=== PATIENT | female | born 1930 | race Caucasian/White ===

== ENCOUNTER 2016-04-29 13:35 | Emergency (ER) | payer OTHER ==
[~2016-04-29] VITALS: Ht 152.4 cm; Wt 76.0 kg
[~2016-04-29 13:35] MED LIST: ASPI81TA82 PO; CHOL100010 PO; CLOP1TAB15 PO; DICY1TAB25 PO; GLUC10007 PO; MAGN400T6 PO; MISCCAP80 PO; NITR0.4S UT; NRV5 PO; OMEG10007 PO; PANT40TA PO; PRED-301 PO; TNR25 PO; TRAV0.00 OPB
[2016-04-29 13:47] VITALS: TEMP 36.8; Ht 152.4 cm; Wt 76.0 kg
[2016-04-29] MEDS ORDERED: LOVA10TA3 PO (14:15)
[2016-04-29 14:23] LABS: BASO % 0.3 %; BASO ABS # 0.03 K/uL (0-0.2); COMPLETE YES; EOS % 1.3 %; HEMATOCRIT 43.6 % (37-47); IG% 0.2 %; LYMPH % 8.7 %; LYMPH ABS # 0.82 K/uL (1.2-3.4); MEAN CELL VOLUME 91.8 fL (80-100); MEAN CORPUSCULAR HEMOGLOBIN 30.3 pg (25-34); MEAN PLATELET VOLUME 10.5 fL (7.4-10.4); NEUT % 84.5 %; PLATELET COUNT 189 K/uL (130-400); RED BLOOD COUNT 4.75 M/uL (4.2-5.4); WHITE BLOOD COUNT 9.39 K/uL (4.8-10.8)
[2016-04-29 14:28] LABS: ALT/SGPT 15 U/L (12-78); BLOOD UREA NITROGEN 21 mg/dl (7-18); BUN/CREATININE RATIO 16.2 (10-20); CALCIUM 9.4 mg/dl (8.5-10.1); CARBON DIOXIDE 29 mmol/L (21-32); CHLORIDE 100 mmol/L (98-107); GLUCOSE 139 mg/dl (70-99); POTASSIUM 4.3 mmol/L (3.5-5.1); SODIUM 140 mmol/L (136-145)
[2016-04-29 14:31] LABS: ALB/GLOB RATIO 1.1 (0.9-2); ALKALINE PHOSPHATASE 64 U/L (45-117); AST/SGOT 16 U/L (15-37)
[2016-04-29] MEDS ORDERED: OPTIRAY 320 IV PRN (15:45)
[2016-04-29 15:50] VITALS: O2SAT 99
--- NOTE | 2016-04-29 16:07 | EMERGENCY ROOM VISIT NOTE ---
History Report prepared by Chasity: Dorota Sood Under the Supervision of: Dr. Maurilio Duenas M.D. First contact with patient: 15:30 Chief Complaint: ABDOMINAL PAIN Stated Complaint: ABDOMINAL PAIN Nursing Triage Summary: pt. arrived als, sent by doctors office, right upper abdominal pain, hx of PE, her pcp concerned she may have another, pt. states it feels just like before I got my gal bladder out, sharp pinching pain History of Present Illness The patient is a 85 year old female who presents to the Emergency Room with complaints of constant right upper quadrant abdominal pain that started earlier today. She came to the ED via ambulance from her PCP. She describes the pain as soreness and she states that the pain becomes sharp with movement. She is also experiencing sinus congestion and abdominal distention, but denies fevers, chills, shortness of breath, back pain, and any pain in her lower extremities. She has oxygen at home, but she states that she does not use it. The patient denies doing anything strenuous recently, but she states that she has to climb to get into her car because it is pretty high. She has a history of a cholecystectomy and an appendectomy. The patient was at her PCP earlier today when they sent her to the ED to rule out a pulmonary embolism. The patient has a history of blood clots. She is on Plavix and aspirin. She adds that she was constipated a couple days ago, but she was able to relieve it with a laxative. She has experienced multiple bowel movements since then. Source of History: patient Onset: earlier today Position: abdomen (RUQ) Quality: sharp (with movement), other (soreness) Timing: constant Modifying Factors (Worsening): movement Associated Symptoms: No SOB, No back pain, No chills, No fevers Note: no pain in her lower extremities Review of Systems All systems have been listed, reviewed, and are negative other than those previously mentioned. Please see Additional Medical History Sheet. Past Medical & Surgical Medical Problems: (1) Carotid arterial disease (2) Cerebrovascular disease (3) Chest pain (4) Chronic steroid use (5) CKD (chronic kidney disease), stage III (6) Coronary artery disease (7) Dyslipidemia (8) Glaucoma (9) Hiatal hernia (10) History of DVT (deep vein thrombosis) (11) History of pulmonary embolism (12) Hypertension (13) Osteoporosis (14) Polymyalgia rheumatica (15) Pre-diabetes (16) TIA (transient ischemic attack) Surgical Problems: (1) H/O dilation and curettage (2) S/P appendectomy (3) S/P laparoscopic cholecystectomy (4) S/P tubal ligation Family History Diabetes mellitus FHx: heart disease Social History Smoking Status: Former Smoker Alcohol Use: none Marital Status: Housing Status: lives alone Occupation Status: unemployed Current/Historical Medications Scheduled Amlodipine Besylate (Amlodipine Besylate), 5 MG PO DAILY Aspirin (Aspirin), 81 MG PO HS Atenolol (Atenolol), 0.5 TAB PO DAILY Cholecalciferol (Vitamin D), 1,000 INTER.UNIT PO DAILY Clopidogrel (Plavix), 75 MG PO DAILY Dicyclomine HCl (Dicyclomine HCl), 20 MG PO BID Fish Oil ([place]-3), 1 CAP PO DAILY Glucosamine Sulfate (Glucosamine), 1,000 MG PO QPM Lovastatin (Mevacor), Unknown Dose PO DAILY Magnesium Oxide (Mag-Ox), 400 MG PO BID Nitroglycerin (Nitrostat), 0.4 MG UT PRN Pantoprazole (Protonix), 40 MG PO BID Prednisone (Prednisone), 5 MG PO QAM Probiotic Product (Probiotic), 1 CAP PO DAILY Travoprost (Travatan Z), 1 FERNANDO OPB HS Allergies Coded Allergies: Atorvastatin (Verified Allergy, Severe, AFFECTS LIVER, 04/29/16) Lisinopril (Verified Allergy, Severe, AFFECTS LIVER ENZYMES, 04/29/16) Amoxicillin (Verified Allergy, Unknown, RASH,HIVES, 04/29/16) Cefaclor (Verified Allergy, Unknown, RASH, HIVES, 04/29/16) Levofloxacin (Verified Allergy, Unknown, hives, 04/29/16) Omeprazole (Verified Allergy, Unknown, blurred vision, headache, flashing lights, 04/29/16) Citalopram (Verified Adverse Reaction, Intermediate, "WILD DREAMS", ) Physical Exam Vital Signs Date Time Temp Pulse Resp B/P Pulse Ox O2 Delivery O2 Flow Rate FiO2 04/29/16 18:28 71 17 178/73 99 04/29/16 17:46 75 20 178/73 Room Air 04/29/16 17:43 58 04/29/16 15:51 65 18 187/87 99 Room Air 2.0 04/29/16 15:50 99 Room Air 04/29/16 15:50 65 18 187/87 99 Room Air 04/29/16 15:50 99 Room Air 04/29/16 14:32 53 16 88/68 98 Nasal Cannula 2.0 04/29/16 13:47 36.8 53 20 159/85 90 Room Air Physical Exam GENERAL: Patient awake, alert, oriented x 3. Patient follows commands. Patient does not appear toxic. Patient is adequately hydrated and well- nourished. SKIN: No erythema, pallor, cyanosis or rash HEENT: Normal head, pupils equal, reactive to light and accommodation. Oral cavity and posterior pharynx appear normal. Neck: Without adenopathy, no neck vein distention. LUNGS: Clear to auscultation. No wheezes, no rales, no rhonchi. Pain in right anterior chest with inspiration. HEART: No murmurs. No gallops. No rubs ABDOMEN: Tenderness in right upper quadrant, pain is also reproduced with any movement. Remainder of abdomen is benign. No masses, no rebound, no hepatomegaly or splenomegaly. EXTREMITIES: Ankle brace on left ankle. No pedal or pretibial edema. No calf or thigh tenderness. NEUROLOGIC: Cranial nerves II-XII within normal limits. No gross motor sensory function deficits. Medical Decision & Procedures ER Provider Diagnostic Interpretation: CT results are interpretations by the radiologist and per my review. CHEST CTA for PULMONARY ARTERIES IMPRESSION: 1. No evidence for pulmonary embolus. 2. Stable dilatation the main pulmonary artery consistent with arterial hypertension. 3. Cardiomegaly, unchanged. Electronically signed by: Dk Mary M.D. 04/29/2016 4:25 PM Dictated Date/Time: 04/29/2016 4:09 PM Laboratory Results 04/29/16 13:30 Red Blood Count 4.75, Mean Corpuscular Volume 91.8, Mean Corpuscular Hemoglobin 30.3, Mean Corpuscular Hemoglobin Concent 33.0, Mean Platelet Volume 10.5, Neutrophils (%) (Auto) 84.5, Lymphocytes (%) (Auto) 8.7, Monocytes (%) (Auto) 5.0, Eosinophils (%) (Auto) 1.3, Basophils (%) (Auto) 0.3, Neutrophils # (Auto) 7.93, Lymphocytes # (Auto) 0.82, Monocytes # (Auto) 0.47, Eosinophils # (Auto) 0.12, Basophils # (Auto) 0.03 04/29/16 13:30 Test 04/29/16 13:30 04/29/16 16:45 White Blood Count 9.39 K/uL (4.8-10.8) Red Blood Count 4.75 M/uL (4.2-5.4) Hemoglobin 14.4 g/dL (12.0-16.0) Hematocrit 43.6 % (37-47) Mean Corpuscular Volume 91.8 fL (80-100) Mean Corpuscular Hemoglobin 30.3 pg (25-34) Mean Corpuscular Hemoglobin Concent 33.0 g/dl (32-36) Platelet Count 189 K/uL (130-400) Mean Platelet Volume 10.5 fL (7.4-10.4) Neutrophils (%) (Auto) 84.5 % Lymphocytes (%) (Auto) 8.7 % Monocytes (%) (Auto) 5.0 % Eosinophils (%) (Auto) 1.3 % Basophils (%) (Auto) 0.3 % Neutrophils # (Auto) 7.93 K/uL (1.4-6.5) Lymphocytes # (Auto) 0.82 K/uL (1.2-3.4) Monocytes # (Auto) 0.47 K/uL (0.11-0.59) Eosinophils # (Auto) 0.12 K/uL (0-0.5) Basophils # (Auto) 0.03 K/uL (0-0.2) RDW Standard Deviation 44.9 fL (36.4-46.3) RDW Coefficient of Variation 13.5 % (11.5-14.5) Immature Granulocyte % (Auto) 0.2 % Immature Granulocyte # (Auto) 0.02 K/uL (0.00-0.02) Prothrombin Time 10.2 SECONDS (9.0-12.0) Prothromb Time International Ratio 1.0 (0.9-1.1) Activated Partial Thromboplast Time 24.1 SECONDS (21.0-31.0) Partial Thromboplastin Ratio 0.9 Anion Gap 11.0 mmol/L (3-11) Est Creatinine Clear Calc Drug Dose 29.9 ml/min Estimated GFR () 43.9 Estimated GFR (Non- 37.9 BUN/Creatinine Ratio 16.2 (10-20) Calcium Level 9.4 mg/dl (8.5-10.1) Total Bilirubin 1.0 mg/dl (0.2-1) Aspartate Amino Transf (AST/SGOT) 16 U/L (15-37) Alanine Aminotransferase (ALT/SGPT) 15 U/L (12-78) Alkaline Phosphatase 64 U/L (45-117) Troponin I < 0.015 ng/ml (0-0.045) Total Protein 7.3 gm/dl (6.4-8.2) Albumin 3.8 gm/dl (3.4-5.0) Globulin 3.5 gm/dl (2.5-4.0) Albumin/Globulin Ratio 1.1 (0.9-2) Lipase 282 U/L (73-393) Urine Color YELLOW Urine Appearance CLEAR (CLEAR) Urine pH 7.5 (4.5-7.5) Urine Specific [place] 1.015 (1.000-1.030) Urine Protein NEG (NEG) Urine Glucose (UA) NEG (NEG) Urine Ketones NEG (NEG) Urine Occult Blood NEG (NEG) Urine Nitrite NEG (NEG) Urine Bilirubin NEG (NEG) Urine Urobilinogen NEG (NEG) Urine Leukocyte Esterase NEG (NEG) Laboratory results as stated above per my review. ECG Indication: abdominal pain Rate (beats per minute): 54 Rhythm: sinus bradycardia Findings: RBBB, T-wave inversion (V1-V5) ED Course 1532: Past medical records reviewed. The patient was evaluated in room A4. A complete history and physical examination was performed. 1750: Upon reevaluation, the patient appeared to have improvement of her symptoms. I discussed today's findings with her. She verbalized agreement of the treatment plan. She was discharged home. Medical Decision Nurses notes reviewed. Medical history sheet reviewed. Differential diagnosis includes but is not limited to: pulmonary embolism, pulmonary infarction, pneumonia,musculoskeletal pain. The patient is here with right-sided lower chest/abdominal pain. Pain is increased with certain movements. The patient's prior history of compression fractures in her back. She is here now concerned about a possible PE. She does have a prior history of the same. Multiple labs, EKG and imaging were performed. Please see above. The patient has no evidence of a PE or other significant cardiopulmonary events. I believe her pain is musculoskeletal in nature most likely related to her prior compression fractures. The patient will be treated symptomatically. She was offered pain medication here but declined. She does state that she has Percocet at home. She is to follow-up with family physician. Impression Primary Impression: Musculoskeletal chest pain Scribe Attestation The scribe's documentation has been prepared under my direction and personally reviewed by me in its entirety. I confirm that the note above accurately reflects all work, treatment, procedures, and medical decision making performed by me. Departure Information Dispostion Home / Self-Care Referrals Camden Lazar D.O. (PCP) Forms HOME CARE DOCUMENTATION FORM, IMPORTANT VISIT INFORMATION Patient Instructions My [facility] Additional Instructions Apply heat intermittently to your chest over the next 5 days. You may take Percocet if necessary to control the pain. Do not drive or operate any kind of machinery while taking Percocet. Follow-up with your family physician within the next 10 days. Return here sooner if the pain is getting worse.
--- NOTE | 2016-04-29 16:27 | DIAGNOSTIC IMAGING REPORT ---
CHEST CTA for PULMONARY ARTERIES CT DOSE: 391.88 mGy.cm HISTORY: Atypical chest pain. TECHNIQUE: Multiaxial CT images of the chest were performed following the intravenous administration of contrast to evaluate the pulmonary arteries. Maximal intensity projection images were also obtained. COMPARISON STUDY: Chest CTA 10/01/2015. FINDINGS: Normal caliber thoracic aorta with no evidence for an aortic dissection. No filling defects within the arteries to suggest pulmonary embolus. The main pulmonary artery remains dilated up to 3.5 cm. This is consistent with pulmonary arterial hypertension. The heart remains enlarged. No pleural or pericardial effusions. A few subcentimeter hypodense lesions within the liver remain stable. These are too small to characterize but favor cysts. Cholecystectomy. The adrenal glands and spleen are unremarkable. Probable tiny hiatus hernia. An 11 mm left thyroid nodule. No mediastinal or hilar lymphadenopathy. No suspicious lytic or blastic osseous lesions. The central airways are patent. No pneumothorax. Bibasilar densities favor subsegmental atelectasis. IMPRESSION: 1. No evidence for pulmonary embolus. 2. Stable dilatation the main pulmonary artery consistent with arterial hypertension. 3. Cardiomegaly, unchanged. Electronically signed by: Dk Mary M.D. 04/29/2016 4:25 PM Dictated Date/Time: 04/29/2016 4:09 PM
[2016-04-29 16:28] LABS: PARTIAL THROMBOPLASTIN RATIO 0.9; PROTHROMBIN TIME (PATIENT) 10.2 SECONDS (9.0-12.0)
[2016-04-29 17:12] LABS: URINE APPEARANCE CLEAR (CLEAR); URINE BILIRUBIN NEG (NEG); URINE COLOR YELLOW; URINE NITRITE NEG (NEG); URINE PH 7.5 (4.5-7.5); URINE SPECIFIC GRAVITY 1.015 (1.000-1.030); UROBILINOGEN NEG (NEG); ZZURINE CULT IF INDIC CATH NO
[2016-04-29 17:15] LABS: MANUAL MICROSCOPIC REQUIRED? NO; REVIEW REQ? NO
[2016-04-29 18:28] VITALS: BP 178/73; PULSE 71; O2SAT 99
[2016-10-04] MEDS ORDERED: LCTX PO (10:19)
[2016-10-04] MEDS ORDERED: CRG3125 PO (10:19)
== END 2016-04-29 18:30 | disposition home or self-care (01) ==
LOC: EDBD 13:35 → C.EDA 13:36
DX: R07.89 Other chest pain (principal); I45.10 Unspecified right bundle-branch block; I12.9 Hypertensive chronic kidney disease with stage 1 through stage 4 chronic kidney disease, or unspecified chronic kidney disease; N18.3 Chronic kidney disease, stage 3 (moderate); I25.10 Atherosclerotic heart disease of native coronary artery without angina pectoris; E78.5 Hyperlipidemia, unspecified; M81.0 Age-related osteoporosis without current pathological fracture; H40.9 Unspecified glaucoma; R73.9 Hyperglycemia, unspecified; Z86.73 Personal history of transient ischemic attack (TIA), and cerebral infarction without residual deficits; Z86.711 Personal history of pulmonary embolism; Z86.718 Personal history of other venous thrombosis and embolism; Z98.51 Tubal ligation status; Z90.49 Acquired absence of other specified parts of digestive tract; Z98.890 Other specified postprocedural states; Z79.82 Long term (current) use of aspirin; Z79.899 Other long term (current) drug therapy; Z87.891 Personal history of nicotine dependence; Z88.1 Allergy status to other antibiotic agents; Z88.8 Allergy status to other drugs, medicaments and biological substances; Z83.3 Family history of diabetes mellitus; Z82.49 Family history of ischemic heart disease and other diseases of the circulatory system

== ENCOUNTER 2016-09-24 20:02 | Emergency (ER) | payer OTHER ==
[~2016-09-24] VITALS: Ht 152.4 cm; Wt 77.5 kg
[~2016-09-24 20:02] MED LIST changes: +LOVA10TA3 PO
[2016-09-24 20:07] VITALS: Ht 152.4 cm; Wt 77.5 kg
[2016-09-24] MEDS ORDERED: SODIUM CHLORIDE 0.9% 1000ML 1,000 ML IV STA (20:34)
[2016-09-24 20:50] LABS: URINE APPEARANCE CLEAR (CLEAR); URINE BILIRUBIN NEG (NEG); URINE COLOR YELLOW; URINE EPITHELIAL CELL AUTO 0-5 /lpf (0-5); URINE NITRITE NEG (NEG); URINE SPECIFIC GRAVITY 1.012 (1.000-1.030); UROBILINOGEN NEG (NEG); ZZUR CULT IF INDIC CLEAN CATCH YES
[2016-09-24] MEDS ORDERED: CHOL100027 PO (20:53)
[2016-09-24] MEDS ORDERED: ASPI1TAB83 PO (20:53)
[2016-09-24] MEDS ORDERED: LPT/20 PO (20:53)
[2016-09-24 20:54] LABS: MANUAL MICROSCOPIC REQUIRED? NO; REVIEW REQ? NO
[2016-09-24 21:03] LABS: BASO % 0.3 %; BASO ABS # 0.03 K/uL (0-0.2); COMPLETE YES; EOS % 2.1 %; HEMATOCRIT 42.7 % (37-47); IG% 0.3 %; LYMPH % 15.2 %; LYMPH ABS # 1.49 K/uL (1.2-3.4); MEAN CORPUSCULAR HEMOGLOBIN 31.1 pg (25-34); MEAN CORPUSCULAR HGB CONC 34.2 g/dl (32-36); MONO % 6.6 %; NEUT % 75.5 %; PLATELET COUNT 194 K/uL (130-400); RED BLOOD COUNT 4.69 M/uL (4.2-5.4); WHITE BLOOD COUNT 9.81 K/uL (4.8-10.8)
[2016-09-24 21:26] LABS: BLOOD UREA NITROGEN 17 mg/dl (7-18); BUN/CREATININE RATIO 13.3 (10-20); CALCIUM 9.1 mg/dl (8.5-10.1); CARBON DIOXIDE 29 mmol/L (21-32); CHLORIDE 98 mmol/L (98-107); GLUCOSE 170 mg/dl (70-99); POTASSIUM 4.2 mmol/L (3.5-5.1); SODIUM 134 mmol/L (136-145)
--- NOTE | 2016-09-24 21:28 | DIAGNOSTIC IMAGING REPORT ---
CT SCAN OF THE ABDOMEN AND PELVIS WITHOUT IV CONTRAST CLINICAL HISTORY: Urinary tract infection. Left flank pain. COMPARISON STUDY: Abdominal CT dated 07/16/2013. TECHNIQUE: CT scan of the abdomen and pelvis is performed from the lung bases to the proximal femora. Images are reviewed in the axial, sagittal, and coronal planes. IV contrast was not administered for this examination. Note that the examination is suboptimal without oral and IV contrast. Automated dose control exposure was utilized. CT DOSE: 1390.45 mGy.cm FINDINGS: Lung bases: The heart is enlarged and without pericardial effusion. The coronary arteries are densely calcified, as is the mitral annulus. A tiny hiatal hernia is noted. No airspace consolidation or pleural effusion is identified at the lung bases. Liver: The unenhanced liver is normal in size, contour, and attenuation. There is no intrahepatic biliary ductal dilatation. Small hepatic cysts measure up to 1.4 cm. Gallbladder: Surgically absent noting clips in the gallbladder fossa. Spleen: Normal in size and attenuation. Pancreas: The unenhanced pancreas is mildly atrophic and grossly unremarkable. Adrenal glands: Unremarkable. Kidneys: The unenhanced kidneys are atrophic and without hydronephrosis. Cortical scarring is seen in the left lower pole. There are no renal calculi identified. There is no evidence of contour deforming renal mass lesion. Nonspecific perinephric stranding is noted bilaterally. This is similar to prior studies. Abdominal vasculature: There is advanced atherosclerotic calcification and ectasia of the abdominal aorta. Bowel: The small bowel and colon are normal in course and caliber. There are scattered colonic diverticula without CT evidence of acute diverticulitis. The appendix is not identified. Peritoneum: There is no intraperitoneal free air or abdominal ascites. Lymphadenopathy: None. Pelvic viscera: Mild bladder wall thickening suggested. The uterus and adnexa are normal as visualized. Skeletal structures: The skeletal structures are osteopenic. There is moderate to advanced lumbosacral spondylosis and scoliosis. There is a mild chronic superior endplate compression deformity of L3. No lytic or blastic lesions are seen. IMPRESSION: 1. Mild circumferential bladder wall thickening is suggested. Correlate clinically and with urinalysis for evidence of cystitis. 2. No additional infectious or inflammatory findings are suggested in the abdomen or pelvis. 3. Cardiomegaly and small hiatal hernia. 4. Additional findings as above. Electronically signed by: Corey Roman M.D. 09/24/2016 9:26 PM Dictated Date/Time: 09/24/2016 9:20 PM
[2016-09-24 21:35] LABS: ALB/GLOB RATIO 0.9 (0.9-2); ALKALINE PHOSPHATASE 72 U/L (45-117); ALT/SGPT 21 U/L (12-78); AST/SGOT 15 U/L (15-37)
[2016-09-24] MEDS ORDERED: CEFTRIAXONE SOD INJ 1 GM ADDVIAL IV STA (21:40)
[2016-09-24] MEDS ORDERED: ACETAMINOPHEN 500 MG TAB PO STA (22:29)
[2016-09-24] MEDS ORDERED: AMLODIPINE BESYLATE 5 MG TAB PO ONE (22:30)
[2016-09-24 22:35] VITALS: TEMP 36.7
--- NOTE | 2016-09-25 00:17 | EMERGENCY ROOM VISIT NOTE ---
History Report prepared by Chasity: Juliette Rosen Under the Supervision of: Dr. Celia Snow D.O. First contact with patient: 20:15 Chief Complaint: URINARY SYMPTOMS Stated Complaint: URINARY SYMPTOMS,L SIDE PAIN AND BACK PAIN History of Present Illness The patient is an 86 year old female who presents to the Emergency Room with complaints of intermittent left flank pain starting 1 week ago. She also reports frequent urination and dysuria. Last night, she was up every 2 hours to urinate. She has not checked her urine for changes in color or odor. She reports nausea and diaphoresis. She denies any fever, cough, cold symptoms, SOB , chest pain, or changes in bowel movement. She denies any new medications. She has been drinking a lot of water and ice tea. She often feels dehydrated. She has a history of UTI, but she has not experienced the flank pain before. She denies any history of kidney stones. She has kidney disease. Source of History: patient Onset: 1 week ago Position: other (left flank) Quality: other (pain) Timing: intermittent Associated Symptoms: + diaphoresis, + nausea, + urinary symptoms, No fevers , No cough, No chest pain, No SOB Note: Pt denies changes in bowel movement. Review of Systems See HPI for pertinent positives & negatives. A total of 10 systems reviewed and were otherwise negative. Past Medical & Surgical Medical Problems: (1) Carotid arterial disease (2) Cerebrovascular disease (3) Chest pain (4) Chronic steroid use (5) CKD (chronic kidney disease), stage III (6) Coronary artery disease (7) Dyslipidemia (8) Glaucoma (9) Hiatal hernia (10) History of DVT (deep vein thrombosis) (11) History of pulmonary embolism (12) Hypertension (13) Osteoporosis (14) Polymyalgia rheumatica (15) Pre-diabetes (16) TIA (transient ischemic attack) Surgical Problems: (1) H/O dilation and curettage (2) S/P appendectomy (3) S/P laparoscopic cholecystectomy (4) S/P tubal ligation Family History Diabetes mellitus FHx: heart disease Social History Smoking Status: Former Smoker Alcohol Use: none Marital Status: Housing Status: lives alone Occupation Status: unemployed Current/Historical Medications Scheduled Amlodipine Besylate (Amlodipine Besylate), 5 MG PO DAILY Aspirin (Aspirin), 1 TAB PO HS Atenolol (Atenolol), 0.5 TAB PO DAILY Atorvastatin (Atorvastatin Calcium), 20 MG PO HS Cephalexin (Keflex), 1 CAP PO BID Cholecalciferol (Vitamin D 1000 Unit), 1,000 INTER.UNIT PO DAILY Clopidogrel (Plavix), 75 MG PO DAILY Dicyclomine HCl (Dicyclomine HCl), 20 MG PO BID Fish Oil ([place]-3), 1 CAP PO DAILY Glucosamine Sulfate (Glucosamine), 1,000 MG PO QPM Magnesium Oxide (Mag-Ox), 400 MG PO BID Nitroglycerin (Nitrostat), 0.4 MG UT PRN Pantoprazole (Protonix), 40 MG PO BID Prednisone (Prednisone), 5 MG PO QAM Probiotic Product (Probiotic), 1 CAP PO DAILY Travoprost (Travatan Z), 1 FERNANDO OPB HS Allergies Coded Allergies: Atorvastatin (Verified Allergy, Severe, AFFECTS LIVER, 04/29/16) Lisinopril (Verified Allergy, Severe, AFFECTS LIVER ENZYMES, 04/29/16) Amoxicillin (Verified Allergy, Unknown, RASH,HIVES, 04/29/16) Cefaclor (Verified Allergy, Unknown, RASH, HIVES, 04/29/16) Levofloxacin (Verified Allergy, Unknown, hives, 04/29/16) Omeprazole (Verified Allergy, Unknown, blurred vision, headache, flashing lights, 04/29/16) Citalopram (Verified Adverse Reaction, Intermediate, "WILD DREAMS", ) Physical Exam Vital Signs Date Time Temp Pulse Resp B/P (MAP) Pulse Ox O2 Delivery O2 Flow Rate FiO2 09/25/16 00:21 68 14 156/87 93 Room Air 09/25/16 00:14 184/103 09/25/16 00:05 224/90 09/24/16 23:51 229/88 09/24/16 23:15 241/95 09/24/16 22:50 254/76 09/24/16 22:35 36.7 09/24/16 22:24 68 235/105 09/24/16 22:14 68 16 233/96 90 Room Air 09/24/16 21:19 58 16 175/110 92 Room Air 09/24/16 20:07 36.8 82 20 227/112 94 Room Air Physical Exam GENERAL: alert, well appearing, well nourished, no distress, non-toxic EYE EXAM: normal conjunctiva, PERRL and EOM's grossly intact OROPHARYNX: no exudate, no erythema, lips, buccal mucosa, and tongue normal and mucous membranes are moist NECK: supple, no nuchal rigidity, no adenopathy, non-tender LUNGS: Clear to auscultation. Normal chest wall mechanics HEART: no murmurs, S1 normal and S2 normal ABDOMEN: abdomen soft, non-tender, normo-active bowel sounds, no masses, no rebound or guarding. BACK: Back is symmetrical on inspection and there is no deformity, no midline tenderness, no CVA tenderness, mild left flank pain. SKIN: no rashes and no bruising UPPER EXTREMITIES: upper extremities are grossly normal. LOWER EXTREMITIES: No pitting edema. Left foot is in a chronic boot. NEURO EXAM: Normal sensorium, cranial nerves II-XII grossly intact, normal speech, no gross weakness of arms, no gross weakness of legs. Medical Decision & Procedures ER Provider Diagnostic Interpretation: Radiology results have been interpreted by the radiologist and reviewed by me. CT SCAN OF THE ABDOMEN AND PELVIS WITHOUT IV CONTRAST CLINICAL HISTORY: Urinary tract infection. Left flank pain. COMPARISON STUDY: Abdominal CT dated 07/16/2013. TECHNIQUE: CT scan of the abdomen and pelvis is performed from the lung bases to the proximal femora. Images are reviewed in the axial, sagittal, and coronal planes. IV contrast was not administered for this examination. Note that the examination is suboptimal without oral and IV contrast. Automated dose control exposure was utilized. CT DOSE: 1390.45 mGy.cm FINDINGS: Lung bases: The heart is enlarged and without pericardial effusion. The coronary arteries are densely calcified, as is the mitral annulus. A tiny hiatal hernia is noted. No airspace consolidation or pleural effusion is identified at the lung bases. Liver: The unenhanced liver is normal in size, contour, and attenuation. There is no intrahepatic biliary ductal dilatation. Small hepatic cysts measure up to 1.4 cm. Gallbladder: Surgically absent noting clips in the gallbladder fossa. Spleen: Normal in size and attenuation. Pancreas: The unenhanced pancreas is mildly atrophic and grossly unremarkable. Adrenal glands: Unremarkable. Kidneys: The unenhanced kidneys are atrophic and without hydronephrosis. Cortical scarring is seen in the left lower pole. There are no renal calculi identified. There is no evidence of contour deforming renal mass lesion. Nonspecific perinephric stranding is noted bilaterally. This is similar to prior studies. Abdominal vasculature: There is advanced atherosclerotic calcification and ectasia of the abdominal aorta. Bowel: The small bowel and colon are normal in course and caliber. There are scattered colonic diverticula without CT evidence of acute diverticulitis. The appendix is not identified. Peritoneum: There is no intraperitoneal free air or abdominal ascites. Lymphadenopathy: None. Pelvic viscera: Mild bladder wall thickening suggested. The uterus and adnexa are normal as visualized. Skeletal structures: The skeletal structures are osteopenic. There is moderate to advanced lumbosacral spondylosis and scoliosis. There is a mild chronic superior endplate compression deformity of L3. No lytic or blastic lesions are seen. IMPRESSION: 1. Mild circumferential bladder wall thickening is suggested. Correlate clinically and with urinalysis for evidence of cystitis. 2. No additional infectious or inflammatory findings are suggested in the abdomen or pelvis. 3. Cardiomegaly and small hiatal hernia. 4. Additional findings as above. Electronically signed by: Corey Roman M.D. 09/24/2016 9:26 PM Dictated Date/Time: 09/24/2016 9:20 PM Laboratory Results 09/24/16 20:55 Red Blood Count 4.69, Mean Corpuscular Volume 91.0, Mean Corpuscular Hemoglobin 31.1, Mean Corpuscular Hemoglobin Concent 34.2, Mean Platelet Volume 10.0, Neutrophils (%) (Auto) 75.5, Lymphocytes (%) (Auto) 15.2, Monocytes (%) (Auto) 6.6, Eosinophils (%) (Auto) 2.1, Basophils (%) (Auto) 0.3, Neutrophils # (Auto) 7.40, Lymphocytes # (Auto) 1.49, Monocytes # (Auto) 0.65, Eosinophils # (Auto) 0.21, Basophils # (Auto) 0.03 09/24/16 20:55 Test 09/24/16 20:14 09/24/16 20:55 Urine Color YELLOW Urine Appearance CLEAR (CLEAR) Urine pH 7.0 (4.5-7.5) Urine Specific [place] 1.012 (1.000-1.030) Urine Protein TRACE (NEG) Urine Glucose (UA) NEG (NEG) Urine Ketones NEG (NEG) Urine Occult Blood 1+ (NEG) Urine Nitrite NEG (NEG) Urine Bilirubin NEG (NEG) Urine Urobilinogen NEG (NEG) Urine Leukocyte Esterase LARGE (NEG) Urine WBC (Auto) >30 /hpf (0-5) Urine RBC (Auto) 5-10 /hpf (0-4) Urine Hyaline Casts (Auto) 1-5 /lpf (0-5) Urine Epithelial Cells (Auto) 0-5 /lpf (0-5) Urine Bacteria (Auto) 4+ (NEG) White Blood Count 9.81 K/uL (4.8-10.8) Red Blood Count 4.69 M/uL (4.2-5.4) Hemoglobin 14.6 g/dL (12.0-16.0) Hematocrit 42.7 % (37-47) Mean Corpuscular Volume 91.0 fL (80-100) Mean Corpuscular Hemoglobin 31.1 pg (25-34) Mean Corpuscular Hemoglobin Concent 34.2 g/dl (32-36) Platelet Count 194 K/uL (130-400) Mean Platelet Volume 10.0 fL (7.4-10.4) Neutrophils (%) (Auto) 75.5 % Lymphocytes (%) (Auto) 15.2 % Monocytes (%) (Auto) 6.6 % Eosinophils (%) (Auto) 2.1 % Basophils (%) (Auto) 0.3 % Neutrophils # (Auto) 7.40 K/uL (1.4-6.5) Lymphocytes # (Auto) 1.49 K/uL (1.2-3.4) Monocytes # (Auto) 0.65 K/uL (0.11-0.59) Eosinophils # (Auto) 0.21 K/uL (0-0.5) Basophils # (Auto) 0.03 K/uL (0-0.2) RDW Standard Deviation 43.9 fL (36.4-46.3) RDW Coefficient of Variation 13.2 % (11.5-14.5) Immature Granulocyte % (Auto) 0.3 % Immature Granulocyte # (Auto) 0.03 K/uL (0.00-0.02) Anion Gap 7.0 mmol/L (3-11) Est Creatinine Clear Calc Drug Dose 29.6 ml/min Estimated GFR () 43.6 Estimated GFR (Non- 37.6 BUN/Creatinine Ratio 13.3 (10-20) Lactic Acid Level 2.0 mmol/L (0.4-2.0) Calcium Level 9.1 mg/dl (8.5-10.1) Total Bilirubin 0.8 mg/dl (0.2-1) Aspartate Amino Transf (AST/SGOT) 15 U/L (15-37) Alanine Aminotransferase (ALT/SGPT) 21 U/L (12-78) Alkaline Phosphatase 72 U/L (45-117) Troponin I < 0.015 ng/ml (0-0.045) Total Protein 6.9 gm/dl (6.4-8.2) Albumin 3.3 gm/dl (3.4-5.0) Globulin 3.6 gm/dl (2.5-4.0) Albumin/Globulin Ratio 0.9 (0.9-2) Laboratory results per my review. Medications Administered Medications (Trade) Dose Ordered Sig/[place] Route Start Time Stop Time Status Last Admin Dose Admin Sodium Chloride 1,000 ml @ 999 mls/hr Q1H1M STAT IV 09/24/16 20:34 09/24/16 21:34 DC 09/24/16 20:34 999 MLS/HR Ceftriaxone Sodium (Rocephin Inj) 1 gm NOW STAT IV 09/24/16 21:40 09/24/16 21:41 DC 09/24/16 22:17 1 GM Amlodipine Besylate (Norvasc Tab) 5 mg NOW ONCE PO 09/24/16 22:30 09/24/16 22:31 DC 09/24/16 22:35 5 MG Acetaminophen (Tylenol Tab) 1,000 mg NOW STAT PO 09/24/16 22:29 09/24/16 22:31 DC 09/24/16 22:34 1,000 MG Atenolol (Tenormin Tab) 12.5 mg NOW STAT PO 09/24/16 23:23 09/24/16 23:25 DC 09/24/16 23:50 12.5 MG ECG Indication: diaphoresis, nausea Rate (beats per minute): 64 Rhythm: sinus rhythm Findings: RBBB, T-wave inversion (lead 1, aVL, V1-V5), other (normal axis) Comparison ECG Date: 29-Apr-2016 Change: no significant change ED Course 2027: The patient was evaluated in room B3B. A complete history and physical exam was performed. 2033: NSS 1000 ml @ 999 mls/hr IV. 0: Rocephin Inj 1 gm IV. 2228: Acetaminophen 1000 mg PO. 2230: Norvasc Tab 5 mg PO. 2323: Atenolol 12.5 mg PO. 0014: Patient reevaluated bedside, no current pain, no nausea or vomiting, no fevers chills, no complaints. Patient so with elevated blood pressure but denies any symptoms. Patient admitted nursing staff earlier that she did not take her regular medications today. Patient was given her routine antihypertensive medications. Patient instructed she needs to take these daily as they were prescribed and follow closely with her family doctor. I discussed the findings and the treatment plan with the patient. She verbalizes agreement and understanding. She was discharged home. Medical Decision Differential diagnosis: Etiologies such as renal colic, appendicitis, colitis, perf, sbo, diverticulitis , mesenteric ischemia, aortic pathology, infections, inflammatory bowel disease , PUD, biliary pathology, UTI, ARF, stone, bacteremia/sepsis, as well as others were entertained. Medication Reconciliation: I attest that I have personally reviewed the patient' s current medication list. Blood pressure screening: Patient was found to have an elevated blood pressure and was referred to their primary doctor for recheck and further treatment. Patient well-appearing here despite complaints. Pain controlled. Clinically patient's presentation consistent with a sending UTI, no evidence of loin pyelonephritis on CT. Patient with history of mild renal renal insufficiency, this appears consistent with baseline. Patient nontoxic in appearance, doubt bacteremia/sepsis. Patient with markedly elevated blood pressures initially, and found to be related to errant cuff. Still elevated with properly sized cuff , however patient admitted to not taking usual medications today which include to antihypertensive medications. These were given to the patient and her blood pressure began to improve. Patient with no symptoms of hypertensive urgency/ emergency. Patient started on antibiotics here, culture sent as a precaution. Patient discharged with antibiotics, encouraged to follow closely with family doctor for recheck of her symptoms as well as her blood pressure. Discussed symptoms to watch and return for, she verbalized understanding was agreeable with plan. Impression Primary Impression: Urinary tract infection Additional Impressions: Hypertension Flank pain Scribe Attestation The scribe's documentation has been prepared under my direction and personally reviewed by me in its entirety. I confirm that the note above accurately reflects all work, treatment, procedures, and medical decision making performed by me. Departure Information Dispostion Home / Self-Care Prescriptions Cephalexin (KEFLEX) 500 Mg Cap 1 CAP PO BID for 7 Days, #14 CAP Prov: Celia Snow, DO 09/25/16 Referrals Camden Lazar D.O. (PCP) Patient Instructions [facility] Additional Instructions Please call and follow-up with her family doctor. These take the antibiotics as prescribed and make sure you're drinking plenty of water. These take your medications daily as prescribed including her blood pressure medications. If you develop any worsening pain, noticed blood in her urine, develop fevers or chills, nausea or vomiting, chest pain or trouble breathing, or you have any other new concerns, please return to the emergency room. Problem Qualifiers Primary Impression: Urinary tract infection Urinary tract infection type: acute cystitis Hematuria presence: with hematuria Qualified Codes: N30.01 - Acute cystitis with hematuria Additional Impressions: Hypertension Hypertension type: essential hypertension Qualified Codes: I10 - Essential ( primary) hypertension
[2016-09-25] MEDS ORDERED: CEPH-571 PO (00:18)
[2016-09-25 00:21] VITALS: BP 156/87; PULSE 68; O2SAT 93
[2016-10-04] MEDS ORDERED: LCTX PO (10:19)
[2016-10-04] MEDS ORDERED: CRG3125 PO (10:19)
== END 2016-09-25 00:28 | disposition home or self-care (01) ==
LOC: C.EDB 20:04
DX: N39.0 Urinary tract infection, site not specified (principal); R10.30 Lower abdominal pain, unspecified; I12.9 Hypertensive chronic kidney disease with stage 1 through stage 4 chronic kidney disease, or unspecified chronic kidney disease; N18.3 Chronic kidney disease, stage 3 (moderate); E78.5 Hyperlipidemia, unspecified; I25.10 Atherosclerotic heart disease of native coronary artery without angina pectoris; M81.0 Age-related osteoporosis without current pathological fracture; Z86.73 Personal history of transient ischemic attack (TIA), and cerebral infarction without residual deficits; Z86.711 Personal history of pulmonary embolism; Z86.718 Personal history of other venous thrombosis and embolism; Z90.49 Acquired absence of other specified parts of digestive tract; Z98.51 Tubal ligation status; Z98.890 Other specified postprocedural states; Z87.891 Personal history of nicotine dependence; Z79.82 Long term (current) use of aspirin; Z79.899 Other long term (current) drug therapy; Z88.1 Allergy status to other antibiotic agents; Z88.8 Allergy status to other drugs, medicaments and biological substances; Z83.3 Family history of diabetes mellitus; Z82.49 Family history of ischemic heart disease and other diseases of the circulatory system

== ENCOUNTER 2016-10-01 08:57 | Observation (INO) | payer OTHER ==
[~2016-10-01] VITALS: Ht 152.4 cm; Wt 75.3 kg
[~2016-10-01 08:57] MED LIST changes: +ASPI1TAB83 PO; -ASPI81TA82 PO; +CEPH-571 PO; -CHOL100010 PO; +CHOL100027 PO; -LOVA10TA3 PO; +LPT/20 PO
[2016-10-01] MEDS ORDERED: SODIUM CHLORIDE 0.9% 1000ML 1,000 ML IV STA (09:12)
[2016-10-01 09:22] LABS: BASO % 0.3 %; BASO ABS # 0.03 K/uL (0-0.2); COMPLETE YES; EOS % 1.9 %; HEMATOCRIT 39.4 % (37-47); IG% 0.3 %; LYMPH % 10.4 %; LYMPH ABS # 0.97 K/uL (1.2-3.4); MEAN CELL VOLUME 90.8 fL (80-100); MEAN CORPUSCULAR HEMOGLOBIN 30.6 pg (25-34); MEAN CORPUSCULAR HGB CONC 33.8 g/dl (32-36); MEAN PLATELET VOLUME 9.6 fL (7.4-10.4); MONO % 7.1 %; PLATELET COUNT 180 K/uL (130-400); RED BLOOD COUNT 4.34 M/uL (4.2-5.4); WHITE BLOOD COUNT 9.29 K/uL (4.8-10.8)
[2016-10-01 09:41] LABS: ALT/SGPT 26 U/L (12-78); BLOOD UREA NITROGEN 21 mg/dl (7-18); BUN/CREATININE RATIO 12.5 (10-20); CALCIUM 9.3 mg/dl (8.5-10.1); CARBON DIOXIDE 27 mmol/L (21-32); CHLORIDE 102 mmol/L (98-107); GLUCOSE 103 mg/dl (70-99); MAGNESIUM 1.9 mg/dl (1.8-2.4); POTASSIUM 4.5 mmol/L (3.5-5.1); SODIUM 136 mmol/L (136-145)
[2016-10-01] MEDS ORDERED: DICY1TAB25 PO (09:42)
[2016-10-01] MEDS ORDERED: ATOR-22 PO (09:44)
[2016-10-01 09:46] LABS: ALB/GLOB RATIO 0.9 (0.9-2); ALKALINE PHOSPHATASE 66 U/L (45-117); AST/SGOT 18 U/L (15-37)
--- NOTE | 2016-10-01 11:12 | DIAGNOSTIC IMAGING REPORT ---
PA CHEST RADIOGRAPH AND UPRIGHT AND SUPINE AP RADIOGRAPHS OF THE ABDOMEN CLINICAL HISTORY: Abdominal pain and diarrhea. COMPARISON STUDY: Chest CT April 29, [address] of the abdomen and pelvis September 24, 2016. FINDINGS: Lung volumes are diminished. Moderate cardiomegaly is noted. There is no evidence of pulmonary edema. There is no lobar consolidation. There is no free air. Levoscoliosis of lumbar spine is noted. There are cholecystectomy clips. There is no evidence of a bowel obstruction. IMPRESSION: 1. No free air or evidence of bowel obstruction. 2. Diminished lung volumes. 3. Cardiomegaly without overt pulmonary edema. Electronically signed by: William Holt M.D. 10/01/2016 11:11 AM Dictated Date/Time: 10/01/2016 11:04 AM
[2016-10-01 11:19] LABS: URINE APPEARANCE CLEAR (CLEAR); URINE BILIRUBIN NEG (NEG); URINE COLOR YELLOW; URINE NITRITE NEG (NEG); URINE PH 6.5 (4.5-7.5); URINE SPECIFIC GRAVITY 1.013 (1.000-1.030); UROBILINOGEN NEG (NEG)
[2016-10-01 11:20] LABS: MANUAL MICROSCOPIC REQUIRED? NO; REVIEW REQ? NO
[2016-10-01] MEDS ORDERED: ONDANSETRON INJ 2 MG/ML 2 ML VIAL IV PRN (15:15)
[2016-10-01] MEDS ORDERED: NITROGLYCERIN 0.4 MG SL PER TAB CHARGE UT PRN (15:15)
[2016-10-01] MEDS ORDERED: ACETAMINOPHEN 325 MG TAB PO PRN (15:15)
--- NOTE | 2016-10-01 15:36 | History and Physical ---
History & Physical Date & Time of Service: Oct 01, 2016 at 15:18 Chief Complaint: Leg Weakness Primary Care Physician: Camden Lazar D.O. History of Present Illness Source: patient Complains to have diarrhea on and off since Monday last and today became very weak and lethargic.Difficult to ambulate and about to fall due to weak legs.She cane to ER on 09/24/16 with UTI symptoms and was given Bactrim for possible UTI.CT of the Abdomen and Pelvis during that visit was fairly unremarkable.Noted to be dehydrated in ER with Increase in Creatinine though the stool tests were negative Past Medical/Surgical History Medical Problems: (1) Carotid arterial disease Permanent Comment: s/p left CEA, september 2014 Status: Chronic (2) Cerebrovascular disease Status: Chronic (3) Chronic steroid use Permanent Comment: PMR Status: Chronic (4) CKD (chronic kidney disease), stage III Status: Chronic (5) Coronary artery disease Status: Chronic (6) Dyslipidemia Status: Chronic (7) Glaucoma Status: Chronic (8) Hiatal hernia Status: Chronic (9) History of DVT (deep vein thrombosis) Permanent Comment: 2013 Status: Chronic (10) History of pulmonary embolism Permanent Comment: 2013 Status: Chronic (11) Hypertension Status: Chronic (12) Osteoporosis Status: Chronic (13) Polymyalgia rheumatica Status: Chronic (14) Pre-diabetes Status: Chronic (15) TIA (transient ischemic attack) Status: Chronic Surgical Problems: (1) H/O dilation and curettage Status: Chronic (2) S/P appendectomy Status: Chronic (3) S/P laparoscopic cholecystectomy Status: Chronic (4) S/P tubal ligation Status: Chronic Family History Diabetes mellitus FHx: heart disease Social History Smoking Status: Former Smoker Marital Status: Housing status: lives alone Occupational Status: unemployed Immunizations History of Influenza Vaccine: Yes Influenza Vaccine Date: Jan 03, 2015 History of Tetanus Vaccine?: Yes Tetanus Immunization Date: Apr 03, 2008 History of Pneumococcal: Yes Pneumococcal Date: Sep 09, 2014 History of Hepatitis B Vaccine: Unknown Multi-Drug Resistant Organisms History of MDRO: No Allergies Coded Allergies: Atorvastatin (Verified Allergy, Severe, AFFECTS LIVER, 04/29/16) Lisinopril (Verified Allergy, Severe, AFFECTS LIVER ENZYMES, 04/29/16) Amoxicillin (Verified Allergy, Unknown, RASH,HIVES, 04/29/16) Cefaclor (Verified Allergy, Unknown, RASH, HIVES, 04/29/16) Levofloxacin (Verified Allergy, Unknown, hives, 04/29/16) Omeprazole (Verified Allergy, Unknown, blurred vision, headache, flashing lights, 04/29/16) Citalopram (Verified Adverse Reaction, Intermediate, "WILD DREAMS", ) Home Medications Scheduled Amlodipine Besylate (Amlodipine Besylate), 5 MG PO DAILY Aspirin (Aspirin), 1 TAB PO HS Atenolol (Atenolol), 0.5 TAB PO DAILY Atorvastatin (Lipitor), 20 MG PO DAILY Cholecalciferol (Vitamin D 1000 Unit), 1,000 INTER.UNIT PO DAILY Clopidogrel (Plavix), 75 MG PO DAILY Dicyclomine HCl (Dicyclomine HCl), 10 MG PO BID Fish Oil ([place]-3), 1 CAP PO DAILY Glucosamine Sulfate (Glucosamine), 1,000 MG PO QPM Magnesium Oxide (Mag-Ox), 400 MG PO BID Nitroglycerin (Nitrostat), 0.4 MG UT PRN Pantoprazole (Protonix), 40 MG PO BID Prednisone (Prednisone), 5 MG PO QAM Probiotic Product (Probiotic), 1 CAP PO DAILY Review of Systems Constitutional: + weakness, + fatigue Abdomen: + nausea, + diarrhea Neurologic: + weakness, + balance problems Endocrine: + fatigue Physical Exam Vital Signs Date Time Temp Pulse Resp B/P (MAP) Pulse Ox O2 Delivery O2 Flow Rate FiO2 10/01/16 14:29 65 10/01/16 14:28 209/69 10/01/16 14:26 72 10/01/16 12:46 68 15 91 10/01/16 12:41 67 16 91 10/01/16 12:36 65 16 93 10/01/16 12:31 190/82 10/01/16 12:06 59 17 92 10/01/16 12:01 182/74 10/01/16 11:36 61 19 90 10/01/16 11:31 186/68 10/01/16 11:06 83 19 10/01/16 11:02 124/91 10/01/16 10:31 146/74 10/01/16 10:06 55 16 90 10/01/16 10:01 158/60 10/01/16 09:57 55 18 92 10/01/16 09:31 167/100 10/01/16 09:27 63 19 91 10/01/16 09:19 62 10/01/16 09:13 203/107 10/01/16 09:07 36.9 65 18 203/107 93 Room Air General Appearance: no apparent distress Head: normocephalic Eyes: normal inspection ENT: normal ENT inspection Neck: supple Respiratory/Chest: chest non-tender, lungs clear, normal breath sounds Cardiovascular: regular rate, rhythm Abdomen/GI: normal bowel sounds, non tender, soft Back: normal inspection Extremities/Musculoskelatal: no calf tenderness Neurologic/Psych: no motor/sensory deficits, alert, oriented x 3 Skin: normal color Diagnostics Laboratory Results Results Past 24 Hours Test 10/01/16 09:10 10/01/16 09:16 10/01/16 11:05 Range/Units White Blood Count 9.29 4.8-10.8 K/uL Red Blood Count 4.34 4.2-5.4 M/uL Hemoglobin 13.3 12.0-16.0 g/dL Hematocrit 39.4 37-47 % Mean Corpuscular Volume 90.8 80-100 fL Mean Corpuscular Hemoglobin 30.6 25-34 pg Mean Corpuscular Hemoglobin Concent 33.8 32-36 g/dl Platelet Count 180 130-400 K/uL Mean Platelet Volume 9.6 7.4-10.4 fL Neutrophils (%) (Auto) 80.0 % Lymphocytes (%) (Auto) 10.4 % Monocytes (%) (Auto) 7.1 % Eosinophils (%) (Auto) 1.9 % Basophils (%) (Auto) 0.3 % Neutrophils # (Auto) 7.42 1.4-6.5 K/uL Lymphocytes # (Auto) 0.97 1.2-3.4 K/uL Monocytes # (Auto) 0.66 0.11-0.59 K/uL Eosinophils # (Auto) 0.18 0-0.5 K/uL Basophils # (Auto) 0.03 0-0.2 K/uL RDW Standard Deviation 45.3 36.4-46.3 fL RDW Coefficient of Variation 13.5 11.5-14.5 % Immature Granulocyte % (Auto) 0.3 % Immature Granulocyte # (Auto) 0.03 0.00-0.02 K/uL Sodium Level 136 136-145 mmol/L Potassium Level 4.5 3.5-5.1 mmol/L Chloride Level 102 98-107 mmol/L Carbon Dioxide Level 27 21-32 mmol/L Anion Gap 7.0 3-11 mmol/L Blood Urea Nitrogen 21 7-18 mg/dl Creatinine 1.70 0.60-1.20 mg/dl Est Creatinine Clear Calc Drug Dose 22.8 ml/min Estimated GFR () 31.5 Estimated GFR (Non- 27.2 BUN/Creatinine Ratio 12.5 10-20 Random Glucose 103 70-99 mg/dl Calcium Level 9.3 8.5-10.1 mg/dl Magnesium Level 1.9 1.8-2.4 mg/dl Total Bilirubin 0.7 0.2-1 mg/dl Aspartate Amino Transf (AST/SGOT) 18 15-37 U/L Alanine Aminotransferase (ALT/SGPT) 26 12-78 U/L Alkaline Phosphatase 66 45-117 U/L Troponin I < 0.015 0-0.045 ng/ml Total Protein 7.0 6.4-8.2 gm/dl Albumin 3.4 3.4-5.0 gm/dl Globulin 3.6 2.5-4.0 gm/dl Albumin/Globulin Ratio 0.9 0.9-2 Lipase 280 73-393 U/L Bedside Lactic Acid Venous 1.86 0.90-1.70 mmol/L Urine Color YELLOW Urine Appearance CLEAR CLEAR Urine pH 6.5 4.5-7.5 Urine Specific [place] 1.013 1.000-1.030 Urine Protein NEG NEG Urine Glucose (UA) NEG NEG Urine Ketones NEG NEG Urine Occult Blood NEG NEG Urine Nitrite NEG NEG Urine Bilirubin NEG NEG Urine Urobilinogen NEG NEG Urine Leukocyte Esterase NEG NEG Microbiology Results 10/01/16 C.difficile Toxin B Gene (PCR) - Final, Complete No C. difficile toxin B gene detected 10/01/16 [place] Toxin Test - Final, Complete 10/01/16 Stool Culture - Final, Complete 10/01/16 Urine Culture, Received Pending Diagnostic Radiology AXR/CXR-unremarkable CXR normal EKG EKG-RBBB with associated ST-T changes ,no change compared with prior Impression Assessment and Plan MANAV on CKD Admit to Medical floor Discontinue Bactrim IVF and increase oral intake Monitor PRP Weak Legs with ambulatory dysfunction Likely secondary to Dehydration PT/OT Evaluation Social service Recent UTI Treated with Bactrim though Culture came back negative UA-negative in ER Await Culture HTN,Hyperlipidemia Continue current medication DVT prophylaxis Heparin SQ Code status-Full Code Meets criteria as peer CMS for 2 midnights stay in hospital Dr Lynne Ray Level of Care Med/Surg Advanced Directives Existing Advance Directive: No Existing Living Will: No Existing Power of Document Coordinator: No Existing Health Care Proxy: No Resuscitation Status FULL RESUSCITATION VTE Prophylaxis VTE Risk Assessment Done? Y/N: Yes Risk Level: Moderate Given or contraindicated: Unfractionated heparin SQ
[2016-10-01 16:10] LABS: PROTHROMBIN TIME (PATIENT) 10.3 SECONDS (9.0-12.0)
[2016-10-01] MEDS ORDERED: IV FLUIDS COMPLETED PRN (16:15)
[2016-10-01 16:54] VITALS: BP 160/50; PULSE 68; TEMP 36.4; O2SAT 93; Ht 152.4 cm; Wt 75.3 kg
[2016-10-01] MEDS: LACTATED RINGER'S 1000ML 1,000 ML IV SCH (17:34)
[2016-10-01] MEDS: GLUCOSAMINE SULFATE 500 MG CAP PO SCH (21:18)
[2016-10-01] MEDS: DICYCLOMINE HCL 20 MG TAB PO SCH (21:20)
[2016-10-01] MEDS: PANTOprazole SOD 40 MG TAB PO SCH (21:20)
[2016-10-01] MEDS: ASPIRIN 81 MG ECTAB PO SCH (21:20)
[2016-10-01] MEDS: MAGNESIUM OXIDE 400 MG TAB PO SCH (21:20)
[2016-10-01] MEDS: HEPARIN SOD 5000 UNIT/0.5 ML CARP SQ SCH ×2 (21:22→21:27)
[2016-10-02 00:08] VITALS: BP 178/76; PULSE 71; TEMP 36.8; O2SAT 91
[2016-10-02] MEDS ORDERED: AMLODIPINE BESYLATE 5 MG TAB PO ONE (01:13)
[2016-10-02] MEDS: LACTATED RINGER'S 1000ML 1,000 ML IV SCH ×3 (01:27→20:35)
[2016-10-02 04:31] VITALS: BP 177/67; PULSE 77; TEMP 36.7; O2SAT 94
[2016-10-02] MEDS: HEPARIN SOD 5000 UNIT/0.5 ML CARP SQ SCH ×3 (05:43→20:31)
[2016-10-02 05:54] LABS: HEMATOCRIT 37.6 % (37-47); MEAN CELL VOLUME 92.4 fL (80-100); MEAN CORPUSCULAR HGB CONC 32.4 g/dl (32-36); MEAN PLATELET VOLUME 9.8 fL (7.4-10.4); PLATELET COUNT 173 K/uL (130-400); RED BLOOD COUNT 4.07 M/uL (4.2-5.4); WHITE BLOOD COUNT 5.55 K/uL (4.8-10.8)
[2016-10-02 06:27] LABS: BUN/CREATININE RATIO 12.9 (10-20); CALCIUM 9.1 mg/dl (8.5-10.1); CREATININE 1.5 mg/dl (0.60-1.20); MAGNESIUM 1.8 mg/dl (1.8-2.4); PHOSPHORUS 3.1 mg/dl (2.5-4.9); POTASSIUM 4.7 mmol/L (3.5-5.1)
[2016-10-02 07:15] VITALS: BP 176/76; PULSE 61; TEMP 36.7; O2SAT 92
[2016-10-02] MEDS: MAGNESIUM OXIDE 400 MG TAB PO SCH ×2 (08:19→20:30)
[2016-10-02] MEDS: ATORVASTATIN 20 MG TAB PO SCH (08:19)
[2016-10-02] MEDS: CLOPIDOGREL BISULFATE 75 MG TAB PO SCH (08:19)
[2016-10-02] MEDS: PANTOprazole SOD 40 MG TAB PO SCH ×2 (08:19→20:31)
[2016-10-02] MEDS: DICYCLOMINE HCL 20 MG TAB PO SCH ×2 (08:19→20:34)
[2016-10-02] MEDS: LACTOBACILLUS ACIDOPHILUS (FLORANEX) TAB PO SCH (08:19)
[2016-10-02] MEDS: CHOLECALCIFEROL 1000 INTER.UNIT TAB PO SCH (08:20)
[2016-10-02] MEDS ORDERED: AMLODIPINE BESYLATE 5 MG TAB PO SCH (09:00)
[2016-10-02] MEDS ORDERED: LOPERAMIDE HCL 2 MG CAP PO PRN (13:15)
--- NOTE | 2016-10-02 13:22 | Progress Note ---
Internal Med Progress Note Date of Service: Oct 02, 2016. Provider Documentation: SUBJECTIVE: The patient was seen and examined Remains generally weak and lethargic Still has diarrhea OBJECTIVE: Vital Signs-as noted below Exam: General-no distress at rest Eyes-normal ENT-normal Neck-supple Lungs-clear to auscultate bilaterally Heart-Regular,no murmur Abdomen-Benign,no masses,bowel sound present Extremities-No edema Neuro-AAOx3 Lab data as noted below. ASSESSMENT & PLAN: MANAV on CKD Admit to Medical floor Discontinue Bactrim IVF and increase oral intake Monitor PRP-Creatinine is a little better Continue IVF and increase oral intake Diarrhea Likely secondary to Recent use of Antibiotic/gastroenteritis Stool for C Diff-negative Stool culture-negative Will try Imodium Weak Legs with ambulatory dysfunction Likely secondary to Dehydration PT/OT Evaluation Social service for discharge planning Recent UTI Treated with Bactrim though Culture came back negative UA-negative in ER Await Culture -negative HTN,Hyperlipidemia Continue current medication DVT prophylaxis Heparin SQ Code status-Full Code Meets criteria as peer CMS for 2 midnights stay in hospital Vital Signs: Date Time Temp Pulse Resp B/P (MAP) Pulse Ox O2 Delivery O2 Flow Rate FiO2 10/02/16 08:00 Room Air 10/02/16 07:15 36.7 61 16 176/76 (109) 92 Room Air 10/02/16 04:31 36.7 77 18 177/67 (103) 94 Room Air 10/02/16 00:08 36.8 71 20 178/76 (110) 91 Room Air 10/02/16 00:05 Room Air 10/01/16 20:05 Room Air 10/01/16 16:54 36.4 68 18 160/50 93 Room Air 10/01/16 15:46 56 18 182/85 98 Nasal Cannula 2.0 10/01/16 14:29 65 10/01/16 14:28 209/69 10/01/16 14:26 72 Lab Results: Results Past 24 Hours Test 10/02/16 05:18 Range/Units White Blood Count 5.55 4.8-10.8 K/uL Red Blood Count 4.07 4.2-5.4 M/uL Hemoglobin 12.2 12.0-16.0 g/dL Hematocrit 37.6 37-47 % Mean Corpuscular Volume 92.4 80-100 fL Mean Corpuscular Hemoglobin 30.0 25-34 pg Mean Corpuscular Hemoglobin Concent 32.4 32-36 g/dl RDW Standard Deviation 46.7 36.4-46.3 fL RDW Coefficient of Variation 13.7 11.5-14.5 % Platelet Count 173 130-400 K/uL Mean Platelet Volume 9.8 7.4-10.4 fL Sodium Level 137 136-145 mmol/L Potassium Level 4.7 3.5-5.1 mmol/L Chloride Level 104 98-107 mmol/L Carbon Dioxide Level 30 21-32 mmol/L Anion Gap 3.0 3-11 mmol/L Blood Urea Nitrogen 19 7-18 mg/dl Creatinine 1.50 0.60-1.20 mg/dl Est Creatinine Clear Calc Drug Dose 25.3 ml/min Estimated GFR () 36.7 Estimated GFR (Non- 31.7 BUN/Creatinine Ratio 12.9 10-20 Random Glucose 71 70-99 mg/dl Calcium Level 9.1 8.5-10.1 mg/dl Phosphorus Level 3.1 2.5-4.9 mg/dl Magnesium Level 1.8 1.8-2.4 mg/dl
[2016-10-02 14:59] VITALS: BP 164/66; PULSE 55; TEMP 36.5; O2SAT 93
[2016-10-02 16:00] VITALS: O2SAT 93
[2016-10-02] MEDS ORDERED: CALCIUM CARBONATE 500 MG CHEWABLE PO PRN (18:30)
[2016-10-02] MEDS: GLUCOSAMINE SULFATE 500 MG CAP PO SCH (20:32)
[2016-10-02] MEDS: ASPIRIN 81 MG ECTAB PO SCH (20:33)
--- NOTE | 2016-10-02 22:56 | Progress Note ---
Internal Med Progress Note Date of Service: Oct 02, 2016. Provider Documentation: Made aware by RN of SBP 190s. Patient asymptomatic. SBP 170 to 190s the last 24 hours. AP Hypertensive urgency Substitute Coreg for Atenolol. Start with the lowest dose given episodic bradycardia. Will relay to a.m. provider. Vital Signs: Date Time Temp Pulse Resp B/P (MAP) Pulse Ox O2 Delivery O2 Flow Rate FiO2 10/03/16 06:52 36.7 58 18 166/75 (105) 92 Room Air 10/03/16 00:05 Room Air 10/02/16 23:12 36.6 76 20 191/68 (109) 92 Room Air 10/02/16 20:05 Room Air 10/02/16 16:00 93 Room Air 10/02/16 14:59 36.5 55 18 164/66 (98) 93 Room Air Lab Results: Results Past 24 Hours Test 10/03/16 05:30 Range/Units White Blood Count 5.24 4.8-10.8 K/uL Red Blood Count 4.20 4.2-5.4 M/uL Hemoglobin 13.1 12.0-16.0 g/dL Hematocrit 38.5 37-47 % Mean Corpuscular Volume 91.7 80-100 fL Mean Corpuscular Hemoglobin 31.2 25-34 pg Mean Corpuscular Hemoglobin Concent 34.0 32-36 g/dl RDW Standard Deviation 44.7 36.4-46.3 fL RDW Coefficient of Variation 13.4 11.5-14.5 % Platelet Count 170 130-400 K/uL Mean Platelet Volume 10.1 7.4-10.4 fL Sodium Level 138 136-145 mmol/L Potassium Level 4.6 3.5-5.1 mmol/L Chloride Level 102 98-107 mmol/L Carbon Dioxide Level 32 21-32 mmol/L Anion Gap 4.0 3-11 mmol/L Blood Urea Nitrogen 18 7-18 mg/dl Creatinine 1.40 0.60-1.20 mg/dl Est Creatinine Clear Calc Drug Dose 27.1 ml/min Estimated GFR () 39.9 Estimated GFR (Non- 34.4 BUN/Creatinine Ratio 12.7 10-20 Random Glucose 81 70-99 mg/dl Calcium Level 9.1 8.5-10.1 mg/dl Magnesium Level 1.8 1.8-2.4 mg/dl
[2016-10-02] MEDS ORDERED: CARVEDILOL 3.125 MG TAB PO ONE (23:00)
[2016-10-02 23:12] VITALS: BP 191/68; PULSE 76; TEMP 36.6; O2SAT 92
[2016-10-03] MEDS: HEPARIN SOD 5000 UNIT/0.5 ML CARP SQ SCH ×3 (05:27→20:44)
[2016-10-03 06:16] LABS: HEMATOCRIT 38.5 % (37-47); MEAN CELL VOLUME 91.7 fL (80-100); MEAN CORPUSCULAR HEMOGLOBIN 31.2 pg (25-34); MEAN PLATELET VOLUME 10.1 fL (7.4-10.4); PLATELET COUNT 170 K/uL (130-400); WHITE BLOOD COUNT 5.24 K/uL (4.8-10.8)
[2016-10-03 06:47] LABS: BUN/CREATININE RATIO 12.7 (10-20); CALCIUM 9.1 mg/dl (8.5-10.1); CREATININE 1.4 mg/dl (0.60-1.20); MAGNESIUM 1.8 mg/dl (1.8-2.4); POTASSIUM 4.6 mmol/L (3.5-5.1)
[2016-10-03 06:52] VITALS: BP 166/75; PULSE 58; TEMP 36.7; O2SAT 92
[2016-10-03] MEDS: DICYCLOMINE HCL 20 MG TAB PO SCH ×2 (09:19→20:42)
[2016-10-03] MEDS: CARVEDILOL 3.125 MG TAB PO SCH ×2 (09:19→20:42)
[2016-10-03] MEDS: LACTOBACILLUS ACIDOPHILUS (FLORANEX) TAB PO SCH (09:20)
[2016-10-03] MEDS: ATORVASTATIN 20 MG TAB PO SCH (09:20)
[2016-10-03] MEDS: CLOPIDOGREL BISULFATE 75 MG TAB PO SCH (09:21)
[2016-10-03] MEDS: MAGNESIUM OXIDE 400 MG TAB PO SCH ×2 (09:21→20:43)
[2016-10-03] MEDS: AMLODIPINE BESYLATE 5 MG TAB PO SCH (09:21)
[2016-10-03] MEDS: CHOLECALCIFEROL 1000 INTER.UNIT TAB PO SCH (09:22)
[2016-10-03] MEDS: PANTOprazole SOD 40 MG TAB PO SCH ×2 (09:22→20:43)
--- NOTE | 2016-10-03 14:26 | Progress Note ---
Internal Med Progress Note Date of Service: Oct 03, 2016. Provider Documentation: SUBJECTIVE: The patient was seen and examined Remains generally weak and lethargic Still has diarrhea and feels generally unwell Not yet ready to be diacherged OBJECTIVE: Vital Signs-as noted below Exam: General-no distress at rest Eyes-normal ENT-normal Neck-supple Lungs-clear to auscultate bilaterally Heart-Regular,no murmur Abdomen-Benign,no masses,bowel sound present ,mild tender all over the abdomen Extremities-No edema Neuro-AAOx3 Lab data as noted below. ASSESSMENT & PLAN: MANAV on CKD Admit to Medical floor Discontinue Bactrim IVF and increase oral intake Monitor PRP-Creatinine is a little better Continue IVF and increase oral intake Creatinine is improving Advised to drink more fluid ID fluid discontinued Diarrhea Likely secondary to Recent use of Antibiotic/gastroenteritis Stool for C Diff-negative Stool culture-negative Will try Imodium Will send Stool and Urine tests again Weak Legs with ambulatory dysfunction Likely secondary to Dehydration PT/OT Evaluation Social service for discharge planning PT cleared her to be diacherged Recent UTI Treated with Bactrim though Culture came back negative UA-negative in ER Await Culture -negative HTN,Hyperlipidemia Continue current medication DVT prophylaxis Heparin SQ Code status-Full Code Meets criteria as peer CMS for 2 midnights stay in hospital Likely discharged tomorrow Vital Signs: Date Time Temp Pulse Resp B/P (MAP) Pulse Ox O2 Delivery O2 Flow Rate FiO2 10/03/16 08:00 Room Air 10/03/16 06:52 36.7 58 18 166/75 (105) 92 Room Air 10/03/16 00:05 Room Air 10/02/16 23:12 36.6 76 20 191/68 (109) 92 Room Air 10/02/16 20:05 Room Air 10/02/16 16:00 93 Room Air 10/02/16 14:59 36.5 55 18 164/66 (98) 93 Room Air Lab Results: Results Past 24 Hours Test 10/03/16 05:30 Range/Units White Blood Count 5.24 4.8-10.8 K/uL Red Blood Count 4.20 4.2-5.4 M/uL Hemoglobin 13.1 12.0-16.0 g/dL Hematocrit 38.5 37-47 % Mean Corpuscular Volume 91.7 80-100 fL Mean Corpuscular Hemoglobin 31.2 25-34 pg Mean Corpuscular Hemoglobin Concent 34.0 32-36 g/dl RDW Standard Deviation 44.7 36.4-46.3 fL RDW Coefficient of Variation 13.4 11.5-14.5 % Platelet Count 170 130-400 K/uL Mean Platelet Volume 10.1 7.4-10.4 fL Sodium Level 138 136-145 mmol/L Potassium Level 4.6 3.5-5.1 mmol/L Chloride Level 102 98-107 mmol/L Carbon Dioxide Level 32 21-32 mmol/L Anion Gap 4.0 3-11 mmol/L Blood Urea Nitrogen 18 7-18 mg/dl Creatinine 1.40 0.60-1.20 mg/dl Est Creatinine Clear Calc Drug Dose 27.1 ml/min Estimated GFR () 39.9 Estimated GFR (Non- 34.4 BUN/Creatinine Ratio 12.7 10-20 Random Glucose 81 70-99 mg/dl Calcium Level 9.1 8.5-10.1 mg/dl Magnesium Level 1.8 1.8-2.4 mg/dl
[2016-10-03 15:52] VITALS: BP 164/83; PULSE 66; TEMP 36.7; O2SAT 91
[2016-10-03] MEDS ORDERED: NURSING VERBAL MED ORDER ONE (16:45)
[2016-10-03 20:38] VITALS: BP 176/71; PULSE 62
[2016-10-03] MEDS: GLUCOSAMINE SULFATE 500 MG CAP PO SCH (20:43)
[2016-10-03] MEDS: ASPIRIN 81 MG ECTAB PO SCH (20:43)
[2016-10-03 23:36] VITALS: BP 156/75; PULSE 57; TEMP 36.5; O2SAT 93
[2016-10-04] MEDS: HEPARIN SOD 5000 UNIT/0.5 ML CARP SQ SCH (05:06)
[2016-10-04 06:31] LABS: HEMATOCRIT 38.6 % (37-47); MEAN CELL VOLUME 90.6 fL (80-100); MEAN CORPUSCULAR HEMOGLOBIN 31.2 pg (25-34); MEAN CORPUSCULAR HGB CONC 34.5 g/dl (32-36); MEAN PLATELET VOLUME 9.7 fL (7.4-10.4); PLATELET COUNT 190 K/uL (130-400); RED BLOOD COUNT 4.26 M/uL (4.2-5.4); WHITE BLOOD COUNT 6.12 K/uL (4.8-10.8)
[2016-10-04 07:49] VITALS: BP 148/75; PULSE 58; TEMP 36.5; O2SAT 92
[2016-10-04 08:29] VITALS: BP 107/66; PULSE 56
[2016-10-04] MEDS: CARVEDILOL 3.125 MG TAB PO SCH (08:30)
[2016-10-04] MEDS: ATORVASTATIN 20 MG TAB PO SCH (08:33)
[2016-10-04] MEDS: PANTOprazole SOD 40 MG TAB PO SCH (08:33)
[2016-10-04] MEDS: AMLODIPINE BESYLATE 5 MG TAB PO SCH (08:34)
[2016-10-04] MEDS: CHOLECALCIFEROL 1000 INTER.UNIT TAB PO SCH (08:34)
[2016-10-04] MEDS: CLOPIDOGREL BISULFATE 75 MG TAB PO SCH (08:35)
[2016-10-04] MEDS: DICYCLOMINE HCL 20 MG TAB PO SCH (08:35)
[2016-10-04] MEDS: LACTOBACILLUS ACIDOPHILUS (FLORANEX) TAB PO SCH (08:35)
[2016-10-04] MEDS: MAGNESIUM OXIDE 400 MG TAB PO SCH (08:35)
[2016-10-04] MEDS ORDERED: LCTX PO (10:19)
[2016-10-04] MEDS ORDERED: CRG3125 PO (10:19)
--- NOTE | 2016-10-04 10:24 | Discharge Instructions ---
Discharge Instructions Date of Service Oct 04, 2016. Admission Reason for Admission: Gio, Dehydration, Diarrhea Discharge Discharge Diagnosis / Problem: GIO, Diarrhea Discharge Goals Goal(s): Therapeutic intervention Activity Recommendations Activity Limitations: resume your previous activity Exercise/Sports Limitations: gradually increase as tolerated . Instructions / Follow-Up Instructions / Follow-Up Please follow up with Dr. Lazar on October 06 as previously scheduled. If diarrhea persists, you may require repeat stool studies/cultures and possible GI evaluation You may continue to use over the counter Imodium/loperimide as needed for diarrhea per instructions on the box Current Hospital Diet Patient's current hospital diet: AHA Diet (Heart Healthy) Discharge Diet Recommended Diet: AHA Diet (Heart Healthy) Pending Studies Studies pending at discharge: no Medical Emergencies . Who to Call and When: Medical Emergencies: If at any time you feel your situation is an emergency, please call 911 immediately. . Non-Emergent Contact Non-Emergency issues call your: Primary Care Provider . . "Provider Documentation" section prepared by Lisseth Shaffer. . VTE Core Measure Inpt VTE Proph given/why not?: Unfractionated heparin SQ
--- NOTE | 2016-10-04 10:27 | Discharge Summary ---
Discharge Summary Date of Service Oct 04, 2016. Discharge Summary Admission Date: Oct 01, 2016 at 16:31 Discharge Date: Oct 04, 2016 Discharge Disposition: Home Principal Diagnosis: MANAV, Diarrhea, Weakness Pending Studies/Follow-Up: If diarrhea persists, may need repeat stool cultures/studies, or GI evaluation; repeat BMP in 1 week Medication Reconciliation New Medications: Carvedilol (Carvedilol) 3.125 Mg Tab 3.125 MG PO BID, #60 TAB Lactobacillus Acidophilus (Floranex) 1 Tab Tab 1 TAB PO TID, #90 TAB Continued Medications: Amlodipine Besylate (Amlodipine Besylate) 5 Mg Tab 5 MG PO DAILY for 30 Days, #30 TAB Aspirin (Aspirin) 81 Mg Tab 1 TAB PO HS for 90 Days, TAB 3 Refills Atorvastatin (Lipitor) 20 Mg Tab 20 MG PO DAILY Cholecalciferol (Vitamin D 1000 Unit) 1,000 Unit Cap 1000 INTER.UNIT PO DAILY, CAP Clopidogrel (Plavix) 75 Mg Tab 75 MG PO DAILY, TAB Dicyclomine HCl (Dicyclomine HCl) 20 Mg Tab 10 MG PO BID 1/2 OF A 20MG TABLET TWICE DAILY Fish Oil (Otis-3) 1 Ea Cap 1 CAP PO DAILY, CAP Glucosamine Sulfate (Glucosamine) 1,000 Mg Tab 1000 MG PO QPM, TAB Magnesium Oxide (Mag-Ox) 400 Mg Tab 400 MG PO BID Nitroglycerin (Nitrostat) 0.4 Mg Sub 0.4 MG UT PRN, BTL Pantoprazole (Protonix) 40 Mg Tab 40 MG PO BID, #30 TAB Prednisone (Prednisone) 5 Mg Tab 5 MG PO QAM, TAB Discontinued Medications: Atenolol (Atenolol) 25 Mg Tab 0.5 TAB PO DAILY for 30 Days, #15 TAB Probiotic Product (Probiotic) 1 Cap Cap 1 CAP PO DAILY Admission Information HPI (per Admitting provider): Complains to have diarrhea on and off since Monday last and today became very weak and lethargic.Difficult to ambulate and about to fall due to weak legs.She cane to ER on 09/24/16 with UTI symptoms and was given Bactrim for possible UTI.CT of the Abdomen and Pelvis during that visit was fairly unremarkable.Noted to be dehydrated in ER with Increase in Creatinine though the stool tests were negative Physical Exam (per Admitting): General Appearance: no apparent distress Head: normocephalic Eyes: normal inspection ENT: normal ENT inspection Neck: supple Respiratory/Chest: chest non-tender, lungs clear, normal breath sounds Cardiovascular: regular rate, rhythm Abdomen/GI: normal bowel sounds, non tender, soft Back: normal inspection Extremities/Musculoskelatal: no calf tenderness Neurologic/Psych: no motor/sensory deficits, alert, oriented x 3 Skin: normal color Hospital Course MANAV on CKD Stage III: -Bactrim was discontinued per admitting -treated with IVF and encouraged increased oral intake of fluids -Creatinine improving -recheck BMP in 1 week Diarrhea: -possibly secondary to recent use of antibiotic or possible gastroenteritis -stool for C Diff negative -stool culture negative -PRN Imodium -diarrhea less frequent/watery but still present -offered patient repeat cultures but she states she wants to go home; would recommend c diff and stool culture as outpatient if diarrhea is ongoing Weak Legs with ambulatory dysfunction: -most likely secondary to hypovolemia -PT/OT evaluated, patient determined to be at baseline -Social service for discharge planning, no services needed Recent UTI: -was treated with Bactrim though culture came back negative -UA-negative in ER -repeat culture negative HTN: -since admission amlodipine increased -atenolol Hyperlipidemia: -Continue statin DVT prophylaxis: -Heparin SQ Code status-Full Code PHYSICAL EXAM ON DAY OF DISCHARGE: GENERAL: Patient is in no acute distress. HEENT: No acute trauma, normocephalic, mucous membranes moist, no nasal congestion, no scleral icterus. NECK: No stridor, trachea is midline. LUNGS: Clear to auscultation bilaterally, no wheeze, no rhonchi, breath sounds equal. HEART: Without murmurs gallops or rubs, regular rate and rhythm. ABDOMEN: Soft, nontender, bowel sounds positive EXTREMITIES: No cyanosis or edema NEUROLOGIC: Oriented x 3, no acute motor or sensory deficits, no focal weakness. SKIN: No rash, no jaundice, no diaphoresis. Total time spent on discharge = 37 This includes examination of the patient, discharge planning, medication reconciliation, and communication with other providers. Discharge Instructions As per patient instructions Additional Copies To Camden Lazar D.O.
[2016-10-04 10:42] VITALS: BP 107/66; PULSE 56; TEMP 36.5; O2SAT 92
--- NOTE | 2016-10-10 07:53 | EMERGENCY ROOM VISIT NOTE ---
History Report prepared by Chasity: Phillip Vidales Under the Supervision of: Rebel ArellanoO. First contact with patient: 09:01 Stated Complaint: LEG WEAKNESS History of Present Illness The patient is a 86 year old female who presents to the Emergency Room with complaints of sudden leg weakness starting this morning. The patient states that she reported to the ED last week due to left CVA pain. She reports that she was diagnosed with a UTI and was given Bactrim. She states that she has been experiencing diarrhea since and has been experiencing intermittent diaphoresis. She also reports that she has been experiencing dehydration even though she has been drinking plenty of fluids and eating normal. The patient admits that she has been constantly nauseous and has been experiencing intermittent right CVA pain. The patient states that this morning she started to feel leg weakness and generalized weakness. She reports that she has a history of knee and leg problems. The patient denies any hematochezia, hematuria , SOB, chest pain, dizziness, lightheadedness, and fever. Source of History: patient Onset: this morning Position: leg (bilateral) Quality: other (weakness) Timing: other (sudden) Associated Symptoms: + diarrhea, + weakness, No fevers, No chest pain, No SOB, No hematochezia, No urinary symptoms Review of Systems See HPI for pertinent positives & negatives. A total of 10 systems reviewed and were otherwise negative. Past Medical & Surgical Medical Problems: (1) MANAV (acute kidney injury) (2) Carotid arterial disease (3) Cerebrovascular disease (4) Chest pain (5) Chronic steroid use (6) CKD (chronic kidney disease), stage III (7) Coronary artery disease (8) Dehydration (9) Diarrhea (10) Dyslipidemia (11) Glaucoma (12) Hiatal hernia (13) History of DVT (deep vein thrombosis) (14) History of pulmonary embolism (15) Hypertension (16) Osteoporosis (17) Polymyalgia rheumatica (18) Pre-diabetes (19) TIA (transient ischemic attack) Surgical Problems: (1) H/O dilation and curettage (2) S/P appendectomy (3) S/P laparoscopic cholecystectomy (4) S/P tubal ligation Family History Diabetes mellitus FHx: heart disease Social History Smoking Status: Former Smoker Alcohol Use: none Marital Status: Housing Status: lives alone Occupation Status: unemployed Current/Historical Medications Scheduled Amlodipine Besylate (Amlodipine Besylate), 5 MG PO DAILY Aspirin (Aspirin), 1 TAB PO HS Atorvastatin (Lipitor), 20 MG PO DAILY Carvedilol (Carvedilol), 3.125 MG PO BID Cholecalciferol (Vitamin D 1000 Unit), 1,000 INTER.UNIT PO DAILY Clopidogrel (Plavix), 75 MG PO DAILY Dicyclomine HCl (Dicyclomine HCl), 10 MG PO BID Fish Oil ([place]-3), 1 CAP PO DAILY Glucosamine Sulfate (Glucosamine), 1,000 MG PO QPM Lactobacillus Acidophilus (Floranex), 1 TAB PO TID Magnesium Oxide (Mag-Ox), 400 MG PO BID Nitroglycerin (Nitrostat), 0.4 MG UT PRN Pantoprazole (Protonix), 40 MG PO BID Prednisone (Prednisone), 5 MG PO QAM Allergies Coded Allergies: Atorvastatin (Verified Allergy, Severe, AFFECTS LIVER, 04/29/16) Lisinopril (Verified Allergy, Severe, AFFECTS LIVER ENZYMES, 04/29/16) Amoxicillin (Verified Allergy, Unknown, RASH,HIVES, 04/29/16) Cefaclor (Verified Allergy, Unknown, RASH, HIVES, 04/29/16) Levofloxacin (Verified Allergy, Unknown, hives, 04/29/16) Omeprazole (Verified Allergy, Unknown, blurred vision, headache, flashing lights, 04/29/16) Citalopram (Verified Adverse Reaction, Intermediate, "WILD DREAMS", ) Physical Exam Vital Signs Date Time Temp Pulse Resp B/P (MAP) Pulse Ox O2 Delivery O2 Flow Rate FiO2 10/01/16 15:46 56 18 182/85 98 Nasal Cannula 2.0 10/01/16 14:29 65 10/01/16 14:28 209/69 10/01/16 14:26 72 10/01/16 12:46 68 15 91 10/01/16 12:41 67 16 91 10/01/16 12:36 65 16 93 10/01/16 12:31 190/82 10/01/16 12:06 59 17 92 10/01/16 12:01 182/74 10/01/16 11:36 61 19 90 10/01/16 11:31 186/68 10/01/16 11:06 83 19 10/01/16 11:02 124/91 10/01/16 10:31 146/74 10/01/16 10:06 55 16 90 10/01/16 10:01 158/60 10/01/16 09:57 55 18 92 10/01/16 09:31 167/100 10/01/16 09:27 63 19 91 10/01/16 09:19 62 10/01/16 09:13 203/107 10/01/16 09:07 36.9 65 18 203/107 93 Room Air Physical Exam GENERAL: alert, well appearing, well nourished, no distress, non-toxic EYE EXAM: normal conjunctiva, PERRL and EOM's grossly intact OROPHARYNX: no exudate, no erythema, lips, buccal mucosa, and tongue normal and mucous membranes are moist NECK: supple, no nuchal rigidity, no adenopathy, non-tender LUNGS: Clear to auscultation. Normal chest wall mechanics HEART: no murmurs, S1 normal and S2 normal ABDOMEN: abdomen soft, non-tender, normo-active bowel sounds, no masses, no rebound or guarding. BACK: Back is symmetrical on inspection and there is no deformity, no midline tenderness, no CVA tenderness. SKIN: no rashes and no bruising UPPER EXTREMITIES: upper extremities are grossly normal. LOWER EXTREMITIES: No pitting edema. Left foot and ankle in chronic support device. NEURO EXAM: Normal sensorium, cranial nerves II-XII grossly intact, normal speech, no gross weakness of arms, no gross weakness of legs. No drift. Finger to nose intact. Gross sensation intact. Medical Decision & Procedures ER Provider Diagnostic Interpretation: Radiology results have been interpreted by the radiologist and reviewed by me. PA CHEST RADIOGRAPH AND UPRIGHT AND SUPINE AP RADIOGRAPHS OF THE ABDOMEN CLINICAL HISTORY: Abdominal pain and diarrhea. COMPARISON STUDY: Chest CT April 29, [address] of the abdomen and pelvis September 24, 2016. FINDINGS: Lung volumes are diminished. Moderate cardiomegaly is noted. There is no evidence of pulmonary edema. There is no lobar consolidation. There is no free air. Levoscoliosis of lumbar spine is noted. There are cholecystectomy clips. There is no evidence of a bowel obstruction. IMPRESSION: 1. No free air or evidence of bowel obstruction. 2. Diminished lung volumes. 3. Cardiomegaly without overt pulmonary edema. Electronically signed by: William Holt M.D. 10/01/2016 11:11 AM Dictated Date/Time: 10/01/2016 11:04 AM Laboratory Results Test 10/01/16 09:10 10/01/16 09:16 10/01/16 11:05 Immature Granulocyte % (Auto) 0.3 % White Blood Count 9.29 K/uL (4.8-10.8) Red Blood Count 4.34 M/uL (4.2-5.4) Hemoglobin 13.3 g/dL (12.0-16.0) Hematocrit 39.4 % (37-47) Mean Corpuscular Volume 90.8 fL (80-100) Mean Corpuscular Hemoglobin 30.6 pg (25-34) Mean Corpuscular Hemoglobin Concent 33.8 g/dl (32-36) Platelet Count 180 K/uL (130-400) Mean Platelet Volume 9.6 fL (7.4-10.4) Neutrophils (%) (Auto) 80.0 % Lymphocytes (%) (Auto) 10.4 % Monocytes (%) (Auto) 7.1 % Eosinophils (%) (Auto) 1.9 % Basophils (%) (Auto) 0.3 % Neutrophils # (Auto) 7.42 K/uL (1.4-6.5) Lymphocytes # (Auto) 0.97 K/uL (1.2-3.4) Monocytes # (Auto) 0.66 K/uL (0.11-0.59) Eosinophils # (Auto) 0.18 K/uL (0-0.5) Basophils # (Auto) 0.03 K/uL (0-0.2) Immature Granulocyte # (Auto) 0.03 K/uL (0.00-0.02) Prothrombin Time 10.3 SECONDS (9.0-12.0) Prothromb Time International Ratio 1.0 (0.9-1.1) Activated Partial Thromboplast Time 24.8 SECONDS (21.0-31.0) Partial Thromboplastin Ratio 1.0 Total Bilirubin 0.7 mg/dl (0.2-1) Aspartate Amino Transf (AST/SGOT) 18 U/L (15-37) Alanine Aminotransferase (ALT/SGPT) 26 U/L (12-78) Alkaline Phosphatase 66 U/L (45-117) Troponin I < 0.015 ng/ml (0-0.045) Total Protein 7.0 gm/dl (6.4-8.2) Albumin 3.4 gm/dl (3.4-5.0) Globulin 3.6 gm/dl (2.5-4.0) Albumin/Globulin Ratio 0.9 (0.9-2) Lipase 280 U/L (73-393) Bedside Lactic Acid Venous 1.86 mmol/L (0.90-1.70) Urine Color YELLOW Urine Appearance CLEAR (CLEAR) Urine pH 6.5 (4.5-7.5) Urine Specific [place] 1.013 (1.000-1.030) Urine Protein NEG (NEG) Urine Glucose (UA) NEG (NEG) Urine Ketones NEG (NEG) Urine Occult Blood NEG (NEG) Urine Nitrite NEG (NEG) Urine Bilirubin NEG (NEG) Urine Urobilinogen NEG (NEG) Urine Leukocyte Esterase NEG (NEG) Date/Time Source Procedure Growth Status 10/01/16 13:05 Stool C.difficile Toxin B Gene (PCR) - Final No C. difficile toxin B gene detected Complete 10/01/16 11:05 Urine,Catheterized Urine Culture - Final NO GROWTH - LESS THAN 1,000 COLONIES/ML Complete Laboratory results per my review. Medications Administered Medications (Trade) Dose Ordered Sig/[place] Route Start Time Stop Time Status Last Admin Dose Admin Sodium Chloride 1,000 ml @ 250 mls/hr Q4H STAT IV 10/01/16 09:12 10/01/16 13:11 DC 10/01/16 09:59 250 MLS/HR Lactated Ringer's 1,000 ml @ 100 mls/hr Q10H IV 10/01/16 15:30 10/03/16 17:05 DC 10/02/16 20:35 100 MLS/HR ECG Indication: weakness Rate (beats per minute): 58 Rhythm: sinus bradycardia Findings: RBBB, no acute ischemic change, other (Normal [place]) Comparison ECG Date: 09/24/16 Change: no significant change ED Course 0901: The patient was evaluated in room B09. A complete history and physical exam was performed. 0912: Sodium Chloride 1000 ml @ 250 mls/hr IV. 0005: I reevaluated the patient and she is resting comfortably. I updated the patient on the results. 1409: Upon reevaluation, the patient is feeling about the same. I advised that the patient should be admitted and she agreed. The patient will be further evaluated. 1438: I discussed the patient's case with Dr. Ray [facility] Hospitalist. He understands and agrees to accept the patient. The patient will be further evaluated. Medical Decision The differential diagnosis includes but is not limited to: etiologies such as metabolic, infection, hypo/hyperglycemia, electrolyte abnormalities, cardiac sources, intracerebral event, toxicologic, neurologic, as well as others were entertained. Medication Reconciliation: I attest that I have personally reviewed the patient' s current medication list. Blood pressure screening: Patient was found to have an elevated blood pressure and was referred to their primary doctor for recheck and further treatment. Doubt bacteremia/sepsis. Concern given patient's age, difficulty ambulating concern for safety, urinary tract infection and worsening renal function. Worsening renal function likely secondary to dehydration as well as use of Bactrim for recent treatment of the UTI. Patient admitted for continued monitoring, IV fluids, reassessment of renal function, treatment of UTI, and evaluation of ambulation/gait. Doubt concurrent GI or vascular pathology. No obstructing stone noted. Patient's pain control here, no vomiting while in the emergency room. Vital signs otherwise stable. Pt with elevated BP, but hx of similar, likely somewhat related to circumstances today, however needs monitoring. Consults Time Called: 1438 Consulting Physician: Dr. Ray [facility] Hospitalist Returned Call: [phone] I discussed the patient's case with Dr. Ray [facility] Hospitalist. He understands and agrees to accept the patient. The patient will be further evaluated. Impression Primary Impression: Generalized weakness Additional Impressions: Ambulatory dysfunction Diarrhea Acute renal insufficiency Scribe Attestation The scribe's documentation has been prepared under my direction and personally reviewed by me in its entirety. I confirm that the note above accurately reflects all work, treatment, procedures, and medical decision making performed by me. Departure Information Dispostion Being Evaluated By Hospitalist (Dr. Ray, [facility] Hospitalist) Prescriptions Carvedilol (Carvedilol) 3.125 Mg Tab 3.125 MG PO BID, #60 TAB Prov: Cosme Shafferal ., D.O. 10/04/16 Lactobacillus Acidophilus (Floranex) 1 Tab Tab 1 TAB PO TID, #90 TAB Prov: Shaffer, Lisseth ., D.O. 10/04/16 Referrals Camden Lazar D.O. (PCP) Problem Qualifiers Additional Impressions: Diarrhea Diarrhea type: unspecified type Qualified Codes: R19.7 - Diarrhea, unspecified
== END 2016-10-04 11:31 | disposition home or self-care (01) ==
LOC: EDBD 08:57 → C.EDB 08:59 → ENRESERV 15:41 → C.MED 16:31
PROVIDERS: ADMIT Internal Medicine; ATTEND Internal Medicine
DX: N17.9 Acute kidney failure, unspecified (principal); I12.9 Hypertensive chronic kidney disease with stage 1 through stage 4 chronic kidney disease, or unspecified chronic kidney disease; N18.3 Chronic kidney disease, stage 3 (moderate); R19.7 Diarrhea, unspecified; R53.1 Weakness; E78.5 Hyperlipidemia, unspecified; Z87.440 Personal history of urinary (tract) infections; I65.22 Occlusion and stenosis of left carotid artery; I25.10 Atherosclerotic heart disease of native coronary artery without angina pectoris; K44.9 Diaphragmatic hernia without obstruction or gangrene; H40.9 Unspecified glaucoma; M81.0 Age-related osteoporosis without current pathological fracture; M35.3 Polymyalgia rheumatica; R73.09 Other abnormal glucose; Z86.711 Personal history of pulmonary embolism; Z86.718 Personal history of other venous thrombosis and embolism; Z79.82 Long term (current) use of aspirin; Z79.899 Other long term (current) drug therapy

== ENCOUNTER 2018-08-06 17:54 | Inpatient (IN) ==
--- OUTSIDE RECORDS SUMMARY | 2018-08-06 17:58 | External Medical Summary | Continuity of Care Document ---
:1930 Author Name Srinivas Freeman Address Unavailable Unavailable , Care Team Providers Name Role Phone Unavailable Unavailable Unavailable ARSALAN, L Unavailable Unavailable Unavailable Unavailable Unavailable Problems Carotid artery stenosis (433.10) (I65.29) Tonsil symptom (784.99) (R19.8) Gallbladder disease (575.9) (K82.9) Allergies and Adverse Reactions Amoxicillin CAPS (Allergy) Ceclor CAPS (Allergy) Medications Questran 4 GM Oral Packet; Ordered by Austin Molina Start: 28-Jan-2015 Refills: 0 Magnesium Oxide 400 MG Oral Tablet; TAKE 1 TABLET DAILY. Lynne Start: 11-Jul-2013 Refills: 0 Tenormin 50 MG Oral Tablet; TAKE 1 TABLET DAILY. Pete Start: 11-Jul-2013 Refills: 0 Vytorin 10-80 MG Oral Tablet; TAKE 1 TABLET DAILY. , Pete Start: 11-Jul-2013 Refills: 0 Plavix 75 MG Oral Tablet; TAKE 1 TABLET DAILY. Pete Start: 11-Jul-2013 Refills: 0 Aspirin 81 MG TABS; TAKE 1 TABLET DAILY. Pete Start: 11-Jul-2013 Refills: 0 Glucosamine Chondr 1500 Complx Oral Capsule; TAKE 1 CAPSULE DAILY. Pete Start: 11-Jul-2013 Refills: 0 Vitamin D3 1000 UNIT Oral Capsule; TAKE DIRECTED. Pete Start: 11-Jul-2013 Refills: 0 predniSONE 5 MG Oral Tablet; TAKE 1 TABLET DIRECTED. Lynne. Rebel Start: 11-Jul-2013 Refills: 0 Pantoprazole Sodium 40 MG Oral Tablet Delayed Release; TAKE 1 TABLET DAILY. Pete Start: 11-Jul-2013 Refills: 0 Travatan Z 0.004 % Ophthalmic Solution , M.D. S tart: 11-Jul-2013 Refills: 0 Procedures History of Dilation And Curettage Status : Completed History of Tubal Ligation Status: Comple farzaneh History of Hemorrhoidectomy Status: Comp leted History of Cataract Surgery Status: Comp leted History of Rectal Surgery Status: Comple farzaneh History of Carotid Thromboendarterectomy Status: Completed Immunizations Immunizations not documented Family History Unknown Family Member Family history of Diabetes Mellitus (V18.0) Status: Active Comments: Family History Family history of Hypertension (V17.49) Status: Active Comments: Family History Family history of Heart Disease (V17.49) Status: Active Comments: Family History Family history of Breast Cancer (V16.3) Status: Active Comments: Family History Mother Family history unknown (V49.89) (Z78.9) Status: Active Father Family history unknown (V49.89) (Z78.9) Status: Active Social History - Smoking Status Former smoker Plan of Treatment Planned Observations Planned Goals not documented Results No Known Results Results not documented
[2018-08-06] MEDS ORDERED: SODIUM CHLORIDE 0.9% 500 ML IV SCH (18:15)
[2018-08-06] MEDS ORDERED: ASPIRIN CHEW 324 MG PO STA (18:28)
[2018-08-06] MEDS ORDERED: METOPROLOL TARTRATE 1 MG/ML VIAL IV STA ×2 (18:28→19:19)
[2018-08-06 18:32] LABS: Basophils # (auto) 0.02 K/uL (0-0.2); Basophils % (auto) 0.2 %; Eosinophils # (auto) 0.18 K/uL (0-0.5); Eosinophils % (auto) 2.2 %; Hematocrit (blood only) 45.6 % (37-47); Hemoglobin 15.9 g/dL (12.0-16.0); Immature Granulocytes # (auto) 0.04 K/uL (0.00-0.02); Immature Granulocytes % (auto) 0.5 %; Lymphocytes # (auto) 1.78 K/uL (1.2-3.4); Lymphocytes % (auto) 21.7 %; Mean Corpuscular Hgb Conc 34.9 g/dL (32-36); Mean Corpuscular Volume 91.9 fL (80-100); Mean Platelet Volume 10.4 fL (7.4-10.4); Monocytes # (auto) 0.49 K/uL (0.11-0.59); Neutrophils % (auto) 69.4 %; Platelet Count 202 K/uL (130-400); RDW Coefficient of Variation 13.7 % (11.5-14.5); RDW Standard Deviation 46.1 fL (36.4-46.3); Red Blood Count 4.96 M/uL (4.2-5.4); White Blood Count 8.21 K/uL (4.8-10.8)
[2018-08-06 18:41] LABS: Partial Thromboplastin Ratio 0.9; Partial Thromboplastin Time 24.1 Seconds (21.0-31.0)
--- NOTE | 2018-08-06 18:41 | XRay Report ---
XR chest 1V portable HISTORY: 88 years-old Female weakness acute weakness COMPARISON: Acute abdominal series radiographs 10/01/2016 TECHNIQUE: Portable AP view of the chest FINDINGS: Cardiac silhouette is enlarged, unchanged. Calcification of the thoracic aortic arch. There is no pne umothorax, large pleural effusion or overt pulmonary edema. Mild subsegmental bibasilar opacities are noted. Degenerative changes of the shoulders and spine. The patient is rotated to the left which parks its the study. IMPRESSION: 1. Cardiomegaly without overt pulmonary edema. 2. Mild subsegmental bibasilar opacities suggest atelectasis. The above report was generated using voice recognition software. It may contain grammatical, syntax o r spelling errors. Electronically signed by: Paul Duke M.D. 08/06/2018 6:40 PM
[2018-08-06 19:14] LABS: Albumin Level 3.3 gm/dl (3.4-5.0); BUN Creatinine Ratio 25.3 (10-20); Calcium 9.3 mg/dl (8.5-10.1); Creatinine Clr Calc Pharmacy 31.1 ml/min; Est GFR (African American) 48.9; Est GFR (Non-African American) 42.2; Magnesium 1.8 mg/dl (1.8-2.4); Potassium 4.3 mmol/L (3.5-5.1)
[2018-08-06] MEDS ORDERED: Heparin IV Standard *NO* Bolus IV ONE (19:20)
[2018-08-06 19:21] LABS: Appearance Urine Clear (Clear); Bilirubin Urine Negative (Negative); Blood Urine Negative (Negative); Color Urine Yellow; Glucose Urine UA Negative (Negative); Ketones Urine Negative (Negative); Leukocyte Esterase Urine Negative (Negative); Nitrite Urine Negative (Negative); Protein Urine Negative (Negative); Specific Gravity Urine 1.009 (1.000-1.030); Urobilinogen Urine Negative (Negative); pH Urine 7.5 (4.5-7.5)
[2018-08-06 19:28] LABS: Albumin Globulin Ratio 0.8 (0.9-2); Bilirubin,Total 0.8 mg/dl (0.2-1); Globulin 4.1 gm/dl (2.5-4.0); Total Protein 7.4 gm/dl (6.4-8.2); Troponin I 0.146 ng/ml (0-0.045)
[2018-08-06] MEDS ORDERED: HEPARIN 25000 UNIT/500 ML D5W IV ONE (20:18)
--- NOTE | 2018-08-06 20:25 | Emergency Department Note ---
Entered by Nayely Esteban acting as a scribe for Arsen Chowdhury DO History of Present Illness General Chief complaint: Cardiac Assessment Time Seen by Provider: 08/06/18 18:04 Source: patient History of Present Illness Onset (ago): hour(s) (last night) Location: chest Pain Consistency: + intermittent Associated symptoms: + other (positive racing heartbeat); no shortness of breath (with laying flat) Treatments prior to arrival: none The patient is a 88 year old female who presents to the Emergency Room with complaints of intermittent chest pain that began last night. The patient states that her heart was racing last night during one of her episodes of pain. The patient denies shortness of breath with laying flat. The patient states that she takes aspirin daily. The patient states that she has a history of an [place]. Home Medications Home Medications Medication Instructions Recorded Confirmed Type Prednisone 5 mg PO QAM #0 tab 06/06/13 History Glucosamine Sulfate (Glucosamine) 1,000 mg PO QPM #0 tab 11/28/13 History Clopidogrel (Plavix) 75 mg PO DAILY #0 tab 10/09/14 History Pantoprazole (Protonix) 40 mg PO DAILY #30 tab 01/10/15 History Magnesium Oxide (Mag-Ox) 400 mg PO DAILY #0 07/30/15 History NITROGLYCERIN (NITROSTAT) 0.4 mg UT PRN #0 btl 07/30/15 History Fish Oil (T[place]-3) 1 cap PO DAILY #0 cap 08/18/15 History Amlodipine Besylate 5 mg PO DAILY 30 Days #30 tab 10/03/15 Rx ASPIRIN 1 tab PO HS 90 Days #0 tab 09/24/16 History CHOLECALCIFEROL (VITAMIN D 1000 1,000 inter.unit PO DAILY #0 cap 09/24/16 History UNIT) ATORVASTATIN (LIPITOR) 20 mg PO DAILY #0 10/01/16 History Carvedilol 3.125 mg PO BID #60 tab 10/04/16 Rx Lactobacillus Acidophilus 1 tab PO DAILY 08/06/18 History (Floranex) loratadine 10 mg PO DAILY 08/06/18 08/06/18 History Allergies Allergy/AdvReac Type Severity Reaction Status Date / Time amoxicillin Allergy Unknown RASH,HIVES Verified 04/29/16 14:21 cefaclor Allergy Unknown RASH, HIVES Verified 04/29/16 14:21 levofloxacin Allergy Unknown hives Verified 04/29/16 14:21 atorvastatin AdvReac Severe AFFECTS Verified 08/06/18 23:09 LIVER lisinopril AdvReac Severe AFFECTS Verified 08/06/18 23:09 LIVER ENZYMES citalopram AdvReac Intermediate "WILD Verified 04/29/16 14:21 DREAMS" omeprazole AdvReac Unknown blurred Verified 08/06/18 23:09 vision, headache, flashing lights Past Med/Surg History Medical History Pre-diabetes (Chronic) Hypertension (Chronic) Polymyalgia rheumatica (Chronic) History of DVT (deep vein thrombosis) (Chronic) "2013" History of pulmonary embolism (Chronic) "2013" TIA (transient ischemic attack) (Chronic) Cerebrovascular disease (Chronic) Coronary artery disease (Chronic) CKD (chronic kidney disease), stage III (Chronic) Dyslipidemia (Chronic) Carotid arterial disease (Chronic) "s/p left CEA, september 2014" MANAV (acute kidney injury) Surgical History S/P appendectomy (Chronic) S/P tubal ligation (Chronic) H/O dilation and curettage (Chronic) S/P laparoscopic cholecystectomy (Chronic 12/03/13) Social History Preferred Language: Romanian Communication Ability: Effective Beliefs That Will Affect Care: None Current Living Situation: Alone Other Information That Helps Us Care for You: No Feels Safe at Home: Yes Safety Concerns: Feels Safe At This Time Smoking Status: Former smoker Hx Alcohol Use: No Hx Substance Use: No Review of Systems See HPI for pertinent positives & negatives. and A total of 10 systems reviewed and were otherwise negative Physical Exam Vital Signs Vital Signs - 24 hr 08/06/18 18:05 08/06/18 18:29 08/06/18 18:52 Temperature 36.7 C Temperature Source Oral Sepsis Recent Fever Within 48 Hours No Sepsis Action Taken by Nursing No Action Required Pulse Rate 160 H Pulse Rate [Apical] Pulse Rate [Finger] Respiratory Rate 20 Blood Pressure 157/102 H Blood Pressure [Left Arm] Blood Pressure [Right Arm] Blood Pressure Mean 120 Blood Pressure Mean [Left Arm] Blood Pressure Mean [Right Arm] Blood Pressure Position [Left Arm] Blood Pressure Position [Right Arm] Pulse Oximetry 92 88 L Oxygen Delivery Method Room Air Room Air Room Air Oxygen Flow Rate 0 08/06/18 19:28 08/06/18 21:00 08/06/18 21:30 Temperature 36.6 C Temperature Source Oral Sepsis Recent Fever Within 48 Hours Sepsis Action Taken by Nursing Pulse Rate Pulse Rate [Apical] 110 H 108 H 121 H Pulse Rate [Finger] Respiratory Rate 22 18 Blood Pressure Blood Pressure [Left Arm] 123/101 H 146/101 H 177/84 H Blood Pressure [Right Arm] Blood Pressure Mean Blood Pressure Mean [Left Arm] 108 116 115 Blood Pressure Mean [Right Arm] Blood Pressure Position [Left Arm] Blood Pressure Position [Right Arm] Pulse Oximetry 96 96 99 Oxygen Delivery Method Nasal Cannula Nasal Cannula Nasal Cannula Oxygen Flow Rate 2 2 2 08/07/18 00:00 08/07/18 00:17 08/07/18 00:45 Temperature 36.6 C Temperature Source Oral Sepsis Recent Fever Within 48 Hours Sepsis Action Taken by Nursing Pulse Rate 119 H 132 H Pulse Rate [Apical] Pulse Rate [Finger] 119 H Respiratory Rate 17 Blood Pressure 147/92 H Blood Pressure [Left Arm] 103/75 Blood Pressure [Right Arm] Blood Pressure Mean Blood Pressure Mean [Left Arm] 84 Blood Pressure Mean [Right Arm] Blood Pressure Position [Left Arm] Lying Blood Pressure Position [Right Arm] Pulse Oximetry 93 Oxygen Delivery Method Room Air Oxygen Flow Rate 08/07/18 01:45 08/07/18 02:58 08/07/18 03:57 Temperature 36.5 C Temperature Source Oral Sepsis Recent Fever Within 48 Hours Sepsis Action Taken by Nursing Pulse Rate Pulse Rate [Apical] Pulse Rate [Finger] 126 H 96 H 101 H Respiratory Rate 16 Blood Pressure Blood Pressure [Left Arm] 153/92 H 126/80 Blood Pressure [Right Arm] 131/79 Blood Pressure Mean Blood Pressure Mean [Left Arm] 112 95 Blood Pressure Mean [Right Arm] 96 Blood Pressure Position [Left Arm] Blood Pressure Position [Right Arm] Pulse Oximetry 92 Oxygen Delivery Method Oxygen Flow Rate 08/07/18 05:44 08/07/18 06:03 08/07/18 07:16 Temperature 36.8 C Temperature Source Oral Sepsis Recent Fever Within 48 Hours Sepsis Action Taken by Nursing Pulse Rate Pulse Rate [Apical] 35 L 49 L Pulse Rate [Finger] 57 L Respiratory Rate 18 Blood Pressure Blood Pressure [Left Arm] Blood Pressure [Right Arm] 126/79 Blood Pressure Mean Blood Pressure Mean [Left Arm] Blood Pressure Mean [Right Arm] 94 Blood Pressure Position [Left Arm] Blood Pressure Position [Right Arm] Lying Pulse Oximetry 93 Oxygen Delivery Method Room Air Oxygen Flow Rate 08/07/18 08:00 08/07/18 11:09 Temperature 36.9 C Temperature Source Oral Sepsis Recent Fever Within 48 Hours Sepsis Action Taken by Nursing Pulse Rate 66 Pulse Rate [Apical] Pulse Rate [Finger] 64 Respiratory Rate 18 Blood Pressure Blood Pressure [Left Arm] Blood Pressure [Right Arm] 121/83 Blood Pressure Mean Blood Pressure Mean [Left Arm] Blood Pressure Mean [Right Arm] 95 Blood Pressure Position [Left Arm] Blood Pressure Position [Right Arm] Sitting Pulse Oximetry 92 Oxygen Delivery Method Room Air Oxygen Flow Rate GENERAL: Patient is awake, alert, and in no acute distress.Patient is resting comfortably and showing no signs of anxiety EYES: The conjunctivae are clear. The pupils are round and reactive. EARS, NOSE, MOUTH AND THROAT: The nose is without any evidence of any deformity. Mucous membranes are moist.Tongue is midline NECK: The neck is nontender and supple. RESPIRATORY: Normal respiratory effort is noted. There is no evidence of wheezing rhonchi or rales to auscultation. Lung sounds diminished at both bases. CARDIOVASCULAR: Tachycardic rate and irregular rhythm were noted. There no rubs or gallops normal S1 normal S2. There are no definite murmurs noted. GASTROINTESTINAL: The abdomen is soft. Bowel sounds are present in all quadrants. Abdomen is nontender. MUSCULOSKELETAL/EXTREMITIES: There is no evidence of gross deformity. Full range of motion is noted in the hips and shoulders. SKIN: There is no obvious evidence of any rash. There are no petechiae, pallor or cyanosis noted. Trace pedal edema bilaterally. NEUROLOGIC: Patient is awake alert and oriented x3. Course 1806: The patient was evaluated in room B12A, and a complete history and physical examination were performed. 3: I discussed the case with Dr. Matt Macdonald who accepted the patient for further evaluation. Consultations Consultation #1: I discussed the case with Dr. Matt Macdonald who accepted the patient for further evaluation. Time: 19:43 Administered Medications Amlodipine Besylate (Norvasc) 5 mg PO DAILY [facility] Stop: 09/06/18 08:59 Last Admin: 08/07/18 08:21 Dose: 5 mg Documented by: [id number] Aspirin (Ecotrin Ectab) 81 mg PO HS [facility] Stop: 09/05/18 22:29 Last Admin: 08/06/18 22:56 Dose: 81 mg Documented by: [id number] Atorvastatin Calcium (Lipitor) 20 mg PO DAILY [facility] Stop: 09/06/18 08:59 Last Admin: 08/07/18 08:22 Dose: 20 mg Documented by: [id number] Carvedilol (Coreg) 3.125 mg PO BID [facility] Stop: 09/05/18 22:29 Last Admin: 08/07/18 08:20 Dose: 3.125 mg Documented by: [id number] Admin: 08/06/18 22:56 Dose: 3.125 mg Documented by: [id number] Clopidogrel Bisulfate (Plavix) 75 mg PO DAILY [facility] Stop: 09/06/18 08:59 Last Admin: 08/07/18 08:21 Dose: 75 mg Documented by: [id number] Fluticasone Propionate (Flonase) 2 sprays NA DAILY [facility] Stop: 09/06/18 08:59 Last Admin: 08/07/18 08:21 Dose: 2 sprays Documented by: [id number] Heparin Sodium/Dextrose (Heparin Sodium/Dextrose) 25,000 units in 500 mls @ 20 mls/hr IV .Q24H [facility]; Protocol Stop: 09/05/18 21:59 Last Admin: 08/06/18 21:30 Dose: 1,000 units/hr, 20 mls/hr Documented by: [id number] Cosigned by: [id number] Ioversol (Optiray 320 125ml) 125 ml IV ONCE PRN PRN Reason: Interaction Checking Stop: 08/11/18 03:40 Last Admin: 08/07/18 03:41 Dose: 110 ml Documented by: [id number] Metoprolol Tartrate (Lopressor) 2.5 mg IV Q4 PRN PRN Reason: Tachycardia Stop: 09/05/18 21:46 Last Admin: 08/07/18 00:45 Dose: 2.5 mg Documented by: [id number] Pantoprazole Sodium (Protonix) 40 mg PO QAM [facility] Stop: 09/06/18 08:59 Last Admin: 08/07/18 08:21 Dose: 40 mg Documented by: [id number] Prednisone (Prednisone) 5 mg PO QAM [facility] Stop: 09/06/18 08:59 Last Admin: 08/07/18 08:21 Dose: 5 mg Documented by: [id number] Vitamin D (Vitamin D3) 1,000 units PO DAILY [facility] Stop: 09/06/18 08:59 Last Admin: 08/07/18 08:21 Dose: 1,000 units Documented by: [id number] Discontinued Medications Amiodarone HCl (Cordarone) 200 mg PO NOW ONE Stop: 08/07/18 13:14 Last Admin: 08/07/18 13:52 Dose: 200 mg Documented by: [id number] Aspirin (Aspirin) 324 mg PO NOW STA Stop: 08/06/18 18:29 Last Admin: 08/06/18 18:54 Dose: 324 mg Documented by: [id number] Diltiazem HCl (Cardizem) 10 mg IV NOW STA Stop: 08/07/18 01:28 Last Admin: 08/07/18 01:52 Dose: 10 mg Documented by: [id number] Cosigned by: [id number] Heparin Sodium/Dextrose () 1 ea IV ONE ONE; Protocol Stop: 08/06/18 19:21 Last Admin: 08/06/18 20:41 Dose: Not Given Documented by: [id number] Heparin Sodium/Dextrose (Heparin Sodium/Dextrose) Confirm Administered Dose 25,000 units IV .STK-MED ONE Stop: 08/06/18 20:19 Last Admin: 08/06/18 20:36 Dose: 1,000 units Documented by: [id number] Cosigned by: [id number] Sodium Chloride (Nss) 500 mls @ 999 mls/hr IV .Q31M [facility] Stop: 08/06/18 18:45 Last Infusion: 08/06/18 19:17 Dose: 0 mls/hr Documented by: [id number] Admin: 08/06/18 18:47 Dose: 999 mls/hr Documented by: [id number] Diltiazem HCl 125 mg/ Dextrose 125 mls @ 0 mls/hr IV .Q0M [facility]; Protocol Stop: 09/06/18 01:44 Last Titration: 08/07/18 05:48 Dose: 0 mg/hr, 0 mls/hr Documented by: [id number] Admin: 08/07/18 01:46 Dose: 5 mg/hr, 5 mls/hr Documented by: [id number] Cosigned by: [id number] Magnesium Sulfate/Dextrose (Magnesium Sulfate / D5w) 1 gm in 100 mls @ 100 mls/hr IV Q1H [facility] Stop: 08/07/18 09:14 Last Infusion: 08/07/18 09:52 Dose: 0 mls/hr Documented by: [id number] Admin: 08/07/18 08:52 Dose: 100 mls/hr Documented by: [id number] Infusion: 08/07/18 08:43 Dose: 100 mls/hr Documented by: [id number] Admin: 08/07/18 07:43 Dose: 100 mls/hr Documented by: [id number] Metoprolol Tartrate (Lopressor) 5 mg IV NOW STA Stop: 08/06/18 18:29 Last Admin: 08/06/18 18:54 Dose: 5 mg Documented by: [id number] Metoprolol Tartrate (Lopressor) 5 mg IV NOW STA Stop: 08/06/18 19:20 Last Admin: 08/06/18 19:29 Dose: 5 mg Documented by: [id number] Medical Decision Making Differential Diagnosis Differential diagnosis: Etiologies such as premature contractions, electrolyte abnormality, cardiac dysrhythmia, thyroid dysfunction, pulmonary embolism, infection, gastrointestinal, as well as others were entertained. Medical Records Attestation: I reviewed the patient's medical records. Home Medications Current Medication List: was personally reviewed by me Laboratory Data Attestation: I reviewed the patient's lab results. Result diagrams: 08/07/18 04:03 08/07/18 04:03 Lab Results 08/06/18 08/06/18 08/06/18 Range/Units 18:20 18:20 18:20 WBC 8.21 (4.8-10.8) K/uL RBC 4.96 (4.2-5.4) M/uL Hgb 15.9 (12.0-16.0) g/dL Hct 45.6 (37-47) % MCV 91.9 (80-100) fL MCH 32.1 (25-34) pg MCHC 34.9 (32-36) g/dL RDW Std Deviation 46.1 (36.4-46.3) fL RDW Coeff of Jackeline 13.7 (11.5-14.5) % Plt Count 202 (130-400) K/uL MPV 10.4 (7.4-10.4) fL Immature Gran % (Auto) 0.5 % Neut % (Auto) 69.4 % Lymph % (Auto) 21.7 % Bledsoe % (Auto) 6.0 % Eos % (Auto) 2.2 % Baso % (Auto) 0.2 % Immature Gran # (Auto) 0.04 H (0.00-0.02) K/uL Neut # (Auto) 5.70 (1.4-6.5) K/uL Lymph # (Auto) 1.78 (1.2-3.4) K/uL Bledsoe # (Auto) 0.49 (0.11-0.59) K/uL Eos # (Auto) 0.18 (0-0.5) K/uL Baso # (Auto) 0.02 (0-0.2) K/uL PT 10.0 (9.0-12.0) Seconds INR 1.0 (0.9-1.1) APTT 24.1 (21.0-31.0) Seconds PTT Ratio 0.9 D-Dimer (0-500) ug/L FEU Sodium 140 (136-145) mmol/L Potassium 4.3 (3.5-5.1) mmol/L Chloride 105 (98-107) mmol/L Carbon Dioxide 27 (21-32) mmol/L Anion Gap 8.0 (3-11) BUN 30 H (7-18) mg/dl Creatinine 1.17 (0.6-1.2) mg/dl Est Cr Clr Drug Dosing 31.1 ml/min Est GFR ( Amer) 48.9 Est GFR (Non-Af Amer) 42.2 BUN/Creatinine Ratio 25.3 H (10-20) Glucose 154 H (70-99) mg/dl Calcium 9.3 (8.5-10.1) mg/dl Magnesium 1.8 (1.8-2.4) mg/dl Total Bilirubin 0.8 (0.2-1) mg/dl AST 15 (15-37) U/L ALT 21 (12-78) U/L Alkaline Phosphatase 70 (45-117) U/L Troponin I 0.146 H* (0-0.045) ng/ml Total Protein 7.4 (6.4-8.2) gm/dl Albumin 3.3 L (3.4-5.0) gm/dl Globulin 4.1 H (2.5-4.0) gm/dl Albumin/Globulin Ratio 0.8 L (0.9-2) TSH 1.240 (0.300-4.500) uIu/ml Urine Color Urine Appearance (Clear) Urine pH (4.5-7.5) Ur Specific [place] (1.000-1.030) Urine Protein (Negative) Urine Glucose (UA) (Negative) Urine Ketones (Negative) Urine Blood (Negative) Urine Nitrite (Negative) Urine Bilirubin (Negative) Urine Urobilinogen (Negative) Ur Leukocyte Esterase (Negative) 08/06/18 08/06/18 08/06/18 Range/Units 18:20 19:00 22:37 WBC (4.8-10.8) K/uL RBC (4.2-5.4) M/uL Hgb (12.0-16.0) g/dL Hct (37-47) % MCV (80-100) fL MCH (25-34) pg MCHC (32-36) g/dL RDW Std Deviation (36.4-46.3) fL RDW Coeff of Jackeline (11.5-14.5) % Plt Count (130-400) K/uL MPV (7.4-10.4) fL Immature Gran % (Auto) % Neut % (Auto) % Lymph % (Auto) % Bledsoe % (Auto) % Eos % (Auto) % Baso % (Auto) % Immature Gran # (Auto) (0.00-0.02) K/uL Neut # (Auto) (1.4-6.5) K/uL Lymph # (Auto) (1.2-3.4) K/uL Bledsoe # (Auto) (0.11-0.59) K/uL Eos # (Auto) (0-0.5) K/uL Baso # (Auto) (0-0.2) K/uL PT (9.0-12.0) Seconds INR (0.9-1.1) APTT (21.0-31.0) Seconds PTT Ratio D-Dimer 860 H* (0-500) ug/L FEU Sodium (136-145) mmol/L Potassium (3.5-5.1) mmol/L Chloride (98-107) mmol/L Carbon Dioxide (21-32) mmol/L Anion Gap (3-11) BUN (7-18) mg/dl Creatinine (0.6-1.2) mg/dl Est Cr Clr Drug Dosing ml/min Est GFR ( Amer) Est GFR (Non-Af Amer) BUN/Creatinine Ratio (10-20) Glucose (70-99) mg/dl Calcium (8.5-10.1) mg/dl Magnesium (1.8-2.4) mg/dl Total Bilirubin (0.2-1) mg/dl AST (15-37) U/L ALT (12-78) U/L Alkaline Phosphatase (45-117) U/L Troponin I 0.175 H* (0-0.045) ng/ml Total Protein (6.4-8.2) gm/dl Albumin (3.4-5.0) gm/dl Globulin (2.5-4.0) gm/dl Albumin/Globulin Ratio (0.9-2) TSH (0.300-4.500) uIu/ml Urine Color Yellow Urine Appearance Clear (Clear) Urine pH 7.5 (4.5-7.5) Ur Specific [place] 1.009 (1.000-1.030) Urine Protein Negative (Negative) Urine Glucose (UA) Negative (Negative) Urine Ketones Negative (Negative) Urine Blood Negative (Negative) Urine Nitrite Negative (Negative) Urine Bilirubin Negative (Negative) Urine Urobilinogen Negative (Negative) Ur Leukocyte Esterase Negative (Negative) 08/07/18 08/07/18 08/07/18 Range/Units 02:37 04:03 04:03 WBC 8.02 (4.8-10.8) K/uL RBC 4.90 (4.2-5.4) M/uL Hgb 15.5 (12.0-16.0) g/dL Hct 45.6 (37-47) % MCV 93.1 (80-100) fL MCH 31.6 (25-34) pg MCHC 34.0 (32-36) g/dL RDW Std Deviation 46.7 H (36.4-46.3) fL RDW Coeff of Jackeline 13.6 (11.5-14.5) % Plt Count 178 (130-400) K/uL MPV 10.2 (7.4-10.4) fL Immature Gran % (Auto) 0.2 % Neut % (Auto) 55.7 % Lymph % (Auto) 34.3 % Bledsoe % (Auto) 5.0 % Eos % (Auto) 4.6 % Baso % (Auto) 0.2 % Immature Gran # (Auto) 0.02 (0.00-0.02) K/uL Neut # (Auto) 4.46 (1.4-6.5) K/uL Lymph # (Auto) 2.75 (1.2-3.4) K/uL Bledsoe # (Auto) 0.40 (0.11-0.59) K/uL Eos # (Auto) 0.37 (0-0.5) K/uL Baso # (Auto) 0.02 (0-0.2) K/uL PT (9.0-12.0) Seconds INR (0.9-1.1) APTT 47.3 H* (21.0-31.0) Seconds PTT Ratio 1.7 D-Dimer (0-500) ug/L FEU Sodium (136-145) mmol/L Potassium (3.5-5.1) mmol/L Chloride (98-107) mmol/L Carbon Dioxide (21-32) mmol/L Anion Gap (3-11) BUN (7-18) mg/dl Creatinine (0.6-1.2) mg/dl Est Cr Clr Drug Dosing ml/min Est GFR ( Amer) Est GFR (Non-Af Amer) BUN/Creatinine Ratio (10-20) Glucose (70-99) mg/dl Calcium (8.5-10.1) mg/dl Magnesium (1.8-2.4) mg/dl Total Bilirubin (0.2-1) mg/dl AST (15-37) U/L ALT (12-78) U/L Alkaline Phosphatase (45-117) U/L Troponin I 0.190 H* (0-0.045) ng/ml Total Protein (6.4-8.2) gm/dl Albumin (3.4-5.0) gm/dl Globulin (2.5-4.0) gm/dl Albumin/Globulin Ratio (0.9-2) TSH (0.300-4.500) uIu/ml Urine Color Urine Appearance (Clear) Urine pH (4.5-7.5) Ur Specific [place] (1.000-1.030) Urine Protein (Negative) Urine Glucose (UA) (Negative) Urine Ketones (Negative) Urine Blood (Negative) Urine Nitrite (Negative) Urine Bilirubin (Negative) Urine Urobilinogen (Negative) Ur Leukocyte Esterase (Negative) 08/07/18 08/07/18 Range/Units 04:03 10:09 WBC (4.8-10.8) K/uL RBC (4.2-5.4) M/uL Hgb (12.0-16.0) g/dL Hct (37-47) % MCV (80-100) fL MCH (25-34) pg MCHC (32-36) g/dL RDW Std Deviation (36.4-46.3) fL RDW Coeff of Jackeline (11.5-14.5) % Plt Count (130-400) K/uL MPV (7.4-10.4) fL Immature Gran % (Auto) % Neut % (Auto) % Lymph % (Auto) % Bledsoe % (Auto) % Eos % (Auto) % Baso % (Auto) % Immature Gran # (Auto) (0.00-0.02) K/uL Neut # (Auto) (1.4-6.5) K/uL Lymph # (Auto) (1.2-3.4) K/uL B[place]soe # (Auto) (0.11-0.59) K/uL Eos # (Auto) (0-0.5) K/uL Baso # (Auto) (0-0.2) K/uL PT (9.0-12.0) Seconds INR (0.9-1.1) APTT (21.0-31.0) Seconds PTT Ratio D-Dimer (0-500) ug/L FEU Sodium 140 (136-145) mmol/L Potassium 3.7 (3.5-5.1) mmol/L Chloride 104 (98-107) mmol/L Carbon Dioxide 32 (21-32) mmol/L Anion Gap 4.0 (3-11) BUN 23 H (7-18) mg/dl Creatinine 0.99 (0.6-1.2) mg/dl Est Cr Clr Drug Dosing 36.9 ml/min Est GFR ( Amer) 59.8 Est GFR (Non-Af Amer) 51.6 BUN/Creatinine Ratio 23.3 H (10-20) Glucose 111 H (70-99) mg/dl Calcium 9.0 (8.5-10.1) mg/dl Magnesium 1.6 L 2.6 H (1.8-2.4) mg/dl Total Bilirubin (0.2-1) mg/dl AST (15-37) U/L ALT (12-78) U/L Alkaline Phosphatase (45-117) U/L Troponin I 0.200 H* (0-0.045) ng/ml Total Protein (6.4-8.2) gm/dl Albumin (3.4-5.0) gm/dl Globulin (2.5-4.0) gm/dl Albumin/Globulin Ratio (0.9-2) TSH (0.300-4.500) uIu/ml Urine Color Urine Appearance (Clear) Urine pH (4.5-7.5) Ur Specific [place] (1.000-1.030) Urine Protein (Negative) Urine Glucose (UA) (Negative) Urine Ketones (Negative) Urine Blood (Negative) Urine Nitrite (Negative) Urine Bilirubin (Negative) Urine Urobilinogen (Negative) Ur Leukocyte Esterase (Negative) Imaging Data Radiologist's Impression: Radiology results as stated below per my review and the radiologist's interpretation: XR chest 1V portable HISTORY: 88 years-old Female weakness acute weakness COMPARISON: Acute abdominal series radiographs 10/01/2016 TECHNIQUE: Portable AP view of the chest FINDINGS: Cardiac silhouette is enlarged, unchanged. Calcification of the thoracic aortic arch. There is no pneumothorax, large pleural effusion or overt pulmonary edema. Mild subsegmental bibasilar opacities are noted. Degenerative changes of the shoulders and spine. The patient is rotated to the left which limits the study. IMPRESSION: 1. Cardiomegaly without overt pulmonary edema. 2. Mild subsegmental bibasilar opacities suggest atelectasis. The above report was generated using voice recognition software. It may contain grammatical, syntax or spelling errors. Electronically signed by: Paul Duke M.D. 08/06/2018 6:40 PM ECG Data Attestation: I personally reviewed and interpreted this ECG as follows: Indication: chest pain Rate (beats per minute): 138 Rhythm: atrial fibrillation (with RVR) Findings: + Q waves (inferior) and + RBBB; no PVC Comparison ECG Date: from (10/19/2016) Change: the following changes noted Blood Pressure Blood Pressure Findings: Normal blood pressure MDM Narrative The patient is an 88-year-old female who presented to the emergency department by ambulance for an evaluation of palpitations and chest pain. The patient was found to have an irregular wide-complex tachycardia which appears to be consistent with atrial fibrillation and underlying aberrantly. The patient was treated with IV heparin as well as aspirin in the emergency department. She was also treated with IV fluids as well as as a beta-garrick. Patient was reevaluated multiple times. Her pulse rate did improve and her symptoms improved as well. I discussed the patient's laboratory and radiographic studies with her. I also discussed her case with the on-call [facility] hospitalist. They have agreed to evaluate the patient in the emergency department for further management and disposition. Impression & Plan Atrial fibrillation with RVR, Chest pain, Abnormal ECG, Elevated troponin Critical Care Time I have personally spent 60 minutes of critical care time in the direct management of this patient. This includes bedside care, interpretation of diagno stic studies, and testing, discussion with consultants, patient, and family members, and other required patient management activities. This 60 minutes is in excess of all separately billable procedures. Critical Care Time: Yes Total Critical Care Time: 60 Discharge Plan Visit Data *Final* Discharge Date/Time: 08/06/18 21:34 Chief Complaint: Cardiac Assessment ED Provider: Arsen Chowdhury Discharge Problem: Atrial fibrillation with RVR, Chest pain, Abnormal ECG, Elevated troponin Patient Disposition: Admitted As Inpatient Discharge Problem: Chest pain Qualifiers: Chest pain type: unspecified Qualified Code(s): R07.9 - Chest pain, unspecified The scribe's documentation has been prepared under my direction and personally reviewed by me in its entirety. I confirm that the note above accurately reflects all work, treatment, procedures, and medical decision making performed by me.
[2018-08-06 21:09] LABS: D Dimer 860 ug/L FEU (0-500)
[2018-08-06] MEDS: Heparin Adult STANDARD Wt-Based Dextrose 5% 25,000 units/500 mL IV SCH (21:30)
--- NOTE | 2018-08-06 21:35 | History and Physical Report ---
DATE OF ADMISSION: 08/06/2018 CHIEF COMPLAINT: Chest pain and rapid AFib. HISTORY OF PRESENT ILLNESS: This 88-year-old female with past medical history significant for type 2 diabetes, hyperlipidemia, carotid stenosis, CAD, hypertension, chronic kidney disease stage III, polymyalgia rheumatica, generalized osteoarthritis, degenerative disk disease, history of glaucoma, history of PE, ambulatory dysfunction, history of smoking, history of frequent UTIs, presents with chest pain. Clemencia enrolled in [employer] . Walks with help of cane and walker but ambulatory function is poor. Last night she noticed chest pain, radiating to her right arm and right neck. It was moderate to severe in nature. When she woke up in the morning, she was feeling cold and sweaty. Her friend told her go to the ER and in the afternoon again the chest pain started to come back and she came to the hospital. Last night she felt like her whole body was shaking but her pulse was okay, but in the ER, she was found to be in rapid AFib. A dose of IV Lopressor was given, the heart rate is improved but currently denies any chest pain or shortness of breath. No cough, no fever, no chills, no headaches. The patient felt dizzy 15 days ago for some time but that has improved.. No sore throat, no headaches, no cough. Appetite is good. No nausea, no abdominal pain. Normal bowel and bladder movements. Her legs swell sometimes.Currently resting comfortably. ALLERGIES: AMOXICILLIN, CEPHALOSPORINS, CITALOPRAM, LOVENOX, LEVAQUIN, LISINOPRIL. PAST MEDICAL HISTORY: As mentioned above. PAST SURGICAL HISTORY: Cardiac catheterization, colonoscopy, EGD with endoscopic ultrasound, laparoscopic cholecystectomy, ligation of the oviduct, appendectomy, cataract surgery, rectocele repair, left carotid endarterectomy. MEDICATIONS: The patient is on fosfomycin 3 grams once when having urinary symptoms, magnesium 400 mg p.o. daily, loratadine 10 mg p.o. daily, cranberry 400 mg p.o. daily, amlodipine 5 mg p.o. daily, aspirin 81 mg p.o. daily, Lipitor 20 mg p.o. daily, Coreg 3.125 mg p.o. b.i.d., vitamin D 1000 units p.o. daily, Plavix 75 mg p.o. daily, Flonase 2 sprays in each nostril daily, glucosamine 1000 mg daily, omega 3 fatty acid 1 capsule daily, Protonix 40 mg p.o. daily, prednisone 5 mg p.o. daily with food, lactobacillus 1 tablet daily, Travatan 0.004% ophthalmic solution 1 drop in each eye at bedtime. FAMILY HISTORY: Significant for mother had diabetes, heart disorder, hypertension. Sister has diabetes, thyroid disorder, breast cancer. SOCIAL HISTORY: . Former smoker, smoked 2 packs a day for 10 years. No alcohol use, no drug use. REVIEW OF SYMPTOMS: As per HPI. Rest of review of systems negative. PHYSICAL EXAMINATION: GENERAL: The patient is old and frail, not in acute distress. VITAL SIGNS: Temperature 36.7, pulse when she came in was 160, blood pressure 126/101, oxygen 96% on 2 L. HEENT: No pallor, no icterus. Pupils equal, round, and reactive to light. NECK: No JVD, no neck masses, no carotid bruits. CARDIOVASCULAR: S1, S2 heard. Tachycardia, regular rhythm. No murmur. RESPIRATORY SYSTEM: Normal AP diameter. No accessory muscle use. No wheezing, no crackles. ABDOMEN: Soft, bowel sounds present. Nontender. No distention. CENTRAL NERVOUS SYSTEM: Cranial nerves II-XII grossly intact. Nonfocal. EXTREMITIES: Trace pedal edema, no erythema seen. LABORATORIES: WBC 8.2, hemoglobin 15.9, hematocrit 45.6, platelets 202. PT 10.0, INR 1, APTT 24.1, PTT 0.9. Sodium 140, potassium 4.3, chloride 105, bicarbonate 27, BUN 30, creatinine 1.17, serum glucose 154, calcium 9.3, magnesium 1.8, total bilirubin 0.8, AST 15, ALT 21, alkaline phosphatase 70, troponin 0.146. TSH 1.2. Urinalysis negative. Chest x-ray, cardiomegaly without overt pulmonary edema. EKG: Shows rapid AFib with rate of 138, right bundle branch block seen. ASSESSMENT AND PLAN: This is an 88-year-old female who presents with chest pain, found to have rapid atrial fibrillation. 1. Rapid atrial fibrillation, new onset. IV Lopressor given in the ER and heart rate is better controlled. Starting on IV heparin. Will start on iv Lopressor p.r.n. Follow serial cardiac enzymes, echocardiogram. Monitor on tele. Consult cardiology for further recommendations.Later on the floor even after Iv Lopressor patient went into rapid a fib. Cardizem drip with bolus was started and then patient converted to sinus rhythm and Cardizem drip was stopped. 2. Chest pain. Had last night and also today afternoon, currently asymptomatic. Most likely could be from the rapid atrial fibrillation, we will rule out acute coronary syndrome. Mild elevation of troponin on IV heparin. Continue Coreg, aspirin, and Plavix and will follow serial cardiac enzymes and echocardiogram. Cardiology consulted. 3. Non-ST elevated myocardial infarction. Troponin 0.14. Rule out acute coronary syndrome. Could be most likely secondary to demand ischemia from atrial fibrillation. We will follow serial cardiac enzymes. She is already on IV heparin. 4. Coronary artery disease. Continue home medication of aspirin, Plavix, Coreg and statin. 5. Chronic kidney disease stage III, creatinine is 1.1. We will follow the labs and currently on statin. 6. Hypertension, on amlodipine and Coreg. Monitor blood pressure on IV Lopressor p.r.n. 7. Gastroesophageal reflux disease on PPI. 8. Polymyalgia rheumatica. On Prednisone 5 mg daily. 8. History of pulmonary embolism, currently started on IV heparin. D Dimer elevated, we will get CTA of the chest. 9. Deep venous thrombosis prophylaxis, on IV heparin. DISPOSITION: Closely monitor in tele floor. Level 1 full code. PT and OT prior to discharge. Social Service to help with discharge planning. CHRISTINE
[2018-08-06] MEDS ORDERED: METOPROLOL TARTRATE 1 MG/ML VIAL IV PRN (21:47)
[2018-08-06] MEDS ORDERED: ONDANSETRON INJ 2 MG/ML 2 ML VIAL IV PRN (21:47)
[2018-08-06] MEDS ORDERED: ACETAMINOPHEN 325 MG TAB PO PRN (21:47)
[2018-08-06] MEDS ORDERED: NITROGLYCERIN SL 0.4 MG/TAB TAB SL PRN (21:47)
[2018-08-06] MEDS: ASPIRIN 81 MG ECTAB PO SCH (22:56)
[2018-08-06] MEDS: CARVEDILOL 3.125 MG TAB PO SCH (22:56)
[2018-08-07] MEDS ORDERED: dilTIAZem HCl 5 MG/ML 5 ML VIAL IV STA (01:27)
[2018-08-07] MEDS ORDERED: dilTIAZem HCl 125 MG in DEXTROSE 5% 100 ML IV SCH (01:45)
[2018-08-07 03:07] LABS: Partial Thromboplastin Ratio 1.7
[2018-08-07 03:08] LABS: Partial Thromboplastin Time 47.3 Seconds (21.0-31.0)
[2018-08-07] MEDS ORDERED: OPTIRAY 320 125ml IV PRN (03:41)
[2018-08-07 04:11] LABS: Basophils # (auto) 0.02 K/uL (0-0.2); Basophils % (auto) 0.2 %; Eosinophils # (auto) 0.37 K/uL (0-0.5); Eosinophils % (auto) 4.6 %; Hematocrit (blood only) 45.6 % (37-47); Hemoglobin 15.5 g/dL (12.0-16.0); Immature Granulocytes # (auto) 0.02 K/uL (0.00-0.02); Immature Granulocytes % (auto) 0.2 %; Lymphocytes # (auto) 2.75 K/uL (1.2-3.4); Lymphocytes % (auto) 34.3 %; Mean Corpuscular Volume 93.1 fL (80-100); Mean Platelet Volume 10.2 fL (7.4-10.4); Neutrophils # (auto) 4.46 K/uL (1.4-6.5); Neutrophils % (auto) 55.7 %; Platelet Count 178 K/uL (130-400); RDW Coefficient of Variation 13.6 % (11.5-14.5); RDW Standard Deviation 46.7 fL (36.4-46.3); White Blood Count 8.02 K/uL (4.8-10.8)
[2018-08-07 04:29] LABS: BUN Creatinine Ratio 23.3 (10-20); Creatinine Clr Calc Pharmacy 36.9 ml/min; Est GFR (African American) 59.8; Est GFR (Non-African American) 51.6; Magnesium 1.6 mg/dl (1.8-2.4); Potassium 3.7 mmol/L (3.5-5.1)
--- NOTE | 2018-08-07 06:17 | CT Scan Report ---
CT angio chest PE protocol CT DOSE: 366.54 mGy.cm HISTORY: Chest pain. Dyspnea. PE TECHNIQUE: Multiaxial CT images of the chest were performed following the intravenous administration of contrast to evaluate the pulmonary arteries. Maximal intensity projection images were also obtaine d. A dose lowering technique was utilized adhering to the principles of ALARA. COMPARISON STUDY: None. FINDINGS: Generalized atherosclerotic change and ectasia thoracic aorta. No evidence for aneurysm. The pulmonary vasculature enhances appropriately. There are no filling defects. Mild cardiomegaly. Lungs are considered clear. No focal infiltrative change. IMPRESSION: 1. No evidence for pulmonary embolus. 2. Lungs are considered clear. 3. Mild cardiomegaly. 4. Several small hepatic cyst. 5. Prior cholecystectomy. The above report was generated using voice recognition software. It may contain grammatical, syntax or spelling errors. Electronically signed by: Eyad Smith M.D. 08/07/2018 6:15 AM
[2018-08-07] MEDS: MAGNESIUM SULFATE / D5W 1 GM/100 ML BAG IV SCH ×2 (07:43→08:52)
[2018-08-07] MEDS: CARVEDILOL 3.125 MG TAB PO SCH ×2 (08:20→20:51)
[2018-08-07] MEDS: predniSONE 5 MG TAB PO SCH (08:21)
[2018-08-07] MEDS: FLUTICASONE PROPIONATE NA SPR 16 GM BTL SCH (08:21)
[2018-08-07] MEDS: AMLODIPINE BESYLATE 5 MG TAB PO SCH (08:21)
[2018-08-07] MEDS: CHOLECALCIFEROL 1,000 UNITS TAB PO SCH (08:21)
[2018-08-07] MEDS: CLOPIDOGREL BISULFATE 75 MG TAB PO SCH (08:21)
[2018-08-07] MEDS: PANTOprazole 40 MG TAB PO SCH (08:21)
[2018-08-07] MEDS: ATORVASTATIN 20 MG TAB PO SCH (08:22)
[2018-08-07] MEDS ORDERED: LORATADINE 10 MG TAB PO SCH (09:00)
[2018-08-07 10:50] LABS: Magnesium 2.6 mg/dl (1.8-2.4); Troponin I 0.2 ng/ml (0-0.045)
[2018-08-07] MEDS ORDERED: AMIODARONE 200 MG TAB PO ONE (13:13)
--- NOTE | 2018-08-07 13:28 | Cardiology Consultation ---
Date of Consultation August 07, 2018 Assessment & Plan (1) Atrial fibrillation with RVR: (2) Abnormal [age]-year-old female with history of known coronary heart disease previous remote PCI to the circumflex and RCA territories presents with symptoms of angina and palpitations with findings of transient atrial fibrillation with rapid ventricular response. Her troponin is noted to have a mild but blunted flat response. Cardiogram performed earlier this morning while the patient was in sinus rhythm revealed severe concentric left ventricular hypertrophy with normal to hyperdynamic left ventricular systolic function ejection fraction in the range of 65-70% with no regional wall motion abnormalities. EKG reveals findings of chronic right bundle branch block, T wave inversions in the cardial leads I and aVL more prominent than prior tracings. Patient is on chronic dual antiplatelet therapy with aspirin and clopidogrel, not certain if this is due to her history of coronary heart disease or perhaps she also has a history of TIA. Globin is stable at 15.5. At present I have discontinued her diltiazem infusion, which was actually already positive before I assessed the patient. Continued unfractionated heparin for stroke prophylaxis. In addition to her prior to hospital dose of carvedilol 3.125 mg twice daily, recommend addition of amiodarone 200 mg twice daily for rhythm control strategy as the patient obviously did not tolerate ablation. The patient on telemetry to determine that she tolerates the addition of amiodarone as her baseline rhythm appears to be rather slow in the mid 55 bpm range in sinus rhythm. Screening baseline TSH and liver function tests were st able. Hold off on addition of oral anticoagulant until it is clear as to whether or not the patient would require invasive procedure such as pacemaker this admission. Given the severe left ventricular hypertrophy, I think it would make sense that she would have significant angina even without coronary artery obstruction with the prolonged episode of atrial fibrillation with rapid ventricular rate that she experienced. Start with conservative medication therapy as noted above. In terms of oral anticoagulant, moist frailty, and due to cost concerns, Coumadin is likely the best agent for her. History of Present Illness Attending Physician: Raul Colbert MD History of Present Illness Michelle Guo is an 88-year-old female seen in cardiology consultation per the request of Dr Cooley chest discomfort newly diagnosed atrial fibrillation with rapid ventricular response. Patient tells me that she typically follows with Dr. France of cardiology in [place]. She denies past history of atrial fibrillation. She does note a history of heart disease and she believes that she has had 4 cardiac stents placed in the past at [facility] in [place]. Last night she had acute onset of chest discomfort radiating down her right arm and right neck as well as associated sensation of rapid heartbeat. EKG on arrival to the emergency room confirmed the presence of atrial fibrillation with rapid ventricular response 138 bpm, with right bundle branch block and findings of age-indeterminate inferior infarction pattern with noted Q waves in the inferior leads III and aVF. The patient was placed on a diltiazem infusion and spontaneously converted to sinus rhythm this morning at 5:44 AM. Shortly after I had interviewed her this morning she had another brief run of atrial fibrillation with subsequent spontaneous conversion to sinus rhythm. There is a scant copy of a cardiac catheterization report from [facility] dated 07/12/2004 that had been reviewed from her outpatient chart that describes mild luminal irregularities in the LAD. 70% stenosis of the proximal portion of the circumflex. 90% proximal stenosis of the right coronary artery. The report describes transfer to [facility]. There is a scanned report of the nuclear stress test performed in 2016 normal perfusion and normal LVEF noted at that time. The patient believes that she had a repeat cardiac catheterization [place] several years ago. The report is unavailable. Was performed without intervention per the patient's recollection. Allergies Allergy/AdvReac Type Severity Reaction Status Date / Time amoxicillin Allergy Unknown RASH,HIVES Verified 04/29/16 14:21 cefaclor Allergy Unknown RASH, HIVES Verified 04/29/16 14:21 levofloxacin Allergy Unknown hives Verified 04/29/16 14:21 atorvastatin AdvReac Severe AFFECTS Verified 08/06/18 23:09 LIVER lisinopril AdvReac Severe AFFECTS Verified 08/06/18 23:09 LIVER ENZYMES citalopram AdvReac Intermediate "WILD Verified 04/29/16 14:21 DREAMS" omeprazole AdvReac Unknown blurred Verified 08/06/18 23:09 vision, headache, flashing lights Home Medications Home Medications Medication Instructions Recorded Confirmed Type Prednisone 5 mg PO QAM #0 tab 06/06/13 History Glucosamine Sulfate (Glucosamine) 1,000 mg PO QPM #0 tab 11/28/13 History Clopidogrel (Plavix) 75 mg PO DAILY #0 tab 10/09/14 History Pantoprazole (Protonix) 40 mg PO DAILY #30 tab 01/10/15 History Magnesium Oxide (Mag-Ox) 400 mg PO DAILY #0 07/30/15 History NITROGLYCERIN (NITROSTAT) 0.4 mg UT PRN #0 btl 07/30/15 History Fish Oil ([place]-3) 1 cap PO DAILY #0 cap 08/18/15 History Amlodipine Besylate 5 mg PO DAILY 30 Days #30 tab 10/03/15 Rx ASPIRIN 1 tab PO HS 90 Days #0 tab 09/24/16 History CHOLECALCIFEROL (VITAMIN D 1000 1,000 inter.unit PO DAILY #0 cap 09/24/16 History UNIT) ATORVASTATIN (LIPITOR) 20 mg PO DAILY #0 10/01/16 History Carvedilol 3.125 mg PO BID #60 tab 10/04/16 Rx Lactobacillus Acidophilus 1 tab PO DAILY 08/06/18 History (Floranex) loratadine 10 mg PO DAILY 08/06/18 08/06/18 History Patient History Medical History Pre-diabetes (Chronic) Hypertension (Chronic) Polymyalgia rheumatica (Chronic) History of DVT (deep vein thrombosis) (Chronic) "2013" History of pulmonary embolism (Chronic) "2013" TIA (transient ischemic attack) (Chronic) Cerebrovascular disease (Chronic) Coronary artery disease (Chronic) CKD (chronic kidney disease), stage III (Chronic) Dyslipidemia (Chronic) Carotid arterial disease (Chronic) "s/p left CEA, september 2014" MANAV (acute kidney injury) Surgical History S/P appendectomy (Chronic) S/P tubal ligation (Chronic) H/O dilation and curettage (Chronic) S/P laparoscopic cholecystectomy (Chronic 12/03/13) Social History Preferred Language: [place] Communication Ability: Effective Beliefs That Will Affect Care: None Current Living Situation: Alone Other Information That Helps Us Care for You: No Feels Safe at Home: Yes Safety Concerns: Feels Safe At This Time Smoking Status: Former smoker Hx Alcohol Use: No Hx Substance Use: No Physical Exam Physical Exam: General: no acute distress, frail elderly in appearance Eyes: conjunctiva are pink and non-injected, sclera clear Neck: normal jugular venous pulse, no hepatojugular reflux Chest: normal shape and normal respiratory effort Lungs: clear to auscultation and percussion Cardiac Exam: - regular heart sounds, no murmurs, rubs, or gallops, no jugular venous distention Abdomen: abdomen soft, non-tender, no abnormal masses and no hepatosplenomegaly Extremities: no edema and no cyanosis Neuro:awake, coversant, follows commands, no focal motor deficits Psych: appropriate affect and insight. Results & Data Vital Signs (Past 12 Hours) Vital Signs Temp Pulse Pulse Pulse Resp BP BP 08/07/18 11:09 36.9 C 64 18 121/83 08/07/18 08:00 66 08/07/18 07:16 36.8 C 57 L 18 126/79 08/07/18 06:03 49 L 08/07/18 05:44 35 L 08/07/18 03:57 101 H 126/80 08/07/18 02:58 36.5 C 96 H 16 131/79 08/07/18 01:45 126 H 153/92 H Pulse Ox 08/07/18 11:09 92 08/07/18 08:00 08/07/18 07:16 93 08/07/18 06:03 08/07/18 05:44 08/07/18 03:57 08/07/18 02:58 92 08/07/18 01:45 Laboratory Results Cardiac Enzymes 08/06/18 08/06/18 08/07/18 Range/Units 18:20 22:37 04:03 AST 15 (15-37) U/L Troponin I 0.146 H* 0.175 H* 0.190 H* (0-0.045) ng/ml 08/07/18 Range/Units 10:09 AST (15-37) U/L Troponin I 0.200 H* (0-0.045) ng/ml Coagulation 08/06/18 08/07/18 Range/Units 18:20 02:37 PT 10.0 (9.0-12.0) Seconds APTT 24.1 47.3 H* (21.0-31.0) Seconds CBC 08/06/18 08/07/18 Range/Units 18:20 04:03 WBC 8.21 8.02 (4.8-10.8) K/uL RBC 4.96 4.90 (4.2-5.4) M/uL Hgb 15.9 15.5 (12.0-16.0) g/dL Hct 45.6 45.6 (37-47) % Plt Count 202 178 (130-400) K/uL Neut # (Auto) 5.70 4.46 (1.4-6.5) K/uL Lymph # (Auto) 1.78 2.75 (1.2-3.4) K/uL [place] # (Auto) 0.49 0.40 (0.11-0.59) K/uL Eos # (Auto) 0.18 0.37 (0-0.5) K/uL Baso # (Auto) 0.02 0.02 (0-0.2) K/uL Comprehensive Metabolic Panel 08/06/18 08/07/18 Range/Units 18:20 04:03 Sodium 140 140 (136-145) mmol/L Potassium 4.3 3.7 (3.5-5.1) mmol/L Chloride 105 104 (98-107) mmol/L Carbon Dioxide 27 32 (21-32) mmol/L BUN 30 H 23 H (7-18) mg/dl Creatinine 1.17 0.99 (0.6-1.2) mg/dl Glucose 154 H 111 H (70-99) mg/dl Calcium 9.3 9.0 (8.5-10.1) mg/dl AST 15 (15-37) U/L ALT 21 (12-78) U/L Alkaline Phosphatase 70 (45-117) U/L Total Protein 7.4 (6.4-8.2) gm/dl Albumin 3.3 L (3.4-5.0) gm/dl Intake and Output 08/06/18 08/07/18 08/07/18 22:59 06:59 14:59 Intake Total 500 / 520.167 20.167 / 520.167 200 / 200 Output Total 800 / 1400 600 / 1400 Balance -300 / -879.833 -579.833 / -879.833 200 / 200 Intake: IV 500 / 520.167 20.167 / 520.167 200 / 200 MAGNESIUM SULFATE / D5W 1 gm In 200 / 200 100 ml @ 100 mls/hr IV Q1H [facility] Rx#:[id number] Nss 500 ml @ 999 mls/hr IV . 500 / 500 Q31M [facility] Rx#:[id number] Cardizem 125 mg In D5 100 ml @ 20.167 / 20.167 0 MG/HR IV .Q0M [facility] Rx#: [id number] Output: Urine 800 / 1400 600 / 1400 Other: Weight 75 kg 74.8 kg Diagnostic Findings Repeat EKG performed this morning 08/07/2018 revealed sinus bradycardia at 56 bpm with right bundle branch block deep T wave inversions noted in the precordial leads V1 to V6 as well as the lateral leads I and aVL. Compared to the previous tracing presentation sinus bradycardia has replaced atrial fibrillation with rapid ventricular response. Compared to prior outpatient tracings, she does have a history of T wave inversions in the p recordial leads however they are more prominent in the lateral leads at present. Medications Administered Current Inpatient Medications Acetaminophen (Tylenol) 650 mg PO Q4H PRN PRN Reason: Pain or Fever Stop: 09/05/18 21:46 Amiodarone HCl (Cordarone) 200 mg PO BID [facility] Stop: 09/06/18 20:59 Amlodipine Besylate (Norvasc) 5 mg PO DAILY [facility] Stop: 09/06/18 08:59 Last Admin: 08/07/18 08:21 Dose: 5 mg Documented by: Aspirin (Ecotrin Ectab) 81 mg PO HS [facility] Stop: 09/05/18 22:29 Last Admin: 08/06/18 22:56 Dose: 81 mg Documented by: Atorvastatin Calcium (Lipitor) 20 mg PO DAILY [facility] Stop: 09/06/18 08:59 Last Admin: 08/07/18 08:22 Dose: 20 mg Documented by: Carvedilol (Coreg) 3.125 mg PO BID [facility] Stop: 09/05/18 22:29 Last Admin: 08/07/18 08:20 Dose: 3.125 mg Documented by: Clopidogrel Bisulfate (Plavix) 75 mg PO DAILY [facility] Stop: 09/06/18 08:59 Last Admin: 08/07/18 08:21 Dose: 75 mg Documented by: Fluticasone Propionate (Flonase) 2 sprays NA DAILY [facility] Stop: 09/06/18 08:59 Last Admin: 08/07/18 08:21 Dose: 2 sprays Documented by: Heparin Sodium/Dextrose (Heparin Sodium/Dextrose) 25,000 units in 500 mls @ 20 mls/hr IV .Q24H [facility]; Protocol Stop: 09/05/18 21:59 Last Admin: 08/06/18 21:30 Dose: 1,000 units/hr, 20 mls/hr Documented by: Ioversol (Optiray 320 125ml) 125 ml IV ONCE PRN PRN Reason: Interaction Checking Stop: 08/11/18 03:40 Last Admin: 08/07/18 03:41 Dose: 110 ml Documented by: Metoprolol Tartrate (Lopressor) 2.5 mg IV Q4 PRN PRN Reason: Tachycardia Stop: 09/05/18 21:46 Last Admin: 08/07/18 00:45 Dose: 2.5 mg Documented by: Nitroglycerin (Nitrostat) 0.4 mg SL UD PRN PRN Reason: Chest Pain Stop: 09/05/18 21:46 Ondansetron HCl (Zofran) 4 mg IV Q6H PRN PRN Reason: Nausea Stop: 09/05/18 21:46 Pantoprazole Sodium (Protonix) 40 [facility] Stop: 09/06/18 08:59 Last Admin: 08/07/18 08:21 Dose: 40 mg Documented by: Prednisone (Prednisone) 5 mg [facility] Stop: 09/06/18 08:59 Last Admin: 08/07/18 08:21 Dose: 5 mg Documented by: Vitamin D (Vitamin D3) 1,000 units PO DAILY [facility] Stop: 09/06/18 08:59 Last Admin: 08/07/18 08:21 Dose: 1,000 units Documented by:
--- NOTE | 2018-08-07 15:16 | Hospitalist Progress Note ---
Date of Service August 07, 2018 Assessment & Plan (1) Atrial fibrillation with RVR: 88-year-old female with history of known coronary heart disease previous remote PCI to the circumflex and RCA territories presents with symptoms of angina and palpitations with findings of transient atrial fibrillation with rapid ventricular response Atrial Fibrillation with RVR -diltiazem drip as started on admission has been stopped -Continued unfractionated heparin for stroke prophylaxis -continue carvedilol 3.125 mg twice daily -cardiology added amiodarone 200 mg twice daily for rhythm control strategy as the patient did not tolerate ablation in the past. -currently in sinus rhythm and heart rate in the 60s Chest pain -chest pain at home, symptoms of angina likely due to atrial fibrillation with RVR -currently no chest pain -Continue Carvedilol, aspirin, and Plavix coronary artery disease heart disease previous remote PCI to the circumflex and RCA territories with angina Elevated troponins -likely from demand ischemia from atrial fibrillation -echocardiogram with no wall motion abnormalities -Continue home medication of aspirin, Plavix, carvedilol and statin. Hypertension -continue amlodipine and carvedilol Chronic kidney disease stage III -monitor renal function Gastroesophageal reflux disease -on PPI Polymyalgia rheumatica. -On Prednisone 5 mg daily History of pulmonary embolism in the past -admission CTA 1. No evidence for pulmonary embolus. 2. Lungs are considered clear. 3. Mild cardiomegaly. 4. Several small hepatic cyst. 5. Prior cholecystectomy. Deep venous thrombosis prophylaxis Anticoagulated on anticoagulation therapy on IV heparin. Subjective Patient has been on heparin drip. currently is normal sinus rhythm and bradycardia in the 60s. denies chest pain. no palpitations. no shortness of breath. breathing on room air. denies lightheadedness. no headache Physical Exam Constitutional: WD/WN, vitals as above Eyes: PERRL, conjunctivae normal, anicteric sclerae EOM intact bilaterally ENMT: external ear and nose normal, oropharynx normal Neck: trachea midline, no thyromegaly normal visual inspection Respiratory: normal respiratory effort, lungs clear to auscultation Cardiovascular: Rate/Rhythm: regular rhythm and + bradycardic Gastrointestinal (Abdomen): normal bowel sounds, soft, nontender, no hepatosplenomegaly Musculoskeletal: no cyanosis or clubbing, extremities motor strength 5/5 Head/Neck/Chest: normocephalic and head atraumatic Neurologic: PERRL, EOMI, accommodation nl, no face palsy, no dysarthria CN's II-XI intact bilaterally Psychiatric: A+Ox3, euthymic affect Results & Data Vital Signs (Past 12 Hours) Vital Signs Temp Pulse Pulse Pulse Resp BP BP 08/07/18 11:09 36.9 C 64 18 121/83 08/07/18 08:00 66 08/07/18 07:16 36.8 C 57 L 18 126/79 08/07/18 06:03 49 L 08/07/18 05:44 35 L 08/07/18 03:57 101 H 126/80 Pulse Ox 08/07/18 11:09 92 08/07/18 08:00 08/07/18 07:16 93 08/07/18 06:03 08/07/18 05:44 08/07/18 03:57
[2018-08-07] MEDS: ASPIRIN 81 MG ECTAB PO SCH (20:50)
[2018-08-07] MEDS: TRAVOPROST Z 0.004% OPH SOLN 2.5 ML BTL OP SCH (20:51)
[2018-08-07] MEDS: AMIODARONE 200 MG TAB PO SCH (20:51)
[2018-08-07] MEDS: Heparin Adult STANDARD Wt-Based Dextrose 5% 25,000 units/500 mL IV SCH (21:51)
[2018-08-08 03:46] LABS: Basophils # (auto) 0.01 K/uL (0-0.2); Basophils % (auto) 0.2 %; Eosinophils # (auto) 0.65 K/uL (0-0.5); Eosinophils % (auto) 10.2 %; Hematocrit (blood only) 39.5 % (37-47); Hemoglobin 13.3 g/dL (12.0-16.0); Immature Granulocytes # (auto) 0.01 K/uL (0.00-0.02); Immature Granulocytes % (auto) 0.2 %; Lymphocytes # (auto) 1.48 K/uL (1.2-3.4); Lymphocytes % (auto) 23.2 %; Mean Corpuscular Hgb Conc 33.7 g/dL (32-36); Mean Corpuscular Volume 91.9 fL (80-100); Mean Platelet Volume 9.9 fL (7.4-10.4); Monocytes # (auto) 0.54 K/uL (0.11-0.59); Monocytes % (auto) 8.5 %; Neutrophils # (auto) 3.68 K/uL (1.4-6.5); Neutrophils % (auto) 57.7 %; Platelet Count 150 K/uL (130-400); RDW Coefficient of Variation 13.7 % (11.5-14.5); RDW Standard Deviation 45.6 fL (36.4-46.3); White Blood Count 6.37 K/uL (4.8-10.8)
[2018-08-08 04:06] LABS: Albumin Level 2.8 gm/dl (3.4-5.0); BUN Creatinine Ratio 20.6 (10-20); Calcium 8.6 mg/dl (8.5-10.1); Creatinine Clr Calc Pharmacy 29.3 ml/min; Est GFR (African American) 45.1; Est GFR (Non-African American) 38.9; Partial Thromboplastin Ratio 3.2; Potassium 3.8 mmol/L (3.5-5.1)
[2018-08-08 04:09] LABS: Partial Thromboplastin Time 87.3 Seconds (21.0-31.0)
[2018-08-08 04:13] LABS: Albumin Globulin Ratio 0.9 (0.9-2); Bilirubin,Total 0.8 mg/dl (0.2-1); Globulin 3.2 gm/dl (2.5-4.0)
[2018-08-08 06:09] LABS: Estimated Average Glucose 137 mg/dl; Hemoglobin A1C 6.4 % (4.5-5.6)
[2018-08-08] MEDS: predniSONE 5 MG TAB PO SCH (08:03)
[2018-08-08] MEDS: CHOLECALCIFEROL 1,000 UNITS TAB PO SCH (08:03)
[2018-08-08] MEDS: AMLODIPINE BESYLATE 5 MG TAB PO SCH (08:03)
[2018-08-08] MEDS: FLUTICASONE PROPIONATE NA SPR 16 GM BTL SCH (08:03)
[2018-08-08] MEDS: ATORVASTATIN 20 MG TAB PO SCH (08:03)
[2018-08-08] MEDS: AMIODARONE 200 MG TAB PO SCH ×2 (08:03→20:25)
[2018-08-08] MEDS: PANTOprazole 40 MG TAB PO SCH (08:03)
[2018-08-08] MEDS: CLOPIDOGREL BISULFATE 75 MG TAB PO SCH (08:03)
[2018-08-08] MEDS: CARVEDILOL 3.125 MG TAB PO SCH ×2 (08:04→20:25)
[2018-08-08 11:22] LABS: Partial Thromboplastin Ratio 2.3; Partial Thromboplastin Time 63.2 Seconds (21.0-31.0)
--- NOTE | 2018-08-08 11:36 | Cardiology Progress Note ---
Date of Service August 08, 2018 Assessment & Plan (1) Atrial fibrillation with RVR: Rhythm control strategy with dofetilide 3.125 mg twice daily, amiodarone, cautious loading dose given age, frailty, conduction system disease including right bundle branch block will start with amiodarone 200 mg twice daily. Stroke prophylaxis: Continue heparin bridge to Coumadin. First dose of Coumadin today, check daily INR. (2) Abnormal ECG: Chronic right bundle branch block, cortical T wave inversions slightly more prominent than previous baseline. No ongoing anginal complaints. Continue medication therapy. (3) Coronary artery disease: Continue treatment with carvedilol, amlodipine, atorvastatin. She is on chronic dual antiplatelet therapy with aspirin clip critical either due to her coronary heart disease or cerebrovascular disease. Therapeutic, will plan to discontinue aspirin in favor of clopidogrel plus Coumadin. Subjective Chief complaint: Follow-up chest pressure, atrial fibrillation Subjective: Patient states she feels well overall. She has not been out of bed much however. Denies any lion chest pressure. Denies subjective palpitations. Telemetry reveals occasional brief episodes of atrial fibrillation with right bundle branch block. Physical Exam Constitutional: not ill appearing (No acute distress, elderly, frail in appearance) Respiratory: normal respiratory effort, lungs clear to auscultation Cardiovascular: Rate/Rhythm: regular rate Heart Sounds: no murmur Vessels: no JVD Extremities: no edema Gastrointestinal (Abdomen): normal bowel sounds, soft, nontender, no hepatosplenomegaly Skin: no rashes, warm and dry Neurologic: moves all extremities and + focal motor deficit Conversant, follows commands Results & Data Vital Signs (Past 12 Hours) Vital Signs Temp Pulse Resp BP BP Pulse Ox 08/08/18 07:49 36.9 C 98 H 18 108/63 08/08/18 03:48 36.7 C 108 H 17 109/77 94 Laboratory Results Screening liver function tests and TSH within normal limits this admission. Mild troponin elevation noted 0.175, 0.190, 0.23. EKG reveals sinus rhythm at 67 bpm with right bundle branch block, T wave inversions in the precordial leads. Prior EKG tracings before this hospital stay T wave inversions in the precordial leads, but there is slightly more prominent in the lateral precordial leads at present.
[2018-08-08] MEDS ORDERED: WARFARIN SOD 2.5 MG TAB PO SCH (16:00)
--- NOTE | 2018-08-08 16:15 | Hospitalist Progress Note ---
Date of Service August 08, 2018 Assessment & Plan (1) Atrial fibrillation with RVR: 88-year-old female with history of known coronary heart disease previous remote PCI to the circumflex and RCA territories presents with symptoms of angina and palpitations with findings of transient atrial fibrillation with rapid ventricular response Atrial Fibrillation with RVR -diltiazem drip as started on admission has been stopped - now on Amiodarone PO -continue carvedilol 3.125 mg twice daily - remains in SR - coumadin added to heparin appreciate Cardiology service recommendation Chest pain -chest pain at home, symptoms of angina likely due to atrial fibrillation with RVR -resolved -Continue Carvedilol, aspirin, and Plavix Coronary artery disease heart disease previous remote PCI to the circumflex and RCA territories with angina Elevated troponins -likely from demand ischemia from atrial fibrillation -echocardiogram with no wall motion abnormalities -Continue home medication of aspirin, Plavix, carvedilol and statin. Hypertension -continue amlodipine and carvedilol Chronic kidney disease stage III -monitor renal function Gastroesophageal reflux disease -on PPI Polymyalgia rheumatica. -On Prednisone 5 mg daily History of pulmonary embolism in the past -admission CTA 1. No evidence for pulmonary embolus. 2. Lungs are considered clear. 3. Mild cardiomegaly. 4. Several small hepatic cyst. 5. Prior cholecystectomy. Deep venous thrombosis prophylaxis Anticoagulated on anticoagulation therapy on IV heparin. Disposition pending lives alone will order PT/OT eval may need Rehab/SNF upon discharge Subjective ff for A fib seen resting in bed, comfortable not in distress states she feels tired but otherwise fine overall denies chest pain, dizziness, palpitations no bleeding denies other symptoms Review of Systems Review of Systems: All systems reviewed & are unremarkable except as noted in HPI & below Physical Exam Physical Exam: General- oriented x 3, not in distress, speaks in sentences with no effort or accessory muscle use Eyes- anicteric Neck- no JVD Lungs- clear breath sounds bilaterally, no rales/wheezes Heart- normal rate, regular rhythm; no murmurs Abdomen- normal bowel sounds, nondistended, soft, nontender Extremities- no pretibial edema, no calf tenderness Neuro- alert, oriented x 3; no gross focal neurologic deficits Skin- warm & dry Results & Data Vital Signs (Past 12 Hours) Vital Signs Temp Pulse Resp BP Pulse Ox 08/08/18 15:42 36.7 C 74 18 152/77 H 95 08/08/18 11:41 36.6 C 89 16 115/69 95 08/08/18 07:49 36.9 C 98 H 18 108/63 Laboratory Results Laboratory Results - last 24 hr 08/08/18 08/08/18 08/08/18 03:34 03:34 03:34 WBC 6.37 RBC 4.30 Hgb 13.3 Hct 39.5 MCV 91.9 MCH 30.9 MCHC 33.7 RDW Std Deviation 45.6 RDW Coeff of Jackeline 13.7 Plt Count 150 MPV 9.9 Immature Gran % (Auto) 0.2 Neut % (Auto) 57.7 Lymph % (Auto) 23.2 [place] % (Auto) 8.5 Eos % (Auto) 10.2 Baso % (Auto) 0.2 Immature Gran # (Auto) 0.01 Neut # (Auto) 3.68 Lymph # (Auto) 1.48 [place] # (Auto) 0.54 Eos # (Auto) 0.65 H Baso # (Auto) 0.01 APTT 87.3 H* PTT Ratio 3.2 Sodium 139 Potassium 3.8 Chloride 102 Carbon Dioxide 33 H Anion Gap 4.0 BUN 26 H Creatinine 1.25 H Est Cr Clr Drug Dosing 29.3 Est GFR ( Amer) 45.1 Est GFR (Non-Af Amer) 38.9 BUN/Creatinine Ratio 20.6 H Glucose 88 Estimat Average Glucose Hemoglobin A1c Calcium 8.6 Magnesium 2.0 Total Bilirubin 0.8 AST 15 ALT 19 Alkaline Phosphatase 52 Total Protein 6.0 L Albumin 2.8 L Globulin 3.2 Albumin/Globulin Ratio 0.9 08/08/18 08/08/18 03:34 10:41 WBC RBC Hgb Hct MCV MCH MCHC RDW Std Deviation RDW Coeff of Jackeline Plt Count MPV Immature Gran % (Auto) Neut % (Auto) Lymph % (Auto) [place] % (Auto) Eos % (Auto) Baso % (Auto) Immature Gran # (Auto) Neut # (Auto) Lymph # (Auto) [place] # (Auto) Eos # (Auto) Baso # (Auto) APTT 63.2 H* PTT Ratio 2.3 Sodium Potassium Chloride Carbon Dioxide Anion Gap BUN Creatinine Est Cr Clr Drug Dosing Est GFR ( Amer) Est GFR (Non-Af Amer) BUN/Creatinine Ratio Glucose Estimat Average Glucose 137 Hemoglobin A1c 6.4 H Calcium Magnesium Total Bilirubin AST ALT Alkaline Phosphatase Total Protein Albumin Globulin Albumin/Globulin Ratio
--- NOTE | 2018-08-08 17:09 | Cardiology Progress Note ---
Date of Service August 08, 2018 Subjective I received a phone call from the patient's nurse that she declined taking care of Coumadin. She previously been on it in the past for 6 months for pulmonary embolism. She had concerns about the frequency of the blood work. I discussed things with the patient. Her [id number] score is 7 with risk factors HTN, age over 75 (2 points), female, past stroke (2 points), vascular disease (known CAD) predicting high risk of cardioembolic stroke. She also of course does have a high risk of potential bleeding as she is 88 years old and she is on chronic prednisone. I discussed options of a direct oral anticoagulant agent, Coumadin, or aspirin and Plavix. Coumadin or a direct oral anticoagulant would be ideal. I think the bleeding risk of Coumadin and a direct oral anticoagulant is about the same for her. I called the [facility] pharmacy, and her [id number] cost for a one- month supply of Eliquis 5 mg twice daily, 60 tablets, was $8. Since this is affordable, will proceed with Eliquis. Plan: Proceed with Eliquis plus clopidogrel given her history of CAD. Discontinue heparin infusion. Discontinue aspirin. Continue Protonix given her history of chronic prednisone therapy for polymyalgia rheumatica. Patient agreeable to this plan. I believe Eliquis 5 mg twice daily is the appropriate dose for her. Although she does have renal insufficiency, her creatinine is less than 1.5. The dose is adjusted if the patient has 2 or more of the following risk factors, age over 80, weight less than 60 kg, creatinine over 1.5. She only has 1 of these risk factors, and she is over 80 years old. Therefore 5 mg twice daily is the appropriate dose for her as compared to 2.5 mg twice daily. I updated the patient's nurse. Results & Data Vital Signs (Past 12 Hours) Vital Signs Temp Pulse Pulse Resp BP Pulse Ox 08/08/18 16:00 84 08/08/18 15:42 36.7 C 74 18 152/77 H 95 08/08/18 11:41 36.6 C 89 16 115/69 95 08/08/18 07:49 36.9 C 98 H 18 108/63
[2018-08-08] MEDS ORDERED: APIXABAN 5 MG TABLET PO ONE (18:15)
[2018-08-08] MEDS: TRAVOPROST Z 0.004% OPH SOLN 2.5 ML BTL OP SCH (20:25)
[2018-08-09 07:05] LABS: Calcium 9.1 mg/dl (8.5-10.1); Creatinine Clr Calc Pharmacy 27.2 ml/min; Est GFR (African American) 41.5; Est GFR (Non-African American) 35.8; Potassium 4.4 mmol/L (3.5-5.1)
[2018-08-09] MEDS: CARVEDILOL 3.125 MG TAB PO SCH ×2 (08:17→20:05)
[2018-08-09] MEDS: predniSONE 5 MG TAB PO SCH (08:17)
[2018-08-09] MEDS: PANTOprazole 40 MG TAB PO SCH (08:17)
[2018-08-09] MEDS: AMIODARONE 200 MG TAB PO SCH ×2 (08:17→20:05)
[2018-08-09] MEDS: CLOPIDOGREL BISULFATE 75 MG TAB PO SCH (08:17)
[2018-08-09] MEDS: AMLODIPINE BESYLATE 5 MG TAB PO SCH (08:17)
[2018-08-09] MEDS: FLUTICASONE PROPIONATE NA SPR 16 GM BTL SCH (08:17)
[2018-08-09] MEDS: CHOLECALCIFEROL 1,000 UNITS TAB PO SCH (08:17)
[2018-08-09] MEDS: ATORVASTATIN 20 MG TAB PO SCH (08:18)
[2018-08-09] MEDS: APIXABAN 5 MG TABLET PO SCH ×2 (08:18→20:05)
--- NOTE | 2018-08-09 13:02 | Cardiology Progress Note ---
Date of Service August 09, 2018 Assessment & Plan (1) Atrial fibrillation with RVR: (2) Abnormal ECG: Patient has a history of chronic coronary heart disease with remote percutaneous coronary intervention over 10 years ago. She presented with symptoms of angina and palpitations and was found to have atrial fibrillation with rapid ventricular response. Severe concentric left ventricular hypertrophy is present as is a right bundle branch block. Continue rhythm control strategy with carvedilol 3.125 mg twice daily, amiodarone 200 mg twice daily. Patient has a history of coronary heart disease as well as cerebrovascular disease with past stroke and had been on chronic dual antiplatelet therapy with aspirin and clopidogrel. Aspirin has been discontinued, in favor of combination therapy with clopidogrel plus Eliquis 5 mg twice daily. Eliquis 5 mg twice daily is felt to be the appropriate dose for her. Recommend therapy consult to help her make sure she can walk with the ankle brace that she wears chronically. Discharge plan when she is capable of performing her activities of daily living. Disposition: Patient has follow-up with Dr. France of cardiology on a chronic basis, and would like to transition to our practice. She would prefer to be seen in [place]. Cardio follow up within 2-3 weeks. Subjective Chief complaint: Follow-up chest discomfort, palpitations Subjective: Patient comfortable, she is sitting at the edge of her bed eating her noontime meal. Denies any chest discomfort or palpitations. Telemetry reveals sinus rhythm in the 60 bpm range with right bundle branch block. No atrial fibrillation noted since several brief episodes yesterday 08/08/2018. No pauses. Physical Exam Physical Exam: General: no acute distress and stated age Eyes: conjunctiva are pink and non-injected, sclera clear Neck: normal jugular venous pulse, no hepatojugular reflux Chest: normal shape and normal respiratory effort Lungs: clear to auscultation and percussion Cardiac Exam: - regular heart sounds, I/ systolic murmur Abdomen: abdomen soft, non-tender, no abnormal masses and no hepatosplenomegaly Extremities: no edema and no cyanosis Neuro:awake, coversant, follows commands, no focal motor deficits Psych: appropriate affect and insight. Results & Data Vital Signs (Past 12 Hours) Vital Signs Temp Pulse Pulse Resp BP Pulse Ox 08/09/18 12:09 36.8 C 63 108/66 92 08/09/18 08:00 60 08/09/18 07:00 36.6 C 71 18 168/71 H 97 08/09/18 04:31 36.6 C 62 18 145/82 H 91 Laboratory Results Comprehensive Metabolic Panel 08/09/18 Range/Units 05:35 Sodium 140 (136-145) mmol/L Potassium 4.4 D (3.5-5.1) mmol/L Chloride 104 (98-107) mmol/L Carbon Dioxide 33 H (21-32) mmol/L BUN 28 H (7-18) mg/dl Creatinine 1.34 H (0.6-1.2) mg/dl Glucose 87 (70-99) mg/dl Calcium 9.1 (8.5-10.1) mg/dl Intake and Output 08/08/18 08/09/18 08/09/18 22:59 06:59 14:59 Intake Total 810.4 / 2009.4 150 / 2009.4 Balance 810.4 / 2009.4 150 / 2009.4 Intake: IV 290.4 / 290.4 HEPARIN SODIUM/DEXTROSE 25,000 290.4 / 290.4 units In 500 ml @ 900 UNITS/HR 18 mls/hr IV .Q24H [facility] Rx#: [id number] Oral 520 / 1720 150 / 1720 Other: # Unmeasured Voids 5 2 Weight 74.5 kg Medications Administered Current Inpatient Medications Acetaminophen (Tylenol) 650 mg PO Q4H PRN PRN Reason: Pain or Fever Stop: 09/05/18 21:46 Last Admin: 08/07/18 17:16 Dose: 650 mg Documented by: Amiodarone HCl (Cordarone) 200 mg PO BID [facility] Stop: 09/06/18 20:59 Last Admin: 08/09/18 08:17 Dose: 200 mg Documented by: Amlodipine Besylate (Norvasc) 5 mg PO DAILY [facility] Stop: 09/06/18 08:59 Last Admin: 08/09/18 08:17 Dose: 5 mg Documented by: Apixaban (Eliquis) 5 mg PO BID [facility] Stop: 09/08/18 08:59 Last Admin: 08/09/18 08:18 Dose: 5 mg Documented by: Atorvastatin Calcium (Lipitor) 20 mg PO DAILY [facility] Stop: 09/06/18 08:59 Last Admin: 08/09/18 08:18 Dose: 20 mg Documented by: Carvedilol (Coreg) 3.125 mg PO BID [facility] Stop: 09/05/18 22:29 Last Admin: 08/09/18 08:17 Dose: 3.125 mg Documented by: Clopidogrel Bisulfate (Plavix) 75 mg PO DAILY [facility] Stop: 09/06/18 08:59 Last Admin: 08/09/18 08:17 Dose: 75 mg Documented by: Fluticasone Propionate (Flonase) 2 sprays NA DAILY [facility] Stop: 09/06/18 08:59 Last Admin: 08/09/18 08:17 Dose: 2 sprays Documented by: Ioversol (Optiray 320 125ml) 125 ml IV ONCE PRN PRN Reason: Interaction Checking Stop: 08/11/18 03:40 Last Admin: 08/07/18 03:41 Dose: 110 ml Documented by: Nitroglycerin (Nitrostat) 0.4 mg SL UD PRN PRN Reason: Chest Pain Stop: 09/05/18 21:46 Ondansetron HCl (Zofran) 4 mg IV Q6H PRN PRN Reason: Nausea Stop: 09/05/18 21:46 Pantoprazole Sodium (Protonix) 40 mg PO QAM [facility] Stop: 09/06/18 08:59 Last Admin: 08/09/18 08:17 Dose: 40 mg Documented by: Prednisone (Prednisone) 5 mg PO QAM [facility] Stop: 09/06/18 08:59 Last Admin: 08/09/18 08:17 Dose: 5 mg Documented by: Vitamin D (Vitamin D3) 1,000 units PO DAILY [facility] Stop: 09/06/18 08:59 Last Admin: 08/09/18 08:17 Dose: 1,000 units Documented by:
--- NOTE | 2018-08-09 17:07 | Hospitalist Progress Note ---
Date of Service August 09, 2018 Assessment & Plan (1) Atrial fibrillation with RVR: 88-year-old female with history of known coronary heart disease previous remote PCI to the circumflex and RCA territories presents with symptoms of angina and palpitations with findings of transient atrial fibrillation with rapid ventricular response Atrial Fibrillation with RVR -diltiazem drip as started on admission has been stopped - now on Amiodarone PO -continue carvedilol 3.125 mg twice daily - remains in SR - coumadin + heparin transitioned to Eliquis [facility] Cardiology service recommendation Chest pain -chest pain at home, symptoms of angina likely due to atrial fibrillation with RVR -resolved -Continue Carvedilol, aspirin, and Plavix Coronary artery disease heart disease previous remote PCI to the circumflex and RCA territories with angina Elevated troponins -likely from demand ischemia from atrial fibrillation -echocardiogram with no wall motion abnormalities -Continue home medication of aspirin, Plavix, carvedilol and statin. Hypertension -continue amlodipine and carvedilol Chronic kidney disease stage III -monitor renal function Gastroesophageal reflux disease -on PPI Polymyalgia rheumatica. -On Prednisone 5 mg daily History of pulmonary embolism in the past -admission CTA 1. No evidence for pulmonary embolus. 2. Lungs are considered clear. 3. Mild cardiomegaly. 4. Several small hepatic cyst. 5. Prior cholecystectomy. Deep venous thrombosis prophylaxis Eliquis Disposition PT/OT eval ordered anticipate d/c home tomorrow home with home health services Subjective ff up for chest pain, a fib seen resting in bed, comfortable states she feels fine overall less tired no chest pain, dyspnea, palpitations dizziness denies other symptoms Review of Systems Review of Systems: All systems reviewed & are unremarkable except as noted in HPI & below Physical Exam Physical Exam: General- oriented x 3, not in distress, speaks in sentences with no effort or accessory muscle use Eyes- anicteric Neck- no JVD Lungs- clear BS BL no rales/wheezes Heart- normal rate, regular rhythm; no murmurs Abdomen- normal bowel sounds, nondistended, soft, nontender Extremities- no pretibial edema, no calf tenderness Neuro- alert, oriented x 3; no gross focal neurologic deficits Skin- warm & dry Results & Data Vital Signs (Past 12 Hours) Vital Signs Temp Pulse Pulse Resp BP Pulse Ox 08/09/18 15:18 36.9 C 60 18 101/63 93 05/09/19 14:59 53 L 08/09/18 12:09 36.8 C 63 108/66 92 08/09/18 08:00 60 08/09/18 07:00 36.6 C 71 18 168/71 H 97 08/09/18 04:31 36.6 C 62 18 145/82 H 91 Laboratory Results Laboratory Results - last 24 hr 08/09/18 05:35 Sodium 140 Potassium 4.4 D Chloride 104 Carbon Dioxide 33 H Anion Gap 3.0 BUN 28 H Creatinine 1.34 H Est Cr Clr Drug Dosing 27.2 Est GFR ( Amer) 41.5 Est GFR (Non-Af Amer) 35.8 BUN/Creatinine Ratio 21.0 H Glucose 87 Calcium 9.1
[2018-08-09] MEDS: TRAVOPROST Z 0.004% OPH SOLN 2.5 ML BTL OP SCH (20:06)
[2018-08-10] MEDS: AMLODIPINE BESYLATE 5 MG TAB PO SCH (08:02)
[2018-08-10] MEDS: CLOPIDOGREL BISULFATE 75 MG TAB PO SCH (08:02)
[2018-08-10] MEDS: CARVEDILOL 3.125 MG TAB PO SCH (08:02)
[2018-08-10] MEDS: ATORVASTATIN 20 MG TAB PO SCH (08:02)
[2018-08-10] MEDS: CHOLECALCIFEROL 1,000 UNITS TAB PO SCH (08:02)
[2018-08-10] MEDS: FLUTICASONE PROPIONATE NA SPR 16 GM BTL SCH (08:02)
[2018-08-10] MEDS: AMIODARONE 200 MG TAB PO SCH (08:02)
[2018-08-10] MEDS: APIXABAN 5 MG TABLET PO SCH (08:02)
[2018-08-10] MEDS: PANTOprazole 40 MG TAB PO SCH (08:03)
[2018-08-10] MEDS: predniSONE 5 MG TAB PO SCH (08:03)
--- NOTE | 2018-08-10 12:39 | Hospitalist Progress Note ---
Date of Service August 10, 2018 Assessment & Plan (1) Atrial fibrillation with RVR: 88-year-old female with history of known coronary heart disease previous remote PCI to the circumflex and RCA territories presents with symptoms of angina and palpitations with findings of transient atrial fibrillation with rapid ventricular response Atrial Fibrillation with RVR -diltiazem drip started on admission, transitioned to Amiodarone - back to sinus rhythm - tolerating Amiodarone PO well so far -continue carvedilol 3.125 mg twice daily - coumadin + heparin transitioned to Eliquis [employer] [facility] Marquez recommends: Amiodarone 200mg BID Eliquis 5mg po BID continue usual Carvedilol - ff up with Dr. Marquez in 2 weeks Chest pain - symptoms of angina likely due to atrial fibrillation with RVR -resolved Coronary artery disease heart disease previous remote PCI to the circumflex and RCA territories with angina Elevated troponins -likely from demand ischemia from atrial fibrillation -echocardiogram with no wall motion abnormalities -Continue Carvedilol,Plavix; ASA discontinued as patient now on Eliquis, per Cardiology [facility] recommendation Hypertension -continue amlodipine and carvedilol Chronic kidney disease stage III - crea on discharge 1.3 - repeat renal function test on ff up with PCP Gastroesophageal reflux disease -on PPI Polymyalgia rheumatica. -On Prednisone 5 mg daily History of pulmonary embolism in the past -admission CTA 1. No evidence for pulmonary embolus. 2. Lungs are considered clear. 3. Mild cardiomegaly. 4. Several small hepatic cyst. 5. Prior cholecystectomy. d/c home ff up with Dr. Doran 08/13/18 ff up with [employer] Dr. Marquez in 2 weeks Subjective ff up for a fib seen sitting up in bed, comfortable having lunch states she feels fine overall denies chest pain, dyspnea, dizziness, palpitations ambulating with no problems states she is back to her baseline level states she is ready and would like to be discharged home today Review of Systems Review of Systems: All systems reviewed & are unremarkable except as noted in HPI & below Physical Exam Physical Exam: General- oriented x 3, not in distress, speaks in sentences with no effort or accessory muscle use Eyes- anicteric Neck- no JVD Lungs- clear BS BL, no rales/wheezes Heart- normal rate, regular rhythm; no murmurs Abdomen- normal bowel sounds, nondistended, soft, nontender Extremities- no leg edema, no calf tenderness Neuro- alert, oriented x 3; no gross focal neurologic deficits Skin- warm & dry Results & Data Vital Signs (Past 12 Hours) Vital Signs Temp Pulse Pulse Resp BP BP Pulse Ox 08/10/18 11:45 36.7 C 56 L 16 139/67 92 08/10/18 08:00 53 L 08/10/18 07:09 36.3 C L 60 24 155/78 H 96 08/10/18 03:40 36.6 C 60 19 118/77 92 08/10/18 01:59 53 L
--- NOTE | 2018-08-10 13:03 | Discharge Summary ---
Date of Service August 10, 2018 Admission HPI Per Admitting Provider CHIEF COMPLAINT: Chest pain and rapid AFib. HISTORY OF PRESENT ILLNESS: This 88-year-old female with past medical history significant for type 2 diabetes, hyperlipidemia, carotid stenosis, CAD, hypertension, chronic kidney disease stage III, polymyalgia rheumatica, generalized osteoarthritis, degenerative disk disease, history of glaucoma, history of PE, ambulatory dysfunction, history of smoking, history of frequent UTIs, presents with chest pain. Clemencia enrolled in [employer] . Walks with help of cane and walker but ambulatory function is poor. Last night she noticed chest pain, radiating to her right arm and right neck. It was moderate to severe in nature. When she woke up in the morning, she was feeling cold and sweaty. Her friend told her go to the ER and in the afternoon again the chest pain started to come back and she came to the hospital. Last night she felt like her whole body was shaking but her pulse was okay, but in the ER, she was found to be in rapid AFib. A dose of IV Lopressor was given, the heart rate is improved but currently denies any chest pain or shortness of breath. No cough, no fever, no chills, no headaches. The patient felt dizzy 15 days ago for some time but that has improved.. No sore throat, no headaches, no cough. Appetite is good. No nausea, no abdominal pain. Normal bowel and bladder movements. Her legs swell sometimes.Currently resting comfortably. ALLERGIES: AMOXICILLIN, CEPHALOSPORINS, CITALOPRAM, LOVENOX, LEVAQUIN, LISINOPRIL. PAST MEDICAL HISTORY: As mentioned above. PAST SURGICAL HISTORY: Cardiac catheterization, colonoscopy, EGD with endoscopic ultrasound, laparoscopic cholecystectomy, ligation of the oviduct, appendectomy, cataract surgery, rectocele repair, left carotid endarterectomy. MEDICATIONS: The patient is on fosfomycin 3 grams once when having urinary symptoms, magnesium 400 mg p.o. daily, loratadine 10 mg p.o. daily, cranberry 400 mg p.o. daily, amlodipine 5 mg p.o. daily, aspirin 81 mg p.o. daily, Lipitor 20 mg p.o. daily, Coreg 3.125 mg p.o. b.i.d., vitamin D 1000 units p.o. daily, Plavix 75 mg p.o. daily, Flonase 2 sprays in each nostril daily, glucosamine 1000 mg daily, omega 3 fatty acid 1 capsule daily, Protonix 40 mg p.o. daily, prednisone 5 mg p.o. daily with food, lactobacillus 1 tablet daily, Travatan 0.004% ophthalmic solution 1 drop in each eye at bedtime. FAMILY HISTORY: Significant for mother had diabetes, heart disorder, hypertension. Sister has diabetes, thyroid disorder, breast cancer. SOCIAL HISTORY: . Former smoker, smoked 2 packs a day for 10 years. No alcohol use, no drug use. REVIEW OF SYMPTOMS: As per HPI. Rest of review of systems negative. Admission Exam Per Admitting Provider PHYSICAL EXAMINATION: GENERAL: The patient is old and frail, not in acute distress. VITAL SIGNS: Temperature 36.7, pulse when she came in was 160, blood pressure 126/101, oxygen 96% on 2 L. HEENT: No pallor, no icterus. Pupils equal, round, and reactive to light. NECK: No JVD, no neck masses, no carotid bruits. CARDIOVASCULAR: S1, S2 heard. Tachycardia, regular rhythm. No murmur. RESPIRATORY SYSTEM: Normal AP diameter. No accessory muscle use. No wheezing, no crackles. ABDOMEN: Soft, bowel sounds present. Nontender. No distention. CENTRAL NERVOUS SYSTEM: Cranial nerves II-XII grossly intact. Nonfocal. EXTREMITIES: Trace pedal edema, no erythema seen. Principal Diagnosis NEW ONSET ATRIAL FIBRILLATION IN RVR Discharge Exam General- oriented x 3, not in distress, speaks in sentences with no effort or accessory muscle use Eyes- anicteric Neck- no JVD Lungs- clear BS BL, no rales/wheezes Heart- normal rate, regular rhythm; no murmurs Abdomen- normal bowel sounds, nondistended, soft, nontender Extremities- no leg edema, no calf tenderness Neuro- alert, oriented x 3; no gross focal neurologic deficits Skin- warm & dry Discharge Data Allergies Allergy/AdvReac Type Severity Reaction Status Date / Time amoxicillin Allergy Unknown RASH,HIVES Verified 04/29/16 14:21 cefaclor Allergy Unknown RASH, HIVES Verified 04/29/16 14:21 levofloxacin Allergy Unknown hives Verified 04/29/16 14:21 atorvastatin AdvReac Severe AFFECTS Verified 08/06/18 23:09 LIVER lisinopril AdvReac Severe AFFECTS Verified 08/06/18 23:09 LIVER ENZYMES citalopram AdvReac Intermediate "WILD Verified 04/29/16 14:21 DREAMS" omeprazole AdvReac Unknown blurred Verified 08/06/18 23:09 vision, headache, flashing lights Consultations 08/06/18 21:47 Consult Case Management - Discharge Planning Routine 08/07/18 08:00 Consult Cardiology Routine Ordered Studies 08/06/18 23:45 CT angio chest PE protocol Urgent FINDINGS: Generalized atherosclerotic change and ectasia thoracic aorta. No evidence for aneurysm. The pulmonary vasculature enhances appropriately. There are no filling defects. Mild cardiomegaly. Lungs are considered clear. No focal infiltrative change. IMPRESSION: 1. No evidence for pulmonary embolus. 2. Lungs are considered clear. 3. Mild cardiomegaly. 4. Several small hepatic cyst. 5. Prior cholecystectomy. Hospital Course (1) Atrial fibrillation with RVR: 88-year-old female with history of known coronary heart disease previous remote PCI to the circumflex and RCA territories presents with symptoms of angina and palpitations with findings of transient atrial fibrillation with rapid ventricular response Atrial Fibrillation with RVR - diltiazem drip started on admission, transitioned to Amiodarone - back to sinus rhythm - tolerating Amiodarone PO well so far -continue carvedilol 3.125 mg twice daily - coumadin + heparin transitioned to Eliquis Upholstery Restorer Dr. Marquez recommends: Amiodarone 200mg BID Eliquis 5mg po BID continue usual Carvedilol - ff up with Dr. Marquez in 2 weeks Chest pain - symptoms of angina likely due to atrial fibrillation with RVR -resolved Coronary artery disease heart disease previous remote PCI to the circumflex and RCA territories with angina Elevated troponins -likely from demand ischemia from atrial fibrillation -echocardiogram with no wall motion abnormalities -Continue Carvedilol,Plavix; ASA discontinued as patient now on Eliquis, per Cardiology [facility] recommendation Hypertension -continue amlodipine and carvedilol Chronic kidney disease stage III - crea on discharge 1.3 (baseline 1.1-1.3) - repeat renal function test on ff up with PCP Gastroesophageal reflux disease -on PPI Polymyalgia rheumatica. -On Prednisone 5 mg daily History of pulmonary embolism in the past -admission CTA 1. No evidence for pulmonary embolus. 2. Lungs are considered clear. 3. Mild cardiomegaly. 4. Several small hepatic cyst. 5. Prior cholecystectomy. d/c home ff up with Dr. Doran 08/13/18 ff up with Upholstery Restorer Dr. Marquez in 2 weeks Total Time Total Time Spent Total Time Spent (In Minutes): 40 minutes Discharge Plan Discharge Items Patient Disposition: Home - Home Health Services Reason For Visit: CHEST PAIN,RAPID AFIB Discharge Diagnosis: ATRIAL FIBRILLATION Discharge Goals: Diagnostic testing Activity: As commented below Activity Comment: RESUME ACTIVITY GRADUALLY TOLERATED Lifting: Wait until after follow-up appointment Exercise/Sports: Wait until after follow-up appointment Driving/Machine Use Comment: NO DRIVING Non-emergency contact: Primary Care Provider Call non-emergency contact if: you have any medication questions and you have a fever Diet: Heart Healthy Addtl Provider Instructions: [facility] with [facility] care physician at the [facility], Dr. Darryl Doran on August 13 at 12:45 PM. Follow-up with the customer retention representative Dr. Marquez in 2 weeks. Tel No. Please review your new medication list and follow the instructions carefully. Drink plenty of water. If your symptoms recur, call 911 immediately. If you experience any head trauma, proceed to the ER immediately for evaluation. For minor bleeding, you can call your primary care physician. For major bleeding, please call 911. Prescriptions: New amiodarone 200 mg Tablet 200 mg PO BID 30 Days Qty: 60 RF: 2 Eliquis 5 mg Tablet 5 mg PO BID 30 Days Qty: 60 RF: 2 Continued Prednisone 5 MG tablet 5 mg PO QAM Qty: 0 RF: 0 Glucosamine Sulfate (Glucosamine) 1,000 MG tablet 1,000 mg PO QPM Qty: 0 RF: 0 Clopidogrel (Plavix) 75 MG tablet 75 mg PO DAILY Qty: 0 RF: 0 Pantoprazole (Protonix) 40 MG tablet 40 mg PO DAILY Qty: 30 RF: 0 NITROGLYCERIN (NITROSTAT) 0.4 MG SUB 0.4 mg UT PRN Qty: 0 RF: 0 Magnesium Oxide (Mag-Ox) 400 MG tablet 400 mg PO DAILY Qty: 0 RF: 0 Fish Oil ([place]-3) 1 EA capsule 1 cap PO DAILY Qty: 0 RF: 0 Amlodipine Besylate 5 MG tablet 5 mg PO DAILY 30 Days Qty: 30 RF: 0 CHOLECALCIFEROL (VITAMIN D 1000 UNIT) 1,000 UNIT capsule 1,000 inter.unit PO DAILY Qty: 0 RF: 0 ATORVASTATIN (LIPITOR) 20 MG tablet 20 mg PO DAILY Qty: 0 RF: 0 Carvedilol 3.125 MG tablet 3.125 mg PO BID Qty: 60 RF: 0 Lactobacillus Acidophilus (Floranex) 1 TAB tablet 1 tab PO DAILY RF: 0 loratadine 10 MG 10 mg PO DAILY RF: 0 Discontinued ASPIRIN 81 MG tablet 1 tab PO HS 90 Days Qty: 0 RF: 3 Stand-Alone Forms: [facility] Discharge Orders: Discharge Order (Routine); Ordered 08/10/18 Ordered By: John Gastelum Admission Data Admit Date/Time: 08/06/18 20:21 Attending Provider: John Gastelum Admit Provider: Adalberto Cooley Primary Care Provider: Camden Lazar. Other Providers: Sony King ; Elmer Marquez ; Collins Norman ; Jarrell Sharif ; Santiago Burks ; Eyad Werner ; Debbie Navarrete ; Carla Bain ; Raul Colbert Service: Telemetry
== END 2018-08-10 13:30 | disposition home health service (06) | DRG 309 ==
LOC: ED 17:54 → SUATTDRO 20:21 → 2S 20:21

== ENCOUNTER 2019-03-21 20:52 | Inpatient (IN) ==
[2019-03-21 21:29] LABS: Basophils # (auto) 0.01 K/uL (0-0.2); Basophils % (auto) 0.1 %; Eosinophils # (auto) 0.15 K/uL (0-0.5); Eosinophils % (auto) 2.1 %; Hematocrit (blood only) 37.2 % (37-47); Hemoglobin 11.7 g/dL (12.0-16.0); Immature Granulocytes # (auto) 0.02 K/uL (0.00-0.02); Immature Granulocytes % (auto) 0.3 %; Lymphocytes # (auto) 1.49 K/uL (1.2-3.4); Lymphocytes % (auto) 20.6 %; Mean Corpuscular Hgb Conc 31.5 g/dL (32-36); Mean Corpuscular Volume 92.1 fL (80-100); Mean Platelet Volume 10.4 fL (7.4-10.4); Monocytes % (auto) 9.7 %; Neutrophils # (auto) 4.88 K/uL (1.4-6.5); Neutrophils % (auto) 67.2 %; Platelet Count 166 K/uL (130-400); RDW Coefficient of Variation 16.6 % (11.5-14.5); RDW Standard Deviation 55.8 fL (36.4-46.3); Red Blood Count 4.04 M/uL (4.2-5.4); White Blood Count 7.25 K/uL (4.8-10.8)
[2019-03-21 21:45] LABS: Albumin Level 3.1 gm/dl (3.4-5.0); BUN Creatinine Ratio 24.4 (10-20); Calcium 9.1 mg/dl (8.5-10.1); Creatinine Clr Calc Pharmacy 21.5 ml/min; Est GFR (African American) 32.2; Est GFR (Non-African American) 27.8; Potassium 4.3 mmol/L (3.5-5.1)
[2019-03-21 21:48] LABS: Albumin Globulin Ratio 0.8 (0.9-2); Bilirubin,Total 0.6 mg/dl (0.2-1); Globulin 3.7 gm/dl (2.5-4.0); Partial Thromboplastin Ratio 1.5; Partial Thromboplastin Time 40.3 Seconds (21.0-31.0); Prothrombin Time 47.6 Seconds (9.0-12.0); Total Protein 6.8 gm/dl (6.4-8.2)
[2019-03-21 21:57] LABS: INR 5.2 (0.9-1.1)
[2019-03-21] MEDS ORDERED: IOVERSOL 100ml IV PRN (22:11)
--- NOTE | 2019-03-21 22:24 | CT Scan Report ---
CT abd pelvis IV con only CLINICAL HISTORY: 88 years-old Female presenting with gi bleed lower abd pain. TECHNIQUE: Multidetector CT of the abdomen and pelvis was performed after the administration of intra venous contrast. IV contrast: 94 mL of Optiray 320. One or more dose lowering techniques were used co nsistent with the principles of ALARA (as low as reasonably achievable), including automatic exposure control, mA or kV adjustment to individual patient size, and/or use of iterative reconstruction. COMPARISON: 09/24/2016. CT DOSE (mGy.cm): The estimated cumulative dose is 778.27 mGy.cm. FINDINGS: Pararescue Manager topogram: Unremarkable. Lung bases: Multichamber enlargement of the heart. Coronary artery, aortic valve, and mitral annular calcification. No pericardial or pleural effusion. Minimal dependent changes likely atelectasis. Liver: Normal morphology. Well-defined hypodense lesions indeterminate though likely hepatic cysts. P atent hepatic vasculature. Biliary: Mild biliary ductal prominence likely a reservoir effect in the post cholecystectomy state. Gallbladder surgically absent. Pancreas: Mild parenchymal atrophy. Spleen: Normal. Adrenal glands: Normal. Kidneys and ureters: Significant scarring and atrophy evident at the lower pole of the left kidney. B ilateral cortical thinning is suspected with renal sinus fat hypertrophy. Few small cysts noted. No n ephrolithiasis. Minimal urothelial thickening is suspected on the right. No nephrolithiasis. Ureters nondistended. Bladder: Normal. Pelvic organs: Uterus and ovaries normal. Bowel: A few diverticula in the distal descending colon. No wall thickening or pericolonic inflammato ry change. No evidence of extravasation of intravenous contrast into the bowel lumen to suggest a sit e of gastrointestinal hemorrhage. Trace hiatal hernia. No bowel obstruction. Peritoneal cavity: No free fluid or intraperitoneal gas. Lymph nodes: No enlarged lymph nodes in the abdomen or pelvis. Vasculature: Atherosclerosis of the abdominal aorta with aneurysmal dilatation of the infrarenal port ion immediately proximal to the bifurcation measuring up to 2.7 cm in diameter, previously 2.7 cm. IV C patent. Abdominal wall: Normal. Musculoskeletal: Degenerative changes of the spine. IMPRESSION: 1. Few diverticula noted in the distal descending colon. No diverticulitis. This could potentially b e a site of gastrointestinal hemorrhage. No direct evidence on this CT examination for a site of hemo rrhage. 2. No acute intra-abdominal pathology. 3. 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 4. Chronic renal scarring. 5. Status post cholecystectomy. 6. Cardiomegaly. ACT 112: Negative or not required by law. Electronically signed by: Dariel Scales M.D. 03/21/2019 10:23 PM
[2019-03-21] MEDS ORDERED: PHYTONADIONE 5 MG in SODIUM CHLORIDE 0.9% 50 ML IV ONE (22:30)
[2019-03-21] MEDS ORDERED: CONSULT PHARMACY STA (22:37)
[2019-03-21] MEDS ORDERED: PANTOprazole 80 MG in DEXTROSE 5% 100 ML IV STA (22:51)
--- NOTE | 2019-03-21 22:56 | XRay Report ---
XR chest 1V portable CLINICAL HISTORY: 88 years-old Female presenting with renal failure. TECHNIQUE: Portable upright AP view of the chest was obtained. COMPARISON: 10/18/2018 and CTA chest from 08/07/2018. FINDINGS: Atherosclerosis of the aortic arch. Cardiac silhouette enlarged. Pulmonary vascular prominence and mi ld interstitial prominence. Low lung volumes. No focal opacity. No large effusion or pneumothorax. Os teopenia may be present. Chronic right rotator cuff tear suspected. Upper abdomen normal. IMPRESSION: 1. Cardiomegaly with volume overload and mild congestive change. No lion pulmonary edema. 2. Low lung volumes. ACT 112: Negative or not required by law. Electronically signed by: Dariel Scales M.D. 03/21/2019 10:54 PM
[2019-03-21 23:00] LABS: Magnesium 1.8 mg/dl (1.8-2.4)
--- NOTE | 2019-03-21 23:17 | History & Physical Report ---
Date of Service March 21, 2019 Assessment & Plan (1) UGIB (upper gastrointestinal bleed): Coumadin coagulopathy hx PAFib, patient currently NSR history PE/DVT CAD/CVA/PVD status post surgery HTN, slightly elevated DM2 diet-controlled, well-controlled as of recent outpatient hemoglobin A1c of 5.07 November 2018 ARF on CRI secondary to illness polymyalgia rheumatica on steroid tx, past tobacco abuse Medical telemetry Appropriate to hold antiplatelet, Coumadin Rx for now IV PPI Serial H&H, transfuse PRBC if hemoglobin less than 8 and/or symptomatic anemia GI consult RE U GIB ISS BG goal [id number] Baseline UA, monitor creatinine sponsor IV fluids, outpatient Nephrology DVT prophylaxis. SCDs while Coumadin on hold RE U GIB Full code History of Present Illness Chief Complaint: Melena Primary Care Provider: Jes Doran MD History obtained from patient and records. Medical history significant for significant for CAD/CVA as per records, HTN, hyperlipidemia, A. fib, hx PE/DVT on Coumadin, depression, carotid artery stenosis L sp surgery (09/2014), DM2 diet-controlled, CRI (baseline creatinine 1.4-1.5), polymyalgia rheumatica on steroid tx, past tobacco abuse. Recent confinement August 2018 for rapid A. fib. Patient seen at GI office November 2018 for melena symptoms. EGD small hiatal hernia, normal stomach, normal duodenal bulb. Melena symptoms resolved with Protonix and Carafate Rx. 2 days history of dark starry stools with achy lower abdominal discomfort, no nausea, no hematemesis, no coffee-ground emesis. Denies NSAID intake. Patient denies chest pain, S OB. At the ER, vitamin K given for INR of 5.2. MEDICAL HISTORY: As above. 2019 EGD as per HPI SURGERIES: She has had a rectocele surgery, appendectomy, cataract surgery, left carotid endarterectomy, cholecystectomy, BTL FAMILY HISTORY: Hypertension. PERSONAL AND SOCIAL HISTORY: Remote tobacco abuse. No chronic intake of alcoholic beverages. 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 Allergies Allergy/AdvReac Type Severity Reaction Status Date / Time apixaban [From Eliquis] Allergy Severe pain in Unverified 03/21/19 23:32 bones amoxicillin Allergy Unknown RASH,HIVES Verified 03/21/19 23:32 cefaclor Allergy Unknown RASH, HIVES Verified 03/21/19 23:32 levofloxacin Allergy Unknown hives Verified 03/21/19 23:32 atorvastatin AdvReac Severe AFFECTS Verified 03/21/19 23:32 LIVER lisinopril AdvReac Severe AFFECTS Verified 03/21/19 23:32 LIVER ENZYMES citalopram AdvReac Intermediate "WILD Verified 03/21/19 23:32 DREAMS" omeprazole AdvReac Unknown blurred Verified 03/21/19 23:32 vision, headache, flashing lights Home Medications Home Medications Medication Instructions Recorded Confirmed Type Lactobacillus acidoph-L.bulgar 1 tab PO HS 10/18/18 03/21/19 History [Floranex] amlodipine 5 mg PO HS 10/18/18 03/21/19 History atorvastatin 20 mg PO HS 10/18/18 03/21/19 History carvedilol 3.125 mg PO BID 10/18/18 03/21/19 History cholecalciferol (vitamin D3) 1,000 unit PO QAM 10/18/18 03/21/19 History [Vitamin D3] clopidogrel 75 mg PO QAM 10/18/18 03/21/19 History furosemide 20 mg PO QAM 10/18/18 03/21/19 History glucosamine sulfate [Glucosamine] 1,000 mg PO QAM 10/18/18 03/21/19 History loratadine 10 mg PO QAM 10/18/18 03/21/19 History magnesium oxide 400 mg PO QAM 10/18/18 03/21/19 History nitroglycerin [Nitrostat] 0.4 mg SUBLINGUAL UD 10/18/18 03/21/19 History omega 5-lkh-qkx-fish oil [[place]-3] 1 cap PO QAM 10/18/18 03/21/19 History pantoprazole 40 mg PO BID 10/18/18 03/21/19 History prednisone 5 mg PO QAM 10/18/18 03/21/19 History warfarin 2.5 mg PO 6XWK 10/18/18 03/21/19 History warfarin 5 mg PO WK 10/18/18 03/21/19 History amiodarone 200 mg PO DAILY 03/21/19 03/21/19 History Past Med/Surg History Medical History MANAV (acute kidney injury) Carotid arterial disease (Chronic) "s/p left CEA, september 2014" Cerebrovascular disease (Chronic) CKD (chronic kidney disease), stage III (Chronic) Coronary artery disease (Chronic) Dyslipidemia (Chronic) History of DVT (deep vein thrombosis) (Chronic) "2013" History of pulmonary embolism (Chronic) "2013" Hypertension (Chronic) Polymyalgia rheumatica (Chronic) Pre-diabetes (Chronic) TIA (transient ischemic attack) (Chronic) Surgical History H/O dilation and curettage (Chronic) S/P appendectomy (Chronic) S/P laparoscopic cholecystectomy (Chronic 12/03/13) S/P tubal ligation (Chronic) Family History Other Family history non-contributory Social History Preferred Language: Slovenian Communication Ability: Effective Restorative Aide Required: No Beliefs That Will Affect Care: None marital status: / Current Living Situation: Alone Feels Safe at Home: Yes Smoking Status: Former smoker Hx Alcohol Use: No Hx Substance Use: No Review of Systems Review of Systems: As per HPI, all 10 systems reviewed, all other ROS negative Physical Exam Physical Exam: GENERAL: Comfortable, obese, no respiratory distress SKIN: Normal color, warm HEENT: Bespectacled, pink palpebral conjunctivae, no ptosis, dry buccal mucosa, nasal cannula in place NECK : Supple, short neck, no tenderness CHEST : Decreased breath sounds , no tenderness HEART : RRR , no obvious murmurs ABDOMEN: Some distention, nontender EXTREMITIES : Minimal LE swelling, no LE tenderness, no other conspicuous deformities noted NEUROLOGIC : Coherent, no facial asymmetry, no other gross focality Results & Data Vital Signs (Past 12 Hours) Vital Signs Temp Pulse Pulse Resp BP BP Pulse Ox 03/21/19 22:00 66 18 154/56 H 91 03/21/19 21:16 95 03/21/19 21:02 36.5 C 78 20 209/62 H 90 Laboratory Results Laboratory Results WBC 7.25 K/uL (4.8-10.8) 03/21/19 21:20 RBC 4.04 M/uL (4.2-5.4) L 03/21/19 21:20 Hgb 11.7 g/dL (12.0-16.0) L 03/21/19 21:20 Hct 37.2 % (37-47) 03/21/19 21:20 MCV 92.1 fL (80-100) 03/21/19 21:20 MCH 29.0 pg (25-34) 03/21/19 21:20 MCHC 31.5 g/dL (32-36) L 03/21/19 21:20 RDW Std Deviation 55.8 fL (36.4-46.3) H 03/21/19 21:20 RDW Coeff of Jackeline 16.6 % (11.5-14.5) H 03/21/19 21:20 Plt Count 166 K/uL (130-400) 03/21/19 21:20 MPV 10.4 fL (7.4-10.4) 03/21/19 21:20 Immature Gran % (Auto) 0.3 % 03/21/19 21:20 Neut % (Auto) 67.2 % 03/21/19 21:20 Lymph % (Auto) 20.6 % 03/21/19 21:20 [place] % (Auto) 9.7 % 03/21/19 21:20 Eos % (Auto) 2.1 % 03/21/19 21:20 Baso % (Auto) 0.1 % 03/21/19 21:20 Immature Gran # (Auto) 0.02 K/uL (0.00-0.02) 03/21/19 21:20 Neut # (Auto) 4.88 K/uL (1.4-6.5) 03/21/19 21:20 Lymph # (Auto) 1.49 K/uL (1.2-3.4) 03/21/19 21:20 [place] # (Auto) 0.70 K/uL (0.11-0.59) H 03/21/19 21:20 Eos # (Auto) 0.15 K/uL (0-0.5) 03/21/19 21:20 Baso # (Auto) 0.01 K/uL (0-0.2) 03/21/19 21:20 PT 47.6 Seconds (9.0-12.0) H 03/21/19 21:20 INR 5.2 (0.9-1.1) H 03/21/19 21:20 APTT 40.3 Seconds (21.0-31.0) H 03/21/19 21:20 PTT Ratio 1.5 03/21/19 21:20 Sodium 141 mmol/L (136-145) 03/21/19 21:20 Potassium 4.3 mmol/L (3.5-5.1) 03/21/19 21:20 Chloride 107 mmol/L (98-107) 03/21/19 21:20 Carbon Dioxide 32 mmol/L (21-32) 03/21/19 21:20 Anion Gap 2.0 (3-11) L 03/21/19 21:20 BUN 40 mg/dl (7-18) H 03/21/19 21:20 Creatinine 1.65 mg/dl (0.6-1.2) H 03/21/19 21:20 Est Cr Clr Drug Dosing 21.5 ml/min 03/21/19 21:20 Est GFR ( Amer) 32.2 03/21/19 21:20 Est GFR (Non-Af Amer) 27.8 03/21/19 21:20 BUN/Creatinine Ratio 24.4 (10-20) H 03/21/19 21:20 Glucose 132 mg/dl (70-99) H 03/21/19 21:20 Calcium 9.1 mg/dl (8.5-10.1) 03/21/19 21:20 Magnesium 1.8 mg/dl (1.8-2.4) 03/21/19 21:20 Total Bilirubin 0.6 mg/dl (0.2-1) 03/21/19 21:20 AST 15 U/L (15-37) 03/21/19 21:20 ALT 18 U/L (12-78) 03/21/19 21:20 Alkaline Phosphatase 58 U/L (45-117) 03/21/19 21:20 Total Protein 6.8 gm/dl (6.4-8.2) 03/21/19 21:20 Albumin 3.1 gm/dl (3.4-5.0) L 03/21/19 21:20 Globulin 3.7 gm/dl (2.5-4.0) 03/21/19 21:20 Albumin/Globulin Ratio 0.8 (0.9-2) L 03/21/19 21:20 POC Stool Occult Blood Positive (Negative) A 03/21/19 21:33 Blood Type A Positive 03/21/19 21:20 Antibody Screen NEGATIVE 03/21/19 21:[address] abdomen pelvis: 1. Few diverticula noted in the distal descending colon. No diverticulitis. This could potentially be a site of gastrointestinal hemorrhage. No direct evidence on this CT examination for a site of hemorrhage. 2. No acute intra-abdominal pathology. 3. 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 4. Chronic renal scarring. 5. Status post cholecystectomy. 6. Cardiomegaly. Chest x-ray : 1. Cardiomegaly with volume overload and mild congestive change. No lion pulmonary edema. 2. Low lung volumes. EKG as per my interpretation : Rate 65, NSR, normal axis, right bundle branch block, no ischemia
[2019-03-21] MEDS ORDERED: carvediloL 3.125 MG TAB PO STA (23:26)
[2019-03-21] MEDS ORDERED: carvediloL 3.125 MG TAB ONE (23:26)
[2019-03-21] MEDS: PANTOprazole 40 MG in DEXTROSE 5% 100 ML IV SCH (23:42)
[2019-03-22] MEDS ORDERED: GLUCOSE 10 TABS/TUBE PO PRN (00:27)
[2019-03-22] MEDS ORDERED: PROMETHAZINE HCL 12.5 MG in SODIUM CHLORIDE 0.9% 50 ML IV PRN (00:27)
[2019-03-22] MEDS ORDERED: TRAMADOL HCL 50 MG TABLET PO PRN (00:27)
[2019-03-22] MEDS ORDERED: GLUCAGON FOR INJ 1 MG VIAL SQ PRN (00:27)
[2019-03-22] MEDS ORDERED: GLUCOSE 40% GEL 15 GM TUBE PO PRN (00:27)
[2019-03-22] MEDS ORDERED: CARBOHYDRATES FOR HYPOGLYCEMIA PO PRN (00:27)
[2019-03-22] MEDS ORDERED: HYDROmorphone INJ 0.5 MG/0.5 ML SYR IV PRN (00:27)
[2019-03-22] MEDS ORDERED: DEXTROSE 50% 50 ML SYRINGE IV PRN (00:27)
[2019-03-22] MEDS ORDERED: ACETAMINOPHEN 325 MG TAB PO PRN (00:27)
--- NOTE | 2019-03-22 00:48 | Emergency Department Note ---
Entered by Candida Mckinney acting as a scribe for Kannan Sevilla DO History of Present Illness General Chief complaint: GI Assessment Stated complaint: BLACK STOOL Source: patient History of Present Illness Onset (ago): day(s) 2 Location: abdomen Pain Consistency: + other (multiple episodes) Quality: + other (black, tarry stool ) Associated symptoms: + other (+intermittent lower abdominal pain ) The patient is an 88 year old female, with past medical history of atrial fibrillation, CAD, CKD, and PE, who presents to the Emergency Room with complaints of multiple episodes of black, tarry stool over the past 2 days. The patient notes she thinks she has a GI bleed. She states she is currently taking Coumadin and Plavix for atrial fibrillation, along with hypertension medicine. The patient notes she has oxygen at home, but she states she does not need to use it and has not used it for years. The patient also notes she has had lower abdominal pain after eating supper during the last two nights. The patient reports she still needs to take her night, daily medications. Home Medications Home Medications Medication Instructions Recorded Confirmed Type Lactobacillus acidoph-L.bulgar 1 tab PO HS 10/18/18 03/21/19 History [Floranex] amlodipine 5 mg PO HS 10/18/18 03/21/19 History atorvastatin 20 mg PO HS 10/18/18 03/21/19 History carvedilol 3.125 mg PO BID 10/18/18 03/21/19 History cholecalciferol (vitamin D3) 1,000 unit PO QAM 10/18/18 03/21/19 History [Vitamin D3] clopidogrel 75 mg PO QAM 10/18/18 03/21/19 History furosemide 20 mg PO QAM 10/18/18 03/21/19 History glucosamine sulfate [Glucosamine] 1,000 mg PO QAM 10/18/18 03/21/19 History loratadine 10 mg PO QAM 10/18/18 03/21/19 History magnesium oxide 400 mg PO QAM 10/18/18 03/21/19 History nitroglycerin [Nitrostat] 0.4 mg SUBLINGUAL UD 10/18/18 03/21/19 History omega 5-itn-ueq-fish oil [[place]-3] 1 cap PO QAM 10/18/18 03/21/19 History pantoprazole 40 mg PO BID 10/18/18 03/21/19 History prednisone 5 mg PO QAM 10/18/18 03/21/19 History warfarin 2.5 mg PO 6XWK 10/18/18 03/21/19 History warfarin 5 mg PO WK 10/18/18 03/21/19 History amiodarone 200 mg PO DAILY 03/21/19 03/21/19 History Allergies Allergy/AdvReac Type Severity Reaction Status Date / Time apixaban [From Eliquis] Allergy Severe pain in Unverified 03/21/19 23:32 bones amoxicillin Allergy Unknown RASH,HIVES Verified 03/21/19 23:32 cefaclor Allergy Unknown RASH, HIVES Verified 03/21/19 23:32 levofloxacin Allergy Unknown hives Verified 03/21/19 23:32 atorvastatin AdvReac Severe AFFECTS Verified 03/21/19 23:32 LIVER lisinopril AdvReac Severe AFFECTS Verified 03/21/19 23:32 LIVER ENZYMES citalopram AdvReac Intermediate "WILD Verified 03/21/19 23:32 DREAMS" omeprazole AdvReac Unknown blurred Verified 03/21/19 23:32 vision, headache, flashing lights Past Med/Surg History Medical History MANAV (acute kidney injury) Carotid arterial disease (Chronic) "s/p left CEA, september 2014" Cerebrovascular disease (Chronic) CKD (chronic kidney disease), stage III (Chronic) Coronary artery disease (Chronic) Dyslipidemia (Chronic) History of DVT (deep vein thrombosis) (Chronic) "2013" History of pulmonary embolism (Chronic) "2013" Hypertension (Chronic) Polymyalgia rheumatica (Chronic) Pre-diabetes (Chronic) TIA (transient ischemic attack) (Chronic) Surgical History H/O dilation and curettage (Chronic) S/P appendectomy (Chronic) S/P laparoscopic cholecystectomy (Chronic 12/03/13) S/P tubal ligation (Chronic) Family History Other Family history non-contributory Social History Preferred Language: Ukrainian Communication Ability: Effective Beliefs That Will Affect Care: None marital status: / Current Living Situation: Alone Feels Safe at Home: Yes Smoking Status: Former smoker Hx Alcohol Use: No Hx Substance Use: No Review of Systems See HPI for pertinent positives & negatives. and A total of 10 systems reviewed and were otherwise negative Physical Exam Vital Signs Vital Signs - 24 hr 03/21/19 21:02 03/21/19 21:16 03/21/19 22:00 Temperature 36.5 C Temperature Source Oral Pulse Rate 78 Pulse Rate [Right Finger] 66 Respiratory Rate 20 18 Respiratory Effort / Characteristics Non-Labored Non-Labored Spontaneous Respiratory Depth Normal Normal Respiratory Pattern Regular Blood Pressure 209/62 H Blood Pressure [Right Arm] 154/56 H Blood Pressure Mean 111 Blood Pressure Mean [Right Arm] 88 Blood Pressure Position Sitting Blood Pressure Position [Right Arm] Lying Pulse Oximetry 90 95 91 Oxygen Delivery Method Room Air Room Air Room Air Sepsis Recent Fever Within 48 Hours No Sepsis Action Taken by Nursing No Action Required GENERAL: sitting up in bed, chronically ill-appearing. EYE EXAM: normal conjunctiva OROPHARYNX: no exudate, no erythema, lips, buccal mucosa, and tongue normal and mucous membranes are moist NECK: supple, no nuchal rigidity, no adenopathy, non-tender LUNGS: Clear to auscultation. Normal chest wall mechanics HEART: no murmurs, S1 normal and S2 normal ABDOMEN: abdomen soft, non-tender, normo-active bowel sounds, no masses, no rebound or guarding. BACK: Back is symmetrical on inspection and there is no deformity, no midline tenderness, no CVA tenderness. SKIN: no rashes and no bruising UPPER EXTREMITIES: upper extremities are grossly normal. LOWER EXTREMITIES: No pitting edema. RECTAL: Heme positive, dark tarry stool. NEURO EXAM: Normal sensorium, cranial nerves II-XII grossly intact, normal speech, no gross weakness of arms, no gross weakness of legs. Course Course ED COURSE: Vital signs were reviewed and showed hypertensive. The patients medical record was reviewed The above diagnostic studies were performed and reviewed. ED treatments and interventions as stated above. 2127: The patient was evaluated in room C10. A complete history and physical examination was performed. 2120: I reevaluated and updated the patient. The patient is doing well. 3: I discussed the patient's case with Dr. Lind-Hospitaljovanna Gonzalez. Dr. Lind will further evaluate the patient. Based on the patients age, coexisting illnesses, exam and lab findings the decision to treat as an inpatient was made. The patient remained stable while under my care. The patient will be evaluated for further management. Consultations Consultation #1: I discussed the patient's case with Dr. Lind-Hospitalist Lisa. Dr. Lind will further evaluate the patient. Time: 22:33 Administered Medications Pantoprazole Sodium 40 mg/ (Dextrose) 100 mls @ 20 mls/hr IV Q5H SANTIAGO Stop: 04/20/19 23:14 Last Admin: 03/21/19 23:42 Dose: 20 mls/hr Documented by: [id number] Discontinued Medications Carvedilol (Coreg) 3.125 mg PO NOW STA Stop: 03/21/19 23:27 Last Admin: 03/21/19 23:29 Dose: 3.125 mg Documented by: [id number] Carvedilol (Coreg) Confirm Administered Dose 3.125 mg .ROUTE .STK-MED ONE Stop: 03/21/19 23:27 Last Admin: 03/21/19 23:29 Dose: Not Given Documented by: [id number] Phytonadione 5 mg/ Sodium (Chloride) 50.5 mls @ 101 mls/hr IV ONE ONE Stop: 03/21/19 22:59 Last Infusion: 03/21/19 23:25 Dose: 0 mls/hr Documented by: [id number] Admin: 03/21/19 22:59 Dose: 101 mls/hr Documented by: [id number] Pantoprazole Sodium 80 mg/ (Dextrose) 120 mls @ 480 mls/hr IV ONE STA Stop: 03/21/19 23:05 Last Infusion: 03/21/19 23:41 Dose: 0 mls/hr Documented by: [id number] Admin: 03/21/19 23:25 Dose: 480 mls/hr Documented by: [id number] Ioversol (Optiray 320 100ml) 94 ml IV ONCE PRN PRN Reason: Interaction Checking Stop: 03/25/19 22:10 Last Admin: 03/21/19 22:11 Dose: 94 ml Documented by: [id number] Medical Decision Making Differential Diagnosis Differential diagnosis includes etiologies such as diverticulosis, AVM, coag ulopathy, colitis, inflammatory bowel disease, malignancy, Aletha-Curry tear, esophagitis, peptic ulcer disease, variceal bleed, gastritis, epistaxis, fissure, hemorrhoids, as well as others were entertained. Medical Records Attestation: I reviewed the patient's medical records. Home Medications Current Medication List: was personally reviewed by me Laboratory Data Attestation: I reviewed the patient's lab results. Result diagrams: 03/21/19 21:20 03/21/19 21:20 Lab Results 03/21/19 03/21/19 03/21/19 Range/Units 21:20 21:20 21:20 WBC 7.25 (4.8-10.8) K/uL RBC 4.04 L (4.2-5.4) M/uL Hgb 11.7 L (12.0-16.0) g/dL Hct 37.2 (37-47) % MCV 92.1 (80-100) fL MCH 29.0 (25-34) pg MCHC 31.5 L (32-36) g/dL RDW Std Deviation 55.8 H (36.4-46.3) fL RDW Coeff of Jackeline 16.6 H (11.5-14.5) % Plt Count 166 (130-400) K/uL MPV 10.4 (7.4-10.4) fL Immature Gran % (Auto) 0.3 % Neut % (Auto) 67.2 % Lymph % (Auto) 20.6 % [place] % (Auto) 9.7 % Eos % (Auto) 2.1 % Baso % (Auto) 0.1 % Immature Gran # (Auto) 0.02 (0.00-0.02) K/uL Neut # (Auto) 4.88 (1.4-6.5) K/uL Lymph # (Auto) 1.49 (1.2-3.4) K/uL [place] # (Auto) 0.70 H (0.11-0.59) K/uL Eos # (Auto) 0.15 (0-0.5) K/uL Baso # (Auto) 0.01 (0-0.2) K/uL PT 47.6 H (9.0-12.0) Seconds INR 5.2 H (0.9-1.1) APTT 40.3 H (21.0-31.0) Seconds PTT Ratio 1.5 Sodium 141 (136-145) mmol/L Potassium 4.3 (3.5-5.1) mmol/L Chloride 107 (98-107) mmol/L Carbon Dioxide 32 (21-32) mmol/L Anion Gap 2.0 L (3-11) BUN 40 H (7-18) mg/dl Creatinine 1.65 H (0.6-1.2) mg/dl Est Cr Clr Drug Dosing 21.5 ml/min Est GFR ( Amer) 32.2 Est GFR (Non-Af Amer) 27.8 BUN/Creatinine Ratio 24.4 H (10-20) Glucose 132 H (70-99) mg/dl Calcium 9.1 (8.5-10.1) mg/dl Magnesium 1.8 (1.8-2.4) mg/dl Total Bilirubin 0.6 (0.2-1) mg/dl AST 15 (15-37) U/L ALT 18 (12-78) U/L Alkaline Phosphatase 58 (45-117) U/L Total Protein 6.8 (6.4-8.2) gm/dl Albumin 3.1 L (3.4-5.0) gm/dl Globulin 3.7 (2.5-4.0) gm/dl Albumin/Globulin Ratio 0.8 L (0.9-2) POC Stool Occult Blood (Negative) Blood Type Antibody Screen 03/21/19 03/21/19 Range/Units 21:20 21:33 WBC (4.8-10.8) K/uL RBC (4.2-5.4) M/uL Hgb (12.0-16.0) g/dL Hct (37-47) % MCV (80-100) fL MCH (25-34) pg MCHC (32-36) g/dL RDW Std Deviation (36.4-46.3) fL RDW Coeff of Jackeline (11.5-14.5) % Plt Count (130-400) K/uL MPV (7.4-10.4) fL Immature Gran % (Auto) % Neut % (Auto) % Lymph % (Auto) % [place] % (Auto) % Eos % (Auto) % Baso % (Auto) % Immature Gran # (Auto) (0.00-0.02) K/uL Neut # (Auto) (1.4-6.5) K/uL Lymph # (Auto) (1.2-3.4) K/uL [place] # (Auto) (0.11-0.59) K/uL Eos # (Auto) (0-0.5) K/uL Baso # (Auto) (0-0.2) K/uL PT (9.0-12.0) Seconds INR (0.9-1.1) APTT (21.0-31.0) Seconds PTT Ratio Sodium (136-145) mmol/L Potassium (3.5-5.1) mmol/L Chloride (98-107) mmol/L Carbon Dioxide (21-32) mmol/L Anion Gap (3-11) BUN (7-18) mg/dl Creatinine (0.6-1.2) mg/dl Est Cr Clr Drug Dosing ml/min Est GFR ( Amer) Est GFR (Non-Af Amer) BUN/Creatinine Ratio (10-20) Glucose (70-99) mg/dl Calcium (8.5-10.1) mg/dl Magnesium (1.8-2.4) mg/dl Total Bilirubin (0.2-1) mg/dl AST (15-37) U/L ALT (12-78) U/L Alkaline Phosphatase (45-117) U/L Total Protein (6.4-8.2) gm/dl Albumin (3.4-5.0) gm/dl Globulin (2.5-4.0) gm/dl Albumin/Globulin Ratio (0.9-2) POC Stool Occult Blood Positive A (Negative) Blood Type A Positive Antibody Screen NEGATIVE Imaging Data Radiologist's Impression: Radiology results as stated below per my review and the radiologist's interpretation: CT abd pelvis IV con only CLINICAL HISTORY: 88 years-old Female presenting with gi bleed lower abd pain. TECHNIQUE: Multidetector CT of the abdomen and pelvis was performed after the administration of intravenous contrast. IV contrast: 94 mL of Optiray 320. One or more dose lowering techniques were used consistent with the principles of ALARA (as low as reasonably achievable), including automatic exposure control, mA or kV adjustment to individual patient size, and/or use of iterative reconstruction. COMPARISON: 09/24/2016. CT DOSE (mGy.cm): The estimated cumulative dose is 778.27 mGy.cm. FINDINGS: Auto Adjudication Specialist topogram: Unremarkable. Lung bases: Multichamber enlargement of the heart. Coronary artery, aortic valve, and mitral annular calcification. No pericardial or pleural effusion. Minimal dependent changes likely atelectasis. Liver: Normal morphology. Well-defined hypodense lesions indeterminate though likely hepatic cysts. Patent hepatic vasculature. Biliary: Mild biliary ductal prominence likely a reservoir effect in the post cholecystectomy state. Gallbladder surgically absent. Pancreas: Mild parenchymal atrophy. Spleen: Normal. Adrenal glands: Normal. Kidneys and ureters: Significant scarring and atrophy evident at the lower pole of the left kidney. Bilateral cortical thinning is suspected with renal sinus fat hypertrophy. Few small cysts noted. No nephrolithiasis. Minimal urothelial thickening is suspected on the right. No nephrolithiasis. Ureters nondistended. Bladder: Normal. Pelvic organs: Uterus and ovaries normal. Bowel: A few diverticula in the distal descending colon. No wall thickening or pericolonic inflammatory change. No evidence of extravasation of intravenous contrast into the bowel lumen to suggest a site of gastrointestinal hemorrhage. Trace hiatal hernia. No bowel obstruction. Peritoneal cavity: No free fluid or intraperitoneal gas. Lymph nodes: No enlarged lymph nodes in the abdomen or pelvis. Vasculature: Atherosclerosis of the abdominal aorta with aneurysmal dilatation of the infrarenal portion immediately proximal to the bifurcation measuring up to 2.7 cm in diameter, previously 2.7 cm. IVC patent. Abdominal wall: Normal. Musculoskeletal: Degenerative changes of the spine. IMPRESSION: 1. Few diverticula noted in the distal descending colon. No diverticulitis. This could potentially be a site of gastrointestinal hemorrhage. No direct evidence on this CT examination for a site of hemorrhage. 2. No acute intra-abdominal pathology. 3. 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 4. Chronic renal scarring. 5. Status post cholecystectomy. 6. Cardiomegaly. ACT 112: Negative or not required by law. Electronically signed by: Dariel Scales M.D. 03/21/2019 10:23 PM XR chest 1V portable CLINICAL HISTORY: 88 years-old Female presenting with renal failure. TECHNIQUE: Portable upright AP view of the chest was obtained. COMPARISON: 10/18/2018 and CTA chest from 08/07/2018. FINDINGS: Atherosclerosis of the aortic arch. Cardiac silhouette enlarged. Pulmonary vascular prominence and mild interstitial prominence. Low lung volumes. No focal opacity. No large effusion or pneumothorax. Osteopenia may be present. Chronic right rotator cuff tear suspected. Upper abdomen normal. IMPRESSION: 1. Cardiomegaly with volume overload and mild congestive change. No lion pulmonary edema. 2. Low lung volumes. ACT 112: Negative or not required by law. Electronically signed by: Dariel Scales M.D. 03/21/2019 10:54 PM ECG Data Attestation: I personally reviewed and interpreted this ECG as follows: Indication: + other (GI bleed) Rate (beats per minute): 66 Rhythm: + sinus rhythm ECG Intervals/blocks: + Right Bundle branch block ECG [place]: + Normal ECG ST segments: + ST depression (Septal) and + T-wave inversions Blood Pressure Blood Pressure Findings: Elevated blood pressure Blood Pressure Disposition: further management by hospitalist MDM Narrative Patient is an 88-year-old female who presents the ER for dark tarry stools which she notes have been present for the past 2 to 3 days. She admits to taking Coumadin and Plavix. She notes her Coumadin is for A. fib. IV was established blood work was obtained and showed no significant leukocytosis but a mild anemia. INR elevated at 5.2. BMP with BUN slightly elevated at 40 and a creatinine 1.65. LFTs bilirubin was unremarkable. Patient was typed and screened. CT abdomen pelvis showed no acute pathology. Rectal was dark tarry and heme positive. Patient was given IV fluids. She was updated bedside. She is given IV vitamin K to reverse her elevated INR. She was not given Kcentra as this was not an aggressive bleed as is been present for 2 days and she has a mild anemia at this point. Discussed with the hospitalist patient will be admitted for further work-up. Impression & Plan Acute GI bleeding, MANAV (acute kidney injury), Anemia, Supratherapeutic INR Discharge Plan Visit Data *Final* Discharge Date/Time: 03/21/19 23:49 Chief Complaint: GI Assessment Stated Complaint: BLACK STOOL ED Provider: Kannan Sevilla Discharge Problem: Acute GI bleeding, MANAV (acute kidney injury), Anemia, Supratherapeutic INR Patient Disposition: Being Evaluated by Hospitalist Discharge Instructions Interventions: ED Discharge Assessment Last Done: 03/21/19 23:49 Discharge Problem: Anemia Qualifiers: Anemia type: unspecified type Qualified Code(s): D64.9 - Anemia, unspecified The scribe's documentation has been prepared under my direction and personally reviewed by me in its entirety. I confirm that the note above accurately reflects all work, treatment, procedures, and medical decision making performed by me.
[2019-03-22 00:52] LABS: Hematocrit (blood only) 36.7 % (37-47); Hemoglobin 11.6 g/dL (12.0-16.0)
[2019-03-22] MEDS: SODIUM CHLORIDE 0.45 % 1,000 ML IV SCH ×2 (00:57→20:57)
[2019-03-22] MEDS: INSULIN ASPART 100 UNITS/ML 3 ML PEN SC SCH ×5 (01:19→20:43)
[2019-03-22] MEDS: AMLODIPINE BESYLATE 5 MG TAB PO SCH ×2 (01:21→21:00)
[2019-03-22] MEDS: PANTOprazole 40 MG in DEXTROSE 5% 100 ML IV SCH ×3 (04:21→13:24)
[2019-03-22 08:00] LABS: Basophils # (auto) 0.02 K/uL (0-0.2); Basophils % (auto) 0.3 %; Eosinophils # (auto) 0.38 K/uL (0-0.5); Eosinophils % (auto) 5.2 %; Hematocrit (blood only) 33.3 % (37-47); Hemoglobin 10.5 g/dL (12.0-16.0); Immature Granulocytes # (auto) 0.02 K/uL (0.00-0.02); Immature Granulocytes % (auto) 0.3 %; Lymphocytes # (auto) 1.39 K/uL (1.2-3.4); Lymphocytes % (auto) 19.1 %; Mean Corpuscular Hemoglobin 29.2 pg (25-34); Mean Corpuscular Hgb Conc 31.5 g/dL (32-36); Mean Corpuscular Volume 92.8 fL (80-100); Mean Platelet Volume 10.2 fL (7.4-10.4); Monocytes # (auto) 0.65 K/uL (0.11-0.59); Monocytes % (auto) 8.9 %; Neutrophils # (auto) 4.83 K/uL (1.4-6.5); Neutrophils % (auto) 66.2 %; Platelet Count 154 K/uL (130-400); RDW Coefficient of Variation 16.6 % (11.5-14.5); RDW Standard Deviation 56.2 fL (36.4-46.3); Red Blood Count 3.59 M/uL (4.2-5.4); White Blood Count 7.29 K/uL (4.8-10.8)
[2019-03-22 08:14] LABS: INR 1.6 (0.9-1.1); Prothrombin Time 16.2 Seconds (9.0-12.0)
[2019-03-22 08:25] LABS: BUN Creatinine Ratio 26.8 (10-20); Calcium 9.3 mg/dl (8.5-10.1); Creatinine Clr Calc Pharmacy 26.7 ml/min; Est GFR (African American) 40.7; Est GFR (Non-African American) 35.1
--- NOTE | 2019-03-22 08:51 | Hospitalist Progress Note ---
Date of Service March 22, 2019 Assessment & Plan (1) UGIB (upper gastrointestinal bleed): Coumadin coagulopathy hx PAFib, patient currently NSR history PE/DVT (2013) -- Hg 11.7 to 10.0 INR 1.6 no recurrence of melena -- GI consulted no plans for scope monitor H&H monitor INR- may need to reduce coumadin will discuss with GI re: when to restart coumadin, plavix -- appreciate GI service recommendations CAD/CVA/PVD status post surgery -- no cardiac symptoms HTN, slightly elevated -- continue Amlodipine, Carvedilol DM2 diet-controlled, well-controlled as of recent outpatient hemoglobin A1c of 5.07 November 2018 ARF on CRI secondary to illness -- crea improved to 1.3 polymyalgia rheumatica on steroid tx -- continue prednisone past tobacco abuse DVT prophylaxis. SCDs while Coumadin on hold RE U GIB Full code Disposition anticipate to d/c home when medically stable Subjective ff up for melena seen resting in bed, comfortable, not in distress oriented x 3 no melena overnight denies chest pain, dyspnea, palpitations, dizziness no abdominal pain, nausea/vomiting no other symptoms Review of Systems Review of Systems: All systems reviewed & are unremarkable except as noted in HPI & below Physical Exam Physical Exam: General- oriented x 3, not in distress, speaks in sentences with no effort or accessory muscle use Head- atraumatic Eyes- PERRL, EOMI, anicteric ENT- oropharynx clear Neck- supple, no JVD, no adenopathy, no thyromegaly; carotids +2/2, no bruits appreciated Lungs- clear to auscultation bilaterally, no rales/wheezes Heart- normal rate, regular rhythm; no murmur, no gallop, no rub appreciated Abdomen- normal bowel sounds, nondistended, soft, nontender, no masses or hepatosplenomegaly Extremities- no pretibial edema, no calf tenderness; peripheral pulses intact Neuro- alert, oriented x 3; CN 2-12 grossly intact; motor 5/5 bilate rally;sensation 100% on all extremities; no other gross focal neurologic deficits Skin- warm & dry Results & Data Vital Signs (Past 12 Hours) Vital Signs Temp Pulse Pulse Resp BP BP BP 03/22/19 07:25 36.5 C 62 16 111/65 03/22/19 04:36 36.6 C 64 19 138/78 03/22/19 02:04 72 03/22/19 00:00 36.6 C 75 18 178/79 H 03/21/19 23:30 72 18 177/59 H 03/21/19 22:00 66 18 154/56 H 03/21/19 21:16 03/21/19 21:02 36.5 C 78 20 209/62 H Pulse Ox 03/22/19 07:25 91 03/22/19 04:36 94 03/22/19 02:04 03/22/19 00:00 93 03/21/19 23:30 92 03/21/19 22:00 91 03/21/19 21:16 95 03/21/19 21:02 90 Laboratory Results Laboratory Results - last 24 hr 03/21/19 03/21/19 03/21/19 21:20 21:20 21:20 WBC 7.25 RBC 4.04 L Hgb 11.7 L Hct 37.2 MCV 92.1 MCH 29.0 MCHC 31.5 L RDW Std Deviation 55.8 H RDW Coeff of Jackeline 16.6 H Plt Count 166 MPV 10.4 Immature Gran % (Auto) 0.3 Neut % (Auto) 67.2 Lymph % (Auto) 20.6 [place] % (Auto) 9.7 Eos % (Auto) 2.1 Baso % (Auto) 0.1 Immature Gran # (Auto) 0.02 Neut # (Auto) 4.88 Lymph # (Auto) 1.49 [place] # (Auto) 0.70 H Eos # (Auto) 0.15 Baso # (Auto) 0.01 PT 47.6 H INR 5.2 H APTT 40.3 H PTT Ratio 1.5 Sodium 141 Potassium 4.3 Chloride 107 Carbon Dioxide 32 Anion Gap 2.0 L BUN 40 H Creatinine 1.65 H Est Cr Clr Drug Dosing 21.5 Est GFR ( Amer) 32.2 Est GFR (Non-Af Amer) 27.8 BUN/Creatinine Ratio 24.4 H Glucose 132 H POC Glucose Estimat Average Glucose Hemoglobin A1c Calcium 9.1 Magnesium 1.8 Total Bilirubin 0.6 AST 15 ALT 18 Alkaline Phosphatase 58 Total Protein 6.8 Albumin 3.1 L Globulin 3.7 Albumin/Globulin Ratio 0.8 L Urine Color Urine Appearance Urine pH Ur Specific [place] Urine Protein Urine Glucose (UA) Urine Ketones Urine Blood Urine Nitrite Urine Bilirubin Urine Urobilinogen Ur Leukocyte Esterase POC Stool Occult Blood Blood Type Antibody Screen 03/21/19 03/21/19 03/22/19 21:20 21:33 00:41 WBC RBC Hgb 11.6 L Hct 36.7 L MCV MCH MCHC RDW Std Deviation RDW Coeff of Jackeline Plt Count MPV Immature Gran % (Auto) Neut % (Auto) Lymph % (Auto) [place] % (Auto) Eos % (Auto) Baso % (Auto) Immature Gran # (Auto) Neut # (Auto) Lymph # (Auto) [place] # (Auto) Eos # (Auto) Baso # (Auto) PT INR APTT PTT Ratio Sodium Potassium Chloride Carbon Dioxide Anion Gap BUN Creatinine Est Cr Clr Drug Dosing Est GFR ( Amer) Est GFR (Non-Af Amer) BUN/Creatinine Ratio Glucose POC Glucose Estimat Average Glucose Hemoglobin A1c Calcium Magnesium Total Bilirubin AST ALT Alkaline Phosphatase Total Protein Albumin Globulin Albumin/Globulin Ratio Urine Color Urine Appearance Urine pH Ur Specific [place] Urine Protein Urine Glucose (UA) Urine Ketones Urine Blood Urine Nitrite Urine Bilirubin Urine Urobilinogen Ur Leukocyte Esterase POC Stool Occult Blood Positive A Blood Type A Positive Antibody Screen NEGATIVE 03/22/19 03/22/19 03/22/19 01:16 06:08 07:34 WBC RBC Hgb Hct MCV MCH MCHC RDW Std Deviation RDW Coeff of Jackeline Plt Count MPV Immature Gran % (Auto) Neut % (Auto) Lymph % (Auto) [place] % (Auto) Eos % (Auto) Baso % (Auto) Immature Gran # (Auto) Neut # (Auto) Lymph # (Auto) [place] # (Auto) Eos # (Auto) Baso # (Auto) PT INR APTT PTT Ratio Sodium Potassium Chloride Carbon Dioxide Anion Gap BUN Creatinine Est Cr Clr Drug Dosing Est GFR ( Amer) Est GFR (Non-Af Amer) BUN/Creatinine Ratio Glucose POC Glucose 116 H 95 Estimat Average Glucose 134 Hemoglobin A1c 6.3 H Calcium Magnesium Total Bilirubin AST ALT Alkaline Phosphatase Total Protein Albumin Globulin Albumin/Globulin Ratio Urine Color Urine Appearance Urine pH Ur Specific [place] Urine Protein Urine Glucose (UA) Urine Ketones Urine Blood Urine Nitrite Urine Bilirubin Urine Urobilinogen Ur Leukocyte Esterase POC Stool Occult Blood Blood Type Antibody Screen 03/22/19 03/22/1919 07:34 07:34 07:34 WBC 7.29 RBC 3.59 L Hgb 10.5 L Hct 33.3 L MCV 92.8 MCH 29.2 MCHC 31.5 L RDW Std Deviation 56.2 H RDW Coeff of Jackeline 16.6 H Plt Count 154 MPV 10.2 Immature Gran % (Auto) 0.3 Neut % (Auto) 66.2 Lymph % (Auto) 19.1 [place] % (Auto) 8.9 Eos % (Auto) 5.2 Baso % (Auto) 0.3 Immature Gran # (Auto) 0.02 Neut # (Auto) 4.83 Lymph # (Auto) 1.39 [place] # (Auto) 0.65 H Eos # (Auto) 0.38 Baso # (Auto) 0.02 PT 16.2 H INR 1.6 H APTT PTT Ratio Sodium 141 Potassium 4.0 Chloride 106 Carbon Dioxide 33 H Anion Gap 2.0 L BUN 37 H Creatinine 1.36 H Est Cr Clr Drug Dosing 26.7 Est GFR ( Amer) 40.7 Est GFR (Non-Af Amer) 35.1 BUN/Creatinine Ratio 26.8 H Glucose 85 POC Glucose Estimat Average Glucose Hemoglobin A1c Calcium 9.3 Magnesium Total Bilirubin AST ALT Alkaline Phosphatase Total Protein Albumin Globulin Albumin/Globulin Ratio Urine Color Urine Appearance Urine pH Ur Specific [place] Urine Protein Urine Glucose (UA) Urine Ketones Urine Blood Urine Nitrite Urine Bilirubin Urine Urobilinogen Ur Leukocyte Esterase POC Stool Occult Blood Blood Type Antibody Screen 03/22/19 03/22/19 03/22/19 10:35 11:30 11:44 WBC RBC Hgb 10.0 L Hct 32.2 L MCV MCH MCHC RDW Std Deviation RDW Coeff of Jackeline Plt Count MPV Immature Gran % (Auto) Neut % (Auto) Lymph % (Auto) [place] % (Auto) Eos % (Auto) Baso % (Auto) Immature Gran # (Auto) Neut # (Auto) Lymph # (Auto) [place] # (Auto) Eos # (Auto) Baso # (Auto) PT INR APTT PTT Ratio Sodium Potassium Chloride Carbon Dioxide Anion Gap BUN Creatinine Est Cr Clr Drug Dosing Est GFR ( Amer) Est GFR (Non-Af Amer) BUN/Creatinine Ratio Glucose POC Glucose 213 H Estimat Average Glucose Hemoglobin A1c Calcium Magnesium Total Bilirubin AST ALT Alkaline Phosphatase Total Protein Albumin Globulin Albumin/Globulin Ratio Urine Color [place] Urine Appearance Clear Urine pH 6.0 Ur Specific [place] 1.022 Urine Protein Negative Urine Glucose (UA) Negative Urine Ketones Negative Urine Blood Negative Urine Nitrite Negative Urine Bilirubin Negative Urine Urobilinogen Negative Ur Leukocyte Esterase Negative POC Stool Occult Blood Blood Type Antibody Screen 03/22/19 16:47 WBC RBC Hgb Hct MCV MCH MCHC RDW Std Deviation RDW Coeff of Jackeline Plt Count MPV Immature Gran % (Auto) Neut % (Auto) Lymph % (Auto) [place] % (Auto) Eos % (Auto) Baso % (Auto) Immature Gran # (Auto) Neut # (Auto) Lymph # (Auto) [place] # (Auto) Eos # (Auto) Baso # (Auto) PT INR APTT PTT Ratio Sodium Potassium Chloride Carbon Dioxide Anion Gap BUN Creatinine Est Cr Clr Drug Dosing Est GFR ( Amer) Est GFR (Non-Af Amer) BUN/Creatinine Ratio Glucose POC Glucose 120 H Estimat Average Glucose Hemoglobin A1c Calcium Magnesium Total Bilirubin AST ALT Alkaline Phosphatase Total Protein Albumin Globulin Albumin/Globulin Ratio Urine Color Urine Appearance Urine pH Ur Specific [place] Urine Protein Urine Glucose (UA) Urine Ketones Urine Blood Urine Nitrite Urine Bilirubin Urine Urobilinogen Ur Leukocyte Esterase POC Stool Occult Blood Blood Type Antibody Screen
[2019-03-22] MEDS: LORATADINE 10 MG TAB PO SCH (09:00)
[2019-03-22] MEDS: carvediloL 3.125 MG TAB PO SCH ×2 (09:01→21:01)
[2019-03-22] MEDS: predniSONE 5 MG TAB PO SCH (09:01)
[2019-03-22] MEDS: AMIODARONE 200 MG TAB PO SCH (09:01)
[2019-03-22 09:11] LABS: Estimated Average Glucose 134 mg/dl; Hemoglobin A1C 6.3 % (4.5-5.6)
--- NOTE | 2019-03-22 09:14 | Gastrointestinal Consultation ---
Date of Consultation March 22, 2019 Assessment & Plan (1) Anemia: 88 year old male with coumdain, plavix admitted w/ dark stools (5 episodes since onset on Monday) without any BRB, prior hematemesis or coffee ground emesis. EGD in November for similar symptoms w/ a HH otherwise negative ex amination. 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 DDX discussed Continue conservative management at this time Hold coumadin, plavix Monitor INR Trend H&H Monitor and document all GI output Transfuse PRN HGB < 8 IV PPI BID I did discuss endoscopy w/ patient and she notes she is hesitant to undergo repeat EGD unless urgently indicated No GI contraindication to clear liquid diet Supervising Physician Co-Signing Physician Notes I have personally seen and examined the patient with JONATHAN Nguyen. Her note reflects my exam and findings. I agree with her impression and plan. Endoscopy would not add to patient's care at this point. Keep tight INR control Bert Saxena M.D. History of Present Illness Reason for Consultation: dark stools Requesting Physician: Nirav Attending Physician: John Gastelum MD History of Present Illness 88 year old female T2DM, hyperlipidemia, carotid stenosis, CAD, HTN, CKD-3, CO, OA and others below who presents through the ED for evaluation of dark stools - GI asked to evaluate. Pt was seen and evaluated, chart reviewed. Notes has had intermittent melnea. Was seen as an OP for dark stools and underwent EGD 11/26/18 that showed HH, otherwise unremarkalbe. Notes she was maintinaed on PPI BID and CARAFTE QID. On Monday she had a BM - noted to be dark. She suggests since onset of dark stool on Monday she has had 5 episodes of dark stools. No BRB. Denies any UGI symptoms, specifically no historyof hematemesis, coffee grond emesis. No epigastric pain, nausea, vomiting, gERD symptoms, Denies lightheadedness, dizziness, CP, SOB CTAP: Few diverticula noted in the distal descending colon. No diverticulitis. This could potentially be a site of gastrointestinal hemorrhage. No direct evidence on this CT examination for a site of hemorrhage. No acute intra- abdominal pathology. 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 Chronic renal scarring. Status post cholecystectomy. Cardiomegaly. Allergies Allergy/AdvReac Type Severity Reaction Status Date / Time apixaban [From Eliquis] Allergy Severe pain in Unverified 03/21/19 23:32 bones amoxicillin Allergy Unknown RASH,HIVES Verified 03/21/19 23:32 cefaclor Allergy Unknown RASH, HIVES Verified 03/21/19 23:32 levofloxacin Allergy Unknown hives Verified 03/21/19 23:32 atorvastatin AdvReac Severe AFFECTS Verified 03/21/19 23:32 LIVER lisinopril AdvReac Severe AFFECTS Verified 03/21/19 23:32 LIVER ENZYMES citalopram AdvReac Intermediate "WILD Verified 03/21/19 23:32 DREAMS" omeprazole AdvReac Unknown blurred Verified 03/21/19 23:32 vision, headache, flashing lights Home Medications Home Medications Medication Instructions Recorded Confirmed Type Lactobacillus acidoph-L.bulgar 1 tab PO HS 10/18/18 03/21/19 History [Floranex] amlodipine 5 mg PO HS 10/18/18 03/21/19 History atorvastatin 20 mg PO HS 10/18/18 03/21/19 History carvedilol 3.125 mg PO BID 10/18/18 03/21/19 History cholecalciferol (vitamin D3) 1,000 unit PO QAM 10/18/18 03/21/19 History [Vitamin D3] clopidogrel 75 mg PO QAM 10/18/18 03/21/19 History furosemide 20 mg PO QAM 10/18/18 03/21/19 History glucosamine sulfate [Glucosamine] 1,000 mg PO QAM 10/18/18 03/21/19 History loratadine 10 mg PO QAM 10/18/18 03/21/19 History magnesium oxide 400 mg PO QAM 10/18/18 03/21/19 History nitroglycerin [Nitrostat] 0.4 mg SUBLINGUAL UD 10/18/18 03/21/19 History omega 1-[id number]-fish oil [Adrian-3] 1 cap PO QAM 10/18/18 03/21/19 History pantoprazole 40 mg PO BID 10/18/18 03/21/19 History prednisone 5 mg PO QAM 10/18/18 03/21/19 History warfarin 2.5 mg PO [id number] 10/18/18 03/21/19 History warfarin 5 mg PO WK 10/18/18 03/21/19 History amiodarone 200 mg PO DAILY 03/21/19 03/21/19 History Patient History Medical History MANAV (acute kidney injury) Carotid arterial disease (Chronic) "s/p left CEA, september 2014" Cerebrovascular disease (Chronic) CKD (chronic kidney disease), stage III (Chronic) Coronary artery disease (Chronic) Dyslipidemia (Chronic) History of DVT (deep vein thrombosis) (Chronic) "2013" History of pulmonary embolism (Chronic) "2013" Hypertension (Chronic) Polymyalgia rheumatica (Chronic) Pre-diabetes (Chronic) TIA (transient ischemic attack) (Chronic) Surgical History H/O dilation and curettage (Chronic) S/P appendectomy (Chronic) S/P laparoscopic cholecystectomy (Chronic 12/03/13) S/P tubal ligation (Chronic) Family History Other Family history non-contributory Social History Preferred Language: [place] Communication Ability: Effective Residential Designer Required: No Beliefs That Will Affect Care: None marital status: / Current Living Situation: Alone Feels Safe at Home: Yes Smoking Status: Former smoker Hx Alcohol Use: No Hx Substance Use: No Review of Systems Constitutional: no fever and no chills Respiratory: no cough and no dyspnea Cardiovascular: no chest pain and no dyspnea on exertion Gastrointestinal: + melena; no abdominal pain, no heartburn, no coffee ground emesis and no blood in stools Physical Exam Constitutional: WD/WN, vitals as above Neck: trachea midline Cardiovascular: RRR, no murmur, no edema Gastrointestinal (Abdomen): Inspection/Auscultation: abdomen normal to inspection Percussion/Palpation: abdomen soft; abdomen nontender and no guarding Results & Data Vital Signs (Past 12 Hours) Vital Signs Temp Pulse Pulse Resp BP BP Pulse Ox 03/22/19 07:25 36.5 C 62 16 111/65 91 03/22/19 04:36 36.6 C 64 19 138/78 94 03/22/19 02:04 72 03/22/19 00:00 36.6 C 75 18 178/79 H 93 03/21/19 23:30 72 18 177/59 H 92 03/21/19 22:00 66 18 154/56 H 91 03/21/19 21:16 95 (1) Anemia Anemia type: unspecified type Qualified Code(s): D64.9 - Anemia, unspecified
[2019-03-22 11:05] LABS: Appearance Urine Clear (Clear); Bilirubin Urine Negative (Negative); Blood Urine Negative (Negative); Color Urine Orange; Glucose Urine UA Negative (Negative); Ketones Urine Negative (Negative); Leukocyte Esterase Urine Negative (Negative); Nitrite Urine Negative (Negative); Protein Urine Negative (Negative); Specific Gravity Urine 1.022 (1.000-1.030); Urobilinogen Urine Negative (Negative)
[2019-03-22 11:52] LABS: Hematocrit (blood only) 32.2 % (37-47)
[2019-03-22 18:38] LABS: Hematocrit (blood only) 33.3 % (37-47); Hemoglobin 10.6 g/dL (12.0-16.0)
[2019-03-22] MEDS: ATORVASTATIN 20 MG TAB PO SCH (21:01)
[2019-03-22] MEDS: PANTOprazole 40 MG in SYRINGE 0 ML IV SCH (21:34)
[2019-03-23] MEDS: LORATADINE 10 MG TAB PO SCH (07:55)
[2019-03-23] MEDS: AMIODARONE 200 MG TAB PO SCH (07:55)
[2019-03-23] MEDS: carvediloL 3.125 MG TAB PO SCH (07:55)
[2019-03-23] MEDS: predniSONE 5 MG TAB PO SCH (07:56)
[2019-03-23 08:12] LABS: Eosinophils # (auto) 0.46 K/uL (0-0.5); Eosinophils % (auto) 8.8 %; Hematocrit (blood only) 33.2 % (37-47); Hemoglobin 10.7 g/dL (12.0-16.0); Immature Granulocytes # (auto) 0.01 K/uL (0.00-0.02); Immature Granulocytes % (auto) 0.2 %; Lymphocytes # (auto) 1.59 K/uL (1.2-3.4); Lymphocytes % (auto) 30.3 %; Mean Corpuscular Hemoglobin 29.7 pg (25-34); Mean Corpuscular Hgb Conc 32.2 g/dL (32-36); Mean Corpuscular Volume 92.2 fL (80-100); Mean Platelet Volume 10.7 fL (7.4-10.4); Monocytes # (auto) 0.49 K/uL (0.11-0.59); Monocytes % (auto) 9.4 %; Neutrophils # (auto) 2.69 K/uL (1.4-6.5); Neutrophils % (auto) 51.3 %; Platelet Count 163 K/uL (130-400); RDW Coefficient of Variation 16.4 % (11.5-14.5); RDW Standard Deviation 55.1 fL (36.4-46.3); White Blood Count 5.24 K/uL (4.8-10.8)
[2019-03-23 08:18] LABS: INR 1.1 (0.9-1.1); Prothrombin Time 11.5 Seconds (9.0-12.0)
[2019-03-23 08:40] LABS: BUN Creatinine Ratio 16.1 (10-20); Calcium 8.9 mg/dl (8.5-10.1); Creatinine Clr Calc Pharmacy 30.2 ml/min; Est GFR (African American) 47.4; Est GFR (Non-African American) 40.9; Potassium 3.9 mmol/L (3.5-5.1)
[2019-03-23] MEDS: PANTOprazole 40 MG in SYRINGE 0 ML IV SCH ×2 (08:43→21:11)
[2019-03-23] MEDS: INSULIN ASPART 100 UNITS/ML 3 ML PEN SC SCH ×4 (08:51→21:00)
--- NOTE | 2019-03-23 10:22 | Gastroenterology Progress Note ---
Date of Service March 23, 2019 Assessment & Plan (1) Anemia: (1) Anemia: 88 year old f on coumdain, plavix admitted w/ dark stools (5 episodes since onset on Monday) without any BRB, prior hematemesis or coffee ground emesis. EGD in November for similar symptoms w/ a HH otherwise negative examination. 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 DDX discussed Continue conservative management at this time is no evidence of any acute ongoing GI bleed, vital signs are quite stable, hemoglobin is also stable measured multiple times since admission. She has no physical subjective or objective findings of ongoing bleeding. Given the diarrhea may consider checking a C. difficile. 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 Physical Exam Constitutional: WD/WN, vitals as above Cardiovascular: RRR, no murmur, no edema Gastrointestinal (Abdomen): normal bowel sounds, soft, nontender, no hepatosplenomegaly Results & Data Vital Signs (Past 12 Hours) Vital Signs Temp Pulse Pulse Resp BP Pulse Ox 03/23/19 07:11 36.8 C 57 L 18 130/72 90 03/23/19 04:00 36.6 C 57 L 20 122/55 L 94 03/23/19 00:00 55 L 03/22/19 23:00 36.6 C 61 19 147/70 H 95 (1) Anemia Anemia type: unspecified type Qualified Code(s): D64.9 - Anemia, unspecified
--- NOTE | 2019-03-23 11:28 | Hospitalist Progress Note ---
Date of Service March 23, 2019 Assessment & Plan (1) UGIB (upper gastrointestinal bleed): in the setting of Supratherapeutic INR, Plavix hx PAFib, patient currently NSR history PE/DVT (2013) -- Hg 11.7 to 10.0, remains around 10 INR 1.1 questionable melena today? -- GI consulted monitor H&H monitor INR- will need to reduce coumadin -- patient requires coumadin for A fib with high CHADsVAsc2 score- at least 7 and plavix for history of CAD, with stent placement ~10yrs ago -- discussed with Case will continue to monitor for now, if Hg stable, no signs of active bleed, resume Plavix, Coumadin tomorrow CAD/CVA/PVD status post surgery -- no cardiac symptoms HTN, slightly elevated -- continue Amlodipine, Carvedilol DM2 diet-controlled, well-controlled as of recent outpatient hemoglobin A1c of 5.07 November 2018 ARF on CRI secondary to illness -- crea improved to 1.3 polymyalgia rheumatica on steroid tx -- continue prednisone past tobacco abuse DVT prophylaxis. SCDs while Coumadin on hold RE U GIB Full code Disposition anticipate to d/c home when medically stable Subjective ff up for melena resting, comfortable had 2-3 loose BMs today dark brown, black no abdominal pain no other symptoms Review of Systems Review of Systems: All systems reviewed & are unremarkable except as noted in HPI & below Physical Exam Physical Exam: General- oriented x 3, not in distress, speaks in sentences with no effort or accessory muscle use Eyes- anicteric Neck- no JVD Lungs- clear breath sounds bilaterally Heart- normal rate, regular rhythm; no murmurs Abdomen- (+) hyperactive bowel sounds, nondistended, soft, nontender Extremities- no pretibial edema, no calf tenderness Neuro- alert, oriented x 3; no gross focal neurologic deficits Skin- warm & dry Results & Data Vital Signs (Past 12 Hours) Vital Signs Temp Pulse Pulse Resp BP Pulse Ox 03/23/19 11:18 36.4 C L 55 L 18 146/61 H 94 03/23/19 10:24 36.6 C 48 L 18 113/56 L 97 03/23/19 07:11 36.8 C 57 L 18 130/72 90 03/23/19 04:00 36.6 C 57 L 20 122/55 L 94 03/23/19 00:00 55 L
[2019-03-23] MEDS: SUCRALFATE 1 GM TAB PO SCH ×3 (13:00→21:12)
[2019-03-23] MEDS ORDERED: LOPERAMIDE HCL 2 MG CAP PO PRN (19:39)
[2019-03-23] MEDS: ATORVASTATIN 20 MG TAB PO SCH (21:11)
[2019-03-23] MEDS: AMLODIPINE BESYLATE 5 MG TAB PO SCH (21:11)
[2019-03-24 06:58] LABS: Basophils # (auto) 0.02 K/uL (0-0.2); Basophils % (auto) 0.3 %; Eosinophils # (auto) 0.39 K/uL (0-0.5); Eosinophils % (auto) 6.7 %; Hematocrit (blood only) 33.2 % (37-47); Hemoglobin 10.4 g/dL (12.0-16.0); Immature Granulocytes # (auto) 0.01 K/uL (0.00-0.02); Immature Granulocytes % (auto) 0.2 %; Lymphocytes # (auto) 1.83 K/uL (1.2-3.4); Lymphocytes % (auto) 31.6 %; Mean Corpuscular Hemoglobin 29.2 pg (25-34); Mean Corpuscular Hgb Conc 31.3 g/dL (32-36); Mean Corpuscular Volume 93.3 fL (80-100); Mean Platelet Volume 10.2 fL (7.4-10.4); Monocytes # (auto) 0.54 K/uL (0.11-0.59); Monocytes % (auto) 9.3 %; Neutrophils % (auto) 51.9 %; Platelet Count 166 K/uL (130-400); RDW Coefficient of Variation 16.2 % (11.5-14.5); RDW Standard Deviation 54.8 fL (36.4-46.3); Red Blood Count 3.56 M/uL (4.2-5.4); White Blood Count 5.79 K/uL (4.8-10.8)
[2019-03-24 07:13] LABS: INR 1.1 (0.9-1.1); Prothrombin Time 11.2 Seconds (9.0-12.0)
[2019-03-24 07:31] LABS: BUN Creatinine Ratio 11.3 (10-20); Calcium 8.8 mg/dl (8.5-10.1); Creatinine Clr Calc Pharmacy 27.1 ml/min; Est GFR (African American) 42.2; Est GFR (Non-African American) 36.4; Potassium 3.8 mmol/L (3.5-5.1)
[2019-03-24 07:35] LABS: Ferritin 64.2 ng/ml (8-388)
[2019-03-24] MEDS: SUCRALFATE 1 GM TAB PO SCH ×4 (08:12→21:13)
[2019-03-24] MEDS: AMIODARONE 200 MG TAB PO SCH (08:12)
[2019-03-24] MEDS: LORATADINE 10 MG TAB PO SCH (08:12)
[2019-03-24] MEDS: PANTOprazole 40 MG in SYRINGE 0 ML IV SCH ×2 (08:13→21:14)
[2019-03-24 08:43] LABS: Folate (Folic Acid) 16.83 ng/ml (>5.38)
[2019-03-24] MEDS: INSULIN ASPART 100 UNITS/ML 3 ML PEN SC SCH ×4 (09:13→20:46)
[2019-03-24] MEDS: predniSONE 5 MG TAB PO SCH (09:19)
--- NOTE | 2019-03-24 11:58 | Gastroenterology Progress Note ---
Date of Service March 24, 2019 Assessment & Plan (1) Anemia: (1) Anemia: 88 year old f on coumdain, plavix admitted w/ dark stools (5 episodes since onset on Monday) without any BRB, prior hematemesis or coffee ground emesis. EGD in November for similar symptoms w/ a HH otherwise negative examination. 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 DDX discussed Continue conservative management at this time is no evidence of any acute ongoing GI bleed, vital signs are quite stable, hemoglobin is also stable measured multiple times since admission. She has no physical subjective or objective findings of ongoing bleeding. This does not appear to be an acute upper GI bleed, possibly an obscure bleed. We will continue to hold anticoagulation for 1 additional day, I discussed with her repeat EGD, she states that she would like to avoid that as possible, I negotiated that we would hold her breakfast in the morning and then reassess. But if anticoagulation is to be restarted it seems reasonable at least to do an EGD prior to discharge to help re-stratify immediate reinitiation of anticoagulants. Hold coumadin, plavix Elase until tomorrow, assess the ongoing benefit and continued risk of anticoagulation with Coumadin given her supratherapeutic INR Monitor INR Trend H&H Monitor and document all GI output Transfuse PRN HGB < 8 IV PPI BID and changed to oral today I did discuss endoscopy w/ patient and she notes she is hesitant to undergo repe at EGD unless urgently indicated No GI contraindication advancing diet but would make n.p.o. after midnight. Subjective Feels better., Hemoglobin stable, no signs of bleeding Sitting in the chair beside the bed, laughing, has a little bit of abdominal cramping, very jovial in nature and states that she has had some watery brown stools this morning. Physical Exam Constitutional: WD/WN, vitals as above Cardiovascular: RRR, no murmur, no edema Gastrointestinal (Abdomen): normal bowel sounds, soft, nontender, no hepatosplenomegaly Results & Data Vital Signs (Past 12 Hours) Vital Signs Temp Pulse Resp BP BP Pulse Ox 03/24/19 11:52 36.6 C 58 L 18 175/71 H 93 03/24/19 07:48 36.6 C 54 L 18 129/72 12/22/19 04:00 36.9 C 60 19 136/68 95 (1) Anemia Anemia type: unspecified type Qualified Code(s): D64.9 - Anemia, unspecified
--- NOTE | 2019-03-24 14:27 | Hospitalist Progress Note ---
Date of Service March 24, 2019 Assessment & Plan (1) UGIB (upper gastrointestinal bleed): in the setting of Supratherapeutic INR, Plavix hx PAFib, patient currently NSR history PE/DVT (2013) -- Hg 11.7 to 10.0, remains around 10 INR 1.1 -- GI consulted Recommend to hold Plavix and Coumadin for 1 more day today monitor H&H monitor INR- will need to reduce coumadin -- patient requires coumadin for A fib with high CHADsVAsc2 score- at least 7 and plavix for history of CAD, with stent placement ~10yrs ago --Possible EGD tomorrow CAD/CVA/PVD status post surgery -- no cardiac symptoms HTN, slightly elevated -- continue Amlodipine, Carvedilol DM2 diet-controlled, well-controlled as of recent outpatient hemoglobin A1c of 5.07 November 2018 ARF on CRI secondary to illness -- crea improved to 1.3 polymyalgia rheumatica on steroid tx -- continue prednisone past tobacco abuse DVT prophylaxis. SCDs while Coumadin on hold RE U GIB Full code Disposition anticipate to d/c home when medically stable Subjective Seen resting in bed, comfortable, not in distress No recurrence of melena, diarrhea improving No abdominal pain No chest pain, shortness of breath, palpitations, dizziness No other symptoms Review of Systems Review of Systems: All systems reviewed & are unremarkable except as noted in HPI & below Physical Exam Physical Exam: General- oriented x 3, not in distress, speaks in sentences with no effort or accessory muscle use Eyes- anicteric Neck- no JVD Lungs- clear BS, no crackles, no wheezing bilaterally Heart- normal rate, regular rhythm; no murmurs Abdomen- normal bowel sounds, nondistended, soft, nontender Extremities- no pretibial edema, no calf tenderness Neuro- alert, oriented x 3; no gross focal neurologic deficits Skin- warm & dry Results & Data Vital Signs (Past 12 Hours) Vital Signs Temp Pulse Resp BP BP Pulse Ox 03/24/19 12:49 112/56 L 155/59 H 03/24/19 11:52 36.6 C 58 L 18 175/71 H 93 03/24/19 07:48 36.6 C 54 L 18 129/72 03/24/19 04:00 36.9 C 60 19 136/68 95 Laboratory Results Laboratory Results - last 24 hr 03/23/19 03/23/19 03/24/19 16:23 20:47 06:14 WBC 5.79 RBC 3.56 L Hgb 10.4 L Hct 33.2 L MCV 93.3 MCH 29.2 MCHC 31.3 L RDW Std Deviation 54.8 H RDW Coeff of Jackeline 16.2 H Plt Count 166 MPV 10.2 Immature Gran % (Auto) 0.2 Neut % (Auto) 51.9 Lymph % (Auto) 31.6 [place] % (Auto) 9.3 Eos % (Auto) 6.7 Baso % (Auto) 0.3 Immature Gran # (Auto) 0.01 Neut # (Auto) 3.00 Lymph # (Auto) 1.83 [place] # (Auto) 0.54 Eos # (Auto) 0.39 Baso # (Auto) 0.02 PT INR Sodium Potassium Chloride Carbon Dioxide Anion Gap BUN Creatinine Est Cr Clr Drug Dosing Est GFR ( Amer) Est GFR (Non-Af Amer) BUN/Creatinine Ratio Glucose POC Glucose 126 H 169 H Calcium Iron TIBC Transferrin Ferritin Vitamin B12 Folate 03/24/19 03/24/19 03/24/19 06:14 06:14 06:14 WBC RBC Hgb Hct MCV MCH MCHC RDW Std Deviation RDW Coeff of Jackeline Plt Count MPV Immature Gran % (Auto) Neut % (Auto) Lymph % (Auto) [place] % (Auto) Eos % (Auto) Baso % (Auto) Immature Gran # (Auto) Neut # (Auto) Lymph # (Auto) [place] # (Auto) Eos # (Auto) Baso # (Auto) PT 11.2 INR 1.1 Sodium 144 Potassium 3.8 Chloride 108 H Carbon Dioxide 35 H Anion Gap 1.0 L BUN 15 Creatinine 1.32 H Est Cr Clr Drug Dosing 27.1 Est GFR ( Amer) 42.2 Est GFR (Non-Af Amer) 36.4 BUN/Creatinine Ratio 11.3 Glucose 77 POC Glucose Calcium 8.8 Iron 68 TIBC 249 L Transferrin 196 L Ferritin 64.2 Vitamin B12 403 Folate 16.83 03/24/19 03/24/19 07:38 11:31 WBC RBC Hgb Hct MCV MCH MCHC RDW Std Deviation RDW Coeff of Jackeline Plt Count MPV Immature Gran % (Auto) Neut % (Auto) Lymph % (Auto) [place] % (Auto) Eos % (Auto) Baso % (Auto) Immature Gran # (Auto) Neut # (Auto) Lymph # (Auto) [place] # (Auto) Eos # (Auto) Baso # (Auto) PT INR Sodium Potassium Chloride Carbon Dioxide Anion Gap BUN Creatinine Est Cr Clr Drug Dosing Est GFR ( Amer) Est GFR (Non-Af Amer) BUN/Creatinine Ratio Glucose POC Glucose 89 100 H Calcium Iron TIBC Transferrin Ferritin Vitamin B12 Folate
[2019-03-24] MEDS ORDERED: AMLODIPINE BESYLATE 5 MG TAB PO ONE (16:28)
[2019-03-24] MEDS: AMLODIPINE BESYLATE 5 MG TAB PO SCH (21:13)
[2019-03-24] MEDS: ATORVASTATIN 20 MG TAB PO SCH (21:14)
[2019-03-25 06:30] LABS: Basophils # (auto) 0.01 K/uL (0-0.2); Basophils % (auto) 0.2 %; Eosinophils # (auto) 0.36 K/uL (0-0.5); Eosinophils % (auto) 6.1 %; Hematocrit (blood only) 32.1 % (37-47); Hemoglobin 10.2 g/dL (12.0-16.0); Immature Granulocytes # (auto) 0.01 K/uL (0.00-0.02); Immature Granulocytes % (auto) 0.2 %; Lymphocytes # (auto) 1.78 K/uL (1.2-3.4); Lymphocytes % (auto) 30.3 %; Mean Corpuscular Hemoglobin 29.4 pg (25-34); Mean Corpuscular Hgb Conc 31.8 g/dL (32-36); Mean Corpuscular Volume 92.5 fL (80-100); Mean Platelet Volume 10.2 fL (7.4-10.4); Monocytes # (auto) 0.64 K/uL (0.11-0.59); Monocytes % (auto) 10.9 %; Neutrophils # (auto) 3.07 K/uL (1.4-6.5); Neutrophils % (auto) 52.3 %; Platelet Count 161 K/uL (130-400); RDW Coefficient of Variation 16.4 % (11.5-14.5); RDW Standard Deviation 54.8 fL (36.4-46.3); Red Blood Count 3.47 M/uL (4.2-5.4); White Blood Count 5.87 K/uL (4.8-10.8)
[2019-03-25 06:42] LABS: INR 1.1 (0.9-1.1); Prothrombin Time 10.8 Seconds (9.0-12.0)
[2019-03-25 06:57] LABS: Est GFR (African American) 43.4; Potassium 3.5 mmol/L (3.5-5.1)
[2019-03-25 06:58] LABS: BUN Creatinine Ratio 11.3 (10-20); Calcium 8.5 mg/dl (8.5-10.1); Creatinine Clr Calc Pharmacy 27.8 ml/min; Est GFR (Non-African American) 37.5
[2019-03-25] MEDS: PANTOprazole 40 MG in SYRINGE 0 ML IV SCH (07:48)
[2019-03-25] MEDS: AMIODARONE 200 MG TAB PO SCH (07:48)
[2019-03-25] MEDS: LORATADINE 10 MG TAB PO SCH (07:48)
[2019-03-25] MEDS: predniSONE 5 MG TAB PO SCH (07:48)
[2019-03-25] MEDS: SUCRALFATE 1 GM TAB PO SCH ×4 (07:48→20:43)
[2019-03-25] MEDS: INSULIN ASPART 100 UNITS/ML 3 ML PEN SC SCH ×4 (08:34→21:08)
--- NOTE | 2019-03-25 09:48 | Gastroenterology Progress Note ---
Date of Service March 25, 2019 Assessment & Plan (1) Anemia: Pt is a88 y/o female on Coumadin and Plavix admitted w dark stools. Had similar episode in November, EGD done then showed hiatal hernia otherwise normal exam. Her INR was admitted on admission >5, Coumadin held, INR now 1.1. Her b lood ct had been stable for a few days around 10. BUN normal now. - Given anticipation of restarting Coumadin, we'll evaluate her for possible source of UGI bleeding via EGD. Keep NPO, EGD by Dr. Martinez today - Keep Protonix 40mg IV BID for now. - Further recs after EGD today Supervising Physician Co-Signing Physician Notes Attending attestation I have seen, examined this patient, and agree with the findings and above by our mid-level provider JONATHAN Mcgee, with the following additions -Will plan on EGD today to risk stratify use of anticoagulants Subjective Pt reports last BM yesterday, stools dark, green. Denies lion blood. Blood ct stable. Denies any n/v, abd pain Review of Systems Review of Systems: All systems reviewed & are unremarkable except as noted in HPI & below Physical Exam Constitutional: WD/WN, vitals as above well groomed, cooperative and comfortable Eyes: PERRL, conjunctivae normal, anicteric sclerae ENMT: external ear and nose normal, oropharynx normal Respiratory: normal respiratory effort, lungs clear to auscultation Cardiovascular: RRR, no murmur, no edema Gastrointestinal (Abdomen): normal bowel sounds, soft, nontender, no hepatosplenomegaly Skin: no rashes, warm and dry no jaundice Psychiatric: A+Ox3, euthymic affect Lymphatic: no lymphedema Results & Data Vital Signs (Past 12 Hours) Vital Signs Temp Pulse Pulse Resp BP Pulse Ox 03/25/19 08:11 62 03/25/19 07:03 36.6 C 61 18 119/67 90 03/25/19 04:00 36.8 C 62 20 100/53 L 93 03/24/19 23:23 65 03/24/19 23:00 36.4 C L 68 18 148/78 H 91 (1) Anemia Anemia type: unspecified type Qualified Code(s): D64.9 - Anemia, unspecified
--- NOTE | 2019-03-25 10:12 | Anesthesiology Consultation ---
Date of Service March 25, 2019 Assessment & Plan (1) Encounter for pre-operative examination: Chart Review Chart Review: Acceptable Risk for Surgery and Patient NOT seen in Pre Admission Testing Consults Requested none History Surgery Operation Date: 03/25/19 16:00 Proposed Procedures p Esophagogastroduodenoscopy Dr Juan Martinez Height/Weight Height: 5 ft Weight: 72.4 kg Allergies Allergy/AdvReac Type Severity Reaction Status Date / Time apixaban [From Eliquis] Allergy Severe pain in Verified 03/25/19 09:43 bones amoxicillin Allergy Unknown RASH,HIVES Verified 03/25/19 09:43 cefaclor Allergy Unknown RASH, HIVES Verified 03/25/19 09:43 levofloxacin Allergy Unknown hives Verified 03/25/19 09:43 atorvastatin AdvReac Severe AFFECTS Verified 03/25/19 09:43 LIVER lisinopril AdvReac Severe AFFECTS Verified 03/25/19 09:43 LIVER ENZYMES citalopram AdvReac Intermediate "WILD Verified 03/25/19 09:43 DREAMS" omeprazole AdvReac Unknown blurred Verified 03/25/19 09:43 vision, headache, flashing lights Medications Home Medications Medication Instructions Recorded Confirmed Last Taken Lactobacillus acidoph-L.bulgar 1 tab PO HS 10/18/18 03/21/19 10/17/18 [Floranex] amlodipine 5 mg PO HS 10/18/18 03/21/19 10/17/18 atorvastatin 20 mg PO HS 10/18/18 03/21/19 10/17/18 carvedilol 3.125 mg PO BID 10/18/18 03/21/19 10/18/18 cholecalciferol (vitamin D3) 1,000 unit PO QAM 10/18/18 03/21/19 10/18/18 [Vitamin D3] clopidogrel 75 mg PO QAM 10/18/18 03/21/19 10/18/18 furosemide 20 mg PO QAM 10/18/18 03/21/19 10/18/18 glucosamine sulfate [Glucosamine] 1,000 mg PO QAM 10/18/18 03/21/19 10/18/18 loratadine 10 mg PO QAM 10/18/18 03/21/19 10/18/18 magnesium oxide 400 mg PO QAM 10/18/18 03/21/19 10/18/18 nitroglycerin [Nitrostat] 0.4 mg SUBLINGUAL UD 10/18/18 03/21/19 Unknown omega 0-ryq-glw-fish oil [[place]-3] 1 cap PO QAM 10/18/18 03/21/19 10/18/18 pantoprazole 40 mg PO BID 10/18/18 03/21/19 10/18/18 prednisone 5 mg PO QAM 10/18/18 03/21/19 10/18/18 warfarin 2.5 mg PO 6XWK 10/18/18 03/21/19 03/21/19 warfarin 5 mg PO WK 10/18/18 03/21/19 03/18/19 amiodarone 200 mg PO DAILY 03/21/19 03/21/19 Unknown Active Medications Generic Name Dose Route Start Last Admin Trade Name Freq PRN Reason Stop Dose Admin Amiodarone HCl 200 mg 03/22/19 09:00 03/25/19 07:48 Cordarone PO 04/21/19 08:59 200 mg DAILY SANTIAGO Administration Amlodipine Besylate 5 mg 03/22/19 00:40 03/24/19 21:13 Norvasc PO 04/21/19 00:39 5 mg HS SANTIAGO Administration Atorvastatin Calcium 20 mg 03/22/19 21:00 03/24/19 21:14 Lipitor PO 04/21/19 20:59 20 mg HS SANTIAGO Administration Carvedilol 3.125 mg 03/22/19 09:00 03/23/19 07:55 Coreg PO 04/21/19 08:59 3.125 mg BID SANTIAGO Administration Pantoprazole Sodium 40 mg/ 10 mls @ 5 mls/min 03/22/19 21:00 03/25/19 07:48 Syringe IV 04/21/19 20:59 5 mls/min BID@0900,2100 SANTIAGO Administration Insulin Aspart 0 units 03/22/19 11:30 03/25/19 08:34 Novolog Flexpen SC 04/21/19 11:29 Not Given ACHS SANTIAGO Loperamide HCl 2 mg 03/23/19 19:39 03/23/19 20:09 Imodium PO 04/22/19 19:38 2 mg Q4H PRN Administration Diarrhea Loratadine 10 mg 03/22/19 09:00 03/25/19 07:48 Claritin PO 04/21/19 08:59 10 mg QAM SANTIAGO Administration Prednisone 5 mg 03/22/19 09:00 03/25/19 07:48 Prednisone PO 04/21/19 08:59 5 mg QAM SANTIAGO Administration Sucralfate 1 gm 03/23/19 13:00 03/25/19 07:48 Carafate Tab PO 04/22/19 12:59 1 gm QID SANTIAGO Administration NPO Date Last Intake of Fluids: 03/24/19 Time Last Intake of Fluids: 18:00 Date Last Intake of Solids: 03/24/19 Time Last Intake of Solids: 18:00 Past Medical History Medical History MANAV (acute kidney injury) Carotid arterial disease (Chronic) "s/p left CEA, september 2014" Cerebrovascular disease (Chronic) CKD (chronic kidney disease), stage III (Chronic) Coronary artery disease (Chronic) Dyslipidemia (Chronic) History of DVT (deep vein thrombosis) (Chronic) "2013" History of pulmonary embolism (Chronic) "2013" Hypertension (Chronic) Polymyalgia rheumatica (Chronic) Pre-diabetes (Chronic) TIA (transient ischemic attack) (Chronic) Past Family History Family History Other Family history non-contributory Past Surgical History Surgical History H/O dilation and curettage (Chronic) S/P appendectomy (Chronic) S/P laparoscopic cholecystectomy (Chronic 12/03/13) S/P tubal ligation (Chronic) Social History Smoking Status: Former smoker Hx Alcohol Use: No Hx Substance Use: No Physical Exam Vital Signs Last Vital Signs Temp 36.7 C 03/25/19 09:44 Pulse 77 03/25/19 09:44 Resp 16 03/25/19 09:44 BP 177/64 H 03/25/19 09:44 Pulse Ox 94 03/25/19 09:44 Testing Laboratory Results 03/25/19 05:52 03/25/19 05:52 PT 10.8 Seconds (9.0-12.0) 03/25/19 05:52 INR 1.1 (0.9-1.1) 03/25/19 05:52 APTT 40.3 Seconds (21.0-31.0) H 03/21/19 21:20 Hemoglobin A1c 6.3 % (4.5-5.6) H 03/22/19 07:34 Urine Color [place] 03/22/19 10:35 Urine Appearance Clear (Clear) 03/22/19 10:35 Urine pH 6.0 (4.5-7.5) 03/22/19 10:35 Ur Specific [place] 1.022 (1.000-1.030) 03/22/19 10:35 Urine Protein Negative (Negative) 03/22/19 10:35 Urine Glucose (UA) Negative (Negative) 03/22/19 10:35 Urine Ketones Negative (Negative) 03/22/19 10:35 Urine Nitrite Negative (Negative) 03/22/19 10:35 Ur Leukocyte Esterase Negative (Negative) 03/22/19 10:35 Blood Type A Positive 03/21/19 21:20 Antibody Screen NEGATIVE 03/21/19 21:20 03/25/19 07:38 POC Glucose 92
[2019-03-25] MEDS ORDERED: ePHEDrine sulfate 50 MG/ML AMP IV PRN (10:15)
[2019-03-25] MEDS ORDERED: ATROPINE SULFATE 0.1 MG/ML 10ML SYR IV PRN (10:15)
--- NOTE | 2019-03-25 10:34 | GI REPORT ---
Patient Name: Michelle Guo Procedure Date: 03/25/2019 9:53 AM Date of : 1930 Admit Type: Inpatient Age: 88 Gender: Female Attending MD: Sonu Martinez MD Procedure: Upper GI endoscopy Providers: Sonu Martinez MD Referring MD: John Gastelum Indications: Melena Medicines: Monitored Anesthesia Care Complications: No immediate complications. Estimated blood loss: None. Estimated Blood Loss: Estimated blood loss: none. Procedure: Pre-Anesthesia Assessment: - Pre-Anesthesia Assessment: - Prior to the procedure, a History and Physical was performed, and patient medications, allergies and sensitivities were reviewed. The patient's tolerance of previous anesthesia was reviewed. Please see [employer] for complete details. - The risks and benefits of the procedure and the sedation options and risks were discussed with the patient. All questions were answered and informed consent was obtained. - Patient identification and proposed procedure were verified prior to the procedure by the physician and the nurse. The procedure was verified in the pre-procedure area in the procedure room. After obtaining informed consent, the endoscope was passed carefully and meticuously under direct vision and only advanced when the lumen was clearly identified, C02 insuflation was utilized throughout the entirity of the procedure. Throughout the procedure, the patient's blood pressure, pulse, and oxygen saturations were monitored continuously. After obtaining informed consent, the endoscope was passed under direct vision. Throughout the procedure, the patient's blood pressure, pulse, and oxygen saturations were monitored continuously. The Endoscope was introduced through the mouth, and advanced to the second part of duodenum. The upper GI endoscopy was accomplished without difficulty. The patient tolerated the procedure well. Findings: The examined esophagus was tortuous. A hiatal hernia was present. The entire examined stomach was normal. The examined duodenum was normal. Impression: - Tortuous esophagus. - Hiatal hernia. - Normal stomach. - Normal examined duodenum. - No specimens collected. Recommendation: - [facility]. - Use Prilosec (omeprazole) 40 mg PO daily. - Given overt obscure GI bleeding, if desire to start anticoagulation, consider colonoscopy. However, given age, patient is reluctant. If restart anticoagulation, then will need to monitor for s/s of bleeding. - Advance diet as tolerated Sonu Martinez MD 03/25/2019 10:34:13 AM This report has been signed electronically. Note Initiated On: 03/25/2019 9:53 AM Number of Addenda: 0 I attest to the content of the Intraoperative Record and orders documented therein, exceptions below {[id number]}
[2019-03-25] MEDS ORDERED: LIDOCAINE HCL 2% 2 ML VIAL/AMP(20MG/ML) INFIL ONE (10:35)
[2019-03-25] MEDS ORDERED: PROPOFOL IV EMULSION 10 MG/ML 20 ML VIAL IV ONE (10:35)
[2019-03-25] MEDS ORDERED: ENOXAPARIN 80 MG/0.8 ML SYR SQ SCH (15:00)
[2019-03-25] MEDS ORDERED: WARFARIN SOD 5 MG TAB PO SCH (16:00)
[2019-03-25] MEDS: Heparin IV Low Dose *NO* Bolus IV SCH ×3 (16:50→17:57)
[2019-03-25] MEDS: HEPARIN SODIUM/DEXTROSE 25,000 UNITS/500 ML BAG IV SCH (17:37)
--- NOTE | 2019-03-25 17:39 | Hospitalist Progress Note ---
Date of Service March 25, 2019 Assessment & Plan (1) UGIB (upper gastrointestinal bleed): in the setting of Supratherapeutic INR, Plavix hx PAFib, patient currently NSR history PE/DVT (2013) -- Hg 11.7 to 10.0, remains stable around 10 INR 1.1 -- GI consulted Status post EGD: Positive hiatal hernia Discussed with GI service, okay to resume Coumadin with bridging with heparin (has documented adverse reaction to the Lovenox), and Plavix today Will need close monitoring of CBC and INR upon discharge -- patient requires coumadin plus bridging for A fib with high CHADsVAsc2 score- at least 7 and plavix for history of CAD, with stent placement ~10yrs ago --Continue Protonix 40 mg p.o. twice daily and Carafate 4 times daily CAD/CVA/PVD status post surgery -- no cardiac symptoms --Carvedilol discontinued secondary to bradycardia, no recurrence HTN -- Increase amlodipine to 10 mg daily DM2 diet-controlled, well-controlled as of recent outpatient hemoglobin A1c of 5.07 November 2018 ARF on CRI secondary to illness -- crea improved to 1.3 polymyalgia rheumatica on steroid tx -- continue prednisone past tobacco abuse DVT prophylaxis Coumadin plus heparin bridge Full code Disposition anticipate to d/c home when medically stable Subjective Follow-up for melena Status post EGD Seen sitting up in bed, comfortable, not in distress No BMs today Denies abdominal pain no nausea Denies chest pain, shortness of breath, palpitations No other symptoms Review of Systems Review of Systems: All systems reviewed & are unremarkable except as noted in HPI & below Physical Exam Physical Exam: General- oriented x 3, not in distress, speaks in sentences with no effort or accessory muscle use Eyes- anicteric Neck- no JVD Lungs- clear breath sounds, no crackles bilaterally Heart- normal rate, regular rhythm; no murmurs Abdomen- normal bowel sounds, nondistended, soft, nontender Extremities- no pretibial edema, no calf tenderness Neuro- alert, oriented x 3; no gross focal neurologic deficits Skin- warm & dry Results & Data Vital Signs (Past 12 Hours) Vital Signs Temp Pulse Pulse Pulse Resp BP BP 03/25/19 15:21 36.2 C L 64 18 149/72 H 03/25/19 11:36 36.6 C 64 18 172/67 H 03/25/19 11:14 183/75 H 03/25/19 11:09 65 65 18 192/90 H 03/25/19 10:52 59 L 77 18 182/63 H 03/25/19 10:36 65 77 18 144/62 H 03/25/19 09:44 36.7 C 77 77 16 177/64 H 03/25/19 08:11 62 03/25/19 07:03 36.6 C 61 18 119/67 Pulse Ox 03/25/19 15:21 94 03/25/19 11:36 94 03/25/19 11:14 03/25/19 11:09 93 03/25/19 10:52 92 03/25/19 10:36 92 03/25/19 09:44 94 03/25/19 08:11 03/25/19 07:03 90 Laboratory Results Laboratory Results - last 24 hr 03/24/19 03/25/19 03/25/19 20:10 05:52 05:52 WBC 5.87 RBC 3.47 L Hgb 10.2 L Hct 32.1 L MCV 92.5 MCH 29.4 MCHC 31.8 L RDW Std Deviation 54.8 H RDW Coeff of Jackeline 16.4 H Plt Count 161 MPV 10.2 Immature Gran % (Auto) 0.2 Neut % (Auto) 52.3 Lymph % (Auto) 30.3 [place] % (Auto) 10.9 Eos % (Auto) 6.1 Baso % (Auto) 0.2 Immature Gran # (Auto) 0.01 Neut # (Auto) 3.07 Lymph # (Auto) 1.78 [place] # (Auto) 0.64 H Eos # (Auto) 0.36 Baso # (Auto) 0.01 PT 10.8 INR 1.1 Sodium Potassium Chloride Carbon Dioxide Anion Gap BUN Creatinine Est Cr Clr Drug Dosing Est GFR ( Amer) Est GFR (Non-Af Amer) BUN/Creatinine Ratio Glucose POC Glucose 122 H Calcium 03/25/19 03/25/19 03/25/19 05:52 07:38 11:35 WBC RBC Hgb Hct MCV MCH MCHC RDW Std Deviation RDW Coeff of Jackeline Plt Count MPV Immature Gran % (Auto) Neut % (Auto) Lymph % (Auto) [place] % (Auto) Eos % (Auto) Baso % (Auto) Immature Gran # (Auto) Neut # (Auto) Lymph # (Auto) [place] # (Auto) Eos # (Auto) Baso # (Auto) PT INR Sodium 143 Potassium 3.5 Chloride 107 Carbon Dioxide 33 H Anion Gap 4.0 BUN 15 Creatinine 1.29 H Est Cr Clr Drug Dosing 27.8 Est GFR ( Amer) 43.4 Est GFR (Non-Af Amer) 37.5 BUN/Creatinine Ratio 11.3 Glucose 79 POC Glucose 92 102 H Calcium 8.5 03/25/19 16:44 WBC RBC Hgb Hct MCV MCH MCHC RDW Std Deviation RDW Coeff of Jackeline Plt Count MPV Immature Gran % (Auto) Neut % (Auto) Lymph % (Auto) [place] % (Auto) Eos % (Auto) Baso % (Auto) Immature Gran # (Auto) Neut # (Auto) Lymph # (Auto) [place] # (Auto) Eos # (Auto) Baso # (Auto) PT INR Sodium Potassium Chloride Carbon Dioxide Anion Gap BUN Creatinine Est Cr Clr Drug Dosing Est GFR ( Amer) Est GFR (Non-Af Amer) BUN/Creatinine Ratio Glucose POC Glucose 125 H Calcium
[2019-03-25] MEDS: ATORVASTATIN 20 MG TAB PO SCH (20:42)
[2019-03-25] MEDS: AMLODIPINE BESYLATE 5 MG TAB PO SCH (20:42)
[2019-03-25] MEDS: PANTOprazole 40 MG TAB PO SCH (20:43)
[2019-03-26 00:04] LABS: Partial Thromboplastin Ratio 1.2; Partial Thromboplastin Time 32.3 Seconds (21.0-31.0)
[2019-03-26] MEDS ORDERED: HEPARIN IV BOLUS 4,000 UNITS in SYRINGE 0 ML IV ONE (00:11)
[2019-03-26 06:40] LABS: Basophils # (auto) 0.01 K/uL (0-0.2); Basophils % (auto) 0.2 %; Eosinophils # (auto) 0.47 K/uL (0-0.5); Eosinophils % (auto) 7.6 %; Hematocrit (blood only) 32.7 % (37-47); Hemoglobin 10.5 g/dL (12.0-16.0); Immature Granulocytes # (auto) 0.02 K/uL (0.00-0.02); Immature Granulocytes % (auto) 0.3 %; Lymphocytes # (auto) 2.01 K/uL (1.2-3.4); Lymphocytes % (auto) 32.4 %; Mean Corpuscular Hemoglobin 29.7 pg (25-34); Mean Corpuscular Hgb Conc 32.1 g/dL (32-36); Mean Corpuscular Volume 92.4 fL (80-100); Mean Platelet Volume 10.4 fL (7.4-10.4); Monocytes # (auto) 0.57 K/uL (0.11-0.59); Monocytes % (auto) 9.2 %; Neutrophils # (auto) 3.13 K/uL (1.4-6.5); Neutrophils % (auto) 50.3 %; Platelet Count 171 K/uL (130-400); RDW Coefficient of Variation 16.4 % (11.5-14.5); RDW Standard Deviation 54.7 fL (36.4-46.3); Red Blood Count 3.54 M/uL (4.2-5.4); White Blood Count 6.21 K/uL (4.8-10.8)
[2019-03-26 07:06] LABS: INR 1.1 (0.9-1.1); Partial Thromboplastin Ratio 2.7; Prothrombin Time 11.1 Seconds (9.0-12.0)
[2019-03-26 07:08] LABS: BUN Creatinine Ratio 11.4 (10-20); Calcium 8.6 mg/dl (8.5-10.1); Creatinine Clr Calc Pharmacy 27.1 ml/min; Est GFR (African American) 42.2; Est GFR (Non-African American) 36.4; Partial Thromboplastin Time 73.2 Seconds (21.0-31.0); Potassium 3.5 mmol/L (3.5-5.1)
--- NOTE | 2019-03-26 07:59 | Anesthesiology Progress Note ---
Date of Service March 26, 2019 Anesthesia Post Procedure Vital Signs Vital Signs: Temp Pulse Pulse Pulse Resp BP BP 03/26/19 07:19 36.9 C 71 16 135/74 03/26/19 04:00 36.9 C 59 L 20 109/62 03/26/19 00:04 36.9 C 70 20 124/79 03/25/19 23:19 65 03/25/19 19:55 36.4 C L 61 20 139/64 03/25/19 16:00 62 03/25/19 15:21 36.2 C L 64 18 149/72 H 03/25/19 11:36 36.6 C 64 18 172/67 H 03/25/19 11:14 183/75 H 03/25/19 11:09 65 65 18 192/90 H 03/25/19 10:52 59 L 77 18 182/63 H 03/25/19 10:36 65 77 18 144/62 H 03/25/19 09:44 36.7 C 77 77 16 177/64 H 03/25/19 08:11 62 Pulse Ox 03/26/19 07:19 90 03/26/19 04:00 93 03/26/19 00:04 92 03/25/19 23:19 03/25/19 19:55 92 03/25/19 16:00 03/25/19 15:21 94 03/25/19 11:36 94 03/25/19 11:14 03/25/19 11:09 93 03/25/19 10:52 92 03/25/19 10:36 92 03/25/19 09:44 94 03/25/19 08:11 Notes Mental Status: alert / awake / arousable and participated in evaluation Patient Amnestic to Procedure: Yes Nausea / Vomiting: adequately controlled Pain: adequately controlled Airway Patency, RR, SpO2: stable & adequate BP & HR: stable & adequate Hydration State: stable & adequate Anesthetic Complications: no major complications apparent
[2019-03-26] MEDS: PANTOprazole 40 MG TAB PO SCH ×2 (08:17→20:10)
[2019-03-26] MEDS: SUCRALFATE 1 GM TAB PO SCH ×4 (08:17→20:09)
[2019-03-26] MEDS: CLOPIDOGREL BISULFATE 75 MG TAB PO SCH (08:18)
[2019-03-26] MEDS: LORATADINE 10 MG TAB PO SCH (08:18)
[2019-03-26] MEDS: predniSONE 5 MG TAB PO SCH (08:18)
[2019-03-26] MEDS: AMIODARONE 200 MG TAB PO SCH (08:18)
[2019-03-26] MEDS: INSULIN ASPART 100 UNITS/ML 3 ML PEN SC SCH ×4 (08:28→20:52)
[2019-03-26 15:28] LABS: Partial Thromboplastin Ratio 1.6; Partial Thromboplastin Time 44.1 Seconds (21.0-31.0)
[2019-03-26] MEDS ORDERED: HEPARIN IV BOLUS 2,000 UNITS in SYRINGE 0 ML IV SCH (16:00)
[2019-03-26] MEDS: WARFARIN SOD 2.5 MG TAB PO SCH (16:04)
[2019-03-26] MEDS ORDERED: WARFARIN SOD 2.5 MG TAB PO STA (19:02)
[2019-03-26] MEDS: HEPARIN SODIUM/DEXTROSE 25,000 UNITS/500 ML BAG IV SCH (19:37)
[2019-03-26] MEDS: AMLODIPINE BESYLATE 5 MG TAB PO SCH (20:09)
[2019-03-26] MEDS: ATORVASTATIN 20 MG TAB PO SCH (20:09)
[2019-03-26 22:34] LABS: Partial Thromboplastin Time 54.2 Seconds (21.0-31.0)
[2019-03-27 05:25] LABS: Basophils # (auto) 0.01 K/uL (0-0.2); Basophils % (auto) 0.2 %; Eosinophils # (auto) 0.39 K/uL (0-0.5); Eosinophils % (auto) 6.7 %; Hematocrit (blood only) 32.9 % (37-47); Hemoglobin 10.6 g/dL (12.0-16.0); Immature Granulocytes # (auto) 0.02 K/uL (0.00-0.02); Immature Granulocytes % (auto) 0.3 %; Lymphocytes # (auto) 1.69 K/uL (1.2-3.4); Lymphocytes % (auto) 28.9 %; Mean Corpuscular Hemoglobin 29.6 pg (25-34); Mean Corpuscular Hgb Conc 32.2 g/dL (32-36); Mean Corpuscular Volume 91.9 fL (80-100); Monocytes # (auto) 0.58 K/uL (0.11-0.59); Monocytes % (auto) 9.9 %; Neutrophils # (auto) 3.16 K/uL (1.4-6.5); Platelet Count 162 K/uL (130-400); RDW Coefficient of Variation 16.4 % (11.5-14.5); RDW Standard Deviation 54.4 fL (36.4-46.3); Red Blood Count 3.58 M/uL (4.2-5.4); White Blood Count 5.85 K/uL (4.8-10.8)
[2019-03-27 05:42] LABS: Calcium 8.6 mg/dl (8.5-10.1); Creatinine Clr Calc Pharmacy 26.7 ml/min; Est GFR (African American) 41.5; Est GFR (Non-African American) 35.8
[2019-03-27 05:47] LABS: INR 1.2 (0.9-1.1); Partial Thromboplastin Ratio 1.9; Prothrombin Time 11.9 Seconds (9.0-12.0)
[2019-03-27 06:23] LABS: Partial Thromboplastin Time 52.5 Seconds (21.0-31.0)
--- NOTE | 2019-03-27 06:39 | Hospitalist Progress Note ---
Date of Service delayed entry date of service 03/26/19 March 27, 2019 Assessment & Plan (1) UGIB (upper gastrointestinal bleed): in the setting of Supratherapeutic INR, Plavix hx PAFib, patient currently NSR history PE/DVT (2013) - INR 5 on admisison, given Vit K initially declined EGD -- Hg 11.7 to 10.0, remains stable around 10 INR 1.1 -- patient then agreed for EGD, declined Colonoscopy 03/25 Status post EGD: Positive hiatal hernia Discussed with GI service, okay to resume Coumadin with bridging with heparin (has documented adverse reaction to the Lovenox), and Plavix Will need close monitoring of CBC and INR upon discharge -- patient requires coumadin plus bridging for A fib with high CHADsVAsc2 score- at least 7 and plavix for history of CAD, with stent placement ~10yrs ago --Continue Protonix 40 mg p.o. 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 secondary to illness -- crea improved to 1.3 polymyalgia rheumatica on steroid tx -- continue prednisone past tobacco abuse DVT prophylaxis Coumadin plus heparin bridge Full code Disposition anticipate to d/c home when medically stable ff up PCP monitor CBC and INR very closely Subjective ff up for melena, anemia seen resting in bed, comfortable, in good spirits had 1 BM, dark brown reports mild left LQ discomfort no melena since yesterday no chest pain, dyspnea, palpitations, dizziness no other symptoms Review of Systems Review of Systems: All systems reviewed & are unremarkable except as noted in HPI & below Physical Exam Physical Exam: General- oriented x 3, not in distress, speaks in sentences with no effort or accessory muscle use Eyes- anicteric Neck- no JVD Lungs- clear breath sounds, no crackles, no wheezes Heart- normal rate, regular rhythm; no murmurs Abdomen- normal bowel sounds, nondistended, soft, nontender Extremities- no pretibial edema, no calf tenderness Neuro- alert, oriented x 3; no gross focal neurologic deficits Skin- warm & dry Results & Data Vital Signs (Past 12 Hours) Vital Signs Temp Pulse Pulse Resp BP Pulse Ox 03/27/19 05:24 36.7 C 60 18 108/55 L 91 03/27/19 00:00 63 03/26/19 23:02 36.9 C 63 17 136/66 91 03/26/19 19:00 36.8 C 72 20 151/66 H 92 Laboratory Results Laboratory Results - last 24 hr 03/26/19 03/26/19 03/26/19 06:11 06:11 06:11 WBC 6.21 RBC 3.54 L Hgb 10.5 L Hct 32.7 L MCV 92.4 MCH 29.7 MCHC 32.1 RDW Std Deviation 54.7 H RDW Coeff of Jackeline 16.4 H Plt Count 171 MPV 10.4 Immature Gran % (Auto) 0.3 Neut % (Auto) 50.3 Lymph % (Auto) 32.4 [place] % (Auto) 9.2 Eos % (Auto) 7.6 Baso % (Auto) 0.2 Immature Gran # (Auto) 0.02 Neut # (Auto) 3.13 Lymph # (Auto) 2.01 [place] # (Auto) 0.57 Eos # (Auto) 0.47 Baso # (Auto) 0.01 PT 11.1 INR 1.1 APTT 73.2 H* PTT Ratio 2.7 Sodium 142 Potassium 3.5 Chloride 105 Carbon Dioxide 32 Anion Gap 4.0 BUN 15 Creatinine 1.32 H Est Cr Clr Drug Dosing 27.1 Est GFR ( Amer) 42.2 Est GFR (Non-Af Amer) 36.4 BUN/Creatinine Ratio 11.4 Glucose 85 POC Glucose Calcium 8.6 03/26/19 03/26/19 03/26/19 07:45 11:44 15:06 WBC RBC Hgb Hct MCV MCH MCHC RDW Std Deviation RDW Coeff of Jackeline Plt Count MPV Immature Gran % (Auto) Neut % (Auto) Lymph % (Auto) [place] % (Auto) Eos % (Auto) Baso % (Auto) Immature Gran # (Auto) Neut # (Auto) Lymph # (Auto) [place] # (Auto) Eos # (Auto) Baso # (Auto) PT INR APTT 44.1 H PTT Ratio 1.6 Sodium Potassium Chloride Carbon Dioxide Anion Gap BUN Creatinine Est Cr Clr Drug Dosing Est GFR ( Amer) Est GFR (Non-Af Amer) BUN/Creatinine Ratio Glucose POC Glucose 96 110 H Calcium 03/26/19 03/26/19 03/26/19 16:30 20:16 22:00 WBC RBC Hgb Hct MCV MCH MCHC RDW Std Deviation RDW Coeff of Jackeline Plt Count MPV Immature Gran % (Auto) Neut % (Auto) Lymph % (Auto) [place] % (Auto) Eos % (Auto) Baso % (Auto) Immature Gran # (Auto) Neut # (Auto) Lymph # (Auto) [place] # (Auto) Eos # (Auto) Baso # (Auto) PT INR APTT 54.2 H* PTT Ratio 2.0 Sodium Potassium Chloride Carbon Dioxide Anion Gap BUN Creatinine Est Cr Clr Drug Dosing Est GFR ( Amer) Est GFR (Non-Af Amer) BUN/Creatinine Ratio Glucose POC Glucose 134 H 156 H Calcium 03/27/19 03/27/19 03/27/19 05:16 05:16 05:16 WBC 5.85 RBC 3.58 L Hgb 10.6 L Hct 32.9 L MCV 91.9 MCH 29.6 MCHC 32.2 RDW Std Deviation 54.4 H RDW Coeff of Jackeline 16.4 H Plt Count 162 MPV 10.0 Immature Gran % (Auto) 0.3 Neut % (Auto) 54.0 Lymph % (Auto) 28.9 [place] % (Auto) 9.9 Eos % (Auto) 6.7 Baso % (Auto) 0.2 Immature Gran # (Auto) 0.02 Neut # (Auto) 3.16 Lymph # (Auto) 1.69 [place] # (Auto) 0.58 Eos # (Auto) 0.39 Baso # (Auto) 0.01 PT 11.9 INR 1.2 H APTT 52.5 H* PTT Ratio 1.9 Sodium 141 Potassium 4.0 Chloride 106 Carbon Dioxide 34 H Anion Gap 1.0 L BUN 17 Creatinine 1.34 H Est Cr Clr Drug Dosing 26.7 Est GFR ( Amer) 41.5 Est GFR (Non-Af Amer) 35.8 BUN/Creatinine Ratio 13.0 Glucose 88 POC Glucose Calcium 8.6
[2019-03-27] MEDS: LORATADINE 10 MG TAB PO SCH (08:45)
[2019-03-27] MEDS: AMIODARONE 200 MG TAB PO SCH (08:45)
[2019-03-27] MEDS: predniSONE 5 MG TAB PO SCH (08:45)
[2019-03-27] MEDS: SUCRALFATE 1 GM TAB PO SCH ×4 (08:45→20:24)
[2019-03-27] MEDS: CLOPIDOGREL BISULFATE 75 MG TAB PO SCH (08:45)
[2019-03-27] MEDS: PANTOprazole 40 MG TAB PO SCH ×2 (08:46→20:25)
[2019-03-27] MEDS: INSULIN ASPART 100 UNITS/ML 3 ML PEN SC SCH ×4 (09:21→21:33)
--- NOTE | 2019-03-27 10:32 | Hospitalist Progress Note ---
Date of Service March 27, 2019 Assessment & Plan (1) UGIB (upper gastrointestinal bleed): Presented with melena and was sent into the hospital from primary care's office Complicated by supratherapeutic INR and use of Plavix Plavix with history of CAD, stroke and atrial fibrillation:CHADsVAsc2 score- at least 7 INR 5 on admission, given Vit K Status post negative EGD and now agreeable for colonoscopy which she refused before 03/25 Status post EGD: Positive hiatal hernia Discussed with GI service, okay to resume Coumadin with bridging with heparin (has documented adverse reaction to the Lovenox), and Plavix We will discussed with GI again for possible colonoscopy while she is in the hospital Continue Protonix 40 mg p.o. twice daily and Carafate 4 times daily CAD/CVA/PVD status post surgery No cardiac symptoms Carvedilol discontinued secondary to bradycardia, no recurrence Started 1 intravenous heparin, Coumadin and Plavix INR is 1.2 on 03/27 HTN Increase amlodipine to 10 mg daily Monitor BP DM2 diet-controlled, well-controlled as of recent outpatient hemoglobin A1c of 5.07 November 2018 ARF on CRI secondary to illness Crea improved to 1.3 polymyalgia rheumatica on steroid tx Continue prednisone Past tobacco abuse DVT prophylaxis Coumadin plus heparin bridge Full code Disposition anticipate to d/c home when medically stable ff up PCP monitor CBC and INR very closely Subjective 03/27 The patient was seen and examined in telemetry unit Medical history significant for significant for CAD/CVA as per records, HTN, hyperlipidemia, A. fib, hx PE/DVT on Coumadin, depression, carotid artery stenosis L sp surgery (09/2014), DM2 diet-controlled, CRI (baseline creatinine 1.4-1.5), polymyalgia rheumatica on steroid tx, past tobacco abuse. Admitted with melena and was sent in from primary care provider Status post negative EGD and was advised for colonoscopy She denies any symptoms as of today Review of Systems Review of Systems: All systems reviewed and are unremarkable except as noted below Gastrointestinal: Minimal lower abdominal and left lower quadrant discomfort without any other symptoms Physical Exam Physical Exam: Lying in bed comfortably Constitutional: well developed and well nourished; no acute distress Eyes: PERRL, conjunctivae normal, anicteric sclerae ENMT: external ear and nose normal, oropharynx normal Neck: trachea midline, no thyromegaly Respiratory: normal respiratory effort; no respiratory distress Auscultation: lungs clear to auscultation bilaterally Cardiovascular: Rate/Rhythm: regular rate and regular rhythm Heart Sounds: no murmur Gastrointestinal (Abdomen): Inspection/Auscultation: abdomen normal to inspection and normal bowel sounds; abdomen not distended Musculoskeletal: No acute arthritis in any joints Neurologic: moves all extremities; no focal motor deficits Speech / Cognition: normal speech Results & Data Vital Signs (Past 12 Hours) Vital Signs Temp Pulse Pulse Pulse Resp BP BP 03/27/19 08:45 65 03/27/19 07:44 36.6 C 59 L 18 168/75 H 03/27/19 07:18 55 L 03/27/19 05:24 36.7 C 60 18 108/55 L 03/27/19 00:00 63 03/26/19 23:02 36.9 C 63 17 136/66 Pulse Ox 03/27/19 08:45 03/27/19 07:44 94 03/27/19 07:18 03/27/19 05:24 91 03/27/19 00:00 03/26/19 23:02 91 Laboratory Results Short CBC 03/27/19 Range/Units 05:16 WBC 5.85 (4.8-10.8) K/uL Hgb 10.6 L (12.0-16.0) g/dL Hct 32.9 L (37-47) % Plt Count 162 (130-400) K/uL BMP 03/27/19 05:16 Sodium 141 Potassium 4.0 Chloride 106 Carbon Dioxide 34 H BUN 17 Creatinine 1.34 H Glucose 88 Calcium 8.6 Medications Administered Current Inpatient Medications Acetaminophen (Tylenol) 650 mg PO Q4H PRN PRN Reason: Pain or Fever Stop: 04/21/19 00:26 Amiodarone HCl (Cordarone) 200 mg PO DAILY [facility] Stop: 04/21/19 08:59 Last Admin: 03/27/19 08:45 Dose: 200 mg Documented by: Amlodipine Besylate (Norvasc) 10 mg PO HS [facility] Stop: 04/24/19 20:59 Last Admin: 03/26/19 20:09 Dose: 10 mg Documented by: Atorvastatin Calcium (Lipitor) 20 mg PO [facility] Stop: 04/21/19 20:59 Last Admin: 03/26/19 20:09 Dose: 20 mg Documented by: Carvedilol (Coreg) 3.125 mg PO BID [facility] Stop: 04/21/19 08:59 Last Admin: 03/23/19 07:55 Dose: 3.125 mg Documented by: Clopidogrel Bisulfate (Plavix) 75 mg PO DAILY [facility] Stop: 04/25/19 08:59 Last Admin: 03/27/19 08:45 Dose: 75 mg Documented by: Dextrose (Dextrose 50%) 25 - 50 ml IV UD PRN; Protocol PRN Reason: Hypoglycemia Protocol Stop: 04/21/19 00:26 Glucagon (Glucagen) 1 mg SQ UD PRN; Protocol PRN Reason: Hypoglycemia Protocol Stop: 04/21/19 00:26 Glucose (Dex4 Glucose) 4 - 8 tabs PO UD PRN; Protocol PRN Reason: Hypoglycemia Protocol Stop: 04/21/19 00:26 Glucose (Glucose 40%) 15 - 30 gm PO UD PRN; Protocol PRN Reason: Hypoglycemia Protocol Stop: 04/21/19 00:26 Hydromorphone HCl (Dilaudid) 0.25 mg IV Q3H PRN PRN Reason: Pain Stop: 04/05/19 00:26 Promethazine HCl 12.5 mg/ (Sodium Chloride) 50.5 mls @ 202 mls/hr IV Q6H PRN PRN Reason: Nausea And Vomiting Stop: 04/21/19 00:26 Heparin Sodium/Dextrose (Heparin Sodium/Dextrose) 25,000 units in 500 mls @ 15 mls/hr IV .Q24H SANTIAGO; Protocol Stop: 04/24/19 17:19 Last Titration: 03/27/19 06:28 Dose: 750 units/hr, 15 mls/hr Documented by: Insulin Aspart (Novolog Flexpen) 0 units SC ACHS [facility] Stop: 04/21/19 11:29 Last Admin: 03/27/19 09:21 Dose: Not Given Documented by: Loperamide HCl (Imodium) 2 mg PO Q4H PRN PRN Reason: Diarrhea Stop: 04/22/19 19:38 Last Admin: 03/23/19 20:09 Dose: 2 mg Documented by: Loratadine (Claritin) 10 mg PO QAM [facility] Stop: 04/21/19 08:59 Last Admin: 03/27/19 08:45 Dose: 10 mg Documented by: Miscellaneous (Carbohydrates For Hypoglycemia) 15 - 30 gm PO UD PRN PRN Reason: Hypoglycemia Protocol Stop: 04/21/19 00:26 Pantoprazole Sodium (Protonix) 40 mg PO BID [facility] Stop: 04/24/19 20:59 Last Admin: 03/27/19 08:46 Dose: 40 mg Documented by: Prednisone (Prednisone) 5 mg PO QAM [facility] Stop: 04/21/19 08:59 Last Admin: 03/27/19 08:45 Dose: 5 mg Documented by: Sucralfate (Carafate Tab) 1 gm PO QID [facility] Stop: 04/22/19 12:59 Last Admin: 03/27/19 08:45 Dose: 1 gm Documented by: Tramadol HCl (Ultram) 25 mg PO Q4H PRN PRN Reason: Pain Stop: 04/21/19 00:26 Warfarin Sodium (Coumadin) 5 mg PO Q7D@1600 [facility] Stop: 04/24/19 15:59 Last Admin: 03/25/19 17:03 Dose: 5 mg Documented by: Warfarin Sodium (Coumadin) 2.5 mg PO SuTuWeThFrSa@1600 [facility] Stop: 04/25/19 15:59 Last Admin: 03/26/19 16:04 Dose: 2.5 mg Documented by:
--- NOTE | 2019-03-27 12:42 | Progress Note ---
Date of Service March 27, 2019 Subjective Patient seen and examined today, previously had EGD for obscure GI bleed with positive FOBT which was normal, initially refused colonoscopy but now agrees. Abdomen on exam is soft Recommend: Bowel prep today Clear liquids Hold Hepatin at 4 AM. Hold COumadin. Colonoscopy tomorrow Results & Data Vital Signs (Past 12 Hours) Vital Signs Temp Pulse Pulse Pulse Resp BP BP 03/27/19 11:23 36.5 C 55 L 18 149/71 H 03/27/19 08:45 65 03/27/19 07:44 36.6 C 59 L 18 168/75 H 03/27/19 07:18 55 L 03/27/19 05:24 36.7 C 60 18 108/55 L Pulse Ox 03/27/19 11:23 95 03/27/19 08:45 03/27/19 07:44 94 03/27/19 07:18 03/27/19 05:24 91
[2019-03-27] MEDS ORDERED: LAVAGE SOLUTION 4000ML PO ONE (13:30)
[2019-03-27] MEDS: AMLODIPINE BESYLATE 5 MG TAB PO SCH (20:24)
[2019-03-27] MEDS: ATORVASTATIN 20 MG TAB PO SCH (20:24)
[2019-03-27] MEDS ORDERED: bisacodyL 5 MG TABEC PO ONE (22:00)
[2019-03-28] MEDS: HEPARIN SODIUM/DEXTROSE 25,000 UNITS/500 ML BAG IV SCH ×2 (03:53→13:51)
[2019-03-28] MEDS ORDERED: HEPARIN: STOP ORDER ONE (04:00)
[2019-03-28 06:39] LABS: Basophils # (auto) 0.01 K/uL (0-0.2); Basophils % (auto) 0.2 %; Eosinophils # (auto) 0.37 K/uL (0-0.5); Eosinophils % (auto) 6.3 %; Hematocrit (blood only) 32.8 % (37-47); Hemoglobin 10.7 g/dL (12.0-16.0); Immature Granulocytes # (auto) 0.01 K/uL (0.00-0.02); Immature Granulocytes % (auto) 0.2 %; Lymphocytes # (auto) 1.61 K/uL (1.2-3.4); Lymphocytes % (auto) 27.3 %; Mean Corpuscular Hemoglobin 29.9 pg (25-34); Mean Corpuscular Hgb Conc 32.6 g/dL (32-36); Mean Corpuscular Volume 91.6 fL (80-100); Mean Platelet Volume 9.9 fL (7.4-10.4); Monocytes # (auto) 0.53 K/uL (0.11-0.59); Neutrophils # (auto) 3.36 K/uL (1.4-6.5); Platelet Count 170 K/uL (130-400); RDW Coefficient of Variation 16.7 % (11.5-14.5); Red Blood Count 3.58 M/uL (4.2-5.4); White Blood Count 5.89 K/uL (4.8-10.8)
[2019-03-28 06:50] LABS: INR 1.3 (0.9-1.1)
[2019-03-28 07:02] LABS: BUN Creatinine Ratio 13.8 (10-20); Calcium 8.9 mg/dl (8.5-10.1); Creatinine Clr Calc Pharmacy 35.9 ml/min; Est GFR (African American) 58.4; Est GFR (Non-African American) 50.4; Potassium 3.6 mmol/L (3.5-5.1)
[2019-03-28] MEDS: INSULIN ASPART 100 UNITS/ML 3 ML PEN SC SCH ×4 (08:46→21:49)
--- NOTE | 2019-03-28 09:23 | History & Physical Bridge Note ---
Date of Service March 28, 2019 History & Physical Bridge Note I have examined the patient, reviewed the History & Physical and in the interval since the performance of the History & Physical I have noted the following changes of clinical significance: no changes noted
--- NOTE | 2019-03-28 09:33 | Anesthesiology Consultation ---
Date of Service March 28, 2019 Assessment & Plan Chart Review Chart Review: Acceptable Risk for Surgery and Patient NOT seen in Pre Admission Testing Consults Requested none ASA ASA3 Proposed Anesthesia Anesthesia Type: MAC Risk / Benefits Reviewed With: PT / POA / Parent / Guardian, Accepts Plan and Informed Consent Obtained History Surgery Operation Date: 03/25/19 16:00 Proposed Procedures p Esophagogastroduodenoscopy Dr Juan Martinez Operation Date: 03/28/19 15:30 Proposed Procedures p Colonoscopy Dr Roxi Diane MD Height/Weight Height: 5 ft Weight: 74.1 kg Allergies Allergy/AdvReac Type Severity Reaction Status Date / Time apixaban [From Eliquis] Allergy Severe pain in Verified 03/25/19 09:43 bones amoxicillin Allergy Unknown RASH,HIVES Verified 03/25/19 09:43 cefaclor Allergy Unknown RASH, HIVES Verified 03/25/19 09:43 levofloxacin Allergy Unknown hives Verified 03/25/19 09:43 atorvastatin AdvReac Severe AFFECTS Verified 03/25/19 09:43 LIVER lisinopril AdvReac Severe AFFECTS Verified 03/25/19 09:43 LIVER ENZYMES citalopram AdvReac Intermediate "WILD Verified 03/25/19 09:43 DREAMS" enoxaparin AdvReac Unknown FACIAL Verified 03/25/19 17:32 SWELLING, FLUSHING, ELEVATED BP omeprazole AdvReac Unknown blurred Verified 03/25/19 09:43 vision, headache, flashing lights Medications Home Medications Medication Instructions Recorded Confirmed Last Taken Lactobacillus acidoph-L.bulgar 1 tab PO HS 10/18/18 03/21/19 10/17/18 [Floranex] amlodipine 5 mg PO HS 10/18/18 03/21/19 10/17/18 atorvastatin 20 mg PO HS 10/18/18 03/21/19 10/17/18 carvedilol 3.125 mg PO BID 10/18/18 03/21/19 10/18/18 cholecalciferol (vitamin D3) 1,000 unit PO QAM 10/18/18 03/21/19 10/18/18 [Vitamin D3] clopidogrel 75 mg PO QAM 10/18/18 03/21/19 10/18/18 furosemide 20 mg PO QAM 07/03/21/19 10/18/18 glucosamine sulfate [Glucosamine] 1,000 mg PO QAM 10/18/18 03/21/19 10/18/18 loratadine 10 mg PO QAM 10/18/18 03/21/19 10/18/18 magnesium oxide 400 mg PO QAM 10/18/18 03/21/19 10/18/18 nitroglycerin [Nitrostat] 0.4 mg SUBLINGUAL UD 10/18/18 03/21/19 Unknown omega [id number] oil [[place]-3] 1 cap PO QAM 10/18/18 03/21/19 10/18/18 pantoprazole 40 mg PO BID 10/18/18 03/21/19 10/18/18 prednisone 5 mg PO QAM 10/18/18 03/21/19 10/18/18 warfarin 2.5 mg PO [id number] 10/18/18 03/21/19 03/21/19 warfarin 5 mg PO WK 10/18/18 03/21/19 03/18/19 amiodarone 200 mg PO DAILY 03/21/19 03/21/19 Unknown Active Medications Generic Name Dose Route Start Last Admin Trade Name Freq PRN Reason Stop Dose Admin Amiodarone HCl 200 mg 03/22/19 09:00 03/27/19 08:45 Cordarone PO 04/21/19 08:59 200 mg DAILY S[facility]IAGO Administration Amlodipine Besylate 10 mg 03/25/19 21:00 03/27/19 20:24 Norvasc PO 04/24/19 20:59 10 mg HS S[facility]AGO Administration Atorvastatin Calcium 20 mg 03/22/19 21:00 03/27/19 20:24 Lipitor PO 04/21/19 20:59 20 mg HS S[facility]AGO Administration Carvedilol 3.125 mg 03/22/19 09:00 03/23/19 07:55 Coreg PO 04/21/19 08:59 3.125 mg BID S[facility]AGO Administration Clopidogrel Bisulfate 75 mg 03/26/19 09:00 03/27/19 08:45 Plavix PO 04/25/19 08:59 75 mg DAILY [facility]AGO Administration Insulin Aspart 0 units 03/22/19 11:30 03/28/19 08:46 Novolog Flexpen SC 04/21/19 11:29 Not Given ACHS [facility]AGO Loperamide HCl 2 mg 03/23/19 19:39 03/23/19 20:09 Imodium PO 04/22/19 19:38 2 mg Q4H PRN Administration Diarrhea Loratadine 10 mg 03/22/19 09:00 03/27/19 08:45 Claritin PO 04/21/19 08:59 10 mg QAM [facility] Administration Pantoprazole Sodium 40 mg 03/25/19 21:00 03/27/19 20:25 Protonix PO 04/24/19 20:59 40 mg BID [facility] Administration Prednisone 5 mg 03/22/19 09:00 03/27/19 08:45 Prednisone PO 04/21/19 08:59 5 mg QAM [facility] Administration Sucralfate 1 gm 03/23/19 13:00 03/27/19 20:24 Carafate Tab PO 04/22/19 12:59 1 gm QID [facility] Administration Warfarin Sodium 5 mg 03/25/19 16:00 03/25/19 17:03 Coumadin PO 04/24/19 15:59 5 mg Q7D@1600 [facility] Administration Warfarin Sodium 2.5 mg 03/26/19 16:00 03/26/19 16:04 Coumadin PO 04/25/19 15:59 2.5 mg SuTuWeThFrSa@1600 [facility] Administration NPO Date Last Intake of Fluids: 03/24/19 Time Last Intake of Fluids: 18:00 Date Last Intake of Solids: 03/24/19 Time Last Intake of Solids: 18:00 Past Medical History Medical History MANAV (acute kidney injury) Carotid arterial disease (Chronic) "s/p left CEA, september 2014" Cerebrovascular disease (Chronic) CKD (chronic kidney disease), stage III (Chronic) Coronary artery disease (Chronic) Dyslipidemia (Chronic) History of DVT (deep vein thrombosis) (Chronic) "2013" History of pulmonary embolism (Chronic) "2013" Hypertension (Chronic) Polymyalgia rheumatica (Chronic) Pre-diabetes (Chronic) TIA (transient ischemic attack) (Chronic) Exercise / Class Metabolic Activity II 4-5 Yardwork/Stairs/Walk up hill Past Family History Family History Other Family history non-contributory Past Surgical History Surgical History H/O dilation and curettage (Chronic) S/P appendectomy (Chronic) S/P laparoscopic cholecystectomy (Chronic 12/03/13) S/P tubal ligation (Chronic) Past Anesthesia History No Hx of Anesthesia Complications and No Family Hx of Anesthesia Complications History of PONV No Hx of PONV and No Hx of Motion Sickness Social History Smoking Status: Former smoker Hx Alcohol Use: No Hx Substance Use: No Physical Exam Vital Signs Last Vital Signs Temp 36.8 C 03/28/19 07:28 Pulse 69 03/28/19 07:28 Resp 20 03/28/19 07:28 BP 134/57 L 03/28/19 07:28 Pulse Ox 92 03/28/19 07:28 ENMT Mouth: no TMJ abnormality Thyromental Distance: > or= 3.5 Finger Breadths Mallampati Class: II Neck normal visual inspection Respiratory normal respiratory effort Auscultation: lungs clear to auscultation bilaterally Cardiovascular Rate/Rhythm: regular rate and regular rhythm Heart Sounds: no murmur Testing Laboratory Results 03/28/19 05:57 03/28/19 05:57 PT 13.0 Seconds (9.0-12.0) H 03/28/19 05:57 INR 1.3 (0.9-1.1) H 03/28/19 05:57 APTT 52.5 Seconds (21.0-31.0) H* 03/27/19 05:16 Hemoglobin A1c 6.3 % (4.5-5.6) H 03/22/19 07:34 Urine Color [place] 03/22/19 10:35 Urine Appearance Clear (Clear) 03/22/19 10:35 Urine pH 6.0 (4.5-7.5) 03/22/19 10:35 Ur Specific [place] 1.022 (1.000-1.030) 03/22/19 10:35 Urine Protein Negative (Negative) 03/22/19 10:35 Urine Glucose (UA) Negative (Negative) 03/22/19 10:35 Urine Ketones Negative (Negative) 03/22/19 10:35 Urine Nitrite Negative (Negative) 03/22/19 10:35 Ur Leukocyte Esterase Negative (Negative) 03/22/19 10:35 Blood Type A Positive 03/21/19 21:20 Antibody Screen NEGATIVE 03/21/19 21:20 03/28/19 07:50 POC Glucose 86
[2019-03-28] MEDS ORDERED: ATROPINE SULFATE 0.1 MG/ML 10ML SYR IV PRN (09:38)
[2019-03-28] MEDS ORDERED: ePHEDrine sulfate 50 MG/ML AMP IV PRN (09:38)
--- NOTE | 2019-03-28 09:57 | GI REPORT ---
Patient Name: Michelle Guo Procedure Date: 03/28/2019 9:34 AM Date of : 1930 Admit Type: Inpatient Age: 88 Gender: Female Attending MD: Tucker Diane MD Procedure: Colonoscopy Providers: Tucker Diane MD Referring MD: Jes Doran Md, Mariama Ray Indications: Heme positive stool Medicines: Propofol per Anesthesia Complications: No immediate complications. Estimated Blood Loss: Estimated blood loss: none. Procedure: Pre-Anesthesia Assessment: - Prior to the procedure, a History and Physical was performed, and patient medications, allergies and sensitivities were reviewed. The patient's tolerance of previous anesthesia was reviewed. - The risks and benefits of the procedure and the sedation options and risks were discussed with the patient. All questions were answered and informed consent was obtained. - Patient identification and proposed procedure were verified prior to the procedure by the physician and the nurse. The procedure was verified in the procedure room. - Pre-procedure physical examination revealed no contraindications to sedation. After I obtained informed consent, the scope was passed under direct vision. Throughout the procedure, the patient's blood pressure, pulse, and oxygen saturations were monitored continuously. The Colonoscope was introduced through the anus and advanced to the terminal ileum. The colonoscopy was performed without difficulty. The patient tolerated the procedure well. The quality of the bowel preparation was good. The terminal ileum, ileocecal valve, appendiceal orifice, and rectum were photographed. Findings: The perianal and digital rectal examinations were normal. The terminal ileum appeared normal. A 6 mm polyp was found in the ascending colon. The polyp was sessile. The polyp was removed with a cold snare. Resection and retrieval were complete. Verification of patient identification for the specimen was done by the physician and nurse using the patient's name and date. Multiple small and large-mouthed diverticula were found in the sigmoid colon. Non-bleeding internal hemorrhoids were found during retroflexion. The hemorrhoids were small. Impression: - The examined portion of the ileum was normal. - One 6 mm polyp in the ascending colon, removed with a cold snare. Resected and retrieved. - Diverticulosis in the sigmoid colon. - Non-bleeding internal hemorrhoids. Recommendation: - [facility]. - Await pathology results. - To visualize the small bowel, perform video capsule endoscopy as OP. Tucker Diane MD 03/28/2019 9:56:59 AM This report has been signed electronically. Note Initiated On: 03/28/2019 9:34 AM Number of Addenda: 0 I attest to the content of the Intraoperative Record and orders documented therein, exceptions below {[id number]}
[2019-03-28] MEDS ORDERED: LIDOCAINE HCL 2% 2 ML VIAL/AMP(20MG/ML) INFIL ONE (10:13)
[2019-03-28] MEDS ORDERED: PROPOFOL IV EMULSION 10 MG/ML 20 ML VIAL IV ONE (10:13)
--- NOTE | 2019-03-28 10:16 | Progress Note ---
Date of Service March 28, 2019 Subjective Colonoscopy today unremarkable for source of bleeding. Can resume anticoagulation. Plan for VCE as OP. Recall GI if needed. Results & Data Vital Signs (Past 12 Hours) Vital Signs Temp Pulse Pulse Resp BP BP Pulse Ox 03/28/19 10:13 53 L 14 141/45 H 96 03/28/19 10:02 53 L 14 118/39 L 99 03/28/19 09:21 36.6 C 78 18 145/79 H 93 03/28/19 07:28 36.8 C 69 20 134/57 L 92 03/28/19 04:31 36.7 C 56 L 18 116/54 L 94 03/27/19 23:20 36.4 C L 64 18 135/72 95 03/27/19 22:34 156/79 H
[2019-03-28] MEDS: AMIODARONE 200 MG TAB PO SCH (11:08)
[2019-03-28] MEDS: SUCRALFATE 1 GM TAB PO SCH ×4 (11:08→21:06)
[2019-03-28] MEDS: PANTOprazole 40 MG TAB PO SCH ×2 (11:08→21:08)
[2019-03-28] MEDS: predniSONE 5 MG TAB PO SCH (11:08)
[2019-03-28] MEDS: CLOPIDOGREL BISULFATE 75 MG TAB PO SCH (11:09)
[2019-03-28] MEDS: LORATADINE 10 MG TAB PO SCH (11:09)
--- NOTE | 2019-03-28 11:29 | Hospitalist Progress Note ---
Date of Service March 28, 2019 Assessment & Plan (1) UGIB (upper gastrointestinal bleed): Presented with melena and was sent into the hospital from primary care's office Complicated by supratherapeutic INR and use of Plavix Plavix with history of CAD, stroke and atrial fibrillation:CHADsVAsc2 score- at least 7 INR 5 on admission, given Vit K Status post negative EGD and now agreeable for colonoscopy which she refused before 03/25 Status post EGD: Positive hiatal hernia Discussed with GI service, okay to resume Coumadin with bridging with heparin (has documented adverse reaction to the Lovenox), and Plavix Continue Protonix 40 mg p.o. twice daily and Carafate 4 times daily Status post colonoscopy today: 6 mm sessile ascending colon polyp removed. No bleeding noted on colonoscopy Will resume anticoagulation Likely be discharged when INR is therapeutic CAD/CVA/PVD status post surgery No cardiac symptoms Carvedilol discontinued secondary to bradycardia, no recurrence Started 1 intravenous heparin, Coumadin and Plavix INR is 1.2 on 03/27, 1.3 on 03/28 HTN Increase amlodipine to 10 mg daily Monitor BP DM2 diet-controlled, well-controlled as of recent outpatient hemoglobin A1c of 5.07 November 2018 ARF on CRI secondary to illness Crea improved to 1.3 polymyalgia rheumatica on steroid tx Continue prednisone Past tobacco abuse DVT prophylaxis Coumadin plus heparin bridge Full code Disposition anticipate to d/c home when medically stable ff up PCP monitor CBC and INR very closely Subjective 03/27 The patient was seen and examined in telemetry unit Medical history significant for significant for CAD/CVA as per records, HTN, hyperlipidemia, A. fib, hx PE/DVT on Coumadin, depression, carotid artery stenosis L sp surgery (09/2014), DM2 diet-controlled, CRI (baseline creatinine 1.4-1.5), polymyalgia rheumatica on steroid tx, past tobacco abuse. Admitted with melena and was sent in from primary care provider Status post negative EGD and was advised for colonoscopy She denies any symptoms as of today 03/28 The patient was seen and examined in medical floor She is a status post colonoscopy which showed 6 mm polyp that was resected and did not show any bleeding areas Denies any significant complaints following colonoscopy Review of Systems Review of Systems: All systems reviewed and are unremarkable except as noted below Gastrointestinal: Minimal lower abdominal and left lower quadrant discomfort without any other symptoms Physical Exam Physical Exam: Lying in bed comfortably Constitutional: well developed and well nourished; no acute distress Eyes: PERRL, conjunctivae normal, anicteric sclerae ENMT: external ear and nose normal, oropharynx normal Neck: trachea midline, no thyromegaly Respiratory: normal respiratory effort; no respiratory distress Auscultation: lungs clear to auscultation bilaterally Cardiovascular: Rate/Rhythm: regular rate and regular rhythm Heart Sounds: no murmur Gastrointestinal (Abdomen): Inspection/Auscultation: abdomen normal to inspection and normal bowel sounds; abdomen not distended Neurologic: moves all extremities; no focal motor deficits Speech / Cognition: normal speech Results & Data Vital Signs (Past 12 Hours) Vital Signs Temp Pulse Pulse Resp BP BP Pulse Ox 03/28/19 10:28 57 L 14 162/58 H 96 03/28/19 10:13 53 L 14 141/45 H 96 03/28/19 10:02 53 L 14 118/39 L 99 03/28/19 09:21 36.6 C 78 18 145/79 H 93 03/28/19 07:28 36.8 C 69 20 134/57 L 92 03/28/19 04:31 36.7 C 56 L 18 116/54 L 94 Laboratory Results Short CBC 03/28/19 Range/Units 05:57 WBC 5.89 (4.8-10.8) K/uL Hgb 10.7 L (12.0-16.0) g/dL Hct 32.8 L (37-47) % Plt Count 170 (130-400) K/uL BMP 03/28/19 05:57 Sodium 140 Potassium 3.6 Chloride 104 Carbon Dioxide 33 H BUN 14 Creatinine 1.01 Glucose 73 Calcium 8.9 Medications Administered Current Inpatient Medications Acetaminophen (Tylenol) 650 mg PO Q4H PRN PRN Reason: Pain or Fever Stop: 04/21/19 00:26 Amiodarone HCl (Cordarone) 200 mg PO DAILY [facility] Stop: 04/21/19 08:59 Last Admin: 03/28/19 11:08 Dose: 200 mg Documented by: Amlodipine Besylate (Norvasc) 10 mg PO HS [facility] Stop: 04/24/19 20:59 Last Admin: 03/27/19 20:24 Dose: 10 mg Documented by: Atorvastatin Calcium (Lipitor) 20 mg PO HS [facility] Stop: 04/21/19 20:59 Last Admin: 03/27/19 20:24 Dose: 20 mg Documented by: Atropine Sulfate (Atropine Sulfate) 0.5 mg IV Q1M PRN PRN Reason: PACU Use-HR<40 &/or Bradycardi Stop: 03/28/19 14:38 Carvedilol (Coreg) 3.125 mg PO BID [facility] Stop: 04/21/19 08:59 Last Admin: 03/23/19 07:55 Dose: 3.125 mg Documented by: Clopidogrel Bisulfate (Plavix) 75 mg PO DAILY [facility] Stop: 04/25/19 08:59 Last Admin: 03/28/19 11:09 Dose: 75 mg Documented by: Dextrose (Dextrose 50%) 25 - 50 ml IV UD PRN; Protocol PRN Reason: Hypoglycemia Protocol Stop: 04/21/19 00:26 Ephedrine Sulfate (Ephedrine Sulfate) 5 mg IV Q5M PRN PRN Reason: PACU Use Only-SBP<90 mmHg Stop: 03/28/19 14:38 Glucagon (Glucagen) 1 mg SQ UD PRN; Protocol PRN Reason: Hypoglycemia Protocol Stop: 04/21/19 00:26 Glucose (Dex4 Glucose) 4 - 8 tabs PO UD PRN; Protocol PRN Reason: Hypoglycemia Protocol Stop: 04/21/19 00:26 Glucose (Glucose 40%) 15 - 30 gm PO UD PRN; Protocol PRN Reason: Hypoglycemia Protocol Stop: 04/21/19 00:26 Hydromorphone HCl (Dilaudid) 0.25 mg IV Q3H PRN PRN Reason: Pain Stop: 04/05/19 00:26 Promethazine HCl 12.5 mg/ (Sodium Chloride) 50.5 mls @ 202 mls/hr IV Q6H PRN PRN Reason: Nausea And Vomiting Stop: 04/21/19 00:26 Insulin Aspart (Novolog Flexpen) 0 units SC ACHS [facility] Stop: 04/21/19 11:29 Last Admin: 03/28/19 08:46 Dose: Not Given Documented by: Loperamide HCl (Imodium) 2 mg PO Q4H PRN PRN Reason: Diarrhea Stop: 04/22/19 19:38 Last Admin: 03/23/19 20:09 Dose: 2 mg Documented by: Loratadine (Claritin) 10 mg PO QAM [facility] Stop: 04/21/19 08:59 Last Admin: 03/28/19 11:09 Dose: 10 mg Documented by: Miscellaneous (Carbohydrates For Hypoglycemia) 15 - 30 gm PO UD PRN PRN Reason: Hypoglycemia Protocol Stop: 04/21/19 00:26 Pantoprazole Sodium (Protonix) 40 mg PO BID [facility] Stop: 04/24/19 20:59 Last Admin: 03/28/19 11:08 Dose: 40 mg Documented by: Prednisone (Prednisone) 5 mg PO QAM [facility] Stop: 04/21/19 08:59 Last Admin: 03/28/19 11:08 Dose: 5 mg Documented by: Sucralfate (Carafate Tab) 1 gm PO QID [facility] Stop: 04/22/19 12:59 Last Admin: 03/28/19 11:08 Dose: 1 gm Documented by: Tramadol HCl (Ultram) 25 mg PO Q4H PRN PRN Reason: Pain Stop: 04/21/19 00:26 Warfarin Sodium (Coumadin) 5 mg PO Q7D@1600 [facility] Stop: 04/24/19 15:59 Last Admin: 03/25/19 17:03 Dose: 5 mg Documented by: Warfarin Sodium (Coumadin) 2.5 mg PO SuTuWeThFrSa@1600 [facility] Stop: 04/25/19 15:59 Last Admin: 03/26/19 16:04 Dose: 2.5 mg Documented by:
[2019-03-28] MEDS ORDERED: Nursing to Pharmacy Communication ONE (13:02)
[2019-03-28] MEDS: WARFARIN SOD 2.5 MG TAB PO SCH (16:54)
[2019-03-28] MEDS: ATORVASTATIN 20 MG TAB PO SCH (21:07)
[2019-03-28] MEDS: AMLODIPINE BESYLATE 5 MG TAB PO SCH (21:10)
[2019-03-28] MEDS: carvediloL 3.125 MG TAB PO SCH (21:10)
[2019-03-28 21:39] LABS: Partial Thromboplastin Ratio 1.5; Partial Thromboplastin Time 41.2 Seconds (21.0-31.0)
[2019-03-28] MEDS ORDERED: HEPARIN IV BOLUS 2,000 UNITS in SYRINGE 0 ML IV STA (21:44)
[2019-03-29 04:25] LABS: Basophils # (auto) 0.01 K/uL (0-0.2); Basophils % (auto) 0.2 %; Eosinophils # (auto) 0.39 K/uL (0-0.5); Hematocrit (blood only) 30.5 % (37-47); Hemoglobin 9.8 g/dL (12.0-16.0); Immature Granulocytes # (auto) 0.01 K/uL (0.00-0.02); Immature Granulocytes % (auto) 0.2 %; Lymphocytes # (auto) 1.69 K/uL (1.2-3.4); Lymphocytes % (auto) 30.3 %; Mean Corpuscular Hemoglobin 29.6 pg (25-34); Mean Corpuscular Hgb Conc 32.1 g/dL (32-36); Mean Corpuscular Volume 92.1 fL (80-100); Mean Platelet Volume 9.9 fL (7.4-10.4); Monocytes % (auto) 7.2 %; Neutrophils # (auto) 3.08 K/uL (1.4-6.5); Neutrophils % (auto) 55.1 %; Platelet Count 157 K/uL (130-400); RDW Coefficient of Variation 16.7 % (11.5-14.5); RDW Standard Deviation 55.7 fL (36.4-46.3); Red Blood Count 3.31 M/uL (4.2-5.4); White Blood Count 5.58 K/uL (4.8-10.8)
[2019-03-29 04:52] LABS: INR 1.5 (0.9-1.1); Prothrombin Time 14.6 Seconds (9.0-12.0)
[2019-03-29 05:17] LABS: Partial Thromboplastin Time 81.4 Seconds (21.0-31.0)
[2019-03-29] MEDS: AMIODARONE 200 MG TAB PO SCH (08:14)
[2019-03-29] MEDS: carvediloL 3.125 MG TAB PO SCH ×2 (08:15→20:21)
[2019-03-29] MEDS: predniSONE 5 MG TAB PO SCH (08:15)
[2019-03-29] MEDS: PANTOprazole 40 MG TAB PO SCH ×2 (08:15→20:19)
[2019-03-29] MEDS: LORATADINE 10 MG TAB PO SCH (08:15)
[2019-03-29] MEDS: SUCRALFATE 1 GM TAB PO SCH ×4 (08:15→20:18)
[2019-03-29] MEDS: CLOPIDOGREL BISULFATE 75 MG TAB PO SCH (08:15)
[2019-03-29] MEDS: INSULIN ASPART 100 UNITS/ML 3 ML PEN SC SCH ×4 (08:55→21:28)
[2019-03-29 12:24] LABS: Partial Thromboplastin Ratio 1.8
[2019-03-29] MEDS: HEPARIN SODIUM/DEXTROSE 25,000 UNITS/500 ML BAG IV SCH (13:22)
--- NOTE | 2019-03-29 14:41 | Hospitalist Progress Note ---
Date of Service March 29, 2019 Assessment & Plan (1) UGIB (upper gastrointestinal bleed): Presented with melena and was sent into the hospital from primary care's office Complicated by supratherapeutic INR and use of Plavix Plavix with history of CAD, stroke and atrial fibrillation:CHADsVAsc2 score- at least 7 INR 5 on admission, given Vit K Status post negative EGD and now agreeable for colonoscopy which she refused before 03/25 Status post EGD: Positive hiatal hernia Discussed with GI service, okay to resume Coumadin with bridging with heparin (has documented adverse reaction to the Lovenox), and Plavix Continue Protonix 40 mg p.o. twice daily and Carafate 4 times daily Status post colonoscopy today: 6 mm sessile ascending colon polyp removed. No bleeding noted on colonoscopy Will resume anticoagulation Likely be discharged when INR is therapeutic-not therapeutic yet We will repeat INR tomorrow and if therapeutic will be sent home Cannot take any Lovenox subcu CAD/CVA/PVD status post surgery No cardiac symptoms Carvedilol discontinued secondary to bradycardia, no recurrence Started 1 intravenous heparin, Coumadin and Plavix INR is 1.2 on 03/27, 1.3 on 03/28, 1.5 on 03/29 HTN Increase amlodipine to 10 mg daily Monitor BP DM2 diet-controlled, well-controlled as of recent outpatient hemoglobin A1c of 5.07 November 2018 ARF on CRI secondary to illness Crea improved to 1.3 polymyalgia rheumatica on steroid tx Continue prednisone Past tobacco abuse DVT prophylaxis Coumadin plus heparin bridge Full code Disposition anticipate to d/c home when medically stable ff up PCP monitor CBC and INR very closely Likely discharge tomorrow Subjective 03/27 The patient was seen and examined in telemetry unit Medical history significant for significant for CAD/CVA as per records, HTN, hyperlipidemia, A. fib, hx PE/DVT on Coumadin, depression, carotid artery stenosis L sp surgery (09/2014), DM2 diet-controlled, CRI (baseline creatinine 1.4-1.5), polymyalgia rheumatica on steroid tx, past tobacco abuse. Admitted with melena and was sent in from primary care provider Status post negative EGD and was advised for colonoscopy She denies any symptoms as of today 03/28 The patient was seen and examined in medical floor She is a status post colonoscopy which showed 6 mm polyp that was resected and did not show any bleeding areas Denies any significant complaints following colonoscopy 03/29 The patient is seen and examined in medical floor She remains stable and denies any complaints She has been ambulating without any difficulty and wants to go home Review of Systems Review of Systems: All systems reviewed and are unremarkable except as noted below Gastrointestinal: Minimal lower abdominal and left lower quadrant discomfort without any other symptoms Physical Exam Physical Exam: Sitting at the edge of the bed without any symptoms Constitutional: well developed and well nourished; no acute distress Eyes: PERRL, conjunctivae normal, anicteric sclerae ENMT: external ear and nose normal, oropharynx normal Neck: trachea midline, no thyromegaly Respiratory: normal respiratory effort; no respiratory distress Auscultation: lungs clear to auscultation bilaterally Cardiovascular: Rate/Rhythm: regular rate and regular rhythm Heart Sounds: no murmur Gastrointestinal (Abdomen): Inspection/Auscultation: abdomen normal to inspection and normal bowel sounds; abdomen not distended Neurologic: moves all extremities; no focal motor deficits Speech / Cognition: normal speech Lymphatic: no cervical or axillary lymphadenopathy Results & Data Vital Signs (Past 12 Hours) Vital Signs Temp Pulse Resp BP BP Pulse Ox 03/29/19 11:28 36.8 C 54 L 16 95/52 L 150/88 H 96 03/29/19 07:13 36.7 C 69 16 174/68 H 92 03/29/19 03:45 93 03/29/19 03:35 36.4 C L 60 20 123/76 84 L Laboratory Results Short CBC 03/29/19 Range/Units 04:16 WBC 5.58 (4.8-10.8) K/uL Hgb 9.8 L (12.0-16.0) g/dL Hct 30.5 L (37-47) % Plt Count 157 (130-400) K/uL Medications Administered Current Inpatient Medications Acetaminophen (Tylenol) 650 mg PO Q4H PRN PRN Reason: Pain or Fever Stop: 04/21/19 00:26 Amiodarone HCl (Cordarone) 200 mg PO DAILY [facility] Stop: 04/21/19 08:59 Last Admin: 03/29/19 08:14 Dose: 200 mg Documented by: Amlodipine Besylate (Norvasc) 10 mg PO HS [facility] Stop: 01/22/20 20:59 Last Admin: 03/28/19 21:10 Dose: 10 mg Documented by: Atorvastatin Calcium (Lipitor) 20 mg PO HS [facility] Stop: 04/21/19 20:59 Last Admin: 03/28/19 21:07 Dose: 20 mg Documented by: Carvedilol (Coreg) 3.125 mg PO BID [facility] [place] Stop: 04/21/19 08:59 Last Admin: 03/29/19 08:15 Dose: 3.125 mg Documented by: Clopidogrel Bisulfate (Plavix) 75 mg PO DAILY [facility] [place] Stop: 04/25/19 08:59 Last Admin: 03/29/19 08:15 Dose: 75 mg Documented by: Dextrose (Dextrose 50%) 25 - 50 ml IV UD PRN; Protocol PRN Reason: Hypoglycemia Protocol Stop: 04/21/19 00:26 Glucagon (Glucagen) 1 mg SQ UD PRN; Protocol PRN Reason: Hypoglycemia Protocol Stop: 04/21/19 00:26 Glucose (Dex4 Glucose) 4 - 8 tabs PO UD PRN; Protocol PRN Reason: Hypoglycemia Protocol Stop: 04/21/19 00:26 Glucose (Glucose 40%) 15 - 30 gm PO UD PRN; Protocol PRN Reason: Hypoglycemia Protocol Stop: 04/21/19 00:26 Hydromorphone HCl (Dilaudid) 0.25 mg IV Q3H PRN PRN Reason: Pain Stop: 04/05/19 00:26 Promethazine HCl 12.5 mg/ (Sodium Chloride) 50.5 mls @ 202 mls/hr IV Q6H PRN PRN Reason: Nausea And Vomiting Stop: 04/21/19 00:26 Heparin Sodium/Dextrose (Heparin Sodium/Dextrose) 25,000 units in 500 mls @ 14 mls/hr IV .Q24H [facility]; Protocol Stop: 04/27/19 13:14 Last Admin: 03/29/19 13:22 Dose: 700 units/hr, 14 mls/hr Documented by: Insulin Aspart (Novolog Flexpen) 0 units SC ACHS [facility] [place] Stop: 04/21/19 11:29 Last Admin: 03/29/19 12:07 Dose: Not Given Documented by: Loperamide HCl (Imodium) 2 mg PO Q4H PRN PRN Reason: Diarrhea Stop: 04/22/19 19:38 Last Admin: 03/23/19 20:09 Dose: 2 mg Documented by: Loratadine (Claritin) 10 mg PO QAM [facility] [place] Stop: 04/21/19 08:59 Last Admin: 03/29/19 08:15 Dose: 10 mg Documented by: Miscellaneous (Carbohydrates For Hypoglycemia) 15 - 30 gm PO UD PRN PRN Reason: Hypoglycemia Protocol Stop: 04/21/19 00:26 Pantoprazole Sodium (Protonix) 40 mg PO BID [facility] [place] Stop: 04/24/19 20:59 Last Admin: 03/29/19 08:15 Dose: 40 mg Documented by: Prednisone (Prednisone) 5 mg PO QAM [facility] [place] Stop: 04/21/19 08:59 Last Admin: 03/29/19 08:15 Dose: 5 mg Documented by: Sucralfate (Carafate Tab) 1 gm PO QID [facility] Stop: 04/22/19 12:59 Last Admin: 03/29/19 13:25 Dose: 1 gm Documented by: Tramadol HCl (Ultram) 25 mg PO Q4H PRN PRN Reason: Pain Stop: 04/21/19 00:26 Warfarin Sodium (Coumadin) 5 mg PO Q7D@1600 [facility] [place] Stop: 04/24/19 15:59 Last Admin: 03/25/19 17:03 Dose: 5 mg Documented by: Warfarin Sodium (Coumadin) 2.5 mg PO SuTuWeThFrSa@1600 [facility] [place] Stop: 04/25/19 15:59 Last Admin: 03/28/19 16:54 Dose: 2.5 mg Documented by:
[2019-03-29] MEDS ORDERED: WARFARIN SOD 5 MG TAB PO SCH (16:00)
[2019-03-29] MEDS: ATORVASTATIN 20 MG TAB PO SCH (20:18)
[2019-03-29] MEDS: AMLODIPINE BESYLATE 5 MG TAB PO SCH (20:21)
[2019-03-30 04:54] LABS: Basophils # (auto) 0.02 K/uL (0-0.2); Basophils % (auto) 0.3 %; Eosinophils # (auto) 0.38 K/uL (0-0.5); Eosinophils % (auto) 6.5 %; Hematocrit (blood only) 30.3 % (37-47); Hemoglobin 9.9 g/dL (12.0-16.0); Immature Granulocytes # (auto) 0.01 K/uL (0.00-0.02); Immature Granulocytes % (auto) 0.2 %; Lymphocytes # (auto) 1.83 K/uL (1.2-3.4); Lymphocytes % (auto) 31.4 %; Mean Corpuscular Hemoglobin 30.2 pg (25-34); Mean Corpuscular Hgb Conc 32.7 g/dL (32-36); Mean Corpuscular Volume 92.4 fL (80-100); Mean Platelet Volume 9.6 fL (7.4-10.4); Monocytes # (auto) 0.52 K/uL (0.11-0.59); Monocytes % (auto) 8.9 %; Neutrophils # (auto) 3.07 K/uL (1.4-6.5); Neutrophils % (auto) 52.7 %; Platelet Count 170 K/uL (130-400); RDW Coefficient of Variation 16.2 % (11.5-14.5); RDW Standard Deviation 54.5 fL (36.4-46.3); Red Blood Count 3.28 M/uL (4.2-5.4); White Blood Count 5.83 K/uL (4.8-10.8)
[2019-03-30 05:16] LABS: INR 1.8 (0.9-1.1); Partial Thromboplastin Ratio 1.9; Prothrombin Time 17.9 Seconds (9.0-12.0)
[2019-03-30] MEDS: carvediloL 3.125 MG TAB PO SCH (08:18)
[2019-03-30] MEDS: AMIODARONE 200 MG TAB PO SCH (08:19)
[2019-03-30] MEDS: PANTOprazole 40 MG TAB PO SCH (08:19)
[2019-03-30] MEDS: SUCRALFATE 1 GM TAB PO SCH ×2 (08:19→12:09)
[2019-03-30] MEDS: CLOPIDOGREL BISULFATE 75 MG TAB PO SCH (08:19)
[2019-03-30] MEDS: predniSONE 5 MG TAB PO SCH (08:19)
[2019-03-30] MEDS: LORATADINE 10 MG TAB PO SCH (08:19)
[2019-03-30] MEDS: INSULIN ASPART 100 UNITS/ML 3 ML PEN SC SCH ×2 (09:09→12:30)
--- NOTE | 2019-03-30 10:44 | Hospitalist Progress Note ---
Date of Service March 30, 2019 Assessment & Plan (1) UGIB (upper gastrointestinal bleed): Presented with melena and was sent into the hospital from primary care's office Complicated by supratherapeutic INR and use of Plavix Plavix with history of CAD, stroke and atrial fibrillation:CHADsVAsc2 score- at least 7 INR 5 on admission, given Vit K Status post negative EGD and now agreeable for colonoscopy which she refused before 03/25 Status post EGD: Positive hiatal hernia Discussed with GI service, okay to resume Coumadin with bridging with heparin (has documented adverse reaction to the Lovenox), and Plavix Continue Protonix 40 mg p.o. twice daily and Carafate 4 times daily Status post colonoscopy today: 6 mm sessile ascending colon polyp removed. No bleeding noted on colonoscopy Will resume anticoagulation Likely be discharged when INR is therapeutic-not therapeutic yet INR is 1.8 today and she wants to leave today and cannot take any subcu Lovenox We will continue heparin drip for now we will get 5 mg Coumadin today before discharge home this afternoon Will have INR checked on Monday CAD/CVA/PVD status post surgery No cardiac symptoms Carvedilol discontinued secondary to bradycardia, no recurrence Started 1 intravenous heparin, Coumadin and Plavix INR is 1.2 on 03/27, 1.3 on 03/28, 1.5 on 03/29, 1.8 on 03/30 HTN Increase amlodipine to 10 mg daily Monitor BP DM2 diet-controlled, well-controlled as of recent outpatient hemoglobin A1c of 5.07 November 2018 ARF on CRI secondary to illness Crea improved to 1.3 Creatinine normalized polymyalgia rheumatica on steroid tx Continue prednisone Past tobacco abuse DVT prophylaxis Coumadin plus heparin bridge Full code Disposition anticipate to d/c home when medically stable ff up PCP Discharge home this afternoon Subjective 03/27 The patient was seen and examined in telemetry unit Medical history significant for significant for CAD/CVA as per records, HTN, hyperlipidemia, A. fib, hx PE/DVT on Coumadin, depression, carotid artery stenosis L sp surgery (09/2014), DM2 diet-controlled, CRI (baseline creatinine 1.4-1.5), polymyalgia rheumatica on steroid tx, past tobacco abuse. Admitted with melena and was sent in from primary care provider Status post negative EGD and was advised for colonoscopy She denies any symptoms as of today 03/28 The patient was seen and examined in medical floor She is a status post colonoscopy which showed 6 mm polyp that was resected and did not show any bleeding areas Denies any significant complaints following colonoscopy 03/29 The patient is seen and examined in medical floor She remains stable and denies any complaints She has been ambulating without any difficulty and wants to go home 03/30 The patient was seen and examined in medical floor She remains stable without any evidence of nausea, vomiting or black tarry stool She has been ambulating without any difficulty Her INR is 1.8 today and she wants to go home Will be discharged home this afternoon Review of Systems Review of Systems: All systems reviewed and are unremarkable except as noted below Gastrointestinal: Minimal lower abdominal and left lower quadrant discomfort without any other symptoms Physical Exam Physical Exam: Lying in bed comfortably Constitutional: well developed and well nourished; no acute distress Eyes: PERRL, conjunctivae normal, anicteric sclerae ENMT: external ear and nose normal, oropharynx normal Neck: trachea midline, no thyromegaly Respiratory: normal respiratory effort; no respiratory distress Auscultation: lungs clear to auscultation bilaterally Cardiovascular: Rate/Rhythm: regular rate and regular rhythm Heart Sounds: no murmur Gastrointestinal (Abdomen): Inspection/Auscultation: abdomen normal to inspection and normal bowel sounds; abdomen not distended Neurologic: moves all extremities; no focal motor deficits Speech / Cognition: normal speech Lymphatic: no cervical or axillary lymphadenopathy Results & Data Vital Signs (Past 12 Hours) Vital Signs Temp Pulse Pulse Resp BP BP Pulse Ox 03/30/19 07:46 72 03/30/19 07:12 36.8 C 59 L 16 132/55 L 95 03/30/19 04:17 36.8 C 57 L 19 122/72 92 03/29/19 23:26 56 L 03/29/19 23:23 36.8 C 60 20 147/68 H 94 Laboratory Results Short CBC 03/30/19 Range/Units 04:41 WBC 5.83 (4.8-10.8) K/uL Hgb 9.9 L (12.0-16.0) g/dL Hct 30.3 L (37-47) % Plt Count 170 (130-400) K/uL Medications Administered Current Inpatient Medications Acetaminophen (Tylenol) 650 mg PO Q4H PRN PRN Reason: Pain or Fever Stop: 04/21/19 00:26 Amiodarone HCl (Cordarone) 200 mg PO DAILY [facility] Stop: 04/21/19 08:59 Last Admin: 03/30/19 08:19 Dose: 200 mg Documented by: Amlodipine Besylate (Norvasc) 10 mg PO HS [facility] Stop: 04/24/19 20:59 Last Admin: 03/29/19 20:21 Dose: 10 mg Documented by: Atorvastatin Calcium (Lipitor) 20 mg PO HS [facility] Stop: 04/21/19 20:59 Last Admin: 03/29/19 20:18 Dose: 20 mg Documented by: Carvedilol (Coreg) 3.125 mg PO BID [facility] Stop: 04/21/19 08:59 Last Admin: 03/30/19 08:18 Dose: 3.125 mg Documented by: Clopidogrel Bisulfate (Plavix) 75 mg PO DAILY [facility] Stop: 04/25/19 08:59 Last Admin: 03/30/19 08:19 Dose: 75 mg Documented by: Dextrose (Dextrose 50%) 25 - 50 ml IV UD PRN; Protocol PRN Reason: Hypoglycemia Protocol Stop: 04/21/19 00:26 Glucagon (Glucagen) 1 mg SQ UD PRN; Protocol PRN Reason: Hypoglycemia Protocol Stop: 04/21/19 00:26 Glucose (Dex4 Glucose) 4 - 8 tabs PO UD PRN; Protocol PRN Reason: Hypoglycemia Protocol Stop: 04/21/19 00:26 Glucose (Glucose 40%) 15 - 30 gm PO UD PRN; Protocol PRN Reason: Hypoglycemia Protocol Stop: 04/21/19 00:26 Hydromorphone HCl (Dilaudid) 0.25 mg IV Q3H PRN PRN Reason: Pain Stop: 04/05/19 00:26 Promethazine HCl 12.5 mg/ (Sodium Chloride) 50.5 mls @ 202 mls/hr IV Q6H PRN PRN Reason: Nausea And Vomiting Stop: 04/21/19 00:26 Heparin Sodium/Dextrose (Heparin Sodium/Dextrose) 25,000 units in 500 mls @ 14 mls/hr IV .Q24H [facility]; Protocol Stop: 04/27/19 13:14 Last Titration: 03/30/19 05:29 Dose: 700 units/hr, 14 mls/hr Documented by: Insulin Aspart (Novolog Flexpen) 0 units SC ACHS [facility] Stop: 04/21/19 11:29 Last Admin: 03/30/19 09:09 Dose: Not Given Documented by: Loperamide HCl (Imodium) 2 mg PO Q4H PRN PRN Reason: Diarrhea Stop: 04/22/19 19:38 Last Admin: 03/23/19 20:09 Dose: 2 mg Documented by: Loratadine (Claritin) 10 mg PO QAM [facility] Stop: 04/21/19 08:59 Last Admin: 03/30/19 08:19 Dose: 10 mg Documented by: Miscellaneous (Carbohydrates For Hypoglycemia) 15 - 30 gm PO UD PRN PRN Reason: Hypoglycemia Protocol Stop: 04/21/19 00:26 Pantoprazole Sodium (Protonix) 40 mg PO BID [facility] Stop: 04/24/19 20:59 Last Admin: 03/30/19 08:19 Dose: 40 mg Documented by: [facility] Stop: 04/21/19 08:59 Last Admin: 03/30/19 08:19 Dose: 5 mg Documented by: Sucralfate (Carafate Tab) 1 gm PO QID [facility] Stop: 04/22/19 12:59 Last Admin: 03/30/19 08:19 Dose: 1 gm Documented by: Tramadol HCl (Ultram) 25 mg PO Q4H PRN PRN Reason: Pain Stop: 04/21/19 00:26 Warfarin Sodium (Coumadin) 5 mg PO Q7D@1600 [facility] Stop: 04/24/19 15:59 Last Admin: 03/25/19 17:03 Dose: 5 mg Documented by: Warfarin Sodium (Coumadin) 2.5 mg PO SuTuWeThFrSa@1600 [facility] Stop: 04/25/19 15:59 Last Admin: 03/28/19 16:54 Dose: 2.5 mg Documented by: Warfarin Sodium (Coumadin) 5 mg PO DAILY@1600 [facility] Stop: 04/28/19 15:59 Last Admin: 03/29/19 16:29 Dose: 5 mg Documented by:
--- NOTE | 2019-03-31 08:02 | Discharge Summary ---
Date of Service March 31, 2019 Admission HPI Per Admitting Provider History obtained from patient and records. Medical history significant for significant for CAD/CVA as per records, HTN, hyperlipidemia, A. fib, hx PE/DVT on Coumadin, depression, carotid artery stenosis L sp surgery (09/2014), DM2 diet-controlled, CRI (baseline creatinine 1.4-1.5), polymyalgia rheumatica on steroid tx, past tobacco abuse. Recent confinement August 2018 for rapid A. fib. Patient seen at GI office November 2018 for melena symptoms. EGD small hiatal hernia, normal stomach, normal duodenal bulb. Melena symptoms resolved with Protonix and Carafate Rx. 2 days history of dark starry stools with achy lower abdominal discomfort, no nausea, no hematemesis, no coffee-ground emesis. Denies NSAID intake. Patient denies chest pain, S OB. At the ER, vitamin K given for INR of 5.2. MEDICAL HISTORY: As above. 2019 EGD as per HPI SURGERIES: She has had a rectocele surgery, appendectomy, cataract surgery, left carotid endarterectomy, cholecystectomy, BTL FAMILY HISTORY: Hypertension. PERSONAL AND SOCIAL HISTORY: Remote tobacco abuse. No chronic intake of alcoholic beverages. 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 Admission Exam Per Admitting Provider Physical Exam: GENERAL: Comfortable, obese, no respiratory distress SKIN: Normal color, warm HEENT: Bespectacled, pink palpebral conjunctivae, no ptosis, dry buccal mucosa, nasal cannula in place NECK : Supple, short neck, no tenderness CHEST : Decreased breath sounds , no tenderness HEART : RRR , no obvious murmurs ABDOMEN: Some distention, nontender EXTREMITIES : Minimal LE swelling, no LE tenderness, no other conspicuous deformities noted NEUROLOGIC : Coherent, no facial asymmetry, no other gross focality Principal Diagnosis Upper GI bleed, negative EGD and colonoscopy, CAD on Coumadin and Plavix, peripheral vascular disease, hypertension Discharge Exam Constitutional well developed and well nourished; no acute distress Eyes PERRL, conjunctivae normal, anicteric sclerae ENMT external ear and nose normal, oropharynx normal Neck trachea midline, no thyromegaly Respiratory normal respiratory effort; no respiratory distress Auscultation: lungs clear to auscultation bilaterally Cardiovascular Rate/Rhythm: regular rate and regular rhythm Heart Sounds: no murmur Gastrointestinal (Abdomen) Inspection/Auscultation: abdomen normal to inspection and normal bowel sounds; abdomen not distended Neurologic moves all extremities; no focal motor deficits Speech / Cognition: normal speech Lymphatic no cervical or axillary lymphadenopathy Discharge Data Allergies Allergy/AdvReac Type Severity Reaction Status Date / Time apixaban [From Eliquis] Allergy Severe pain in Verified 03/25/19 09:43 bones amoxicillin Allergy Unknown RASH,HIVES Verified 03/25/19 09:43 cefaclor Allergy Unknown RASH, HIVES Verified 03/25/19 09:43 levofloxacin Allergy Unknown hives Verified 03/25/19 09:43 atorvastatin AdvReac Severe AFFECTS Verified 03/25/19 09:43 LIVER lisinopril AdvReac Severe AFFECTS Verified 03/25/19 09:43 LIVER ENZYMES citalopram AdvReac Intermediate "WILD Verified 03/25/19 09:43 DREAMS" enoxaparin AdvReac Unknown FACIAL Verified 03/25/19 17:32 SWELLING, FLUSHING, ELEVATED BP omeprazole AdvReac Unknown blurred Verified 03/25/19 09:43 vision, headache, flashing lights Consultations 03/21/19 22:30 ED Decision to Admit Stat 03/22/19 00:27 Consult Gastroenterology Routine Procedures Performed Operation Date: 03/25/19 16:00 Actual Procedures p Esophagogastroduodenoscopy - Sonu Martinez Operation Date: 03/28/19 15:30 Actual Procedures p Colonoscopy Polypectomy(Not Applicable) - Tucker Diane MD Ordered Studies 03/21/19 21:34 CT abd pelvis IV con only Stat Hospital Course (1) UGIB (upper gastrointestinal bleed): Presented with melena and was sent into the hospital from primary care's office Complicated by supratherapeutic INR and use of Plavix Plavix with history of CAD, stroke and atrial fibrillation:[id number] score- at least 7 INR 5 on admission, given Vit K Status post negative EGD and now agreeable for colonoscopy which she refused before 03/25 Status post EGD: Positive hiatal hernia Discussed with GI service, okay to resume Coumadin with bridging with heparin ( has documented adverse reaction to the Lovenox), and Plavix Continue Protonix 40 mg p.o. twice daily and Carafate 4 times daily Status post colonoscopy today: 6 mm sessile ascending colon polyp removed. No bleeding noted on colonoscopy Will resume anticoagulation Likely be discharged when INR is therapeutic-not therapeutic yet INR is 1.8 today and she wants to leave today and cannot take any subcu Lovenox We will continue heparin drip for now we will get 5 mg Coumadin today before discharge home this afternoon Will have INR checked on Monday CAD/CVA/PVD status post surgery No cardiac symptoms Carvedilol discontinued secondary to bradycardia, no recurrence Started 1 intravenous heparin, Coumadin and Plavix INR is 1.2 on 03/27, 1.3 on 03/28, 1.5 on 03/29, 1.8 on 03/30 HTN Increase amlodipine to 10 mg daily Monitor BP DM2 diet-controlled, well-controlled as of recent outpatient hemoglobin A1c of 5.07 November 2018 ARF on CRI secondary to illness Crea improved to 1.3 Creatinine normalized polymyalgia rheumatica on steroid tx Continue prednisone Past tobacco abuse DVT prophylaxis Coumadin plus heparin bridge Full code Disposition anticipate to d/c home when medically stable ff up PCP Discharge home this afternoon Total Time Total Time Spent Total Time Spent (In Minutes): 35 minutes Total Time Includes: Examination of the Patient, Discharge Planning, Medication Reconciliation and Communication With Other Providers Discharge Plan Discharge Items Patient Disposition: Home - Self-Care Reason For Visit: UGIB Discharge Diagnosis: Upper GI bleed, negative EGD and colonoscopy, CAD on Coumadin and Plavix, peripheral vascular disease, hypertension Condition on Discharge: Good Activity: Resume your previous activity Non-emergency contact: Primary Care Provider Call non-emergency contact if: you have any medication questions Follow-up/Referrals: Jes Peter MD [Primary Care Provider] - (Please make an appointment with your PCP in 1 week. Check INR on Monday and report to [facility]) Diet: Carb Consistent or DM2 Diet Texture: Dental soft (bite-sized) Addtl Attending Provider Instructions: Please take precaution to avoid fall Pending Studies at Discharge: No Stand-Alone Forms: My nuMVC, Smoking Cessation Medications and DC Order Prescriptions: New sucralfate 1 gram Tablet 1 g PO QID 30 Days Qty: 120 RF: 0 Continued amiodarone 200 mg tablet 200 mg PO DAILY RF: 0 atorvastatin 20 mg tablet 20 mg PO HS RF: 0 prednisone 5 mg tablet 5 mg PO QAM RF: 0 glucosamine sulfate [Glucosamine] 500 mg Tablet 1,000 mg PO QAM RF: 0 clopidogrel 75 mg tablet 75 mg PO QAM RF: 0 carvedilol 3.125 mg tablet 3.125 mg PO BID RF: 0 pantoprazole 40 mg tablet,delayed release (DR/EC) 40 mg PO BID RF: 0 warfarin 5 mg tablet 5 mg PO WK RF: 0 warfarin 5 mg tablet 2.5 mg PO 6XWK RF: 0 nitroglycerin [Nitrostat] 0.4 mg Tablet, Sublingual 0.4 mg sublingual UD RF: 0 furosemide 20 mg tablet 20 mg PO QAM RF: 0 loratadine 10 mg tablet 10 mg PO QAM RF: 0 cholecalciferol (vitamin D3) [Vitamin D3] 1,000 unit Tablet 1,000 unit PO QAM RF: 0 Lactobacillus acidoph-L.bulgar [Floranex] 1 million cell Tablet 1 tab PO HS RF: 0 [place]-3 350 mg-235 mg- 90 mg-597 mg Capsule,Delayed Release(Dr/Ec) 1 cap PO QAM RF: 0 magnesium oxide 400 mg magnesium Tablet 400 mg PO QAM RF: 0 Changed amlodipine 5 mg tablet 10 mg PO HS Qty: 0 RF: 0 Discharge Orders: Discharge Order (Routine); Ordered 03/30/19 Ordered By: Mariama Gracia/Other Patient Handouts: Prediabetes, A1C Admission Data Admit Date/Time: 03/21/19 23:20 Attending Provider: Mariama Ray Admit Provider: Guru Lind Primary Care Provider: Jes Peter Other Providers: Guru Lind ; Shayla Vieyra Jessica R. ; Catarina Mansfield ; Martha Beck ; Sonu Martinez ; Vick Bardales ; Jennifer Ballard ; Clair Stanton ; Arsen Rivers ; Bert Saxena ; Karyn Stanley ; Jaky Olvera ; Aisha Yee ; Bere Haskins ; Tucker Diane ; John Gastelum Other Interventions: Discharge Summary Assessment (RN) Last Done: 03/30/19 13:36 DC Date/Time DO NOT enter until pt leaves facility: 03/30/19 15:02
== END 2019-03-30 15:02 | disposition home or self-care (01) | DRG 378 ==
LOC: ED 20:52 → 2W 23:20 → SUATTDRO 23:20 → 2W 23:49

== ENCOUNTER 2021-04-15 00:37 | Inpatient (IN) ==
[2021-04-15 01:11] LABS: Basophils # (auto) 0.01 K/uL (0-0.2); Basophils % (auto) 0.1 %; Eosinophils % (auto) 3.2 %; Hematocrit (blood only) 43.2 % (37-47); Hemoglobin 13.6 g/dL (12.0-16.0); Immature Granulocytes # (auto) 0.02 K/uL (0.00-0.02); Immature Granulocytes % (auto) 0.2 %; Lymphocytes # (auto) 1.34 K/uL (1.2-3.4); Lymphocytes % (auto) 14.3 %; Mean Corpuscular Hemoglobin 29.4 pg (25-34); Mean Corpuscular Hgb Conc 31.5 g/dL (32-36); Mean Corpuscular Volume 93.3 fL (80-100); Mean Platelet Volume 10.8 fL (7.4-10.4); Monocytes # (auto) 0.73 K/uL (0.11-0.59); Monocytes % (auto) 7.8 %; Neutrophils # (auto) 6.94 K/uL (1.4-6.5); Neutrophils % (auto) 74.4 %; Platelet Count 221 K/uL (130-400); RDW Standard Deviation 54.9 fL (36.4-46.3); Red Blood Count 4.63 M/uL (4.2-5.4); White Blood Count 9.34 K/uL (4.8-10.8)
[2021-04-15 01:16] LABS: Appearance Urine Clear (Clear); Bacteria Urine Automated Negative (Negative); Bilirubin Urine Negative (Negative); Blood Urine Trace (Negative); Color Urine Yellow; Glucose Urine UA Negative (Negative); Ketones Urine Negative (Negative); Leukocyte Esterase Urine Trace (Negative); Nitrite Urine Negative (Negative); Protein Urine 1+ (Negative); RBC Urine Automated 0-4 /hpf (0-4); Urobilinogen Urine Negative (Negative)
[2021-04-15 01:35] LABS: Troponin I 0.03 ng/ml (0-0.04)
[2021-04-15 02:04] LABS: Albumin Globulin Ratio 1.2 (0.9-2); Albumin Level 3.8 gm/dl (3.4-5.0); BUN Creatinine Ratio 24.2 (10-20); Bilirubin,Total 0.7 mg/dl (0.2-1.0); Calcium 8.9 mg/dl (8.5-10.1); Creatinine Clr Calc Pharmacy 19.8 ml/min; Est GFR (African American) 25.5 ml/min; Globulin 3.2 gm/dl (2.5-4.0)
[2021-04-15 02:20] LABS: INR 2.1 (0.9-1.1); Prothrombin Time 20.5 Seconds (9.0-12.0)
[2021-04-15 02:36] LABS: Potassium 4.5 mmol/L (3.5-5.1)
[2021-04-15] MEDS ORDERED: SODIUM CHLORIDE 0.9% 500 ML IV ONE (04:14)
[2021-04-15] MEDS ORDERED: carvediloL 3.125 MG TAB PO ONE (04:16)
--- NOTE | 2021-04-15 04:24 | History & Physical Report ---
Date of Service April 15, 2021 Assessment & Plan (1) Asymptomatic hypertensive urgency: Plan: Traumatic scalp hematoma/left gluteus muscle hematoma in the setting of Coumadin coagulopathy History recurrent falls/ambulatory dysfunction hx PAFib, patient currently NSR history PE/DVT Patient currently hemodynamically stable. Traumatic pelvic fracture ARF on CRI CAD/CVA/PVD status post surgery DM2 diet-controlled, well-controlled as of recent outpatient hemoglobin A1c of 6.05 November 2020 polymyalgia rheumatica on steroid tx past tobacco abuse Medical telemetry Facilitate home BP meds, may need dose titration Oral vitamin K 1 dose Hold antiplatelet, Coumadin Rx for now Serial H&H, transfuse PRBC if hemoglobin less than 8 and or for symptomatic anemia Cardiology consult Re: Fall risk, anticoagulation for PAF Orthopedics consult Re: Pelvic fracture, left gluteal muscle hematoma Monitor creatinine response to IVF given at the ER, hold home diuretic for now until creatinine back to baseline Basal insulin, ISS BG goal [id number], carb count coverage, update hemoglobin A1c DVT prophylaxis. SCDs while Coumadin on hold if INR less than 2 Full code Text document was generated using TeraView voice recognition software. It may contain grammatical or spelling errors. Kindly contact undersigned for clarification of any documentation item in question. History of Present Illness Chief Complaint: Fall Primary Care Provider: Jes Doran MD History obtained from patient and records. Medical history significant for significant for CAD/CVA as per records, HTN, hyperlipidemia, A. fib, hx PE/DVT on Coumadin, depression, carotid artery stenosis L sp surgery (09/2014), DM2 diet-controlled, CRI (baseline creatinine 1.5), polymyalgia rheumatica on steroid tx, ambulatory dysfunction, history of skin cancer as per records, past tobacco abuse. Last confinement March 2019 for UGI B. EGD showed hiatal hernia. Colonoscopy showed polyps. Anticoagulation resumed on discharge. Patient lost her balance last night while attempting to swat a bug off her television. Head trauma with achy left hip pain worse on trying to get up. Patient denies LOC. No chest pain, no SOB. Patient brought to the ER for evaluation. MEDICAL HISTORY: As above. SURGERIES: She has had a rectocele surgery, appendectomy, cataract surgery, left carotid endarterectomy, cholecystectomy, BTL FAMILY HISTORY: Hypertension. Breast cancer. DM, heart disease. PERSONAL AND SOCIAL HISTORY:Past tobacco abuse. No chronic intake of alcoholic beverages. 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 Allergies Allergy/AdvReac Type Severity Reaction Status Date / Time apixaban [From Eliquis] Allergy Severe pain in Verified 04/15/21 01:38 bones amoxicillin Allergy Unknown RASH,HIVES Verified 04/15/21 01:38 cefaclor Allergy Unknown RASH, HIVES Verified 04/15/21 01:38 levofloxacin Allergy Unknown hives Verified 04/15/21 01:38 atorvastatin AdvReac Severe AFFECTS Verified 04/15/21 01:38 LIVER lisinopril AdvReac Severe AFFECTS Verified 04/15/21 01:38 LIVER ENZYMES citalopram AdvReac Intermediate "WILD Verified 04/15/21 01:38 DREAMS" enoxaparin AdvReac Unknown FACIAL Verified 04/15/21 01:38 SWELLING, FLUSHING, ELEVATED BP omeprazole AdvReac Unknown blurred Verified 04/15/21 01:38 vision, headache, flashing lights Home Medications Medication Instructions Recorded Confirmed Type Lactobacillus acidoph-L.bulgaricus 1 tab PO HS 10/18/18 04/15/21 History 1 million cell tablet (Floranex) atorvastatin 20 mg tablet 20 mg PO HS 10/18/18 04/15/21 History carvedilol 3.125 mg tablet 3.125 mg PO BID 10/18/18 04/15/21 History cholecalciferol (vitamin D3) 25 1,000 unit PO [facility] 10/18/18 04/15/21 History mcg (1,000 unit) tablet (Vitamin D3) clopidogrel 75 mg tablet 75 mg PO QA 10/18/18 04/15/21 History glucosamine sulfate 500 mg tablet 1,000 mg PO [facility] 10/18/18 04/15/21 History (Glucosamine) loratadine 10 mg tablet 10 mg PO QAM 10/18/18 04/15/21 History magnesium oxide 400 mg PO QAM 10/18/18 04/15/21 History nitroglycerin 0.4 mg sublingual 0.4 mg SUBLINGUAL UD PRN 10/18/18 04/15/21 History tablet (Nitrostat) omega 3 350 mg-dha 235 mg-epa 90 1 cap PO QAM 10/18/18 04/15/21 History mg-fish oil 597 mg capsule,delay rel ([place]-3) pantoprazole 40 mg tablet,delayed 40 mg PO BID 10/18/18 04/15/21 History release prednisone 5 mg tablet 7.5 mg PO QAM 10/18/18 04/15/21 History warfarin 5 mg tablet 5 mg PO UD 10/18/18 04/15/21 History amiodarone 100 mg tablet 100 mg PO DAILY 04/15/21 04/15/21 History amlodipine 2.5 mg tablet 2.5 mg PO DAILY 04/15/21 04/15/21 History furosemide 20 mg tablet 20 mg PO Q OTHER DAY 04/15/21 04/15/21 History furosemide 20 mg tablet 40 mg PO Q OTHER DAY 04/15/21 04/15/21 History iron,carbonyl 65 mg-vitamin C 125 1 tab PO DAILY 04/15/21 04/15/21 History mg tablet,delayed release (Vitron-C) Past Med/Surg History Medical History (Updated 04/15/21 @ 05:32 by Guru Lind MD) MANAV (acute kidney injury) Carotid arterial disease "s/p left CEA, september 2014" Cerebrovascular disease CKD (chronic kidney disease), stage III Coronary artery disease Dyslipidemia History of DVT (deep vein thrombosis) "2013" History of pulmonary embolism "2013" Hypertension Polymyalgia rheumatica Pre-diabetes TIA (transient ischemic attack) Surgical History H/O dilation and curettage S/P appendectomy S/P laparoscopic cholecystectomy (12/03/13) S/P tubal ligation Family History Other Family history non-contributory Social History Smoking Status: Former smoker Hx Alcohol Use: No Hx Substance Use: No Preferred Language: Albanian Communication Ability: Effective Health Record Technician Required: Yes Beliefs That Will Affect Care: None marital status: / Current Living Situation: Alone Other Information That Helps Us Care for You: No Feels Safe at Home: Yes Safety Concerns: Feels Safe At This Time Assistive Devices: Glasses Review of Systems Review of Systems: As per HPI, all 10 systems reviewed, all other ROS negative Physical Exam Physical Exam: GENERAL: Slightly uncomfortable, obese, no respiratory distress SKIN: Normal color, warm HEENT: Tender posterior scalp swelling, pink palpebral conjunctivae, no ptosis, dry buccal mucosa NECK : Supple, short neck, no tenderness CHEST : Decreased breath sounds , no tenderness HEART : RRR , no obvious murmurs ABDOMEN: Some distention, hypogastric tenderness EXTREMITIES : Minimal LE swelling, no LE tenderness, no other conspicuous deformities noted NEUROLOGIC : Coherent, no facial asymmetry, no other gross focality Results & Data Results & Data ([facility]) Vital Signs (Past 12 Hours) Vital Signs Temp Pulse Pulse Resp BP BP Pulse Ox 04/15/21 03:48 75 16 165/102 H 100 04/15/21 02:16 77 16 137/85 90 04/15/21 01:05 92 04/15/21 00:53 36.6 C 80 16 190/87 H 92 Laboratory Results Laboratory Results WBC 9.34 K/uL (4.8-10.8) 04/15/21 00:58 RBC 4.63 M/uL (4.2-5.4) 04/15/21 00:58 Hgb 13.6 g/dL (12.0-16.0) 04/15/21 00:58 Hct 43.2 % (37-47) 04/15/21 00:58 MCV 93.3 fL (80-100) 04/15/21 00:58 MCH 29.4 pg (25-34) 04/15/21 00:58 MCHC 31.5 g/dL (32-36) L 04/15/21 00:58 RDW Std Deviation 54.9 fL (36.4-46.3) H 04/15/21 00:58 RDW Coeff of Jackeline 16.0 % (11.5-14.5) H 04/15/21 00:58 Plt Count 221 K/uL (130-400) 04/15/21 00:58 MPV 10.8 fL (7.4-10.4) H 04/15/21 00:58 Immature Gran % (Auto) 0.2 % 04/15/21 00:58 Neut % (Auto) 74.4 % 04/15/21 00:58 Lymph % (Auto) 14.3 % 04/15/21 00:58 [place] % (Auto) 7.8 % 04/15/21 00:58 Eos % (Auto) 3.2 % 04/15/21 00:58 Baso % (Auto) 0.1 % 04/15/21 00:58 Neut # (Auto) 6.94 K/uL (1.4-6.5) H 04/15/21 00:58 Lymph # (Auto) 1.34 K/uL (1.2-3.4) 04/15/21 00:58 [place] # (Auto) 0.73 K/uL (0.11-0.59) H 04/15/21 00:58 Eos # (Auto) 0.30 K/uL (0-0.5) 04/15/21 00:58 Baso # (Auto) 0.01 K/uL (0-0.2) 04/15/21 00:58 Immature Gran # (Auto) 0.02 K/uL (0.00-0.02) 04/15/21 00:58 PT 20.5 Seconds (9.0-12.0) H 04/15/21 00:58 INR 2.1 (0.9-1.1) H 04/15/21 00:58 Sodium 139 mmol/L (136-145) 04/15/21 00:58 Potassium 4.5 mmol/L (3.5-5.1) 04/15/21 00:58 Chloride 100 mmol/L (98-107) 04/15/21 00:58 Carbon Dioxide 30 mmol/L (21-32) 04/15/21 00:58 Anion Gap 9 (3-11) 04/15/21 00:58 BUN 48 mg/dl (6-23) H 04/15/21 00:58 Creatinine 1.98 mg/dl (0.6-1.2) H 04/15/21 00:58 Est Cr Clr Drug Dosing 19.8 ml/min 04/15/21 00:58 Est GFR ( Amer) 25.5 ml/min 04/15/21 00:58 Est GFR (Non-Af Amer) 22.0 ml/min 04/15/21 00:58 BUN/Creatinine Ratio 24.2 (10-20) H 04/15/21 00:58 Glucose 140 mg/dl (70-99) H 04/15/21 00:58 Calcium 8.9 mg/dl (8.5-10.1) 04/15/21 00:58 Total Bilirubin 0.7 mg/dl (0.2-1.0) 04/15/21 00:58 AST 19 U/L (13-39) 04/15/21 00:58 ALT 15 U/L (7-52) 04/15/21 00:58 Alkaline Phosphatase 49 U/L (34-104) 04/15/21 00:58 Total Creatine Kinase 150 U/L (26-192) 04/15/21 00:58 Troponin I 0.03 ng/ml (0-0.04) 04/15/21 00:58 Total Protein 7.0 gm/dl (6.0-8.3) 04/15/21 00:58 Albumin 3.8 gm/dl (3.4-5.0) 04/15/21 00:58 Globulin 3.2 gm/dl (2.5-4.0) 04/15/21 00:58 Albumin/Globulin Ratio 1.2 (0.9-2) 04/15/21 00:58 Urine Color Yellow 04/15/21 00:13 Urine Appearance Clear (Clear) 04/15/21 00:13 Urine pH 6.0 (4.5-7.5) 04/15/21 00:13 Ur Specific [place] 1.010 (1.000-1.030) 04/15/21 00:13 Urine Protein 1+ (Negative) H 04/15/21 00:13 Urine Glucose (UA) Negative (Negative) 04/15/21 00:13 Urine Ketones Negative (Negative) 04/15/21 00:13 Urine Blood Trace (Negative) H 04/15/21 00:13 Urine Nitrite Negative (Negative) 04/15/21 00:13 Urine Bilirubin Negative (Negative) 04/15/21 00:13 Urine Urobilinogen Negative (Negative) 04/15/21 00:13 Ur Leukocyte Esterase Trace (Negative) H 04/15/21 00:13 Urine WBC (Auto) 10-30 /hpf (0-5) H 04/15/21 00:13 Urine RBC (Auto) 0-4 /hpf (0-4) 04/15/21 00:13 U Hyaline Cast (Auto) 1-5 /lpf (0-5) 04/15/21 00:13 U Epithel Cells (Auto) 5-10 /lpf (0-5) H 04/15/21 00:13 Urine Bacteria (Auto) Negative (Negative) 04/15/21 00:[address] head initial read: Scalp hematoma overlying the left parietal bone measuring 6 mmin thickness. No evidence of underlying intracranial abnormality. CT cervical spine initial read: Bone demineralization limits evaluation. In spite of this, no evidence of acutelydisplaced fracture or dislocation within the cervical spine. If there is further concern, consider MRI. CT abdomen pelvis initial read: Acute nondisplaced fracture of the left inferior pubic ramus. No other fractures detected which maybe due to bone demineralization. If there is further concern, consider MRI. Intramuscular hematomawithin the left gluteus maximuswhich is incompletelyvisualized. No other signs of trauma. Following bladder with gas of the bladder dome which is favored to be postprocedural in nature Chest x-ray as per my interpretation cardiomegaly, minimal congestion EKG as per my interpretation : Rate 80, NSR, RAD, RBBB, no ischemia
[2021-04-15] MEDS ORDERED: carvediloL 3.125 MG TAB ONE (04:35)
[2021-04-15] MEDS ORDERED: PHYTONADIONE 5 MG TAB PO STA (04:58)
[2021-04-15] MEDS ORDERED: CARBOHYDRATES FOR HYPOGLYCEMIA PO PRN (05:38)
[2021-04-15] MEDS ORDERED: HYDROmorphone INJ 0.5 MG/0.5 ML SYR IV PRN (05:38)
[2021-04-15] MEDS ORDERED: GLUCOSE 10 TABS/TUBE PO PRN (05:38)
[2021-04-15] MEDS ORDERED: DEXTROSE 50% 50 ML SYRINGE IV PRN (05:38)
[2021-04-15] MEDS ORDERED: GLUCAGON FOR INJ 1 MG VIAL SQ PRN (05:38)
[2021-04-15] MEDS ORDERED: ACETAMINOPHEN 325 MG TAB PO PRN (05:38)
[2021-04-15] MEDS ORDERED: NITROGLYCERIN SL 0.4 MG/TAB TAB SL PRN (05:38)
[2021-04-15] MEDS ORDERED: traMADol HCL 50 MG TABLET PO PRN (05:38)
[2021-04-15] MEDS ORDERED: PROMETHAZINE HCL 12.5 MG in SODIUM CHLORIDE 0.9% 50 ML IV PRN (05:38)
[2021-04-15] MEDS ORDERED: GLUCOSE 40% GEL 15 GM TUBE PO PRN (05:38)
[2021-04-15 05:57] LABS: Estimated Average Glucose 146 mg/dl; Hemoglobin A1C 6.7 % (4.5-5.6)
[2021-04-15 06:00] LABS: Hematocrit (blood only) 37.8 % (37-47); Hemoglobin 11.9 g/dL (12.0-16.0)
[2021-04-15] MEDS: INSULIN ASPART PER UNIT SC SCH ×4 (06:10→20:54)
--- NOTE | 2021-04-15 06:46 | XRay Report ---
XR chest 1V portable CLINICAL HISTORY: Renal failure. COMPARISON STUDY: Chest CT August 07, 2018. Chest radiograph March 21, 2019. FINDINGS: Lung volumes are normal. Lungs are clear. There is no pneumothorax or pleural effusion. Car diomegaly is unchanged. Mediastinal contours are normal. There is no evidence for pulmonary edema. IMPRESSION: No acute cardiopulmonary findings. Stable cardiomegaly. ACT 112: Negative or not required by law. Electronically signed by: William Holt M.D. 04/15/2021 6:45 AM
--- NOTE | 2021-04-15 07:03 | CT Scan Report ---
CT OF THE CERVICAL SPINE WITHOUT CONTRAST CLINICAL HISTORY: Trauma COMPARISON STUDY: CTA of the neck September 23, 2014. TECHNIQUE: Helical axial images of the cervical spine were obtained without IV contrast. Sagittal a nd coronal reconstructions were viewed. Automated exposure control was utilized for the study. A do se lowering technique was utilized adhering to the principles of ALARA. FINDINGS: Anterolisthesis of C3 on C4 and C4 and C5 is unchanged since prior CT of September 23, 2014. [place] tebral body heights are maintained. No acute cervical spine fracture or subluxation is present. There is no prevertebral edema. Facet joints are intact. There is severe multilevel disc space narrowing. Moderate multilevel facet arthrosis is present. IMPRESSION: No acute cervical spine fracture or subluxation. ACT 112: Negative or not required by law. Electronically signed by: William Holt M.D. 04/15/2021 7:02 AM
--- NOTE | 2021-04-15 07:19 | CT Scan Report ---
CT OF THE ABDOMEN AND PELVIS WITHOUT CONTRAST CLINICAL HISTORY: Trauma - left hip/pelvis COMPARISON STUDY: CT of the abdomen and pelvis March 21, 2019. TECHNIQUE: Axial images of the abdomen and pelvis were obtained without IV contrast. Images were revi ewed in the axial, sagittal, and coronal planes. Automated exposure control was utilized for the moy dy. A dose lowering technique was utilized adhering to the principles of ALARA. FINDINGS: Lung bases are unremarkable. There is cardiomegaly. Small hiatal hernia is present. A few h epatic lesions are unchanged since exam March 21, 2018. These favor cysts. There is no biliary brit cecile dilatation status post cholecystectomy. Mild right and marked left renal cortical thinning is not ed. There is no hydronephrosis. Unenhanced images of the spleen, adrenal glands and pancreas are unre markable. Evaluation of the solid abdominal viscera is suboptimal on this unenhanced exam but there i s no evidence for traumatic injury to the solid abdominal viscera. There is no evidence for a bowel o bstruction. Colonic diverticulosis is noted without evidence for acute diverticulitis. Tracy balloon within the bladder is noted as well as gas. No acute lumbar spine fracture is noted. Old mild L3 comp ression deformity is unchanged. There is an acute comminuted minimally displaced fracture of the left inferior pubic ramus. No acute proximal femoral fracture is present. A small amount of intramuscular hemorrhage within the left adductor muscles is suspected. There is also a partially visualized intra muscular hematoma within the left gluteus alexey which measures at least 5 cm in extent. 3 cm infrar enal abdominal aortic aneurysm is noted. This measured 2.7 cm in caliber on CT of March 21, 2019. There is extensive atherosclerotic plaque. There is no lymphadenopathy. IMPRESSION: 1. No evidence for traumatic injury to the solid abdominal viscera on this unenhanced exam. 2. Acute comminuted minimally displaced fracture of the left inferior pubic ramus. 3. Moderate intramuscular hemorrhage within the left gluteus alexey, partially imaged on this exam. Small amount of suspected hemorrhage within the left adductor muscles. 4. 3 cm infrarenal abdominal aortic aneurysm. ACT 112: Negative or not required by law. Electronically signed by: William Holt M.D. 04/15/2021 7:17 AM
--- NOTE | 2021-04-15 07:53 | CT Scan Report ---
CT head/brain wo con CLINICAL HISTORY: Status post fall with trauma to the left side and back of the head. COMPARISON STUDY: 02/04/2015 CT DOSE: TECHNIQUE: Standard CT of the Brain was performed without IV contrast. A dose lowering technique was utilized adhering to the principles of ALARA. FINDINGS: Extraaxial space: There is no evidence for subdural hematoma. There are no extra-axial fluid collecti ons. 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 Ventricles and cisterns: The ventricles are mildly dilated bilaterally. There is no evidence for mid line shift or mass effect. Parenchyma: There is no subarachnoid or intraparenchymal hemorrhage. There is no evidence for an acu te infarct or cerebral edema. There is mild cerebral cortical atrophy and decreased attenuation in th e periventricular white matter representing remote small vessel disease. There are no gross mass lesi ons. Osseous structures: There is no evidence for an acute fracture. The visualized paranasal sinuses are clear. The mastoid air cells are clear bilaterally. Soft tissues: There is a small subgaleal hematoma posteriorly. IMPRESSION: No acute intracerebral pathology. Cerebral cortical atrophy and remote small vessel disea se. Small subgaleal hematoma posteriorly. ACT 112: Negative or not required by law. Electronically signed by: Axel oV M.D. 04/15/2021 7:52 AM
--- NOTE | 2021-04-15 08:20 | Emergency Department Note ---
Impression & Plan Fall, Closed fracture of inferior pubic ramus Admit to the [facility] ED Provider Note NAME: LENNY NAIR AGE: 89 SEX: F ARRIVES VIA: Ambulance INFORMANT: Patient ED PROVIDER(S): Amara Kim DO CHIEF COMPLAINT: Fall PLAN: Disposition: Admit to the [facility] Condition: Stable MEDICAL DECISION MAKING: This is an 89-year-old female patient who suffered a fall tonight landing on her left hip and striking the left side of her head. The patient does take Coumadin. She did not not have a loss of consciousness. She has an inferior pubic rami fracture on the left along with a large gluteal hematoma and is unable to walk. I discussed the case with the hospitalist and they will evaluate for further management. Triage Nursing notes reviewed and agree with them. Prior medical records reviewed Vital Signs: reviewed and remarkable for hypertension Differential diagnosis: Pelvis fracture, hip fracture, intracranial trauma, skull fracture Diagnostics interpreted by me: ECG: Normal sinus rhythm at a rate of 82 with a right bundle branch block. There is no ST segment elevation or signs of ischemia. This is unchanged from March 2019. Cardiac Monitoring: Normal sinus rhythm at 72 Laboratory studies: See below Imaging studies: As per stat rad CT head: Scalp hematoma overlying the left parietal bone measuring 6 mm in t hickness. No evidence of underlying intracranial abnormality. CT C-spine: Bone demineralization limits evaluation. In spite of this no evidence of acutely displaced fracture or dislocation within the cervical spine. If there is further concern consider MRI CT abdomen pelvis without contrast: Acute nondisplaced fracture of the left inferior pubic ramus. No other fractures detected which may be due to bone demineralization. If there is further concern, consider MRI. Intramuscular hematoma within the left gluteus alexey which is incompletely visualized. No other signs of trauma. Following bladder with gases of the bladder dome which is favored to be postprocedural in nature. HPI: 89/F arrives for evaluation of fall. The patient got up to kill a stink bug when she unfortunately lost her balance and fell to the ground landing on the left side of her body striking the left side of her head. The patient does take Coumadin and has a large hematoma to the left side of her head and left pelvis and gluteus. She did not lose consciousness but did have to crawl on the ground to get to a phone to summons help. ROS: See above HPI for pertinent positives & negatives. A total of 10 systems reviewed and were otherwise negative. PAST MEDICAL HISTORY:See Below PAST SURGICAL HISTORY:See Below FAMILY HISTORY:See Below SOCIAL HISTORY:See Below HOME MEDICATIONS:See list ALLERGIES:See list VITALS:See Below PHYSICAL EXAMINATION: HEENT: Head - normocephalic with a large cephalhematoma on her left occiput. Pupils are equal, round, and reactive to light. Extraocular eye muscles are intact and sclera are anicteric. Nose - moist nasal mucosa without evidence of trauma or discharge. Mouth - moist buccal mucosa with no trauma to the teeth or signs of malocclusion. Neck: The neck is supple and there is no pain to palpation over the posterior cervical spine and no obvious step-offs or deformities. There is no JVD or tracheal deviation. Chest: There are no signs of deformities, contusions or abrasions to the chest wall. There is no obvious crepitus or paradoxical chest rise. Heart: Regular, rate, and rhythm. There is a normal S1 and S2 with no murmurs, clicks, or gallops appreciated. Lungs: Clear to auscultation bilaterally with no wheezes, rales, or rhonchi. Abdomen: Soft, completely nontender, nondistended, with good bowel sounds. There is no sign of trauma such as contusions, abrasions or penetrations. There are no palpable pulsatile masses or hepatosplenomegaly. There is no guarding, rigidity, or rebound noted. Pelvis: Stable to rock and compression. Extremities: The patient has a large hematoma over the left buttocks and significant pain to palpation over the left inferior pubic rami with noted deformity upon palpation. Neuro: The patient is awake and alert and easily able to follow commands. Muscle strength is 5 out of 5 in all 4 extremities. Otherwise, neuro exam is unremarkable. Back: The entire thoracic, lumbar, and sacral spine were palpated. There are no obvious step-offs or deformities noted. There are no obvious signs of trauma such as contusions abrasions penetrations noted to the back. ED COURSE: Times/Reassessments: 0100 the patient was evaluated and a complete history and physical was performed. An order was placed for continuous cardiac monitoring. The patient was in a normal sinus rhythm at a rate of 80. A twelve-lead EKG was obtained as described above. The patient declined wanting anything for pain. She went for CT scan of her C- spine, brain, abdomen/pelvis. I reviewed those results with the patient and discussed the case with the hospitalist and they will evaluate for further management as the patient is unable to bear weight or ambulate Amara Kim DO Past Med/Surg History Medical History (Updated 04/15/21 @ 16:43 by Amara Kim DO) MANAV (acute kidney injury) Carotid arterial disease "s/p left CEA, september 2014" Cerebrovascular disease CKD (chronic kidney disease), stage III Coronary artery disease Dyslipidemia History of DVT (deep vein thrombosis) "2013" History of pulmonary embolism "2013" Hypertension Polymyalgia rheumatica Pre-diabetes TIA (transient ischemic attack) Surgical History H/O dilation and curettage S/P appendectomy S/P laparoscopic cholecystectomy (12/03/13) S/P tubal ligation Family History Other Family history non-contributory Social History Smoking Status: Former smoker Hx Alcohol Use: No Hx Substance Use: No Preferred Language: Polish Communication Ability: Effective Manager Hvac Required: Yes Beliefs That Will Affect Care: None marital status: / Current Living Situation: Alone Other Information That Helps Us Care for You: No Feels Safe at Home: Yes Safety Concerns: Feels Safe At This Time Assistive Devices: Walker Allergies Allergies Allergy/AdvReac Type Severity Reaction Status Date / Time apixaban [From Eliquis] Allergy Severe pain in Verified 04/15/21 01:38 bones amoxicillin Allergy Unknown RASH,HIVES Verified 04/15/21 01:38 cefaclor Allergy Unknown RASH, HIVES Verified 04/15/21 01:38 levofloxacin Allergy Unknown hives Verified 04/15/21 01:38 atorvastatin AdvReac Severe AFFECTS Verified 04/15/21 01:38 LIVER lisinopril AdvReac Severe AFFECTS Verified 04/15/21 01:38 LIVER ENZYMES citalopram AdvReac Intermediate "WILD Verified 04/15/21 01:38 DREAMS" enoxaparin AdvReac Unknown FACIAL Verified 01/13/22 01:38 SWELLING, FLUSHING, ELEVATED BP omeprazole AdvReac Unknown blurred Verified 04/15/21 01:38 vision, headache, flashing lights Home Meds Home Medications Medication Instructions Recorded Confirmed Lactobacillus acidoph-L.bulgaricus 1 tab PO HS 10/18/18 04/15/21 1 million cell tablet (Floranex) atorvastatin 20 mg tablet 20 mg PO HS 10/18/18 04/15/21 carvedilol 3.125 mg tablet 3.125 mg PO BID 10/18/18 04/15/21 cholecalciferol (vitamin D3) 25 1,000 unit PO [facility] 10/18/18 04/15/21 mcg (1,000 unit) tablet (Vitamin D3) clopidogrel 75 mg tablet 75 mg PO [facility] 10/18/18 04/15/21 glucosamine sulfate 500 mg tablet 1,000 mg PO [facility] 10/18/18 04/15/21 (Glucosamine) loratadine 10 mg tablet 10 mg PO [facility] 10/18/18 04/15/21 magnesium oxide 400 mg PO [facility] 10/18/18 04/15/21 nitroglycerin 0.4 mg sublingual 0.4 mg SUBLINGUAL UD PRN 10/18/18 04/15/21 tablet (Nitrostat) omega 3 350 mg-dha 235 mg-epa 90 1 cap PO [facility] 10/18/18 04/15/21 mg-fish oil 597 mg capsule,delay rel ([place]-3) pantoprazole 40 mg tablet,delayed 40 mg PO BID 10/18/18 04/15/21 release prednisone 5 mg tablet 7.5 mg PO [facility] 10/18/18 04/15/21 warfarin 5 mg tablet 5 mg PO UD 10/18/18 04/15/21 amiodarone 100 mg tablet 100 mg PO DAILY 04/15/21 04/15/21 amlodipine 2.5 mg tablet 2.5 mg PO DAILY 04/15/21 04/15/21 furosemide 20 mg tablet 20 mg PO Q OTHER DAY 04/15/21 04/15/21 furosemide 20 mg tablet 40 mg PO Q OTHER DAY 04/15/21 04/15/21 iron,carbonyl 65 mg-vitamin C 125 1 tab PO DAILY 04/15/21 04/15/21 mg tablet,delayed release (Vitron-C) Results & Data (ED) Vital Signs Vital Signs - 24 hr 04/15/21 00:53 04/15/21 01:05 04/15/21 02:16 Temperature 36.6 C Temperature Source Oral Pulse Rate 80 Pulse Rate [Right] 77 Pulse Rhythm Regular Pulse Strength Normal Respiratory Rate 16 16 Respiratory Effort / Characteristics Non-Labored Spontaneous Non-Labored Spontaneous Respiratory Depth Normal Normal Blood Pressure 190/87 H Blood Pressure [Right Arm] 137/85 Blood Pressure Mean 121 Blood Pressure Mean [Right Arm] 102 Blood Pressure Position Lying Blood Pressure Position [Right Arm] Lying Pulse Oximetry 92 92 90 Oxygen Delivery Method Room Air Room Air Room Air Oxygen Flow Rate Sepsis Recent Fever Within 48 Hours No Sepsis New/Unexplained Change in Mental Status N/A Sepsis Action Taken by Nursing No Action Required 04/15/21 03:48 04/15/21 04:55 Temperature Temperature Source Pulse Rate Pulse Rate [Right] 75 76 Pulse Rhythm Pulse Strength Respiratory Rate 16 16 Respiratory Effort / Characteristics Non-Labored Spontaneous Non-Labored Spontaneous Respiratory Depth Normal Normal Blood Pressure Blood Pressure [Right Arm] 165/102 H 184/94 H Blood Pressure Mean Blood Pressure Mean [Right Arm] 123 124 Blood Pressure Position Blood Pressure Position [Right Arm] Lying Pulse Oximetry 100 98 Oxygen Delivery Method Nasal Cannula Room Air Oxygen Flow Rate 2 Sepsis Recent Fever Within 48 Hours Sepsis New/Unexplained Change in Mental Status Sepsis Action Taken by Nursing Laboratory Data Result diagrams: 04/15/21 05:47 04/15/21 00:58 Lab Results 04/15/21 04/15/21 04/15/21 Range/Units 00:13 00:58 00:58 WBC 9.34 (4.8-10.8) K/uL RBC 4.63 (4.2-5.4) M/uL Hgb 13.6 (12.0-16.0) g/dL Hct 43.2 (37-47) % MCV 93.3 (80-100) fL MCH 29.4 (25-34) pg MCHC 31.5 L (32-36) g/dL RDW Std Deviation 54.9 H (36.4-46.3) fL RDW Coeff of Jackeline 16.0 H (11.5-14.5) % Plt Count 221 (130-400) K/uL MPV 10.8 H (7.4-10.4) fL Immature Gran % (Auto) 0.2 % Neut % (Auto) 74.4 % Lymph % (Auto) 14.3 % [place] % (Auto) 7.8 % Eos % (Auto) 3.2 % Baso % (Auto) 0.1 % Neut # (Auto) 6.94 H (1.4-6.5) K/uL Lymph # (Auto) 1.34 (1.2-3.4) K/uL [place] # (Auto) 0.73 H (0.11-0.59) K/uL Eos # (Auto) 0.30 (0-0.5) K/uL Baso # (Auto) 0.01 (0-0.2) K/uL Immature Gran # (Auto) 0.02 (0.00-0.02) K/uL PT (9.0-12.0) Seconds INR (0.9-1.1) Sodium 139 (136-145) mmol/L Potassium 4.5 (3.5-5.1) mmol/L Chloride 100 (98-107) mmol/L Carbon Dioxide 30 (21-32) mmol/L Anion Gap 9 (3-11) BUN 48 H (6-23) mg/dl Creatinine 1.98 H (0.6-1.2) mg/dl Est Cr Clr Drug Dosing 19.8 ml/min Est GFR ( Amer) 25.5 ml/min Est GFR (Non-Af Amer) 22.0 ml/min BUN/Creatinine Ratio 24.2 H (10-20) Glucose 140 H (70-99) mg/dl Estimat Average Glucose mg/dl Hemoglobin A1c (4.5-5.6) % Calcium 8.9 (8.5-10.1) mg/dl Magnesium (1.7-2.4) mg/dl Total Bilirubin 0.7 (0.2-1.0) mg/dl AST 19 (13-39) U/L ALT 15 (7-52) U/L Alkaline Phosphatase 49 (34-104) U/L Total Creatine Kinase 150 (26-192) U/L Troponin I 0.03 (0-0.04) ng/ml Total Protein 7.0 (6.0-8.3) gm/dl Albumin 3.8 (3.4-5.0) gm/dl Globulin 3.2 (2.5-4.0) gm/dl Albumin/Globulin Ratio 1.2 (0.9-2) Urine Color Yellow Urine Appearance Clear (Clear) Urine pH 6.0 (4.5-7.5) Ur Specific [place] 1.010 (1.000-1.030) Urine Protein 1+ H (Negative) Urine Glucose (UA) Negative (Negative) Urine Ketones Negative (Negative) Urine Blood Trace H (Negative) Urine Nitrite Negative (Negative) Urine Bilirubin Negative (Negative) Urine Urobilinogen Negative (Negative) Ur Leukocyte Esterase Trace H (Negative) Urine WBC (Auto) 10-30 H (0-5) /hpf Urine RBC (Auto) 0-4 (0-4) /hpf U Hyaline Cast (Auto) 1-5 (0-5) /lpf U Epithel Cells (Auto) 5-10 H (0-5) /lpf Urine Bacteria (Auto) Negative (Negative) SARS-CoV-2, RNA, NAAT (NEGATIVE) 04/15/21 04/15/21 04/15/21 Range/Units 00:58 00:58 00:58 WBC (4.8-10.8) K/uL RBC (4.2-5.4) M/uL Hgb (12.0-16.0) g/dL Hct (37-47) % MCV (80-100) fL MCH (25-34) pg MCHC (32-36) g/dL RDW Std Deviation (36.4-46.3) fL RDW Coeff of Jackeline (11.5-14.5) % Plt Count (130-400) K/uL MPV (7.4-10.4) fL Immature Gran % (Auto) % Neut % (Auto) % Lymph % (Auto) % [place] % (Auto) % Eos % (Auto) % Baso % (Auto) % Neut # (Auto) (1.4-6.5) K/uL Lymph # (Auto) (1.2-3.4) K/uL [place] # (Auto) (0.11-0.59) K/uL Eos # (Auto) (0-0.5) K/uL Baso # (Auto) (0-0.2) K/uL Immature Gran # (Auto) (0.00-0.02) K/uL PT 20.5 H (9.0-12.0) Seconds INR 2.1 H (0.9-1.1) Sodium (136-145) mmol/L Potassium (3.5-5.1) mmol/L Chloride (98-107) mmol/L Carbon Dioxide (21-32) mmol/L Anion Gap (3-11) BUN (6-23) mg/dl Creatinine (0.6-1.2) mg/dl Est Cr Clr Drug Dosing ml/min Est GFR ( Amer) ml/min Est GFR (Non-Af Amer) ml/min BUN/Creatinine Ratio (10-20) Glucose (70-99) mg/dl Estimat Average Glucose 146 mg/dl Hemoglobin A1c 6.7 H (4.5-5.6) % Calcium (8.5-10.1) mg/dl Magnesium 1.7 (1.7-2.4) mg/dl Total Bilirubin (0.2-1.0) mg/dl AST (13-39) U/L ALT (7-52) U/L Alkaline Phosphatase (34-104) U/L Total Creatine Kinase (26-192) U/L Troponin I (0-0.04) ng/ml Total Protein (6.0-8.3) gm/dl Albumin (3.4-5.0) gm/dl Globulin (2.5-4.0) gm/dl Albumin/Globulin Ratio (0.9-2) Urine Color Urine Appearance (Clear) Urine pH (4.5-7.5) Ur Specific [place] (1.000-1.030) Urine Protein (Negative) Urine Glucose (UA) (Negative) Urine Ketones (Negative) Urine Blood (Negative) Urine Nitrite (Negative) Urine Bilirubin (Negative) Urine Urobilinogen (Negative) Ur Leukocyte Esterase (Negative) Urine WBC (Auto) (0-5) /hpf Urine RBC (Auto) (0-4) /hpf U Hyaline Cast (Auto) (0-5) /lpf U Epithel Cells (Auto) (0-5) /lpf Urine Bacteria (Auto) (Negative) SARS-CoV-2, RNA, NAAT (NEGATIVE) 04/15/21 Range/Units 04:24 WBC (4.8-10.8) K/uL RBC (4.2-5.4) M/uL Hgb (12.0-16.0) g/dL Hct (37-47) % MCV (80-100) fL MCH (25-34) pg MCHC (32-36) g/dL RDW Std Deviation (36.4-46.3) fL RDW Coeff of Jackeline (11.5-14.5) % Plt Count (130-400) K/uL MPV (7.4-10.4) fL Immature Gran % (Auto) % Neut % (Auto) % Lymph % (Auto) % [place] % (Auto) % Eos % (Auto) % Baso % (Auto) % Neut # (Auto) (1.4-6.5) K/uL Lymph # (Auto) (1.2-3.4) K/uL [place] # (Auto) (0.11-0.59) K/uL Eos # (Auto) (0-0.5) K/uL Baso # (Auto) (0-0.2) K/uL Immature Gran # (Auto) (0.00-0.02) K/uL PT (9.0-12.0) Seconds INR (0.9-1.1) Sodium (136-145) mmol/L Potassium (3.5-5.1) mmol/L Chloride (98-107) mmol/L Carbon Dioxide (21-32) mmol/L Anion Gap (3-11) BUN (6-23) mg/dl Creatinine (0.6-1.2) mg/dl Est Cr Clr Drug Dosing ml/min Est GFR ( Amer) ml/min Est GFR (Non-Af Amer) ml/min BUN/Creatinine Ratio (10-20) Glucose (70-99) mg/dl Estimat Average Glucose mg/dl Hemoglobin A1c (4.5-5.6) % Calcium (8.5-10.1) mg/dl Magnesium (1.7-2.4) mg/dl Total Bilirubin (0.2-1.0) mg/dl AST (13-39) U/L ALT (7-52) U/L Alkaline Phosphatase (34-104) U/L Total Creatine Kinase (26-192) U/L Troponin I (0-0.04) ng/ml Total Protein (6.0-8.3) gm/dl Albumin (3.4-5.0) gm/dl Globulin (2.5-4.0) gm/dl Albumin/Globulin Ratio (0.9-2) Urine Color Urine Appearance (Clear) Urine pH (4.5-7.5) Ur Specific [place] (1.000-1.030) Urine Protein (Negative) Urine Glucose (UA) (Negative) Urine Ketones (Negative) Urine Blood (Negative) Urine Nitrite (Negative) Urine Bilirubin (Negative) Urine Urobilinogen (Negative) Ur Leukocyte Esterase (Negative) Urine WBC (Auto) (0-5) /hpf Urine RBC (Auto) (0-4) /hpf U Hyaline Cast (Auto) (0-5) /lpf U Epithel Cells (Auto) (0-5) /lpf Urine Bacteria (Auto) (Negative) SARS-CoV-2, RNA, NAAT NEGATIVE (NEGATIVE) Administered Medications Amiodarone HCl (Amiodarone 200 Mg Tab) 100 mg PO DAILY [facility] Stop: 05/15/21 08:59 Last Admin: 04/15/21 08:41 Dose: 100 mg Documented by: [id number] Amlodipine Besylate (Amlodipine Besylate 5 Mg Tab) 2.5 mg PO DAILY [facility] Stop: 05/15/21 08:59 Last Admin: 04/15/21 08:44 Dose: 2.5 mg Documented by: [id number] Insulin Aspart (Insulin Aspart Per Unit) 0 units SC ACHS [facility] Stop: 05/15/21 05:37 Last Admin: 04/15/21 13:11 Dose: Not Given Documented by: [id number] Cosigned by: [id number] Admin: 04/15/21 06:10 Dose: Not Given Documented by: [id number] Cosigned by: [id number] Insulin Glargine (Insulin Glargine Solostar 100 Units/Ml 3 Ml Pen) 5 units SC DAILY [facility] Stop: 05/15/21 08:59 Last Admin: 04/15/21 08:45 Dose: Not Given Documented by: [id number] Loratadine (Loratadine 10 Mg Tab) 10 mg PO QAM [facility] Stop: 05/15/21 08:59 Last Admin: 04/15/21 08:46 Dose: 10 mg Documented by: [id number] Pantoprazole Sodium (Pantoprazole 40 Mg Tab) 40 mg PO BID [facility] Stop: 05/15/21 08:59 Last Admin: 04/15/21 08:46 Dose: 40 mg Documented by: [id number] Prednisone (Prednisone 2.5 Mg Tab) 7.5 mg PO QAM [facility] Stop: 05/15/21 08:59 Last Admin: 04/15/21 08:46 Dose: 7.5 mg Documented by: [id number] Discontinued Medications Carvedilol (Carvedilol 3.125 Mg Tab) 3.125 mg PO NOW ONE Stop: 04/15/21 04:17 Last Admin: 04/15/21 04:40 Dose: Not Given Documented by: [id number] Carvedilol (Carvedilol 3.125 Mg Tab) Confirm Administered Dose 3.125 mg .ROUTE . STK-MED ONE Stop: 04/15/21 04:36 Last Admin: 04/15/21 04:37 Dose: 3.125 mg Documented by: [id number] Sodium Chloride (Nss) 500 mls @ 999 mls/hr IV .Q31M ONE Stop: 04/15/21 04:44 Last Infusion: 04/15/21 05:11 Dose: 0 mls/hr Documented by: [id number] Admin: 04/15/21 04:38 Dose: 999 mls/hr Documented by: [id number] Phytonadione (Phytonadione 5 Mg Tab) 5 mg PO NOW STA Stop: 04/15/21 04:59 Last Admin: 04/15/21 05:15 Dose: 5 mg Documented by: [id number] Imaging Data Radiologist's Impression: Abdomen/Pelvis CT 04/15/21 00:57 CT OF THE ABDOMEN AND PELVIS WITHOUT CONTRAST CLINICAL HISTORY: Trauma - left hip/pelvis COMPARISON STUDY: CT of the abdomen and pelvis March 21, 2019. TECHNIQUE: Axial images of the abdomen and pelvis were obtained without IV contrast. Images were reviewed in the axial, sagittal, and coronal planes. Automated exposure control was utilized for the study. A dose lowering technique was utilized adhering to the principles of ALARA. FINDINGS: Lung bases are unremarkable. There is cardiomegaly. Small hiatal herni a is present. A few hepatic lesions are unchanged since exam March 21, 2018. These favor cysts. There is no biliary ductal dilatation status post cholecystectomy. Mild right and marked left renal cortical thinning is noted. There is no hydronephrosis. Unenhanced images of the spleen, adrenal glands and pancreas are unremarkable. Evaluation of the solid abdominal viscera is suboptimal on this unenhanced exam but there is no evidence for traumatic injury to the solid abdominal viscera. There is no evidence for a bowel obstruction. Colonic diverticulosis is noted without evidence for acute diverticulitis. Tracy balloon within the bladder is noted as well as gas. No acute lumbar spine fracture is noted. Old mild L3 compression deformity is unchanged. There is an acute comminuted minimally displaced fracture of the left inferior pubic ramus. No acute proximal femoral fracture is present. A small amount of intramuscular hemorrhage within the left adductor muscles is suspected. There is also a partially visualized intramuscular hematoma within the left gluteus alexey which measures at least 5 cm in extent. 3 cm infrarenal abdominal aortic aneurysm is noted. This measured 2.7 cm in caliber on CT of March 21, 2019. There is extensive atherosclerotic plaque. There is no lymphadenopathy. IMPRESSION: 1. No evidence for traumatic injury to the solid abdominal viscera on this unenhanced exam. 2. Acute comminuted minimally displaced fracture of the left inferior pubic ramus. 3. Moderate intramuscular hemorrhage within the left gluteus alexey, partially imaged on this exam. Small amount of suspected hemorrhage within the left adductor muscles. 4. 3 cm infrarenal abdominal aortic aneurysm. ACT 112: Negative or not required by law. Electronically signed by: William Holt M.D. 04/15/2021 7:[address] 04/15/21 00:57 CT OF THE CERVICAL SPINE WITHOUT CONTRAST CLINICAL HISTORY: Trauma COMPARISON STUDY: CTA of the neck September 23, 2014. TECHNIQUE: Helical axial images of the cervical spine were obtained without IV contrast. Sagittal and coronal reconstructions were viewed. Automated exposure control was utilized for the study. A dose lowering technique was utilized adhering to the principles of ALARA. FINDINGS: Anterolisthesis of C3 on C4 and C4 and C5 is unchanged since prior CT of September 23, 2014. Vertebral body heights are maintained. No acute cervical spine fracture or subluxation is present. There is no prevertebral edema. Facet joints are intact. There is severe multilevel disc space narrowing. Moderate multilevel facet arthrosis is present. IMPRESSION: No acute cervical spine fracture or subluxation. ACT 112: Negative or not required by law. Electronically signed by: William Holt M.D. 04/15/2021 7:[address] 04/15/21 00:57 CT head/brain wo con CLINICAL HISTORY: Status post fall with trauma to the left side and back of the head. COMPARISON STUDY: 02/04/2015 CT DOSE: TECHNIQUE: Standard CT of the Brain was performed without IV contrast. A dose lowering technique was utilized adhering to the principles of ALARA. FINDINGS: Extraaxial space: There is no evidence for subdural hematoma. There are no extra-axial fluid collections. 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 Ventricles and cisterns: The ventricles are mildly dilated bilaterally. There is no evidence for midline shift or mass effect. Parenchyma: There is no subarachnoid or intraparenchymal hemorrhage. There is no evidence for an acute infarct or cerebral edema. There is mild cerebral cortical atrophy and decreased attenuation in the periventricular white matter representing remote small vessel disease. There are no gross mass lesions. Osseous structures: There is no evidence for an acute fracture. The visualized paranasal sinuses are clear. The mastoid air cells are clear bilaterally. Soft tissues: There is a small subgaleal hematoma posteriorly. IMPRESSION: No acute intracerebral pathology. Cerebral cortical atrophy and remote small vessel disease. Small subgaleal hematoma posteriorly. ACT 112: Negative or not required by law. Electronically signed by: Axel Vo M.D. 04/15/2021 7:52 AM Chest X-Ray 04/15/21 04:19 XR chest 1V portable CLINICAL HISTORY: Renal failure. COMPARISON STUDY: Chest CT August 07, 2018. Chest radiograph March 21, 2019. FINDINGS: Lung volumes are normal. Lungs are clear. There is no pneumothorax or pleural effusion. Cardiomegaly is unchanged. Mediastinal contours are normal. There is no evidence for pulmonary edema. IMPRESSION: No acute cardiopulmonary findings. Stable cardiomegaly. ACT 112: Negative or not required by law. Electronically signed by: William Holt M.D. 04/15/2021 6:45 AM Discharge Plan Visit Data Chief Complaint: Fall Stated Complaint: FALL Discharge Problem: Fall, Closed fracture of inferior pubic ramus Patient Disposition: Admitted As Inpatient Discharge Instructions Interventions: ED Discharge Assessment Last Done: 04/15/21 05:40 Discharge Problem: Fall Qualifiers: Encounter type: initial encounter Qualified Code(s): W19.XXXA - Unspecified f all, initial encounter Closed fracture of inferior pubic ramus Qualifiers: Encounter type: initial encounter Laterality: left Qualified Code(s): S32.592A - Other specified fracture of left pubis, initial encounter for closed fracture
[2021-04-15] MEDS: AMIODARONE 200 MG TAB PO SCH (08:41)
[2021-04-15] MEDS: predniSONE 2.5 MG TAB PO SCH (08:46)
[2021-04-15] MEDS: LORATADINE 10 MG TAB PO SCH (08:46)
[2021-04-15] MEDS: PANTOprazole 40 MG TAB PO SCH ×2 (08:46→20:50)
[2021-04-15] MEDS ORDERED: amLODIPine BESYLATE 5 MG TAB PO SCH (09:00)
[2021-04-15] MEDS ORDERED: INSULIN GLARGINE SOLOSTAR 100 UNITS/ML 3 ML PEN SC SCH (09:00)
--- NOTE | 2021-04-15 11:08 | Orthopedic Consultation ---
Date of Consultation April 15, 2021 Assessment & Plan (1) Inferior pubic ramus fracture: 89-year-old female with left inferior pubic ramus fracture along with multiple hematomas after a fall at home. Inferior pubic ramus fracture appears stable. Also noted was a larger hematoma in the gluteus alexey approximately 5 cm in width. Lesser hematoma noted around the abductors. I will discussed the case with Dr. Emery and reviewed the films with him as well. Plan for weightbearing as tolerated on the left lower extremity with walker. Vitamin K has been given to bring her INR down. Increase her activity as tolerated starting tomorrow. Consider repeat CT scan in the next day or so if patient is having worsening pain in the left buttock to make sure hematoma is not enlarging. History of Present Illness Reason for Consultation: Left inferior pubic ramus fracture Attending Physician: Aldo Mckinley MD History of Present Illness Patient is an 89-year-old female with past medical history of CAD/CVA as per records, HTN, hyperlipidemia,A. fib, hx PE/DVT on Coumadin, depression, carotid artery stenosis L sp surgery (09/2014),DM2 diet-controlled, CRI (baseline creatinine 1.5), polymyalgia rheumatica on steroid tx,ambulatory dysfunction, history of skin cancer as per records, past tobacco abuse. Patient states that she was trying to hit a small bug off the top of her television set when she lost her balance. She fell to the floor onto her left side. She had moderate pain in her left hip and groin. She had difficulty ambulating. She denies any shortness of breath, chest pain, lightheadedness prior to or after the fall. She did hit her head during the fall but denies losing consciousness. Patient states that she lives alone and has been able to take care of her self up until this point in time. She was brought to the emergency room and seen by the staff. X-rays were taken and was found that she had a left inferior pubic ramus fracture that was minimally comminuted and displaced. She also had a noted hematoma in her gluteus alexey that was about 5 cm. She states that she does h ave pain over the portion of the left side of her body from the fall. As noted, the patient is on Coumadin and INR was 2.1 on admission. She has been given vitamin K to help bring this down. We have been asked to see her for her pubic ramus fracture. Allergies Allergy/AdvReac Type Severity Reaction Status Date / Time apixaban [From Eliquis] Allergy Severe pain in Verified 04/15/21 01:38 bones amoxicillin Allergy Unknown RASH,HIVES Verified 04/15/21 01:38 cefaclor Allergy Unknown RASH, HIVES Verified 04/15/21 01:38 levofloxacin Allergy Unknown hives Verified 04/15/21 01:38 atorvastatin AdvReac Severe AFFECTS Verified 04/15/21 01:38 LIVER lisinopril AdvReac Severe AFFECTS Verified 04/15/21 01:38 LIVER ENZYMES citalopram AdvReac Intermediate "WILD Verified 04/15/21 01:38 DREAMS" enoxaparin AdvReac Unknown FACIAL Verified 04/15/21 01:38 SWELLING, FLUSHING, ELEVATED BP omeprazole AdvReac Unknown blurred Verified 04/15/21 01:38 vision, headache, flashing lights Home Medications Medication Instructions Recorded Confirmed Type Lactobacillus acidoph-L.bulgaricus 1 tab PO HS 10/18/18 04/15/21 History 1 million cell tablet (Floranex) atorvastatin 20 mg tablet 20 mg PO HS 10/18/18 04/15/21 History carvedilol 3.125 mg tablet 3.125 mg PO BID 10/18/18 04/15/21 History cholecalciferol (vitamin D3) 25 1,000 unit PO QAM 10/18/18 04/15/21 History mcg (1,000 unit) tablet (Vitamin D3) clopidogrel 75 mg tablet 75 mg PO QAM 10/18/18 04/15/21 History glucosamine sulfate 500 mg tablet 1,000 mg PO QAM 10/18/18 04/15/21 History (Glucosamine) loratadine 10 mg tablet 10 mg PO QAM 10/18/18 04/15/21 History magnesium oxide 400 mg PO QAM 10/18/18 04/15/21 History nitroglycerin 0.4 mg sublingual 0.4 mg SUBLINGUAL UD PRN 10/18/18 04/15/21 Histo ry tablet (Nitrostat) omega 3 350 mg-dha 235 mg-epa 90 1 cap PO QAM 10/18/18 04/15/21 History mg-fish oil 597 mg capsule,delay rel ([place]-3) pantoprazole 40 mg tablet,delayed 40 mg PO BID 10/18/18 04/15/21 History release prednisone 5 mg tablet 7.5 mg PO QAM 10/18/18 04/15/21 History warfarin 5 mg tablet 5 mg PO UD 10/18/18 04/15/21 History amiodarone 100 mg tablet 100 mg PO DAILY 04/15/21 04/15/21 History amlodipine 2.5 mg tablet 2.5 mg PO DAILY 04/15/21 04/15/21 History furosemide 20 mg tablet 20 mg PO Q OTHER DAY 04/15/21 04/15/21 History furosemide 20 mg tablet 40 mg PO Q OTHER DAY 04/15/21 04/15/21 History iron,carbonyl 65 mg-vitamin C 125 1 tab PO DAILY 04/15/21 04/15/21 History mg tablet,delayed release (Vitron-C) Patient History Medical History MANAV (acute kidney injury) Carotid arterial disease "s/p left CEA, september 2014" Cerebrovascular disease CKD (chronic kidney disease), stage III Coronary artery disease Dyslipidemia History of DVT (deep vein thrombosis) "2013" History of pulmonary embolism "2013" Hypertension Polymyalgia rheumatica Pre-diabetes TIA (transient ischemic attack) Surgical History H/O dilation and curettage S/P appendectomy S/P laparoscopic cholecystectomy (12/03/13) S/P tubal ligation Family History Other Family history non-contributory Social History Smoking Status: Former smoker Hx Alcohol Use: No Hx Substance Use: No Preferred Language: Khmer Communication Ability: Effective [employer] Registrar Required: Yes Beliefs That Will Affect Care: None marital status: / Current Living Situation: Alone Other Information That Helps Us Care for You: No Feels Safe at Home: Yes Safety Concerns: Feels Safe At This Time Assistive Devices: Glasses Physical Exam Physical Exam: On examination, the patient is an 89-year-old obese white female. She is awake and alert. Oriented x3. No acute distress, pleasant cooperative. On examination of her left lower extremity, leg lengths appear equal. She complains of discomfort over the lateral aspect of her hip and also in her left buttock. She also complains of lateral ankle pain. On examination of the left ankle she has some mild swelling noted over the lateral malleolus. She does have some mild tenderness on palpation over this area but does not have any pain in the ankle with range of motion of the left foot actively or passively. She has mild tenderness over the anterior portion of her tibia which she states is her normal. She has no calf tenderness at this time. No overt thigh pain on palpation but the lateral hip does have some mild tenderness. She is mild to moderately tender over the left buttock. Patient has difficulty rolling onto her right side to examine the left buttock but I cannot appreciate any ecchymotic areas at this time. Gentle passive flexion of the left hip causes her moderate pain in the groin itself. She has limited internal and external rotation and abduction secondary to the pain in her groin. She has no overt complaints of the right lower extremity at this time. Upper extremities shows some small ecchymotic areas over her left shoulder which are tender on palpation. She does have good active range of motion of her left shoulder at this time without increased pain. Denies pain in the elbows or wrists. No gross motor or sensory loss at this time. Results & Data ([facility]) Vital Signs (Past 12 Hours) Vital Signs Temp Pulse Pulse Resp BP BP Pulse Ox 04/15/21 06:32 65 16 103/62 100 04/15/21 05:52 69 16 183/70 H 100 04/15/21 04:55 76 16 184/94 H 98 04/15/21 03:48 75 16 165/102 H 100 04/15/21 02:16 77 16 137/85 90 04/15/21 01:05 92 04/15/21 00:53 36.6 C 80 16 190/87 H 92 Laboratory Results Laboratory Results WBC 9.34 K/uL (4.8-10.8) 04/15/21 00:58 RBC 4.63 M/uL (4.2-5.4) 04/15/21 00:58 Hgb 11.9 g/dL (12.0-16.0) L 04/15/21 05:47 Hct 37.8 % (37-47) 04/15/21 05:47 MCV 93.3 fL (80-100) 04/15/21 00:58 MCH 29.4 pg (25-34) 04/15/21 00:58 MCHC 31.5 g/dL (32-36) L 04/15/21 00:58 RDW Std Deviation 54.9 fL (36.4-46.3) H 04/15/21 00:58 RDW Coeff of [place] 16.0 % (11.5-14.5) H 04/15/21 00:58 Plt Count 221 K/uL (130-400) 04/15/21 00:58 MPV 10.8 fL (7.4-10.4) H 04/15/21 00:58 Immature Gran % (Auto) 0.2 % 04/15/21 00:58 Neut % (Auto) 74.4 % 04/15/21 00:58 Lymph % (Auto) 14.3 % 04/15/21 00:58 [place] % (Auto) 7.8 % 04/15/21 00:58 Eos % (Auto) 3.2 % 04/15/21 00:58 Baso % (Auto) 0.1 % 04/15/21 00:58 Neut # (Auto) 6.94 K/uL (1.4-6.5) H 04/15/21 00:58 Lymph # (Auto) 1.34 K/uL (1.2-3.4) 04/15/21 00:58 [place] # (Auto) 0.73 K/uL (0.11-0.59) H 04/15/21 00:58 Eos # (Auto) 0.30 K/uL (0-0.5) 04/15/21 00:58 Baso # (Auto) 0.01 K/uL (0-0.2) 04/15/21 00:58 Immature Gran # (Auto) 0.02 K/uL (0.00-0.02) 04/15/21 00:58 PT 20.5 Seconds (9.0-12.0) H 04/15/21 00:58 INR 2.1 (0.9-1.1) H 04/15/21 00:58 Sodium 139 mmol/L (136-145) 04/15/21 00:58 Potassium 4.5 mmol/L (3.5-5.1) 04/15/21 00:58 Chloride 100 mmol/L (98-107) 04/15/21 00:58 Carbon Dioxide 30 mmol/L (21-32) 04/15/21 00:58 Anion Gap 9 (3-11) 04/15/21 00:58 BUN 48 mg/dl (6-23) H 04/15/21 00:58 Creatinine 1.98 mg/dl (0.6-1.2) H 04/15/21 00:58 Est Cr Clr Drug Dosing 19.8 ml/min 04/15/21 00:58 Est GFR ( Amer) 25.5 ml/min 04/15/21 00:58 Est GFR (Non-Af Amer) 22.0 ml/min 04/15/21 00:58 BUN/Creatinine Ratio 24.2 (10-20) H 04/15/21 00:58 Glucose 140 mg/dl (70-99) H 04/15/21 00:58 POC Glucose 101 mg/dl (70-99) H 04/15/21 08:54 Estimat Average Glucose 146 mg/dl 04/15/21 00:58 Hemoglobin A1c 6.7 % (4.5-5.6) H 04/15/21 00:58 Calcium 8.9 mg/dl (8.5-10.1) 04/15/21 00:58 Magnesium 1.7 mg/dl (1.7-2.4) 04/15/21 00:58 Total Bilirubin 0.7 mg/dl (0.2-1.0) 04/15/21 00:58 AST 19 U/L (13-39) 04/15/21 00:58 ALT 15 U/L (7-52) 04/15/21 00:58 Alkaline Phosphatase 49 U/L (34-104) 04/15/21 00:58 Total Creatine Kinase 130 U/L (26-192) 04/15/21 05:47 Troponin I 0.03 ng/ml (0-0.04) 04/15/21 00:58 Total Protein 7.0 gm/dl (6.0-8.3) 04/15/21 00:58 Albumin 3.8 gm/dl (3.4-5.0) 04/15/21 00:58 Globulin 3.2 gm/dl (2.5-4.0) 04/15/21 00:58 Albumin/Globulin Ratio 1.2 (0.9-2) 04/15/21 00:58 Urine Color Yellow 04/15/21 00:13 Urine Appearance Clear (Clear) 04/15/21 00:13 Urine pH 6.0 (4.5-7.5) 04/15/21 00:13 Ur Specific [place] 1.010 (1.000-1.030) 04/15/21 00:13 Urine Protein 1+ (Negative) H 04/15/21 00:13 Urine Glucose (UA) Negative (Negative) 04/15/21 00:13 Urine Ketones Negative (Negative) 04/15/21 00:13 Urine Blood Trace (Negative) H 04/15/21 00:13 Urine Nitrite Negative (Negative) 04/15/21 00:13 Urine Bilirubin Negative (Negative) 04/15/21 00:13 Urine Urobilinogen Negative (Negative) 04/15/21 00:13 Ur Leukocyte Esterase Trace (Negative) H 04/15/21 00:13 Urine WBC (Auto) 10-30 /hpf (0-5) H 04/15/21 00:13 Urine RBC (Auto) 0-4 /hpf (0-4) 04/15/21 00:13 U Hyaline Cast (Auto) 1-5 /lpf (0-5) 04/15/21 00:13 U Epithel Cells (Auto) 5-10 /lpf (0-5) H 04/15/21 00:13 Urine Bacteria (Auto) Negative (Negative) 04/15/21 00:13 SARS-CoV-2, RNA, NAAT NEGATIVE (NEGATIVE) 04/15/21 04:24 Blood Type A Positive 04/15/21 05:47 Antibody Screen NEGATIVE 04/15/21 05:47 Impressions Abdomen/Pelvis CT 04/15/21 00:57 CT OF THE ABDOMEN AND PELVIS WITHOUT CONTRAST CLINICAL HISTORY: Trauma - left hip/pelvis COMPARISON STUDY: CT of the abdomen and pelvis March 21, 2019. TECHNIQUE: Axial images of the abdomen and pelvis were obtained without IV contrast. Images were reviewed in the axial, sagittal, and coronal planes. Automated exposure control was utilized for the study. A dose lowering technique was utilized adhering to the principles of ALARA. FINDINGS: Lung bases are unremarkable. There is cardiomegaly. Small hiatal hernia is present. A few hepatic lesions are unchanged since exam March 21, 2018. These favor cysts. There is no biliary ductal dilatation status post cholecystectomy. Mild right and marked left renal cortical thinning is noted. There is no hydronephrosis. Unenhanced images of the spleen, adrenal glands and pancreas are unremarkable. Evaluation of the solid abdominal viscera is suboptimal on this unenhanced exam but there is no evidence for traumatic injury to the solid abdominal viscera. There is no evidence for a bowel obstruction. Colonic diverticulosis is noted without evidence for acute diverticulitis. Tracy balloon within the bladder is noted as well as gas. No acute lumbar spine fra cture is noted. Old mild L3 compression deformity is unchanged. There is an acute comminuted minimally displaced fracture of the left inferior pubic ramus. No acute proximal femoral fracture is present. A small amount of intramuscular hemorrhage within the left adductor muscles is suspected. There is also a partially visualized intramuscular hematoma within the left gluteus alexey which measures at least 5 cm in extent. 3 cm infrarenal abdominal aortic aneurysm is noted. This measured 2.7 cm in caliber on CT of March 21, 2019. There is extensive atherosclerotic plaque. There is no lymphadenopathy. IMPRESSION: 1. No evidence for traumatic injury to the solid abdominal viscera on this unenhanced exam. 2. Acute comminuted minimally displaced fracture of the left inferior pubic clara us. 3. Moderate intramuscular hemorrhage within the left gluteus alexey, partially imaged on this exam. Small amount of suspected hemorrhage within the left adductor muscles. 4. 3 cm infrarenal abdominal aortic aneurysm. ACT 112: Negative or not required by law. Electronically signed by: Wililam Holt M.D. 04/15/2021 7:[address] 04/15/21 00:57 CT OF THE CERVICAL SPINE WITHOUT CONTRAST CLINICAL HISTORY: Trauma COMPARISON STUDY: CTA of the neck September 23, 2014. TECHNIQUE: Helical axial images of the cervical spine were obtained without IV contrast. Sagittal and coronal reconstructions were viewed. Automated exposure control was utilized for the study. A dose lowering technique was utilized adhering to the principles of ALARA. FINDINGS: Anterolisthesis of C3 on C4 and C4 and C5 is unchanged since prior CT of September 23, 2014. Vertebral body heights are maintained. No acute cervical spine fracture or subluxation is present. There is no prevertebral edema. Facet joints are intact. There is severe multilevel disc space narrowing. Moderate multilevel facet arthrosis is present. IMPRESSION: No acute cervical spine fracture or subluxation. ACT 112: Negative or not required by law.
--- NOTE | 2021-04-15 13:26 | Cardiology Consultation ---
Date of Consultation April 15, 2021 Assessment & Plan (1) Asymptomatic hypertensive urgency: (2) Inferior pubic ramus fracture: 89-year-old female with history of coronary heart disease and paroxysmal atrial fibrillation noted in 2018. In sinus rhythm today, on chronic carvedilol and low-dose amiodarone. Blood pressure elevated on initial presentation, but much improved at present and patient is comfortable. Continue prior to hospital treatment with amlodipine, carvedilol. Agree with holding furosemide. She is in sinus rhythm. Continue amiodarone and Coreg. Agree with holding Coumadin given fall, with head trauma, buttock trauma. At this point, the risks of ongoing anticoagulation may outweigh the benefits. She is also on chronic clopidogrel due to her history of coronary heart disease, stroke. Holding clopidogrel for now, but will likely reinitiate at discharge. History of Present Illness Attending Physician: Aldo Mckinley MD History of Present Illness Michelle Back is an 89-year-old female seen in cardiology consultation per the request of Dr. Yun for the evaluation of hypertension and paroxysmal atrial fibrillation. The patient was admitted overnight last night after a mechanical fall. She has a significant left buttock hematoma, and has suffered a pelvic fracture. She is seen as a hold in the emergency department, room B 9. She remains in sinus rhythm in the 60s on telemetry. She lives at home independently. Upon arrival to the emergency room she had several high systolic blood pressure readings in the 180s to 190s. Now that she has settled in and she is comfortable, her most recent blood pressures significantly improved and 159/77. Problem List: 1. Chronic coronary heart disease with previous remote PCI to the circumflex and right coronary artery territories 2. Symptomatic paroxysmal atrial fibrillation, first noted Aug, 2018, admitted to [facility] at that time treated with carvedilol, amiodarone, warfarin ,[id number] 7 points. 3. Chronic diastolic heart failure 4. History of TIA/CVA 5. Dyslipidemia 6. Remote pulmonary embolism 7. Recurrent upper gastrointestinal bleeding November and March,, with ch ronic iron deficiency anemia Allergies Allergy/AdvReac Type Severity Reaction Status Date / Time apixaban [From Eliquis] Allergy Severe pain in Verified 04/15/21 01:38 bones amoxicillin Allergy Unknown RASH,HIVES Verified 04/15/21 01:38 cefaclor Allergy Unknown RASH, HIVES Verified 04/15/21 01:38 levofloxacin Allergy Unknown hives Verified 04/15/21 01:38 atorvastatin AdvReac Severe AFFECTS Verified 04/15/21 01:38 LIVER lisinopril AdvReac Severe AFFECTS Verified 04/15/21 01:38 LIVER ENZYMES citalopram AdvReac Intermediate "WILD Verified 04/15/21 01:38 DREAMS" enoxaparin AdvReac Unknown FACIAL Verified 04/15/21 01:38 SWELLING, FLUSHING, ELEVATED BP omeprazole AdvReac Unknown blurred Verified 04/15/21 01:38 vision, headache, flashing lights Home Medications Medication Instructions Recorded Confirmed Type Lactobacillus acidoph-L.bulgaricus 1 tab PO HS 10/18/18 04/15/21 History 1 million cell tablet (Floranex) atorvastatin 20 mg tablet 20 mg PO HS 10/18/18 04/15/21 History carvedilol 3.125 mg tablet 3.125 mg PO BID 10/18/18 04/15/21 History cholecalciferol (vitamin D3) 25 1,000 unit PO QA 10/18/18 04/15/21 History mcg (1,000 unit) tablet (Vitamin D3) clopidogrel 75 mg tablet 75 mg PO QAM 10/18/18 04/15/21 History glucosamine sulfate 500 mg tablet 1,000 mg PO QAM 10/18/18 04/15/21 History (Glucosamine) loratadine 10 mg tablet 10 mg PO QAM 10/18/18 04/15/21 History magnesium oxide 400 mg PO QAM 10/18/18 04/15/21 History nitroglycerin 0.4 mg sublingual 0.4 mg SUBLINGUAL UD PRN 10/18/18 04/15/21 History tablet (Nitrostat) omega 3 350 mg-dha 235 mg-epa 90 1 cap PO QAM 10/18/18 04/15/21 History mg-fish oil 597 mg capsule,delay rel ([place]-3) pantoprazole 40 mg tablet,delayed 40 mg PO BID 10/18/18 04/15/21 History release prednisone 5 mg tablet 7.5 mg PO QAM 10/18/18 04/15/21 History warfarin 5 mg tablet 5 mg PO UD 10/18/18 04/15/21 History amiodarone 100 mg tablet 100 mg PO DAILY 04/15/21 04/15/21 History amlodipine 2.5 mg tablet 2.5 mg PO DAILY 04/15/21 04/15/21 History furosemide 20 mg tablet 20 mg PO Q OTHER DAY 04/15/21 04/15/21 History furosemide 20 mg tablet 40 mg PO Q OTHER DAY 04/15/21 04/15/21 History iron,carbonyl 65 mg-vitamin C 125 1 tab PO DAILY 04/15/21 04/15/21 History mg tablet,delayed release (Vitron-C) Patient History Medical History MANAV (acute kidney injury) Carotid arterial disease "s/p left CEA, september 2014" Cerebrovascular disease CKD (chronic kidney disease), stage III Coronary artery disease Dyslipidemia History of DVT (deep vein thrombosis) "2013" History of pulmonary embolism "2013" Hypertension Polymyalgia rheumatica Pre-diabetes TIA (transient ischemic attack) Surgical History H/O dilation and curettage S/P appendectomy S/P laparoscopic cholecystectomy (12/03/13) S/P tubal ligation Family History Other Family history non-contributory Social History Smoking Status: Former smoker Hx Alcohol Use: No Hx Substance Use: No Preferred Language: Austrian Communication Ability: Effective [employer] Supervisor Required: Yes Beliefs That Will Affect Care: None marital status: / Current Living Situation: Alone Other Information That Helps Us Care for You: No Feels Safe at Home: Yes Safety Concerns: Feels Safe At This Time Assistive Devices: Glasses Review of Systems Review of Systems: All systems reviewed & are unremarkable except as noted in HPI & below Physical Exam Physical Exam: Temp Pulse Resp BP Pulse Ox 36.6 C 69 18 159/77 H 95 04/15/21 00:53 04/15/21 11:00 04/15/21 11:00 04/15/21 11:00 04/15/21 11:00 Constitutional: WD/WN, vitals as above Respiratory: normal respiratory effort, lungs clear to auscultation Cardiovascular: RRR, no murmur, no edema Musculoskeletal: Ecchymosis over left buttock, left lower extremity rotated laterally Neurologic: Conversant, no focal deficits Results & Data ([facility]) Laboratory Results Cardiac Enzymes 04/15/21 Range/Units 00:58 AST 19 (13-39) U/L Troponin I 0.03 (0-0.04) ng/ml Coagulation 04/15/21 Range/Units 00:58 PT 20.5 H (9.0-12.0) Seconds CBC 04/15/21 04/15/21 Range/Units 00:58 05:47 WBC 9.34 (4.8-10.8) K/uL RBC 4.63 (4.2-5.4) M/uL Hgb 13.6 11.9 L (12.0-16.0) g/dL Hct 43.2 37.8 (37-47) % Plt Count 221 (130-400) K/uL Neut # (Auto) 6.94 H (1.4-6.5) K/uL Lymph # (Auto) 1.34 (1.2-3.4) K/uL [place] # (Auto) 0.73 H (0.11-0.59) K/uL Eos # (Auto) 0.30 (0-0.5) K/uL Baso # (Auto) 0.01 (0-0.2) K/uL Comprehensive Metabolic Panel 04/15/21 Range/Units 00:58 Sodium 139 (136-145) mmol/L Potassium 4.5 (3.5-5.1) mmol/L Chloride 100 (98-107) mmol/L Carbon Dioxide 30 (21-32) mmol/L BUN 48 H (6-23) mg/dl Creatinine 1.98 H (0.6-1.2) mg/dl Glucose 140 H (70-99) mg/dl Calcium 8.9 (8.5-10.1) mg/dl AST 19 (13-39) U/L ALT 15 (7-52) U/L Alkaline Phosphatase 49 (34-104) U/L Total Protein 7.0 (6.0-8.3) gm/dl Albumin 3.8 (3.4-5.0) gm/dl Intake and Output 04/14/21 04/15/21 04/15/21 22:59 06:59 14:59 Intake Total 500 / 500 Balance 500 / 500 Intake: IV 500 / 500 Sodium Chloride 0.9% 500 ml @ 500 / 500 999 mls/hr IV .Q31M ONE Rx#: [id number] Other: Weight 81.4 kg Weight Measurement Method Built in [facility] Diagnostic Findings EKG 04/15/2021 and reviewed independently: Sinus rhythm 82 bpm with right bundle branch block, stable findings with chronic right bundle branch block and chronic repolarization changes. Summary of radiology report: CT head No acute intracerebral pathology. Cerebral cortical atrophy and remote small vessel disease. Small subgaleal hematoma posteriorly. Summary of radiology report of CT abdomen and pelvis: Acute comminuted minimally displaced fracture of the left inferior pubic ramus Moderate intramuscular hemorrhage within the left gluteus alexey extending to the left abductor muscles -3 cm infrarenal abdominal aortic aneurysm
--- NOTE | 2021-04-15 17:14 | Hospitalist Progress Note ---
Date of Service April 15, 2021 Assessment & Plan (1) Asymptomatic hypertensive urgency: Plan: Traumatic scalp hematoma/left gluteus muscle hematoma In the setting of Coumadin coagulopathy H/O Recurrent falls/ambulatory dysfunction Traumatic pelvic fracture -CT Head:No acute intracerebral pathology. Cerebral cortical atrophy and remote small vessel disease. Small subgaleal hematoma posteriorly. -CT ABD:Acute comminuted minimally displaced fracture of the left inferior pubic ramus. Moderate intramuscular hemorrhage within the left gluteus alexey, partially imaged on this exam. Small amount of suspected hemorrhage within the left adductor muscles. Plavix, Coumadin held S/P vitamin K Pain control Monitor CBC Appreciate orthopedics input Weightbearing as tolerated of the left lower extremity with walker Consider repeat CT as recommended by Ortho PT OT Fall precautions Abnormal urinalysis Follow-up urine culture No plan to start antibiotics for now Acute kidney injury on CKD stage III Cr:1.9 Diuretics held Monitor renal function Avoid nephrotoxic agents Received IV fluids H/O P.Afib H/O PE/DVT Continue amiodarone, carvedilol Hold Coumadin for now Appreciate cardiology input CAD/CVA/PVD S/P surgery Plan to resume Plavix as able Continue atorvastatin DM II diet-controlled HbA1c 6.7 Continue insulin therapy while hospitalized Monitor blood glucose Polymyalgia rheumatica on Prednisone DVT Px: SCDs Code Status Full code Admission and Anticipated Discharge Date Admission Date: April 15, 2021 Subjective Patient is seen and examined at bedside States having pain in her pelvic region with movement Denies any headache, change in vision, nausea, neck pain, chest pain, shortness of breath Offers no other complaints Review of Systems Review of Systems: All systems reviewed & are unremarkable except as noted in Subjective Physical Exam Physical Exam: Physical Exam: Vitals signs as noted above General Appearance:Moderately built and nourished, no apparent distress Head: normocephalic, +traumatic, scalp hematoma Eyes: normal inspection, EOMI Neck: supple, Trachea midline Respiratory/Chest: Normal breath sounds, CTA, No accessory muscle use Cardiovascular: S1, S2, No murmur Abdomen/GI:Soft, Non tender, Bowel sounds present Extremities/Musculoskeletal:normal inspection, Trace edema, +LLE Ecchymosis, Decreased ROM due to pain Neurologic/Psych:AAOX3, Complete neuro exam could not be performed Skin: normal color, warm Results & Data Results & Data ([facility]) Vital Signs (Past 12 Hours) Vital Signs Temp Pulse Resp BP Pulse Ox 04/15/21 16:18 36.6 C 72 16 166/73 H 90 04/15/21 15:00 68 17 106/52 L 100 04/15/21 11:00 69 18 159/77 H 95 04/15/21 06:32 65 16 103/62 100 04/15/21 05:52 69 16 183/70 H 100 Laboratory Results Short CBC 04/15/21 04/15/21 Range/Units 00:58 05:47 WBC 9.34 (4.8-10.8) K/uL Hgb 13.6 11.9 L (12.0-16.0) g/dL Hct 43.2 37.8 (37-47) % Plt Count 221 (130-400) K/uL BMP 04/15/21 00:58 Sodium 139 Potassium 4.5 Chloride 100 Carbon Dioxide 30 BUN 48 H Creatinine 1.98 H Glucose 140 H Calcium 8.9 Cardiac Enzymes 04/15/21 04/15/21 Range/Units 00:58 05:47 Total Creatine Kinase 150 130 (26-192) U/L Troponin I 0.03 (0-0.04) ng/ml Liver Function 04/15/21 Range/Units 00:58 Total Bilirubin 0.7 (0.2-1.0) mg/dl AST 19 (13-39) U/L ALT 15 (7-52) U/L Alkaline Phosphatase 49 (34-104) U/L Albumin 3.8 (3.4-5.0) gm/dl Urine 04/15/21 Range/Units 00:13 Urine Color Yellow Urine Appearance Clear (Clear) Urine pH 6.0 (4.5-7.5) Ur Specific [place] 1.010 (1.000-1.030) Urine Protein 1+ H (Negative) Urine Glucose (UA) Negative (Negative)
--- NOTE | 2021-04-15 18:21 | Electrocardiogram Report ---
Test Reason : Blood Pressure : / mmHG Vent. Rate : 082 BPM Atrial Rate : 082 BPM P-R Int : 154 ms QRS Dur : 138 ms QT Int : 438 ms P-R-T Axes : 065 237 070 degrees QTc Int : 511 ms Poor data quality, interpretation may be adversely affected Normal sinus rhythm Right bundle branch block Abnormal ECG When compared with ECG of 21-MAR-2019 21:10, QRS axis Shifted left Otherwise no significant change Confirmed by Reinaldo Guillermo ([id number]) on 04/15/2021 6:21:07 PM Referred By: REFERRED SELF Confirmed By:Reinaldo Guillermo
[2021-04-15] MEDS: carvediloL 3.125 MG TAB PO SCH (20:51)
[2021-04-15] MEDS: ATORVASTATIN 20 MG TAB PO SCH (20:51)
[2021-04-15] MEDS: INSULIN GLARGINE SOLOSTAR 100 UNITS/ML 3 ML PEN SC SCH (20:54)
[2021-04-16] MEDS: amLODIPine BESYLATE 5 MG TAB PO SCH (04:52)
[2021-04-16 07:21] LABS: Basophils # (auto) 0.02 K/uL (0-0.2); Basophils % (auto) 0.3 %; Eosinophils # (auto) 0.35 K/uL (0-0.5); Hematocrit (blood only) 38.1 % (37-47); Hemoglobin 11.8 g/dL (12.0-16.0); Immature Granulocytes # (auto) 0.01 K/uL (0.00-0.02); Immature Granulocytes % (auto) 0.1 %; Lymphocytes # (auto) 1.33 K/uL (1.2-3.4); Lymphocytes % (auto) 19.1 %; Mean Corpuscular Hemoglobin 29.6 pg (25-34); Mean Corpuscular Volume 95.5 fL (80-100); Mean Platelet Volume 10.8 fL (7.4-10.4); Monocytes # (auto) 0.71 K/uL (0.11-0.59); Monocytes % (auto) 10.2 %; Neutrophils # (auto) 4.54 K/uL (1.4-6.5); Neutrophils % (auto) 65.3 %; Platelet Count 178 K/uL (130-400); RDW Coefficient of Variation 16.1 % (11.5-14.5); RDW Standard Deviation 56.5 fL (36.4-46.3); Red Blood Count 3.99 M/uL (4.2-5.4); White Blood Count 6.96 K/uL (4.8-10.8)
[2021-04-16 07:29] LABS: INR 1.4 (0.9-1.1); Prothrombin Time 13.5 Seconds (9.0-12.0)
[2021-04-16 07:43] LABS: BUN Creatinine Ratio 23.4 (10-20); Calcium 8.9 mg/dl (8.5-10.1); Creatinine Clr Calc Pharmacy 29.9 ml/min; Est GFR (African American) 43.2 ml/min; Est GFR (Non-African American) 37.3 ml/min; Potassium 4.3 mmol/L (3.5-5.1)
[2021-04-16] MEDS: INSULIN GLARGINE SOLOSTAR 100 UNITS/ML 3 ML PEN SC SCH ×2 (08:24→20:15)
[2021-04-16] MEDS: INSULIN ASPART PER UNIT SC SCH ×4 (08:24→20:15)
[2021-04-16] MEDS: LORATADINE 10 MG TAB PO SCH (08:41)
[2021-04-16] MEDS: AMIODARONE 200 MG TAB PO SCH (08:41)
[2021-04-16] MEDS: carvediloL 3.125 MG TAB PO SCH ×2 (08:41→20:14)
[2021-04-16] MEDS: PANTOprazole 40 MG TAB PO SCH ×2 (08:41→20:13)
[2021-04-16] MEDS: predniSONE 2.5 MG TAB PO SCH (08:41)
--- NOTE | 2021-04-16 12:22 | Cardiology Progress Note ---
Date of Service April 16, 2021 Assessment & Plan (1) Fall: (2) Closed fracture of inferior pubic ramus: (3) Hypertension: (4) Paroxysmal atrial fibrillation: Plan: BP improved. S/p mechanical fall. Large left gluteal hematoma in setting of therapeutic INR. Patient on Coumadin for episode of atrial fibrillation, noted in 2019. She is in sinus rhythm. Continue rhythm control strategy with amiodarone and carvedilol. Coumadin has been discontinued, and at this time, given head trauma, buttock trauma, hematoma, I think it is most reasonable to remain off of Coumadin. With regards to her history of TIA/past coronary heart disease, resume outpatient clopidogrel 04/17/2021. Admission and Anticipated Discharge Date Admission Date: April 15, 2021 Subjective Patient seen in follow up. No complaints. States she was assisted to stand on her right foot briefly yesterday and tolerate that well. Telemetry reveals SR in the 60s. Review of Systems Review of Systems: All systems reviewed & are unremarkable except as noted in HPI & below Physical Exam Physical Exam: Temp Pulse Resp BP Pulse Ox 36.5 C 62 15 96/56 L 96 04/16/21 10:46 04/16/21 10:46 04/16/21 10:46 04/16/21 10:46 04/16/21 10:46 Constitutional: no acute distress Respiratory: normal respiratory effort, lungs clear to auscultation Cardiovascular: Rate/Rhythm: regular rate and regular rhythm Heart Sounds: + murmur (1/6 SM) Extremities: no edema Gastrointestinal (Abdomen): normal bowel sounds, soft, nontender, no hepatosplenomegaly Neurologic: PERRL, EOMI, accommodation nl, no face palsy, no dysarthria Results & Data ([facility]) Vital Signs (Past 12 Hours) Vital Signs Temp Pulse Pulse Pulse Resp BP Pulse Ox 04/16/21 10:46 36.5 C 62 15 96/56 L 96 04/16/21 07:30 36.8 C 62 16 116/68 95 04/16/21 07:00 56 L 04/16/21 02:43 36.7 C 66 18 166/79 H 98 Laboratory Results Coagulation 04/16/21 Range/Units 06:50 PT 13.5 H (9.0-12.0) Seconds CBC 04/16/21 Range/Units 06:50 WBC 6.96 (4.8-10.8) K/uL RBC 3.99 L (4.2-5.4) M/uL Hgb 11.8 L (12.0-16.0) g/dL Hct 38.1 (37-47) % Plt Count 178 (130-400) K/uL Neut # (Auto) 4.54 (1.4-6.5) K/uL Lymph # (Auto) 1.33 (1.2-3.4) K/uL [place] # (Auto) 0.71 H (0.11-0.59) K/uL Eos # (Auto) 0.35 (0-0.5) K/uL Baso # (Auto) 0.02 (0-0.2) K/uL Comprehensive Metabolic Panel 04/16/21 Range/Units 06:50 Sodium 143 (136-145) mmol/L Potassium 4.3 (3.5-5.1) mmol/L Chloride 105 (98-107) mmol/L Carbon Dioxide 35 H (21-32) mmol/L BUN 30 H (6-23) mg/dl Creatinine 1.28 H D (0.6-1.2) mg/dl Glucose 79 (70-99) mg/dl Calcium 8.9 (8.5-10.1) mg/dl Intake and Output 04/15/21 04/16/21 04/16/21 22:59 06:59 14:59 Intake Total 100 / 300 200 / 300 270 / 270 Output Total 1800 / 2275 475 / 2275 Balance -1699 / -1974 - / -1974 270 / 270 Intake: Oral 100 / 300 200 / 300 270 / 270 Output: Urine Amount (Catheter) 1800 / 2275 475 / 2275 Tracy/Indwelling 1800 / 2275 475 / 2275 Other: Weight 77.1 kg (1) Fall Encounter type: initial encounter Qualified Code(s): W19.XXXA - Unspecified fall, initial encounter (2) Closed fracture of inferior pubic ramus Encounter type: initial encounter Laterality: left Qualified Code(s): S32.592A - Other specified fracture of left pubis, initial encounter for closed fracture
--- NOTE | 2021-04-16 16:35 | Hospitalist Progress Note ---
Date of Service April 16, 2021 Assessment & Plan (1) Asymptomatic hypertensive urgency: Plan: Traumatic scalp hematoma/left gluteus muscle hematoma In the setting of Coumadin coagulopathy H/O Recurrent falls/ambulatory dysfunction Traumatic pelvic fracture -CT Head:No acute intracerebral pathology. Cerebral cortical atrophy and remote small vessel disease. Small subgaleal hematoma posteriorly. -CT ABD:Acute comminuted minimally displaced fracture of the left inferior pubic ramus. Moderate intramuscular hemorrhage within the left gluteus alexey, partially imaged on this exam. Small amount of suspected hemorrhage within the left adductor muscles. Plavix, Coumadin held S/P vitamin K Pain control Monitor CBC Appreciate orthopedics input Weightbearing as tolerated of the left lower extremity with walker Consider repeat CT if needed Continue PT OT Fall precautions Needs follow-up with orthopedics upon discharge Abnormal urinalysis UTI ruled out urine culture Negative Acute kidney injury on CKD stage III Cr:1.9> 1.28 Diuretics held Monitor renal function Avoid nephrotoxic agents Received IV fluids Improved H/O P.Afib H/O PE/DVT Continue amiodarone, carvedilol No plan to resume anticoagulation Appreciate cardiology input CAD/CVA/PVD S/P surgery Plan to resume Plavix tomorrow if Hb stable Continue atorvastatin DM II diet-controlled HbA1c 6.7 Continue insulin therapy while hospitalized Monitor blood glucose Polymyalgia rheumatica on Prednisone DVT Px: SCDs Code Status Full code Admission and Anticipated Discharge Date Admission Date: April 15, 2021 Subjective Patient is seen and examined at bedside No new complaints Pain at pelvic region is controlled Denies any chest pain, shortness of breath, nausea, abd pain Discussed with Ortho today Review of Systems Review of Systems: All systems reviewed & are unremarkable except as noted in Subjective Physical Exam Physical Exam: Physical Exam: Vitals signs as noted above General Appearance:Moderately built and nourished, no apparent distress Head: normocephalic, +traumatic, scalp hematoma Eyes: normal inspection, EOMI Neck: supple, Trachea midline Respiratory/Chest: Normal breath sounds, CTA, No accessory muscle use Cardiovascular: S1, S2, No murmur Abdomen/GI:Soft, Non tender, Bowel sounds present Extremities/Musculoskeletal:normal inspection, Trace edema, +LLE Ecchymosis, Decreased ROM due to pain Neurologic/Psych:AAOX3, Complete neuro exam could not be performed Skin: normal color, warm Results & Data Results & Data ([facility]) Vital Signs (Past 12 Hours) Vital Signs Temp Pulse Pulse Pulse Resp BP BP 04/16/21 16:16 63 04/16/21 14:57 36.8 C 61 18 142/73 H 04/16/21 10:46 36.5 C 62 15 96/56 L 04/16/21 07:30 36.8 C 62 16 116/68 04/16/21 07:00 56 L Pulse Ox 04/16/21 16:16 04/16/21 14:57 97 04/16/21 10:46 96 04/16/21 07:30 95 04/16/21 07:00 Laboratory Results Short CBC 04/16/21 Range/Units 06:50 WBC 6.96 (4.8-10.8) K/uL Hgb 11.8 L (12.0-16.0) g/dL Hct 38.1 (37-47) % Plt Count 178 (130-400) K/uL BMP 04/16/21 06:50 Sodium 143 Potassium 4.3 Chloride 105 Carbon Dioxide 35 H BUN 30 H Creatinine 1.28 H D Glucose 79 Calcium 8.9
[2021-04-16] MEDS: ATORVASTATIN 20 MG TAB PO SCH (20:13)
[2021-04-17] MEDS: LORATADINE 10 MG TAB PO SCH (08:15)
[2021-04-17] MEDS: PANTOprazole 40 MG TAB PO SCH (08:15)
[2021-04-17] MEDS: predniSONE 2.5 MG TAB PO SCH (08:15)
[2021-04-17] MEDS: AMIODARONE 200 MG TAB PO SCH (08:15)
[2021-04-17] MEDS: amLODIPine BESYLATE 5 MG TAB PO SCH (08:16)
[2021-04-17] MEDS: carvediloL 3.125 MG TAB PO SCH (08:16)
[2021-04-17] MEDS ORDERED: CLOPIDOGREL BISULFATE 75 MG TAB PO SCH (09:00)
[2021-04-17] MEDS: INSULIN GLARGINE SOLOSTAR 100 UNITS/ML 3 ML PEN SC SCH (09:55)
[2021-04-17] MEDS: INSULIN ASPART PER UNIT SC SCH ×2 (09:55→12:50)
[2021-04-17 10:12] LABS: Hematocrit (blood only) 34.7 % (37-47); Hemoglobin 10.6 g/dL (12.0-16.0); Mean Corpuscular Hgb Conc 30.5 g/dL (32-36); Mean Corpuscular Volume 94.8 fL (80-100); Mean Platelet Volume 10.3 fL (7.4-10.4); Platelet Count 166 K/uL (130-400); RDW Coefficient of Variation 15.9 % (11.5-14.5); RDW Standard Deviation 55.5 fL (36.4-46.3); Red Blood Count 3.66 M/uL (4.2-5.4); White Blood Count 7.85 K/uL (4.8-10.8)
[2021-04-17 10:21] LABS: INR 1.2 (0.9-1.1); Prothrombin Time 11.6 Seconds (9.0-12.0)
[2021-04-17 10:46] LABS: BUN Creatinine Ratio 23.7 (10-20); Calcium 8.4 mg/dl (8.5-10.1); Creatinine Clr Calc Pharmacy 32.5 ml/min; Est GFR (African American) 47.7 ml/min; Est GFR (Non-African American) 41.1 ml/min; Potassium 3.9 mmol/L (3.5-5.1)
--- NOTE | 2021-04-17 12:35 | Hospitalist Progress Note ---
Date of Service April 17, 2021 Assessment & Plan (1) Asymptomatic hypertensive urgency: Plan: Traumatic scalp hematoma/left gluteus muscle hematoma In the setting of Coumadin coagulopathy H/O Recurrent falls/ambulatory dysfunction Traumatic pelvic fracture -CT Head:No acute intracerebral pathology. Cerebral cortical atrophy and remote small vessel disease. Small subgaleal hematoma posteriorly. -CT ABD:Acute comminuted minimally displaced fracture of the left inferior pubic ramus. Moderate intramuscular hemorrhage within the left gluteus alexey, partially imaged on this exam. Small amount of suspected hemorrhage within the left adductor muscles. Plavix, Coumadin held S/P vitamin K Pain control Monitor CBC Appreciate orthopedics input Weightbearing as tolerated of the left lower extremity with walker Continue PT OT Fall precautions Needs follow-up with orthopedics upon discharge Plan to discharge to SNF today Abnormal urinalysis Asymptomatic bacteruria urine culture pending (3,000 colonies) Acute kidney injury on CKD stage III Cr:1.9> 1.28>1.18 Diuretics held Monitor renal function Avoid nephrotoxic agents Received IV fluids Resolved H/O P.Afib H/O PE/DVT Continue amiodarone, carvedilol No plan to resume anticoagulation Appreciate cardiology input CAD/CVA/PVD S/P surgery Plan to resume Plavix upon discharge Continue atorvastatin DM II diet-controlled HbA1c 6.7 Continue insulin therapy while hospitalized Monitor blood glucose Polymyalgia rheumatica on Prednisone DVT Px: SCDs Code Status Full code Disposition SNF Admission and Anticipated Discharge Date Admission Date: April 15, 2021 Subjective Patient is seen and examined at bedside Planned to be discharged to SNF today States having some Left sided pain with movement Denies any chest pain, shortness of breath, nausea, abd pain, dysuria, hematuria Review of Systems Review of Systems: All systems reviewed & are unremarkable except as noted in Subjective Physical Exam Physical Exam: Physical Exam: Vitals signs as noted above General Appearance:Moderately built and nourished, no apparent distress Head: normocephalic, +traumatic, scalp hematoma Eyes: normal inspection, EOMI Neck: supple, Trachea midline Respiratory/Chest: Normal breath sounds, CTA, No accessory muscle use Cardiovascular: S1, S2, No murmur Abdomen/GI:Soft, Non tender, Bowel sounds present Extremities/Musculoskeletal:normal inspection, Trace edema, +LLE Ecchymosis, Decreased ROM due to pain Neurologic/Psych:AAOX3, Complete neuro exam could not be performed Skin: normal color, warm Results & Data Results & Data ([facility]) Vital Signs (Past 12 Hours) Vital Signs Temp Pulse Pulse Resp BP Pulse Ox 04/17/21 10:59 36.7 C 59 L 16 161/73 H 99 04/17/21 07:51 36.7 C 61 18 164/69 H 97 04/17/21 04:00 36.9 C 62 18 124/62 98 Laboratory Results Short CBC 04/17/21 Range/Units 09:43 WBC 7.85 (4.8-10.8) K/uL Hgb 10.6 L (12.0-16.0) g/dL Hct 34.7 L (37-47) % Plt Count 166 (130-400) K/uL BMP 04/17/21 09:43 Sodium 138 Potassium 3.9 Chloride 101 Carbon Dioxide 33 H BUN 28 H Creatinine 1.18 Glucose 146 H Calcium 8.4 L
--- NOTE | 2021-04-17 12:57 | Discharge Summary ---
Date of Service April 17, 2021 Admission HPI Per Admitting Provider History obtained from patient and records. Medical history significant for significant for CAD/CVA as per records, HTN, hyperlipidemia, A. fib, hx PE/DVT on Coumadin, depression, carotid artery stenosis L sp surgery (09/2014), DM2 diet-controlled, CRI (baseline creatinine 1.5), polymyalgia rheumatica on steroid tx, ambulatory dysfunction, history of skin cancer as per records, past tobacco abuse. Last confinement March 2019 for UGI B. EGD showed hiatal hernia. Colonoscopy showed polyps. Anticoagulation resumed on discharge. Patient lost her balance last night while attempting to swat a bug off her tel evision. Head trauma with achy left hip pain worse on trying to get up. Patient denies LOC. No chest pain, no SOB. Patient brought to the ER for evaluation. MEDICAL HISTORY: As above. SURGERIES: She has had a rectocele surgery, appendectomy, cataract surgery, left carotid endarterectomy, cholecystectomy, BTL FAMILY HISTORY: Hypertension. Breast cancer. DM, heart disease. PERSONAL AND SOCIAL HISTORY:Past tobacco abuse. No chronic intake of alcoholic beverages. 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 Admission Exam Per Admitting Provider Physical Exam Physical Exam: GENERAL: Slightly uncomfortable, obese, no respiratory distress SKIN: Normal color, warm HEENT: Tender posterior scalp swelling, pink palpebral conjunctivae, no ptosis, dry buccal mucosa NECK : Supple, short neck, no tenderness CHEST : Decreased breath sounds , no tenderness HEART : RRR , no obvious murmurs ABDOMEN: Some distention, hypogastric tenderness EXTREMITIES : Minimal LE swelling, no LE tenderness, no other conspicuous deformities noted NEUROLOGIC : Coherent, no facial asymmetry, no other gross focality Principal Diagnosis Traumatic scalp hematoma/left gluteus muscle hematoma Traumatic pelvic fracture Acute kidney injury Discharge Data Allergies Allergy/AdvReac Type Severity Reaction Status Date / Time apixaban [From Eliquis] Allergy Severe pain in Verified 04/15/21 01:38 bones amoxicillin Allergy Unknown RASH,HIVES Verified 04/15/21 01:38 cefaclor Allergy Unknown RASH, HIVES Verified 04/15/21 01:38 levofloxacin Allergy Unknown hives Verified 04/15/21 01:38 atorvastatin AdvReac Severe AFFECTS Verified 04/15/21 01:38 LIVER lisinopril AdvReac Severe AFFECTS Verified 04/15/21 01:38 LIVER ENZYMES citalopram AdvReac Intermediate "WILD Verified 04/15/21 01:38 DREAMS" enoxaparin AdvReac Unknown FACIAL Verified 04/15/21 01:38 SWELLING, FLUSHING, ELEVATED BP omeprazole AdvReac Unknown blurred Verified 04/15/21 01:38 vision, headache, flashing lights Consultations 04/15/21 04:11 ED Decision to Admit Stat 04/15/21 05:38 Consult Cardiology Routine Consult Orthopedic Surgery Routine Ordered Studies 04/15/21 00:57 CT abd pelvis wo con Urgent CT cervical spine wo con Urgent CT head/brain wo con Urgent Hospital Course (1) Asymptomatic hypertensive urgency: Traumatic scalp hematoma/left gluteus muscle hematoma In the setting of Coumadin coagulopathy H/O Recurrent falls/ambulatory dysfunction Traumatic pelvic fracture -CT Head:No acute intracerebral pathology. Cerebral cortical atrophy and remote small vessel disease. Small subgaleal hematoma posteriorly. -CT ABD:Acute comminuted minimally displaced fracture of the left inferior pubic ramus. Moderate intramuscular hemorrhage within the left gluteus alexey, partially imaged on this exam. Small amount of suspected hemorrhage within the left adductor muscles. Plavix, Coumadin held S/P vitamin K Pain control Monitor CBC Appreciate orthopedics input Weightbearing as tolerated of the left lower extremity with walker Continue PT OT Fall precautions Needs follow-up with orthopedics upon discharge Plan to discharge to SNF today Abnormal urinalysis Asymptomatic bacteruria urine culture pending (3,000 colonies) Acute kidney injury on CKD stage III Cr:1.9> 1.28>1.18 Diuretics held Monitor renal function Avoid nephrotoxic agents Received IV fluids Resolved H/O P.Afib H/O PE/DVT Continue amiodarone, carvedilol No plan to resume anticoagulation Appreciate cardiology input CAD/CVA/PVD S/P surgery Plan to resume Plavix upon discharge Continue atorvastatin DM II diet-controlled HbA1c 6.7 Continue insulin therapy while hospitalized Monitor blood glucose Polymyalgia rheumatica on Prednisone DVT Px: SCDs Code Status Full code Disposition [facility] Total Time Total Time Spent Total Time Spent (In Minutes): 41 minutes Discharge Plan Discharge Items Patient Disposition: Transfer [facility] Fac Reason For Visit: HTN URG, PELVIC FX Discharge Diagnosis: Traumatic scalp hematoma/left gluteus muscle hematoma Traumatic pelvic fracture Acute kidney injury Activity: Per Instructions section Exercise/Sports: Gradually increase as tolerated Non-emergency contact: Primary Care Provider and Surgeon Call non-emergency contact if: you have any medication questions, your symptoms worsen, your pain is concerning for you and you have a fever Follow-up/Referrals: Jes Peter MD [Primary Care Provider] - Diet: Carb Consistent or DM2 and Heart Healthy Addtl Attending Provider Instructions: Follow-up with your primary care physician Dr. Darryl Doran in 1 week upon discharge from rehab facility Follow-up with your orthopedic surgeon Dr.Edwin Emeyr in 4-6 weeks ---Your Coumadin is discontinued as recommended by your overhead door technician. --- Your final urine culture is pending at the time of discharge. Follow-up with your physician for results. Seek immediate medical attention if your symptoms reoccur or worsen Please take all medications as instructed on discharge list below. Please call if you have any questions or problems. You can reach a [facility] [address] hospitalist on duty at [facility] 24 hours a day by calling [phone] Pending Studies at Discharge: No Stand-Alone Forms: My [facility] Skilled Items Patient informed of condition?: Yes DNR: No Discharge Level of Care: Skilled Communicable Disease: No Discharge Prognosis: Stable Lines: None Urinary Catheter: No Medications and DC Order Prescriptions: Continued atorvastatin 20 mg tablet 20 mg PO HS RF: 0 prednisone 5 mg tablet 7.5 mg PO QAM RF: 0 glucosamine sulfate [Glucosamine] 500 mg Tablet 1,000 mg PO QAM RF: 0 clopidogrel 75 mg tablet 75 mg PO QAM RF: 0 carvedilol 3.125 mg tablet 3.125 mg PO BID RF: 0 pantoprazole 40 mg tablet,delayed release (DR/EC) 40 mg PO BID RF: 0 nitroglycerin [Nitrostat] 0.4 mg Tablet, Sublingual 0.4 mg sublingual UD PRN (Reason: Chest Pain) RF: 0 loratadine 10 mg tablet 10 mg PO QAM RF: 0 cholecalciferol (vitamin D3) [Vitamin D3] 1,000 unit Tablet 1,000 unit PO QAM RF: 0 Lactobacillus acidoph-L.bulgar [Floranex] 1 million cell Tablet 1 tab PO HS RF: 0 Garrett-3 350 mg-235 mg- 90 mg-597 mg Capsule,Delayed Release(Dr/Ec) 1 cap PO QAM RF: 0 magnesium oxide 400 mg magnesium Tablet 400 mg PO QAM RF: 0 amlodipine 2.5 mg tablet 2.5 mg PO DAILY RF: 0 furosemide 20 mg tablet 40 mg PO Q OTHER DAY RF: 0 furosemide 20 mg tablet 20 mg PO Q OTHER DAY RF: 0 amiodarone 100 mg tablet 100 mg PO DAILY RF: 0 Vitron-C 65 mg iron- 125 mg tablet,delayed release (DR/EC) 1 tab PO DAILY RF: 0 Discontinued warfarin 5 mg tablet 5 mg PO UD RF: 0 Discharge Orders: Discharge Order (Routine); Ordered 04/17/21 Ordered By: Aldo Gracia/Other Patient Handouts: Type 2 Diabetes Admission Data Admit Date/Time: 04/15/21 05:02 Attending Provider: Aldo Mckinley Admit Provider: Guru Lind Primary Care Provider: Jes Peter Other Providers: Guru Lind ; Sony King ; Elmer Marquez ; Collins Norman ; Jarrell Sharif ; Santiago Burks ; Eyad Werner ; Debbie Navarrete ; Carla Bain ; Britany Scott ; Elliott Meza ; Iban Mustafa ; Jose Carlos Carpio ; Cam [place] ; Arely Ayala ; Jarrell Heller ; Gricel Brooks ; Enio Pettit ; Kvng Larson ; Eyad Marin ; Martínez Granados ; Kvng Rodgers ; Santiago Beaulieu ; Moise Patel ; Stuart Emery ; Jackson Ruiz ; Gricel Gibson ; Donal Hernandez ; Camden Baeza ; Kayla Cuba ; Mina Kelsey ; Modesta Calhoun ; Umer Cook ; [facility]
== END 2021-04-17 14:21 | DRG 536 ==
LOC: ED 00:37 → EDINP 05:02 → 2N 16:02

== ENCOUNTER 2021-07-06 07:26 | Inpatient (IN) ==
[2021-07-06] MEDS ORDERED: SODIUM CHLORIDE 0.9% 1000ML 500 ML IV ONE (07:48)
--- NOTE | 2021-07-06 07:52 | Emergency Department Note ---
Impression & Plan DVT (deep venous thrombosis) ADMIT ED Provider Note HPI: The patient is an 89-year-old female with history of PE/DVT, no longer on any oral anticoagulation, who presents to the emergency department with multiple issues today. Patient has been home for the past week, recently left her rehabilitation facility after a fall, her niece is at the bedside and serves further history. Patient's niece states that the patient contacted her today and states that she was having some trouble swallowing, she was complaining of some chest discomfort when she was attempting of a bowel movement, she appears to be having some issues recently with delusional parasitosis, she did have some issues with this when she was at her rehab facility reportedly, today she was concerned that she might of swallowed a mouse during her sleep and was concerned that this is the reason she was having difficulty swallowing, her niece tells me this is because she recently has found some mice in the house. On arrival to the ED the patient is alert and oriented otherwise, she appears in no acute distress, she is somewhat anxious appearing but she is hemodynamically stable on arrival and otherwise nontoxic. ROS: -Psychiatric: Delusions -HEENT: Difficulty swallowing -Cardio: Transient chest discomfort *10 point review systems was conducted and is otherwise negative unless stated above *Outpatient medications and allergy history reviewed PE: General: Alert, NAD HEENT: Normocephalic, atraumatic, airway is patent, uvula is midline Eyes: Extraocular eye movement is intact, no scleral erythema Pulmonary: Clear to auscultation bilaterally, no wheezing Cardio: Regular rate and rhythm GI: Abdomen is soft, nontender : No suprapubic tenderness MSK: No evidence of trauma or malformation of the extremities, asymmetrical swelling of the left lower extremity in comparison to the right without discoloration Skin: No evidence of rash Neuro: Alert, no focal deficits Psychiatric: Cooperative radiation monitor: - An order was placed for continuous cardiac monitoring - Patient was noted to be in sinus rhythm with rate of -- EKG: Rate: 67 Rhythm: Normal sinus rhythm Intervals: QRS 142 ms, otherwise within normal limits ST changes: No ST elevation Time: 0759 Medical Decision Making: Patient presented to the emergency department with a chief complaint of difficulty swallowing, she was concerned that she might of swallowed a mouse, seems to be suffering from some delusional parasitosis, states that she also had a transient episode of chest discomfort and has some left lower extremity swelling that is larger in comparison to the right. On arrival here to the ED the patient is in no acute distress, despite some of her apparent delusions she is otherwise alert and oriented, she is able to give me a coherent history in most regards. IV was established, lab work initiated, lab work is generally unremarkable, ultrasound imaging of the left lower extremity does show evidence of extensive clot burden consistent with DVT. Patient has not been on Coumadin for several months although she was previous to her fall. She notes multiple allergies to enoxaparin as well as Eliquis, states that she also has an adverse reaction to Xarelto that gives her an upset st omach. She does not have any active chest pain or shortness of breath, she has not been tachycardic or hypoxic. In regards to her dysphagia, CT imaging of the neck with contrast does not show any evidence of airway obstruction or foreign body. She has maintained a patent airway here in the ED without any shortness of breath or difficulty tolerating her secretions. I suspect that she may have an element of sundowning as the patient's niece tells me that the symptoms of delusions seem to occur mostly at night and early in the morning when she is waking from sleep. I was able to reassure the patient that I do not have any concern that she swallowed a small rodent. Patient and her niece at the bedside reassured by this, in regards to her anticoagulation strategy, she is complex. She has adverse reactions to DOAC's, she has heparin allergy. Case was discussed with pharmacy as well as with Dr. Schaefer, at this time it is thought that the best course of action would be to bridge the patient back to Coumadin although the way to do this is unclear, patient would likely tolerate DOAC therapy if she takes it with food, her adverse reaction was an upset stomach. I discussed this with the patient at the bedside, she is in agreement to trial this medication with food to see if she does get upset stomach. Patient does seem to have some ambulatory issues, she is adamant that she is a ble to take care of herself at home but she is having difficulty moving around the room going to the bathroom, having difficulty getting back into bed and sitting down. I feel that she would benefit from admission with PT/OT consultation as well as development of an anticoagulation strategy or possibly a filter placement for her extensive DVT in the left lower extremity. She does live alone and I do not feel that she would do well if she was discharged back to live on her own. I also have concerns that she may not be able to follow her prescribed medication regimen. I Discussed the case with the on-call midlevel provider for [facility], Modesta Arreola, defer anticoagulation strategy at this time to the inpatient hospitalist service as she states they will plan to consult pharmacy and begin an anticoagulation strategy following discussion with her attending. Otherwise, the patient appears well, urinalysis is questionable for infection, patient does not have a leukocytosis or urinary symptoms, will send for culture and will defer treatment at this time. Patient and her niece at the bedside are in agreement to the above plan and the patient was admitted in stable condition. Diagnosis: 1. DVT of the left lower extremity, acute 2. Difficulty swallowing 3. Delusional parasitosis 4. 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" History of pulmonary embolism "2013" Hypertension Paroxysmal atrial fibrillation Polymyalgia rheumatica Pre-diabetes TIA (transient ischemic attack) UGIB (upper gastrointestinal bleed) Surgical History H/O dilation and curettage S/P appendectomy S/P laparoscopic cholecystectomy (12/03/13) S/P tubal ligation Family History Sister Breast cancer Sister Breast cancer Social History Smoking Status: Former smoker Hx Alcohol Use: No Hx Substance Use: No Preferred Language: Turkmen Communication Ability: Effective Department Operations Manager Required: Yes Beliefs That Will Affect Care: None marital status: / Current Living Situation: Alone Feels Safe at Home: Yes Assistive Devices: Oxygen - Continuous Allergies Allergies Allergy/AdvReac Type Severity Reaction Status Date / Time apixaban [From Eliquis] Allergy Severe pain in Verified 07/06/21 08:28 bones amoxicillin Allergy Unknown RASH,HIVES Verified 07/06/21 08:28 cefaclor Allergy Unknown RASH, HIVES Verified 07/06/21 08:28 levofloxacin Allergy Unknown hives Verified 07/06/21 08:28 atorvastatin AdvReac Severe AFFECTS Verified 07/06/21 08:28 LIVER lisinopril AdvReac Severe AFFECTS Verified 07/06/21 08:28 LIVER ENZYMES citalopram AdvReac Intermediate "WILD Verified 07/06/21 08:28 DREAMS" enoxaparin AdvReac Unknown FACIAL Verified 07/06/21 08:28 SWELLING, FLUSHING, ELEVATED BP omeprazole AdvReac Unknown blurred Verified 07/06/21 08:28 vision, headache, flashing lights Home Meds Home Medications Medication Instructions Recorded Confirmed Lactobacillus acidoph-L.bulgaricus 1 tab PO 10/18/18 07/06/21 1 million cell tablet (Floranex) atorvastatin 20 mg tablet 20 mg PO HS 10/18/18 07/06/21 carvedilol 3.125 mg tablet 3.125 mg PO BID 10/18/18 07/06/21 cholecalciferol (vitamin D3) 25 1,000 unit PO [facility] 10/18/18 07/06/21 mcg (1,000 unit) tablet (Vitamin D3) clopidogrel 75 mg tablet 75 mg PO QA 10/18/18 07/06/21 glucosamine sulfate 500 mg tablet 1,000 mg PO [facility] 10/18/18 07/06/21 (Glucosamine) loratadine 10 mg tablet 10 mg PO QAM 10/18/18 07/06/21 magnesium oxide 400 mg PO [facility] 10/18/18 07/06/21 nitroglycerin 0.4 mg sublingual 0.4 mg SUBLINGUAL UD PRN 10/18/18 07/06/21 tablet (Nitrostat) omega 3 350 mg-dha 235 mg-epa 90 1 cap PO QAM 10/18/18 07/06/21 mg-fish oil 597 mg capsule,delay rel (Wenden-3) pantoprazole 40 mg tablet,delayed 40 mg PO BID 10/18/18 07/06/21 release prednisone 5 mg tablet 7.5 mg PO QAM 10/18/18 07/06/21 amiodarone 100 mg tablet 100 mg PO QAM 04/15/21 07/06/21 amlodipine 2.5 mg tablet 2.5 mg PO QAM 04/15/21 07/06/21 furosemide 20 mg tablet 20 mg PO Q2D 04/15/21 07/06/21 iron,carbonyl 65 mg-vitamin C 125 1 tab PO Q2D 04/15/21 07/06/21 mg tablet,delayed release (Vitron-C) furosemide 20 mg tablet 40 mg PO Q2D 07/06/21 07/06/21 Results & Data (ED) Vital Signs Vital Signs - 24 hr 07/06/21 07:34 07/06/21 08:08 07/06/21 08:30 Temperature 36.6 C Temperature Source Temporal Artery Scan Pulse Rate 74 68 66 Pulse Rate [Apical] Respiratory Rate 20 20 19 Respiratory Effort / Characteristics Non-Labored Respiratory Depth Normal Blood Pressure 187/87 H Blood Pressure [Left Arm] Blood Pressure Mean 120 Blood Pressure Mean [Left Arm] Blood Pressure Position Sitting Blood Pressure Position [Left Arm] Pulse Oximetry 95 Oxygen Delivery Method Room Air Sepsis Recent Fever Within 48 Hours No Sepsis New/Unexplained Change in Mental Status No Sepsis Action Taken by Nursing No Action Required 07/06/21 09:00 07/06/21 09:06 07/06/21 09:08 Temperature Temperature Source Pulse Rate 65 63 Pulse Rate [Apical] 64 Respiratory Rate 17 18 18 Respiratory Effort / Characteristics Respiratory Depth Blood Pressure 165/90 H Blood Pressure [Left Arm] 165/90 H Blood Pressure Mean 115 Blood Pressure Mean [Left Arm] 115 Blood Pressure Position Blood Pressure Position [Left Arm] Sitting Pulse Oximetry 92 Oxygen Delivery Method Room Air Sepsis Recent Fever Within 48 Hours Sepsis New/Unexplained Change in Mental Status Sepsis Action Taken by Nursing 07/06/21 10:02 07/06/21 10:03 07/06/21 10:30 Temperature Temperature Source Pulse Rate 73 70 65 Pulse Rate [Apical] 70 Respiratory Rate 12 17 14 Respiratory Effort / Characteristics Respiratory Depth Blood Pressure 180/80 H Blood Pressure [Left Arm] 180/80 H Blood Pressure Mean 113 Blood Pressure Mean [Left Arm] 113 Blood Pressure Position Blood Pressure Position [Left Arm] Semi-fowlers Pulse Oximetry 92 Oxygen Delivery Method Room Air Sepsis Recent Fever Within 48 Hours Sepsis New/Unexplained Change in Mental Status Sepsis Action Taken by Nursing 07/06/21 11:00 07/06/21 11:29 Temperature Temperature Source Pulse Rate 61 72 Pulse Rate [Apical] Respiratory Rate 16 21 Respiratory Effort / Characteristics Respiratory Depth Blood Pressure 160/89 H Blood Pressure [Left Arm] Blood Pressure Mean 112 Blood Pressure Mean [Left Arm] Blood Pressure Position Blood Pressure Position [Left Arm] Pulse Oximetry Oxygen Delivery Method Sepsis Recent Fever Within 48 Hours Sepsis New/Unexplained Change in Mental Status Sepsis Action Taken by Nursing Laboratory Data Result diagrams: 07/06/21 08:08 07/06/21 08:08 Lab Results 07/06/21 07/06/21 07/06/21 Range/Units 08:08 08:08 08:08 WBC 8.43 (4.8-10.8) K/uL RBC 4.38 (4.2-5.4) M/uL Hgb 14.0 (12.0-16.0) g/dL Hct 43.4 (37-47) % MCV 99.1 (80-100) fL MCH 32.0 (25-34) pg MCHC 32.3 (32-36) g/dL RDW Std Deviation 54.4 H (36.4-46.3) fL RDW Coeff of Jackeline 14.9 H (11.5-14.5) % Plt Count 204 (130-400) K/uL MPV 9.8 (7.4-10.4) fL Immature Gran % (Auto) 0.2 % Neut % (Auto) 68.1 % Lymph % (Auto) 16.1 % Drew % (Auto) 9.8 % Eos % (Auto) 5.6 % Baso % (Auto) 0.2 % Neut # (Auto) 5.73 (1.4-6.5) K/uL Lymph # (Auto) 1.36 (1.2-3.4) K/uL Drew # (Auto) 0.83 H (0.11-0.59) K/uL Eos # (Auto) 0.47 (0-0.5) K/uL Baso # (Auto) 0.02 (0-0.2) K/uL Immature Gran # (Auto) 0.02 (0.00-0.02) K/uL PT 10.6 (9.0-12.0) Seconds INR 1.0 (0.9-1.1) APTT 22.9 (21.0-31.0) Seconds PTT Ratio 0.8 Sodium 140 (136-145) mmol/L Potassium 3.9 (3.5-5.1) mmol/L Chloride 99 (98-107) mmol/L Carbon Dioxide 34 H (21-32) mmol/L Anion Gap 7 (3-11) BUN 28 H (6-23) mg/dl Creatinine 1.12 (0.6-1.2) mg/dl Est Cr Clr Drug Dosing 30.3 ml/min Est GFR ( Amer) 50.4 ml/min Est GFR (Non-Af Amer) 43.5 ml/min BUN/Creatinine Ratio 25.0 H (10-20) Glucose 118 H (70-99(Fasting)) mg/dl Calcium 9.2 (8.5-10.1) mg/dl Total Bilirubin 0.8 (0.2-1.0) mg/dl AST 17 (13-39) U/L ALT 10 (7-52) U/L Alkaline Phosphatase 41 (34-104) U/L Troponin I 0.04 (0-0.04) ng/ml Total Protein 6.5 (6.0-8.3) gm/dl Albumin 3.9 (3.4-5.0) gm/dl Globulin 2.6 (2.5-4.0) gm/dl Albumin/Globulin Ratio 1.5 (0.9-2) Lipase 52 (11-82) U/L Urine Color Urine Appearance (Clear) Urine pH (4.5-7.5) Ur Specific [place] (1.000-1.030) Urine Protein (Negative) Urine Glucose (UA) (Negative) Urine Ketones (Negative) Urine Blood (Negative) Urine Nitrite (Negative) Urine Bilirubin (Negative) Urine Urobilinogen (Negative) Ur Leukocyte Esterase (Negative) Urine WBC (Auto) (0-5) /hpf Urine RBC (Auto) (0-4) /hpf U Hyaline Cast (Auto) (0-5) /lpf U Epithel Cells (Auto) (0-5) /lpf Urine Bacteria (Auto) (Negative) 07/06/21 Range/Units 09:34 WBC (4.8-10.8) K/uL RBC (4.2-5.4) M/uL Hgb (12.0-16.0) g/dL Hct (37-47) % MCV (80-100) fL MCH (25-34) pg MCHC (32-36) g/dL RDW Std Deviation (36.4-46.3) fL RDW Coeff of Jackeline (11.5-14.5) % Plt Count (130-400) K/uL MPV (7.4-10.4) fL Immature Gran % (Auto) % Neut % (Auto) % Lymph % (Auto) % Drew % (Auto) % Eos % (Auto) % Baso % (Auto) % Neut # (Auto) (1.4-6.5) K/uL Lymph # (Auto) (1.2-3.4) K/uL Drew # (Auto) (0.11-0.59) K/uL Eos # (Auto) (0-0.5) K/uL Baso # (Auto) (0-0.2) K/uL Immature Gran # (Auto) (0.00-0.02) K/uL PT (9.0-12.0) Seconds INR (0.9-1.1) APTT (21.0-31.0) Seconds PTT Ratio Sodium (136-145) mmol/L Potassium (3.5-5.1) mmol/L Chloride (98-107) mmol/L Carbon Dioxide (21-32) mmol/L Anion Gap (3-11) BUN (6-23) mg/dl Creatinine (0.6-1.2) mg/dl Est Cr Clr Drug Dosing ml/min Est GFR ( Amer) ml/min Est GFR (Non-Af Amer) ml/min BUN/Creatinine Ratio (10-20) Glucose (70-99(Fasting)) mg/dl Calcium (8.5-10.1) mg/dl Total Bilirubin (0.2-1.0) mg/dl AST (13-39) U/L ALT (7-52) U/L Alkaline Phosphatase (34-104) U/L Troponin I (0-0.04) ng/ml Total Protein (6.0-8.3) gm/dl Albumin (3.4-5.0) gm/dl Globulin (2.5-4.0) gm/dl Albumin/Globulin Ratio (0.9-2) Lipase (11-82) U/L Urine Color Yellow Urine Appearance Clear (Clear) Urine pH 7.5 (4.5-7.5) Ur Specific [place] 1.016 (1.000-1.030) Urine Protein 1+ H (Negative) Urine Glucose (UA) Negative (Negative) Urine Ketones Negative (Negative) Urine Blood Negative (Negative) Urine Nitrite Negative (Negative) Urine Bilirubin Negative (Negative) Urine Urobilinogen Negative (Negative) Ur Leukocyte Esterase 1+ H (Negative) Urine WBC (Auto) 10-30 H (0-5) /hpf Urine RBC (Auto) 5-10 H (0-4) /hpf U Hyaline Cast (Auto) 0 (0-5) /lpf U Epithel Cells (Auto) 10-20 H (0-5) /lpf Urine Bacteria (Auto) Negative (Negative) Administered Medications Heparin Sodium/Dextrose (Heparin Sodium/Dextrose) 25,000 units in 500 mls @ 20 mls/hr IV .Q24H [facility]; Protocol Stop: 08/05/21 13:44 Last Admin: 07/06/21 14:26 Dose: 1,000 units/hr, 20 mls/hr Documented by: [id number] Cosigned by: [id number] Discontinued Medications Sodium Chloride (Nss 1000ml) 500 mls @ 999 mls/hr IV .Q31M ONE Stop: 07/06/21 08:18 Last Infusion: 07/06/21 08:45 Dose: 0 mls/hr Documented by: [id number] Admin: 07/06/21 08:16 Dose: 999 mls/hr Documented by: [id number] Ioversol (Optiray 320 100ml) 94 ml IV ONCE ONE Stop: 07/06/21 09:59 Last Admin: 07/06/21 09:59 Dose: 94 ml Documented by: [id number] Imaging Data Radiologist's Impression: Chest X-Ray 07/06/21 07:47 SINGLE VIEW CHEST CLINICAL HISTORY: Atypical chest pain. FINDINGS: An AP, portable, upright chest radiograph is compared to study dated 04/15/2021. Correlation is made with chest CT dated 08/07/2018. The heart is enlarged noting atherosclerotic calcification of the thoracic aorta. There is pulmonary vascular congestion. Scarring/atelectasis is noted at the lung bases. No airspace consolidation or large pleural effusion is identified. No pneumothorax is seen. The skeletal structures are osteopenic. The bony thorax is grossly intact. IMPRESSION: Cardiomegaly with mild pulmonary vascular congestion. ACT 112: Negative or not required by law. Electronically signed by: Corey Roman M.D. 07/06/2021 9:03 AM Soft Tissue Neck CT 07/06/21 07:48 CT OF THE NECK WITH IV CONTRAST CLINICAL HISTORY: Difficulty swallowing. COMPARISON STUDY: CTA of the neck September 23, 2014. CT of the cervical spine April 15, 2021. TECHNIQUE: Following IV administration of 94 mL of Optiray, helical axial images of the neck were obtained. Sagittal and coronal reconstructions were viewed. Automated exposure control was utilized for the study. A dose lowering technique was utilized adhering to the principles of ALARA. CT DOSE: 355.35 mGycm FINDINGS: Visualized portions of the intracranial contents are unremarkable. The parotid and submandibular glands are normal. Epiglottis is normal. There is no cervical lymphadenopathy or mass. Several left lobe thyroid nodules measure up to 1.4 cm. These are unchanged. The glottis is closed. The supraglottic airway slightly tortuous. This could be positional. No radiopaque foreign bodies are identified. There is no fluid collection is suggest an abscess within the neck. Lung apices are unremarkable. There is extensive plaque within the proximal right internal carotid artery. This is suboptimally assessed on this non-CTA exam. No acute cervical spine fracture is present. No suspicious osseous lesions are present. IMPRESSION: 1. No acute process within the neck by CT. No radiopaque foreign body. No cervical lymphadenopathy or abscess. 2. Tortuosity of the supraglottic airway. This is similar to CT of April 15, 2021 and is of doubtful significance. ACT 112: Negative or not required by law. Electronically signed by: William Holt M.D. 07/06/2021 10:23 AM Venous Doppler Study 07/06/21 11:13 LEFT LOWER EXTREMITY VENOUS DOPPLER CLINICAL HISTORY: Left lower extremity swelling. COMPARISON STUDY: Left lower extremity venous Doppler ultrasound September 13, 2014. TECHNIQUE: Sonography of the deep venous system of the left lower extremity was performed. Compression and augmentation were evaluated. FINDINGS: Extensive deep venous thrombus within the left lower extremity is noted. There is thrombus within left common femoral, superficial femoral, popliteal, posterior tibial and peroneal veins. Several these vessels are expanded. Left lower extremity edema is noted. IMPRESSION: Extensive deep venous thrombus within the left lower extremity. ACT 112: Negative or not required by law. Electronically signed by: William Holt M.D. 07/06/2021 12:04 PM Discharge Plan Visit Data Chief Complaint: Foreign Body Stated Complaint: LUMP IN THROAT,STOMACH PAIN,LFT LEG/FOOT SWOLLEN ED Provider: Eyad Melo Discharge Problem: DVT (deep venous thrombosis) Forms Stand Alone Forms: [facility] Prescriptions Prescriptions: No Action atorvastatin 20 mg tablet 20 mg PO HS RF: 0 prednisone 5 mg tablet 7.5 mg PO QAM RF: 0 glucosamine sulfate [Glucosamine] 500 mg Tablet 1,000 mg PO QAM RF: 0 clopidogrel 75 mg tablet 75 mg PO QAM RF: 0 carvedilol 3.125 mg tablet 3.125 mg PO BID RF: 0 pantoprazole 40 mg tablet,delayed release (DR/EC) 40 mg PO BID RF: 0 nitroglycerin [Nitrostat] 0.4 mg Tablet, Sublingual 0.4 mg sublingual UD PRN (Reason: Chest Pain) RF: 0 loratadine 10 mg tablet 10 mg PO QAM RF: 0 cholecalciferol (vitamin D3) [Vitamin D3] 1,000 unit Tablet 1,000 unit PO QAM RF: 0 Lactobacillus acidoph-L.bulgar [Floranex] 1 million cell Tablet 1 tab PO HS RF: 0 Wenden-3 350 mg-235 mg- 90 mg-597 mg Capsule,Delayed Release(Dr/Ec) 1 cap PO QAM RF: 0 magnesium oxide 400 mg magnesium Tablet 400 mg PO QAM RF: 0 furosemide 20 mg tablet 40 mg PO Q2D RF: 0 amlodipine 2.5 mg tablet 2.5 mg PO QAM RF: 0 furosemide 20 mg tablet 20 mg PO Q2D RF: 0 amiodarone 100 mg tablet 100 mg PO QAM RF: 0 Vitron-C 65 mg iron- 125 mg tablet,delayed release (DR/EC) 1 tab PO Q2D RF: 0 Referrals Referrals: Jes Peter MD [Primary Care Provider] - Discharge Problem: DVT (deep venous thrombosis) Qualifiers: DVT location: lower extremity Affected thrombotic vein of extremity: other lower extremity vein Chronicity: acute Laterality: left Qualified Code(s): I82.492 - Acute embolism and thrombosis of other specified deep vein of left lower extremity
[2021-07-06 08:24] LABS: Basophils # (auto) 0.02 K/uL (0-0.2); Basophils % (auto) 0.2 %; Eosinophils # (auto) 0.47 K/uL (0-0.5); Eosinophils % (auto) 5.6 %; Hematocrit (blood only) 43.4 % (37-47); Immature Granulocytes # (auto) 0.02 K/uL (0.00-0.02); Immature Granulocytes % (auto) 0.2 %; Lymphocytes # (auto) 1.36 K/uL (1.2-3.4); Lymphocytes % (auto) 16.1 %; Mean Corpuscular Hgb Conc 32.3 g/dL (32-36); Mean Corpuscular Volume 99.1 fL (80-100); Mean Platelet Volume 9.8 fL (7.4-10.4); Monocytes # (auto) 0.83 K/uL (0.11-0.59); Monocytes % (auto) 9.8 %; Neutrophils # (auto) 5.73 K/uL (1.4-6.5); Neutrophils % (auto) 68.1 %; Platelet Count 204 K/uL (130-400); RDW Coefficient of Variation 14.9 % (11.5-14.5); RDW Standard Deviation 54.4 fL (36.4-46.3); Red Blood Count 4.38 M/uL (4.2-5.4); White Blood Count 8.43 K/uL (4.8-10.8)
[2021-07-06 08:33] LABS: Partial Thromboplastin Ratio 0.8; Partial Thromboplastin Time 22.9 Seconds (21.0-31.0); Prothrombin Time 10.6 Seconds (9.0-12.0)
[2021-07-06 08:51] LABS: Troponin I 0.04 ng/ml (0-0.04)
[2021-07-06 08:53] LABS: Albumin Globulin Ratio 1.5 (0.9-2); Albumin Level 3.9 gm/dl (3.4-5.0); Bilirubin,Total 0.8 mg/dl (0.2-1.0); Calcium 9.2 mg/dl (8.5-10.1); Creatinine Clr Calc Pharmacy 30.3 ml/min; Est GFR (African American) 50.4 ml/min; Est GFR (Non-African American) 43.5 ml/min; Globulin 2.6 gm/dl (2.5-4.0); Potassium 3.9 mmol/L (3.5-5.1); Total Protein 6.5 gm/dl (6.0-8.3)
--- NOTE | 2021-07-06 09:04 | XRay Report ---
SINGLE VIEW CHEST CLINICAL HISTORY: Atypical chest pain. FINDINGS: An AP, portable, upright chest radiograph is compared to study dated 04/15/2021. Correlation is made with chest CT dated 08/07/2018. The heart is enlarged noting atherosclerotic calcification of the thoracic aorta. There is pulmonary vascular congestion. Scarring/atelectasis is noted at the lung bases. No airspace consolidation or large pleural effusion is identified. No pneumothorax is seen. T he skeletal structures are osteopenic. The bony thorax is grossly intact. IMPRESSION: Cardiomegaly with mild pulmonary vascular congestion. ACT 112: Negative or not required by law. Electronically signed by: Corey Roman M.D. 07/06/2021 9:03 AM
[2021-07-06] MEDS ORDERED: OPTIRAY 320 100ml IV ONE (09:58)
--- NOTE | 2021-07-06 10:25 | CT Scan Report ---
CT OF THE NECK WITH IV CONTRAST CLINICAL HISTORY: Difficulty swallowing. COMPARISON STUDY: CTA of the neck September 23, 2014. CT of the cervical spine April 15, 2021. TECHNIQUE: Following IV administration of 94 mL of Optiray, helical axial images of the neck were ob tained. Sagittal and coronal reconstructions were viewed. Automated exposure control was utilized f or the study. A dose lowering technique was utilized adhering to the principles of ALARA. CT DOSE: 355.35 mGycm FINDINGS: Visualized portions of the intracranial contents are unremarkable. The parotid and submand ibular glands are normal. Epiglottis is normal. There is no cervical lymphadenopathy or mass. Several left lobe thyroid nodules measure up to 1.4 cm. These are unchanged. The glottis is closed. The supr aglottic airway slightly tortuous. This could be positional. No radiopaque foreign bodies are identif ied. There is no fluid collection is suggest an abscess within the neck. Lung apices are unremarkable . There is extensive plaque within the proximal right internal carotid artery. This is suboptimally a ssessed on this non-CTA exam. No acute cervical spine fracture is present. No suspicious osseous lesi ons are present. IMPRESSION: 1. No acute process within the neck by CT. No radiopaque foreign body. No cervical lymphadenopathy or abscess. 2. Tortuosity of the supraglottic airway. This is similar to CT of April 15, 2021 and is of doubtfu l significance. ACT 112: Negative or not required by law. Electronically signed by: William Hlot M.D. 07/06/2021 10:23 AM
[2021-07-06 10:42] LABS: Appearance Urine Clear (Clear); Bacteria Urine Automated Negative (Negative); Bilirubin Urine Negative (Negative); Blood Urine Negative (Negative); Cast Urine Automated 0 /lpf (0-5); Color Urine Yellow; Glucose Urine UA Negative (Negative); Ketones Urine Negative (Negative); Leukocyte Esterase Urine 1+ (Negative); Nitrite Urine Negative (Negative); Specific Gravity Urine 1.016 (1.000-1.030); Urobilinogen Urine Negative (Negative); pH Urine 7.5 (4.5-7.5)
[2021-07-06 10:49] LABS: Protein Urine 1+ (Negative)
--- NOTE | 2021-07-06 12:05 | Ultrasound Report ---
LEFT LOWER EXTREMITY VENOUS DOPPLER CLINICAL HISTORY: Left lower extremity swelling. COMPARISON STUDY: Left lower extremity venous Doppler ultrasound September 13, 2014. TECHNIQUE: Sonography of the deep venous system of the left lower extremity was performed. Compressi on and augmentation were evaluated. FINDINGS: Extensive deep venous thrombus within the left lower extremity is noted. There is thrombus within left common femoral, superficial femoral, popliteal, posterior tibial and peroneal veins. Alyssa ral these vessels are expanded. Left lower extremity edema is noted. IMPRESSION: Extensive deep venous thrombus within the left lower extremity. ACT 112: Negative or not required by law. Electronically signed by: William Holt M.D. 07/06/2021 12:04 PM
[2021-07-06] MEDS ORDERED: Heparin IV Adult Wt-Based Standard *NO* Bolus Protocol IV SCH (13:29)
--- NOTE | 2021-07-06 14:01 | Electrocardiogram Report ---
Test Reason : Blood Pressure : / mmHG Vent. Rate : 067 BPM Atrial Rate : 067 BPM P-R Int : 142 ms QRS Dur : 142 ms QT Int : 450 ms P-R-T Axes : 048 -45 077 degrees QTc Int : 475 ms Poor data quality, interpretation may be adversely affected Normal sinus rhythm Left axis deviation Right bundle branch block Abnormal ECG When compared with ECG of 15-APR-2021 00:50, No significant change Confirmed by Reinaldo Guillermo ([id number]) on 07/06/2021 2:00:53 PM Referred By: REFERRED SELF Confirmed By:Reinaldo Guillermo
[2021-07-06] MEDS: HEPARIN SODIUM/DEXTROSE 25,000 UNITS/500 ML BAG IV SCH ×2 (14:26→16:31)
--- NOTE | 2021-07-06 14:30 | History & Physical Report ---
Date of Service July 06, 2021 Assessment & Plan (1) Left leg DVT: Plan: Admit to [facility] Patient presenting from home with reports of a choking sensation (patient believes she swallowed a mouse). While in the ED, patient reporting ongoing L LE swelling. LLE venous Doppler shows extensive DVT. Patient previously anticoagulated on Coumadin for paroxysmal atrial fibrillation and history of DVT/PE. This was discontinued April 2019 due to fall, pelvic fracture, left gluteal hematoma. Noted previous intolerances and allergies to blood thinners (enoxaparin and apixaban) Will start IV heparin with transition to Coumadin, giving first dose of Coumadin tonight. Per chart review, patient has tolerated IV heparin in the past. (2) Hallucinations: Plan: Patient states that she believes she swallowed a mouse this morning and woke up having a choking sensation. CT neck negative for foreign body. Shows tortuosity of the supraglottic airway. This is similar to CT of April 15, 2021 and is of doubtful significance. Patient also states that while she was at [facility], she was seeing worms crawling over her and "bug dirt" all over her bed. Noted the patient is alert and oriented x3 and is able to provide a reliable history. Psych consult (3) Abnormal urinalysis: Plan: Possible UTI vs contaminant Patient denies urinary symptoms Seems like hallucinations have been going on for the past few months, doubt that UTI is contributing Follow urine culture (4) Chronic diastolic CHF (congestive heart failure): Plan: Has lower extremity edema on exam, may be close to baseline. CXR suggesting mild CHF. No crackles appreciated on exam, patient denies shortness of breath and is saturating well on room air. Check BNP, consider small dose of IV Lasix today (5) Paroxysmal atrial fibrillation: Plan: Rhythm controlled on amiodarone, rate controlled on carvedilol Anticoagulation as above (6) Polymyalgia rheumatica: Plan: On chronic prednisone, continue (7) Coronary artery disease: Plan: Appears stable, no reports of chest pain Continue clopidogrel, statin, beta-garrick (8) TIA (transient ischemic attack): Plan: History of Continue Plavix and statin (9) CKD (chronic kidney disease), stage III: Plan: Creatinine 1.1, at baseline (10) DVT prophylaxis: Plan: Anticoagulation as above History of Present Illness Chief Complaint: Choking sensation Primary Care Provider: Jes Doran MD 89-year-old female with PMH diet-controlled DM type II, dyslipidemia, paroxysmal atrial fibrillation rhythm controlled on amiodarone, chronic diastolic CHF, CAD, GERD, CKD stage III, PMR on chronic prednisone, and other problems listed below who presents to the ED for evaluation of a choking sensation. Patient recently admitted to [facility] 04/15 through 04/17 for management of fall, left gluteal hematoma in the setting of being anticoagulated on Coumadin, pelvic fracture. At discharge, patient's Coumadin was discontinued. Patient was discharged to [facility]. Patient returned home on 06/29. Patient reports that she has been doing well since arriving home from [place]. This morning, around 4 AM, patient reports that she woke up having a choking sensation. Patient believes though she swallowed a mouse. Patient reports a similar episode about 9 months ago. But states that " they were not able to find anything". Patient states that while she was at [place], she felt at times that she had worms crawling over her body and that she saw "bug dirt" all over her blankets. Patient reports that since arriving home, she has been ambulating with her walker. She has been making small meals for herself. Home health is being arranged for her. Patient denies any episodes of chest pain or shortness of breath. No lightheadedness, dizziness, diaphoresis, syncopal events. She reports chronic left lower extremity edema that has been present since her admission in April. She reports that the swelling waxes and wanes. Denies left lower extremity pain. No abdominal pain, nausea, vomiting, diarrhea. No urinary symptoms. In the ED, LLE venous Doppler shows extensive DVT. Labs are unremarkable/at patient's baseline. Patient is hemodynamically stable. Allergies Allergy/AdvReac Type Severity Reaction Status Date / Time apixaban [From Eliquis] Allergy Severe pain in Verified 07/06/21 08:28 bones amoxicillin Allergy Unknown RASH,HIVES Verified 07/06/21 08:28 cefaclor Allergy Unknown RASH, HIVES Verified 07/06/21 08:28 levofloxacin Allergy Unknown hives Verified 07/06/21 08:28 atorvastatin AdvReac Severe AFFECTS Verified 07/06/21 08:28 LIVER lisinopril AdvReac Severe AFFECTS Verified 07/06/21 08:28 LIVER ENZYMES citalopram AdvReac Intermediate "WILD Verified 07/06/21 08:28 DREAMS" enoxaparin AdvReac Unknown FACIAL Verified 07/06/21 08:28 SWELLING, FLUSHING, ELEVATED BP omeprazole AdvReac Unknown blurred Verified 07/06/21 08:28 vision, headache, flashing lights Home Medications Medication Instructions Recorded Confirmed Type Lactobacillus acidoph-L.bulgaricus 1 tab PO HS 10/18/18 07/06/21 History 1 million cell tablet (Floranex) atorvastatin 20 mg tablet 20 mg PO HS 10/18/18 07/06/21 History carvedilol 3.125 mg tablet 3.125 mg PO BID 10/18/18 07/06/21 History cholecalciferol (vitamin D3) 25 1,000 unit PO QAM 10/18/18 07/06/21 History mcg (1,000 unit) tablet (Vitamin D3) clopidogrel 75 mg tablet 75 mg PO QAM 10/18/18 07/06/21 History glucosamine sulfate 500 mg tablet 1,000 mg PO QAM 10/18/18 07/06/21 History (Glucosamine) loratadine 10 mg tablet 10 mg PO QAM 10/18/18 07/06/21 History magnesium oxide 400 mg PO QAM 10/18/18 07/06/21 History nitroglycerin 0.4 mg sublingual 0.4 mg SUBLINGUAL UD PRN 10/18/18 07/06/21 History tablet (Nitrostat) omega 3 350 mg-dha 235 mg-epa 90 1 cap PO QAM 10/18/18 07/06/21 History mg-fish oil 597 mg capsule,delay rel ([place]-3) pantoprazole 40 mg tablet,delayed 40 mg PO BID 10/18/18 07/06/21 History release prednisone 5 mg tablet 7.5 mg PO QAM 10/18/18 07/06/21 History amiodarone 100 mg tablet 100 mg PO QAM 04/15/21 07/06/21 History amlodipine 2.5 mg tablet 2.5 mg PO QAM 04/15/21 07/06/21 History furosemide 20 mg tablet 20 mg PO Q2D 04/15/21 07/06/21 History iron,carbonyl 65 mg-vitamin C 125 1 tab PO Q2D 04/15/21 07/06/21 History mg tablet,delayed release (Vitron-C) furosemide 20 mg tablet 40 mg PO Q2D 07/06/21 07/06/21 History Past Med/Surg History Medical History Anemia Carotid arterial disease "s/p left CEA, september 2014" Cerebrovascular disease Chronic diastolic CHF (congestive heart failure) CKD (chronic kidney disease), stage III Closed fracture of inferior pubic ramus Coronary artery disease Chronic coronary heart disease with previous remote PCI to the circumflex and right coronary artery territories Dyslipidemia History of DVT (deep vein thrombosis) "2013" History of pulmonary embolism "2013" Hypertension Paroxysmal atrial fibrillation Polymyalgia rheumatica Pre-diabetes TIA (transient ischemic attack) UGIB (upper gastrointestinal bleed) Surgical History H/O dilation and curettage S/P appendectomy S/P laparoscopic cholecystectomy (12/03/13) S/P tubal ligation Family History Sister Breast cancer Sister Breast cancer Social History Smoking Status: Former smoker Hx Alcohol Use: No Hx Substance Use: No Preferred Language: Khmer Communication Ability: Effective 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 [employer]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: No Beliefs That Will Affect Care: None marital status: / Current Living Situation: Alone Feels Safe at Home: Yes Safety Concerns: Feels Safe At This Time Assistive Devices: Denture - Upper, Denture - Lower, Glasses and Walker Review of Systems Review of Systems: ROS per HPI, all other systems reviewed and negative Physical Exam Constitutional: WD/WN, vitals as above Eyes: PERRL, conjunctivae normal, anicteric sclerae ENMT: external ear and nose normal, oropharynx normal Respiratory: normal respiratory effort, lungs clear to auscultation Cardiovascular: Rate/Rhythm: regular rate and regular rhythm Vessels: normal peripheral pulses Extremities: + edema (+2 edema RLE, +3 edema LLE) Gastrointestinal (Abdomen): normal bowel sounds, soft, nontender, no hepatosplenomegaly Musculoskeletal: no cyanosis or clubbing, extremities motor strength 5/5 Skin: no rashes, warm and dry Chronic venous changes BLE with dry skin noted bilaterally Neurologic: PERRL, EOMI, accommodation nl, no face palsy, no dysarthria Psychiatric: A+Ox3, euthymic affect Results & Data Results & Data ([facility]) Vital Signs (Past 12 Hours) Vital Signs Temp Pulse Pulse Resp BP BP Pulse Ox 07/06/21 11:29 72 21 160/89 H 07/06/21 11:00 61 16 07/06/21 10:30 65 14 07/06/21 10:03 70 70 17 180/80 H 180/80 H 92 07/06/21 10:02 73 12 07/06/21 09:08 64 18 165/90 H 92 07/06/21 09:06 63 18 165/90 H 07/06/21 09:00 65 17 07/06/21 08:30 66 19 07/06/21 08:08 68 20 07/06/21 07:34 36.6 C 74 20 187/87 H 95 Laboratory Results Short CBC 07/06/21 Range/Units 08:08 WBC 8.43 (4.8-10.8) K/uL Hgb 14.0 (12.0-16.0) g/dL Hct 43.4 (37-47) % Plt Count 204 (130-400) K/uL BMP 07/06/21 08:08 Sodium 140 Potassium 3.9 Chloride 99 Carbon Dioxide 34 H BUN 28 H Creatinine 1.12 Glucose 118 H Calcium 9.2 Cardiac Enzymes 07/06/21 Range/Units 08:08 Troponin I 0.04 (0-0.04) ng/ml Liver Function 07/06/21 Range/Units 08:08 Total Bilirubin 0.8 (0.2-1.0) mg/dl AST 17 (13-39) U/L ALT 10 (7-52) U/L Alkaline Phosphatase 41 (34-104) U/L Albumin 3.9 (3.4-5.0) gm/dl Urine 07/06/21 Range/Units 09:34 Urine Color Yellow Urine Appearance Clear (Clear) Urine pH 7.5 (4.5-7.5) Ur Specific [employer] [place] 1.016 (1.000-1.030) Urine Protein 1+ H (Negative) Urine Glucose (UA) Negative (Negative) Diagnostic Findings Chest X-Ray 07/06/21 07:47 SINGLE VIEW CHEST CLINICAL HISTORY: Atypical chest pain. FINDINGS: An AP, portable, upright chest radiograph is compared to study dated 04/15/2021. Correlation is made with chest CT dated 08/07/2018. The heart is enlarged noting atherosclerotic calcification of the thoracic aorta. There is pulmonary vascular congestion. Scarring/atelectasis is noted at the lung bases. No airspace consolidation or large pleural effusion is identified. No pneumothorax is seen. The skeletal structures are osteopenic. The bony thorax is grossly intact. IMPRESSION: Cardiomegaly with mild pulmonary vascular congestion. ACT 112: Negative or not required by law. Electronically signed by: Corey Roman M.D. 07/06/2021 9:03 AM Soft Tissue Neck CT 07/06/21 07:48 CT OF THE NECK WITH IV CONTRAST CLINICAL HISTORY: Difficulty swallowing. COMPARISON STUDY: CTA of the neck September 23, 2014. CT of the cervical spine April 15, 2021. TECHNIQUE: Following IV administration of 94 mL of Optiray, helical axial images of the neck were obtained. Sagittal and coronal reconstructions were viewed. Automated exposure control was utilized for the study. A dose lowering technique was utilized adhering to the principles of ALARA. CT DOSE: 355.35 mGycm FINDINGS: Visualized portions of the intracranial contents are unremarkable. The parotid and submandibular glands are normal. Epiglottis is normal. There is no cervical lymphadenopathy or mass. Several left lobe thyroid nodules measure up to 1.4 cm. These are unchanged. The glottis is closed. The supraglottic airway slightly tortuous. This could be positional. No radiopaque foreign bodies are identified. There is no fluid collection is suggest an abscess within the neck. Lung apices are unremarkable. There is extensive plaque within the proximal right internal carotid artery. This is suboptimally assessed on this non-CTA exam. No acute cervical spine fracture is present. No suspicious osseous lesions are present. IMPRESSION: 1. No acute process within the neck by CT. No radiopaque foreign body. No cervical lymphadenopathy or abscess. 2. Tortuosity of the supraglottic airway. This is similar to CT of April 15, 2021 and is of doubtful significance. ACT 112: Negative or not required by law. Electronically signed by: William Holt M.D. 07/06/2021 10:23 AM Venous Doppler Study 07/06/21 11:13 LEFT LOWER EXTREMITY VENOUS DOPPLER CLINICAL HISTORY: Left lower extremity swelling. COMPARISON STUDY: Left lower extremity venous Doppler ultrasound September 13, 2014. TECHNIQUE: Sonography of the deep venous system of the left lower extremity was performed. Compression and augmentation were evaluated. FINDINGS: Extensive deep venous thrombus within the left lower extremity is noted. There is thrombus within left common femoral, superficial femoral, popliteal, posterior tibial and peroneal veins. Several these vessels are expanded. Left lower extremity edema is noted. IMPRESSION: Extensive deep venous thrombus within the left lower extremity. ACT 112: Negative or not required by law. Electronically signed by: William Holt M.D. 07/06/2021 12:04 PM Code Status & VTE Plan Code Status Patient is a full code as per my discussion with her. VTE Prophylaxis Plan VTE Prophylaxis will be ordered: No Supervising Physician Co-Signing Physician Notes I have seen and examined the patient and have discussed the case with the provider above. I agree with the assessment and plan as stated. 89 yo F with acute DVT. Sedentary and recent hospital stay. The choking and coughing this morning sounds like some phlegm caught in her throat. The hallucinations are unclear but as she was sleeping, seems this was more of a dream to wake issue where she was remembering her dream as opposed to actually hallucinating there was a mouse present. She may have some delusional parasitosis, however, as she had an outpatient physician check her stool studies which she had me look up for her today. When I explained they were negative, she was astounded. She was convinced she had worms. She reports recent swelling, but no clear dyspnea on exertion. It is difficult to say if swelling is just from the leg DVT or if she has felt swollen overall. My physical reveals hemodynamic stability. She is generally weak and elderly. Speech and memory appear to be intact. No gross focal neuro deficits. Left leg is larger than the right but temp is equal. No evidence of cellulitis or wounds present. Cardiopulmonary exam unremarkable and there is 2+ pitting edema on her left foot only. Abdomen is soft, NTND CT neck unremarkable aside from some tortuosity of the airway-no foreign body is present. CXR with some mild pulmonary congestion. LLE US positive for extensive left DVT. Agree with plan to start anticogulation and trend INR until therapeutic. No significant pain today. Cont TEDs and other supportive care efforts. Ambulate as tolerated. She needs to be up and moving early and often to not lose ground from goals acheived in SNF. Agree with psych consult, although this may just be an education issue. If she develops worsening shortness of breath or worsening leg swelling, would consider switching to intravenous Lasix. However, for now she appears euvolemic with the swelling from the pressure from the DVT only. Cont her home oral Lasix. Wesley, DO
[2021-07-06] MEDS ORDERED: ACETAMINOPHEN 325 MG TAB PO PRN (16:30)
[2021-07-06] MEDS: ASCORBIC ACID 500 MG TAB PO SCH (18:00)
[2021-07-06] MEDS: WARFARIN SOD 5 MG TAB PO SCH (18:01)
[2021-07-06] MEDS: FUROSEMIDE 20 MG TAB PO SCH (18:01)
[2021-07-06 20:31] LABS: Partial Thromboplastin Ratio 1.3; Partial Thromboplastin Time 34.9 Seconds (21.0-31.0)
[2021-07-06] MEDS ORDERED: HEPARIN IV BOLUS 2,000 UNITS in SYRINGE 0 ML IV ONE (20:41)
[2021-07-06] MEDS: carvediloL 3.125 MG TAB PO SCH (21:09)
[2021-07-06] MEDS: ATORVASTATIN 20 MG TAB PO SCH (21:10)
[2021-07-06] MEDS: PANTOprazole 40 MG TAB PO SCH (21:10)
[2021-07-06] MEDS ORDERED: diphenhydrAMINE HCL 25 MG/10 ML UDC PO ONE (22:30)
[2021-07-07] MEDS ORDERED: diphenhydrAMINE Capsule 25 MG CAP PO ONE (06:49)
[2021-07-07 08:10] LABS: Hematocrit (blood only) 39.2 % (37-47); Hemoglobin 12.6 g/dL (12.0-16.0); Mean Corpuscular Hemoglobin 31.6 pg (25-34); Mean Corpuscular Hgb Conc 32.1 g/dL (32-36); Mean Corpuscular Volume 98.2 fL (80-100); Mean Platelet Volume 9.9 fL (7.4-10.4); Platelet Count 192 K/uL (130-400); RDW Coefficient of Variation 14.8 % (11.5-14.5); RDW Standard Deviation 53.4 fL (36.4-46.3); Red Blood Count 3.99 M/uL (4.2-5.4); White Blood Count 5.82 K/uL (4.8-10.8)
[2021-07-07 08:20] LABS: Partial Thromboplastin Ratio 0.9; Partial Thromboplastin Time 25.3 Seconds (21.0-31.0)
[2021-07-07 08:36] LABS: BUN Creatinine Ratio 16.5 (10-20); Calcium 8.5 mg/dl (8.5-10.1); Creatinine Clr Calc Pharmacy 27.9 ml/min; Est GFR (African American) 45.9 ml/min; Est GFR (Non-African American) 39.6 ml/min; Potassium 3.5 mmol/L (3.5-5.1)
[2021-07-07] MEDS: amLODIPine BESYLATE 5 MG TAB PO SCH (08:51)
[2021-07-07] MEDS: AMIODARONE 200 MG TAB PO SCH (08:51)
[2021-07-07] MEDS: CLOPIDOGREL BISULFATE 75 MG TAB PO SCH (08:52)
[2021-07-07] MEDS: carvediloL 3.125 MG TAB PO SCH ×2 (08:52→20:36)
[2021-07-07] MEDS: LORATADINE 10 MG TAB PO SCH (08:55)
[2021-07-07] MEDS: MAGNESIUM OXIDE 400 MG TAB PO SCH (08:55)
[2021-07-07] MEDS: PANTOprazole 40 MG TAB PO SCH ×2 (08:55→20:36)
[2021-07-07] MEDS: predniSONE 2.5 MG TAB PO SCH (08:56)
[2021-07-07] MEDS ORDERED: FONDAPARINUX 2.5 MG/0.5 ML SYR SQ SCH (09:00)
[2021-07-07] MEDS ORDERED: FUROSEMIDE 40 MG TAB PO SCH (09:00)
[2021-07-07 10:42] LABS: Prothrombin Time 10.9 Seconds (9.0-12.0)
--- NOTE | 2021-07-07 12:03 | Psychiatric Consultation ---
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 Given that she denies tactile hallucinations epileptic events unlikely but if concern for seizure could consider neurology input given head injury via fall in Apr 2021. Could represent the start of an age-related dementia process but such fixed delusions would be atypical presentation and less likely to be lewy body dementia given no motor symptoms and no overt visual hallucinations and did fairly well on informal cognitive screening (particularly given education to 11th grade level so would expect to see potential deficits fairly early). Delirium unlikely given fully oriented and no other behavioral manifestations. Sleep disorder less likely in context of fixed delusion about worms occurring outside times of awakening or falling asleep. No evidence for any primary psychotic disorder. At this point not causing enough distress or issues to warrant high risk of antipsychotics in her age particularly as they tend to be fairly ineffective for fixed delusions. Rather recommend ongoing supportive care via reassurance of no need for further medical workup for concerns related to worms and mouse and frequent check-ins with her PCP for reassurance. (1) Delusional disorder, somatic type: -support and reassurance -could consider more formalized cognitive assessment as outpatient, particularly if symptoms related to memory or delusions worsen -continue with delirium prevention measures given her age while admitted to the hospital, could use melatonin 3mg qhs prn if sleep becomes disrupted Psych History Identifying Data 89 yo woman with history of delusions about worms, possible UTI, CHF, a fib, polymyalgia rheumatica, hx TIA and CKD stage II admitted medically for DVT after it was found when she presented with concerns she had swallowed a mouse. Psychiatry was consulted for recommendations. Chief Complaint "I'm not nuts". History of Present Illness Michelle is fully oriented, can do some of the serial 7s, spells world backwards, and seems to recall most recent events. She states she has mice in her home, just a few, and that 8 months ago she believed she may have swallowed a mouse after having a choking sensation in her throat on awakening from sleep but it went away and she never sought treatment. Then over the last three months she has been concerned she may have intestinal worms, such as pinworms, as her children had them when they were young, and she feels she has similar symptoms including rectal itchiness. She also saw a small dark spot on the sheets at her recent physical rehab stay which she felt was further evidence of the worms presence. She notes she has done an outpatient stool study which showed no intestinal parasites but she's unconvinced they may not still be present. However, she's been using topical vagisil and diaper rash cream on her rectum at home and this seems to have solved the problem and she denies any further symptoms. In the bag sealer of 07/06/21 she woke up in her recliner at home with a sense of choking/difficulty swallowing and believed she may have swallowed a mouse again. She notes "I had an idea I had swallowed a mouse in the past and thought 'I can't imagine it would happen twice'" but also found the sensation wasn't going away so she called her niece and presented to the ED for further evaluation. She denies any further swallowing issues. She feels that swallowing a mouse was the most likely explanation for her symptoms though agrees other causes could be possible. Psychiatric ROS notable for denial of any other mood symptoms, denies SI, denies any other psychotic symptoms-no aud jewell or visual jewell, denies any recent changes with movement nor tremors nor worsening of gait, denies anxiety. 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 Denies any issues with worsening memory or forgetting things or out of the ordinary behaviors. Denies a history of GISELL or sleep disorders but does snore and often has phlegm in her throat on awakening. Endorses stable sleep and energy levels during the day. Past Psychiatric History Previous Psych History: see HPI-no psych hx Allergies Allergy/AdvReac Type Severity Reaction Status Date / Time apixaban [From Eliquis] Allergy Severe pain in Verified 07/06/21 08:28 bones amoxicillin Allergy Unknown RASH,HIVES Verified 07/06/21 08:28 cefaclor Allergy Unknown RASH, HIVES Verified 07/06/21 08:28 levofloxacin Allergy Unknown hives Verified 07/06/21 08:28 atorvastatin AdvReac Severe AFFECTS Verified 07/06/21 08:28 LIVER lisinopril AdvReac Severe AFFECTS Verified 07/06/21 08:28 LIVER ENZYMES citalopram AdvReac Intermediate "WILD Verified 07/06/21 08:28 DREAMS" enoxaparin AdvReac Unknown FACIAL Verified 07/06/21 08:28 SWELLING, FLUSHING, ELEVATED BP omeprazole AdvReac Unknown blurred Verified 07/06/21 08:28 vision, headache, flashing lights Home Medications Medication Instructions Recorded Confirmed Type Lactobacillus acidoph-L.bulgaricus 1 tab PO HS 10/18/18 07/06/21 History 1 million cell tablet (Floranex) atorvastatin 20 mg tablet 20 mg PO HS 10/18/18 07/06/21 History carvedilol 3.125 mg tablet 3.125 mg PO BID 10/18/18 07/06/21 History cholecalciferol (vitamin D3) 25 1,000 unit PO QAM 10/18/18 07/06/21 History mcg (1,000 unit) tablet (Vitamin D3) clopidogrel 75 mg tablet 75 mg PO QAM 10/18/18 07/06/21 History glucosamine sulfate 500 mg tablet 1,000 mg PO QAM 10/18/18 07/06/21 History (Glucosamine) loratadine 10 mg tablet 10 mg PO QAM 10/18/18 07/06/21 History magnesium oxide 400 mg PO QAM 10/18/18 07/06/21 History nitroglycerin 0.4 mg sublingual 0.4 mg SUBLINGUAL UD PRN 10/18/18 07/06/21 History tablet (Nitrostat) omega 3 350 mg-dha 235 mg-epa 90 1 cap PO QAM 10/18/18 07/06/21 History mg-fish oil 597 mg capsule,delay rel ([place]-3) pantoprazole 40 mg tablet,delayed 40 mg PO BID 10/18/18 07/06/21 History release prednisone 5 mg tablet 7.5 mg PO QAM 10/18/18 07/06/21 History amiodarone 100 mg tablet 100 mg PO QAM 04/15/21 07/06/21 History amlodipine 2.5 mg tablet 2.5 mg PO QAM 04/15/21 07/06/21 History furosemide 20 mg tablet 20 mg PO Q2D 04/15/21 07/06/21 History iron,carbonyl 65 mg-vitamin C 125 1 tab PO Q2D 04/15/21 07/06/21 History mg tablet,delayed release (Vitron-C) furosemide 20 mg tablet 40 mg PO Q2D 07/06/21 07/06/21 History Personal History Living Arrangements: Home (has in home health services that come to her, help with cleaning/shopping/transport) Highest Grade Completed: Did Not Graduate High School (11th grade) Beliefs That Will Affect Care: None Patient History Medical History Anemia Carotid arterial disease "s/p left CEA, september 2014" Cerebrovascular disease Chronic diastolic CHF (congestive heart failure) CKD (chronic kidney disease), stage III Closed fracture of inferior pubic ramus Coronary artery disease Chronic coronary heart disease with previous remote PCI to the circumflex and right coronary artery territories Dyslipidemia History of DVT (deep vein thrombosis) "2013" History of pulmonary embolism "2013" Hypertension Paroxysmal atrial fibrillation Polymyalgia rheumatica Pre-diabetes TIA (transient ischemic attack) UGIB (upper gastrointestinal bleed) Surgical History H/O dilation and curettage S/P appendectomy S/P laparoscopic cholecystectomy (12/03/13) S/P tubal ligation Family History Sister Breast cancer Sister Breast cancer Social History Smoking Status: Former smoker Hx Alcohol Use: No Hx Substance Use: No Preferred Language: Bulgarian Communication Ability: Effective Android Programmer Required: No Beliefs That Will Affect Care: None marital status: / Current Living Situation: Alone Feels Safe at Home: Yes Safety Concerns: Feels Safe At This Time Assistive Devices: Walker Physical Exam Psychiatric: Orientation: alert and oriented x 3 Apperance: appropriately dressed and appropriately groomed Eye Contact: good eye contact Motor Behavior: no abnormal motor movements Speech: normal rate/rhythm/volume of speech Affect: euthymic affect Mood: no depressed mood, no anxious mood and no irritable mood Thought Process: goal directed thought process Thought Content: + delusions Suicidal Thoughts: denies suicidal thoughts Homicidal Thoughts: denies homicidal thoughts Hallucinations: no auditory hallucinations and no visual hallucinations Cognition: recent memory grossly intact, remote memory grossly intact, attention grossly intact and language grossly intact Estimated Intelligence: consistent with education level Insight: + limited insight Judgement: + fair judgement Vital Signs (Past 24 Hours): Last Vital Signs Temp 36.6 C 07/07/21 07:32 Pulse 67 07/07/21 08:49 Resp 16 07/07/21 07:32 BP 126/70 07/07/21 08:49 Pulse Ox 91 07/07/21 07:32 Review of Systems All systems reviewed & are unremarkable except as noted in HPI & below Results & Data (PSY) Medications Administered Amiodarone HCl (Amiodarone 200 Mg Tab) [facility]: 08/06/21 08:59 Last Admin: 07/07/21 08:51 Dose: 100 mg Documented by: [id number] Amlodipine Besylate (Amlodipine Besylate 5 Mg Tab) 2.5 [facility] [place]: 08/06/21 08:59 Last Admin: 07/07/21 08:51 Dose: 2.5 mg Documented by: [id number] Ascorbic Acid (Ascorbic Acid 500 Mg Tab) 500 mg PO Q2D [facility] Stop: 08/05/21 16:59 Last Admin: 07/06/21 18:00 Dose: 500 mg Documented by: [id number] Atorvastatin Calcium (Atorvastatin 20 Mg Tab) 20 mg PO HS [facility] Stop: 08/05/21 20:59 Last Admin: 07/06/21 21:10 Dose: 20 mg Documented by: [id number] Carvedilol (Carvedilol 3.125 Mg Tab) 3.125 mg PO BID [facility] Stop: 08/05/21 20:59 Last Admin: 07/07/21 08:52 Dose: 3.125 mg Documented by: [id number] Admin: 07/06/21 21:09 Dose: 3.125 mg Documented by: [id number] Clopidogrel Bisulfate (Clopidogrel Bisulfate 75 Mg Tab) 75 mg PO QAM [facility] Stop: 08/06/21 08:59 Last Admin: 07/07/21 08:52 Dose: 75 mg Documented by: [id number] Furosemide (Furosemide 20 Mg Tab) 20 mg PO Q48H [facility] Stop: 08/05/21 16:59 Last Admin: 07/06/21 18:01 Dose: 20 mg Documented by: [id number] Loratadine (Loratadine 10 Mg Tab) 10 mg PO [facility] Stop: 08/06/21 08:59 Last Admin: 07/07/21 08:55 Dose: 10 mg Documented by: [id number] Magnesium Oxide (Magnesium Oxide 400 Mg Tab) 400 mg PO [facility] Stop: 08/06/21 08:59 Last Admin: 07/07/21 08:55 Dose: 400 mg Documented by: [id number] Pantoprazole Sodium (Pantoprazole 40 Mg Tab) 40 mg PO BID [facility] Stop: 08/05/21 20:59 Last Admin: 07/07/21 08:55 Dose: 40 mg Documented by: [id number] Admin: 07/06/21 21:10 Dose: 40 mg Documented by: [id number] Prednisone (Prednisone 2.5 Mg Tab) 7.5 mg PO [facility] Stop: 08/06/21 08:59 Last Admin: 07/07/21 08:56 Dose: 7.5 mg Documented by: [id number] Warfarin Sodium (Warfarin Sod 5 Mg Tab) 5 mg PO DAILY@1600 [facility] Stop: 08/05/21 16:44 Last Admin: 07/06/21 18:01 Dose: 5 mg Documented by: [id number] Coding Level of Care Code 36605 Inpt Consult Level 3 Diagnoses Delusional disorder, somatic type F22 Time Spent (min) 30
[2021-07-07] MEDS: WARFARIN SOD 5 MG TAB PO SCH (16:27)
[2021-07-07] MEDS: FUROSEMIDE 40 MG TAB PO SCH (16:29)
[2021-07-07] MEDS ORDERED: MELATONIN 3 MG TAB PO PRN (18:30)
--- NOTE | 2021-07-07 18:33 | Hospitalist Progress Note ---
Date of Service July 07, 2021 Assessment & Plan (1) DVT (deep venous thrombosis): Plan: (1) Left leg DVT: Admitted to [facility] Patient presenting from home with reports of a choking sensation (patient believes she swallowed a mouse). While in the ED, patient reporting ongoing L LE swelling. LLE venous Doppler showed extensive DVT. Patient previously anticoagulated on Coumadin for paroxysmal atrial fibrillation and history of DVT/PE. This was discontinued April 2021 due to fall, pelvic fracture, left gluteal hematoma. Noted previous intolerances and allergies to blood thinners (enoxaparin and apixaban), currently heparin in this admission. Patient not agreeable to start any other bridging medications including fondaparinux, will continue with Coumadin, PT/INR daily. Pt aware of the need of bridging medicaitons. (2) Hallucinations: Plan: Patient states that she believes she swallowed a mouse this morning and woke up having a choking sensation. CT neck negative for foreign body. Shows tortuosity of the supraglottic airway. This is similar to CT of April 15, 2021 and is of doubtful significance. Patient also states that while she was at [facility], she was seeing worms crawling over her and "bug dirt" all over her bed. Patient AOx3, psychiatry evaluated, appreciate recommendations. More formal cognitive assessment as outpatient. Can use melatonin nightly as needed. (3) Abnormal urinalysis: Plan: Possible UTI vs contaminant Patient denies urinary symptoms Seems like hallucinations have been going on for the past few months, doubt that UTI is contributing Follow urine culture (4) Chronic diastolic CHF (congestive heart failure): Plan: Has lower extremity edema on exam, may be close to baseline. CXR suggesting mild CHF. No crackles appreciated on exam, patient denies shortness of breath and is saturating well on room air. c/w home dose lasix. (5) Paroxysmal atrial fibrillation: Plan: Rhythm controlled on amiodarone, rate controlled on carvedilol Anticoagulation as above (6) Polymyalgia rheumatica: Plan: On chronic prednisone, continue (7) Coronary artery disease: Plan: Appears stable, no reports of chest pain Continue clopidogrel, statin, beta-garrick (8) TIA (transient ischemic attack): Plan: History of Continue Plavix and statin (9) CKD (chronic kidney disease), stage III: Plan: Creatinine 1.1, at baseline (10) DVT prophylaxis: Plan: Anticoagulation as above Admission and Anticipated Discharge Date Admission Date: July 06, 2021 Results & Data Results & Data ([facility]) Vital Signs (Past 12 Hours) Vital Signs Temp Pulse Resp BP Pulse Ox 07/07/21 14:58 36.8 C 66 16 135/78 97 07/07/21 08:49 67 126/70 07/07/21 07:32 36.6 C 60 16 117/67 91 (1) DVT (deep venous thrombosis) Affected thrombotic vein of extremity: other lower extremity vein Chronicity: acute DVT location: lower extremity Laterality: left Qualified Code(s): I82.492 - Acute embolism and thrombosis of other specified deep vein of left lower extremity
[2021-07-07] MEDS: ATORVASTATIN 20 MG TAB PO SCH (20:36)
--- NOTE | 2021-07-08 06:51 | Electrocardiogram Report ---
Test Reason : Blood Pressure : / mmHG Vent. Rate : 073 BPM Atrial Rate : 073 BPM P-R Int : 146 ms QRS Dur : 142 ms QT Int : 424 ms P-R-T Axes : 067 -80 083 degrees QTc Int : 467 ms Normal sinus rhythm Left axis deviation Right bundle branch block Abnormal ECG When compared with ECG of 06-JUL-2021 07:59, T wave inversion less evident in Anterior leads Confirmed by Puma Reardon [id number] on 07/08/2021 6:51:25 AM Referred By: REFERRED SELF Confirmed By:Puma Reardon
[2021-07-08 07:22] LABS: Basophils # (auto) 0.02 K/uL (0-0.2); Basophils % (auto) 0.3 %; Eosinophils % (auto) 6.9 %; Hematocrit (blood only) 39.1 % (37-47); Hemoglobin 12.6 g/dL (12.0-16.0); Immature Granulocytes # (auto) 0.01 K/uL (0.00-0.02); Immature Granulocytes % (auto) 0.2 %; Lymphocytes % (auto) 24.3 %; Mean Corpuscular Hemoglobin 31.3 pg (25-34); Mean Corpuscular Hgb Conc 32.2 g/dL (32-36); Monocytes # (auto) 0.51 K/uL (0.11-0.59); Monocytes % (auto) 8.9 %; Neutrophils # (auto) 3.42 K/uL (1.4-6.5); Neutrophils % (auto) 59.4 %; Platelet Count 182 K/uL (130-400); RDW Coefficient of Variation 14.5 % (11.5-14.5); RDW Standard Deviation 51.5 fL (36.4-46.3); Red Blood Count 4.03 M/uL (4.2-5.4); White Blood Count 5.76 K/uL (4.8-10.8)
[2021-07-08 07:43] LABS: BUN Creatinine Ratio 15.9 (10-20); Calcium 8.5 mg/dl (8.5-10.1); Creatinine Clr Calc Pharmacy 24.5 ml/min; Est GFR (African American) 39.2 ml/min; Est GFR (Non-African American) 33.8 ml/min; Potassium 3.6 mmol/L (3.5-5.1)
[2021-07-08 07:44] LABS: INR 1.1 (0.9-1.1); Partial Thromboplastin Time 26.4 Seconds (21.0-31.0); Prothrombin Time 11.8 Seconds (9.0-12.0)
[2021-07-08] MEDS: carvediloL 3.125 MG TAB PO SCH ×2 (08:36→21:06)
[2021-07-08] MEDS: MAGNESIUM OXIDE 400 MG TAB PO SCH (08:37)
[2021-07-08] MEDS: amLODIPine BESYLATE 5 MG TAB PO SCH (08:37)
[2021-07-08] MEDS: LORATADINE 10 MG TAB PO SCH (08:37)
[2021-07-08] MEDS: PANTOprazole 40 MG TAB PO SCH ×2 (08:37→21:06)
[2021-07-08] MEDS: CLOPIDOGREL BISULFATE 75 MG TAB PO SCH (08:38)
[2021-07-08] MEDS: AMIODARONE 200 MG TAB PO SCH (08:38)
[2021-07-08] MEDS: predniSONE 2.5 MG TAB PO SCH (08:38)
[2021-07-08] MEDS: CEFDINIR 300 MG CAP PO SCH (10:26)
[2021-07-08] MEDS: WARFARIN SOD 5 MG TAB PO SCH (16:22)
[2021-07-08] MEDS: FUROSEMIDE 20 MG TAB PO SCH (16:22)
[2021-07-08] MEDS: ASCORBIC ACID 500 MG TAB PO SCH (16:23)
[2021-07-08] MEDS ORDERED: hydrALAZINE HCL 20 MG/ML VIAL IV PRN (16:51)
--- NOTE | 2021-07-08 18:11 | Hospitalist Progress Note ---
Date of Service July 08, 2021 Assessment & Plan (1) DVT (deep venous thrombosis): Plan: (1) Left leg DVT: Admitted to [facility] Patient presenting from home with reports of a choking sensation (patient believes she swallowed a mouse). While in the ED, patient reporting ongoing L LE swelling. LLE venous Doppler showed extensive DVT. Patient previously anticoagulated on Coumadin for paroxysmal atrial fibrillation and history of DVT/PE. This was discontinued April 2021 due to fall, pelvic fracture, left gluteal hematoma. Noted previous intolerances and allergies to blood thinners (enoxaparin and apixaban), currently heparin in this admission. Patient not agreeable to start any other bridging medications including fondaparinux, will continue with Coumadin, PT/INR daily. Pt aware of the need of bridging medications and aware of the risk of not using it. (2) Hallucinations: Plan: Patient states that she believes she swallowed a mouse this morning and woke up having a choking sensation. CT neck negative for foreign body. Shows tortuosity of the supraglottic airway. This is similar to CT of April 15, 2021 and is of doubtful significance. Patient also states that while she was at [facility], she was seeing worms crawling over her and "bug dirt" all over her bed. Patient AOx3, psychiatry evaluated, appreciate recommendations. More formal cognitive assessment as outpatient. Can use melatonin nightly as needed. (3) Abnormal urinalysis: Plan: Possible UTI vs contaminant Patient denies urinary symptoms Seems like hallucinations have been going on for the past few months, doubt that UTI is contributing UCx positive for proteus, started cefdinir 07/08 (4) Chronic diastolic CHF (congestive heart failure): Plan: Has lower extremity edema on exam, may be close to baseline. CXR suggesting mild CHF. No crackles appreciated on exam, patient denies shortness of breath and is saturating well on room air. c/w home dose lasix. (5) Paroxysmal atrial fibrillation: Plan: Rhythm controlled on amiodarone, rate controlled on carvedilol Anticoagulation as above (6) Polymyalgia rheumatica: Plan: On chronic prednisone, continue (7) Coronary artery disease: Plan: Appears stable, no reports of chest pain Continue clopidogrel, statin, beta-garrick (8) TIA (transient ischemic attack): Plan: History of Continue Plavix and statin (9) CKD (chronic kidney disease), stage III: Plan: Creatinine 1.1, at baseline (10) DVT prophylaxis: Plan: Anticoagulation as above Admission and Anticipated Discharge Date Admission Date: July 06, 2021 Subjective Patient seen and examined at bedside as a follow-up of left leg DVT and hallucination. Patient was lying in bed, on room air, NAD, patient reported having worms coming out of her rectum overnight and demanded she gets a shower in the morning. Per RN, no evidence of worms. Patient made aware, patient insistent that she had worms crawling out of her rectum and over her body. Patient denies fever/chills/headache/chest pain/palpitations/belly pain/other review of symptoms. Patient does have fibromyalgia. Physical Exam Physical Exam: GENERAL: Alert and oriented x3. NAD, on RA. HEENT: No pallor, no icterus. Pupils equal, round and reactive to light. Oral mucosa moist. NECK: No JVD, no neck masses. HEART: S1 and S2 heard. Regular rate and rhythm. No murmur, no gallop. RESPIRATORY SYSTEM: Normal AP diameter. No accessory muscle use. No wheezing, no crackles. ABDOMEN: Soft, bowel sounds present, some tenderness (d/t fibromyalgia, is chronic per pt), no distention. CENTRAL NERVOUS SYSTEM: No facial droop. Speech is clear. Obeys simple commands. Moves extremities. EXTREMITIES: Lt Pedal edema 2+, LLE 1+, RLE trace edema; no erythema. Results & Data Results & Data ([facility]) Vital Signs (Past 12 Hours) Vital Signs Temp Pulse Pulse Pulse Resp BP BP 07/08/21 16:26 67 168/74 H 07/08/21 15:29 36.6 C 66 16 183/98 H 07/08/21 08:36 78 07/08/21 07:57 36.5 C 54 L 16 124/68 Pulse Ox 07/08/21 16:26 92 07/08/21 15:29 92 07/08/21 08:36 07/08/21 07:57 92 (1) DVT (deep venous thrombosis) Affected thrombotic vein of extremity: other lower extremity vein Chronicity: acute DVT location: lower extremity Laterality: left Qualified Code(s): I82.492 - Acute embolism and thrombosis of other specified deep vein of left lower extremity
[2021-07-08] MEDS: ATORVASTATIN 20 MG TAB PO SCH (21:06)
[2021-07-09 06:40] LABS: INR 1.4 (0.9-1.1); Prothrombin Time 15.1 Seconds (9.0-12.0)
[2021-07-09 06:53] LABS: Creatinine Clr Calc Pharmacy 23.6 ml/min; Est GFR (African American) 37.5 ml/min; Est GFR (Non-African American) 32.4 ml/min
[2021-07-09] MEDS: predniSONE 2.5 MG TAB PO SCH (08:50)
[2021-07-09] MEDS: PANTOprazole 40 MG TAB PO SCH ×2 (08:50→20:17)
[2021-07-09] MEDS: MAGNESIUM OXIDE 400 MG TAB PO SCH (08:51)
[2021-07-09] MEDS: LORATADINE 10 MG TAB PO SCH (08:51)
[2021-07-09] MEDS: carvediloL 3.125 MG TAB PO SCH ×2 (08:51→20:18)
[2021-07-09] MEDS: CEFDINIR 300 MG CAP PO SCH (08:51)
[2021-07-09] MEDS: CLOPIDOGREL BISULFATE 75 MG TAB PO SCH (08:51)
[2021-07-09] MEDS: amLODIPine BESYLATE 5 MG TAB PO SCH (08:52)
[2021-07-09] MEDS: AMIODARONE 200 MG TAB PO SCH (08:53)
--- NOTE | 2021-07-09 15:35 | Hospitalist Progress Note ---
Date of Service July 09, 2021 Assessment & Plan (1) DVT (deep venous thrombosis): Plan: (1) Left leg DVT: Admitted to [facility] Patient presenting from home with reports of a choking sensation (patient believes she swallowed a mouse). While in the ED, patient reporting ongoing L LE swelling. LLE venous Doppler showed extensive DVT. Patient previously anticoagulated on Coumadin for paroxysmal atrial fibrillation and history of DVT/PE. This was discontinued April 2021 due to fall, pelvic fracture, left gluteal hematoma. Noted previous intolerances and allergies to blood thinners (enoxaparin and apixaban), currently heparin in this admission. Patient not agreeable to start any other bridging medications including fondaparinux, will continue with Coumadin, PT/INR daily. Pt aware of the need of bridging medicaitons. (2) Hallucinations: Plan: Patient states that she believes she swallowed a mouse this morning and woke up having a choking sensation. CT neck negative for foreign body. Shows tortuosity of the supraglottic airway. This is similar to CT of April 15, 2021 and is of doubtful significance. Patient also states that while she was at [facility], she was seeing worms crawling over her and "bug dirt" all over her bed. Patient AOx3, psychiatry evaluated, appreciate recommendations. More formal cognitive assessment as outpatient. Can use melatonin nightly as needed. (3) Abnormal urinalysis: Plan: Possible UTI vs contaminant Patient denies urinary symptoms Seems like hallucinations have been going on for the past few months, doubt that UTI is contributing Follow urine culture (4) Chronic diastolic CHF (congestive heart failure): Plan: Has lower extremity edema on exam, may be close to baseline. CXR suggesting mild CHF. No crackles appreciated on exam, patient denies shortness of breath and is saturating well on room air. c/w home dose lasix. monitor BMP daily or as needed. (5) Paroxysmal atrial fibrillation: Plan: Rhythm controlled on amiodarone, rate controlled on carvedilol Anticoagulation as above (6) Polymyalgia rheumatica: Plan: On chronic prednisone, continue (7) Coronary artery disease: Plan: Appears stable, no reports of chest pain Continue clopidogrel, statin, beta-garrick (8) TIA (transient ischemic attack): Plan: History of Continue Plavix and statin (9) CKD (chronic kidney disease), stage III: Plan: Creatine slowly uptrending, f/u BMP in AM. Encourage oral fluid intake. (10) DVT prophylaxis: Plan: Anticoagulation as above Disposition: PT/OT, CM to assist w/ dc planning, expect in 1 day . Admission and Anticipated Discharge Date Admission Date: July 06, 2021 Subjective Patient seen and examined at bedside as a follow-up of left leg DVT and hallucination. Patient was lying in bed, on room air, NAD, patient feeling dizzy and tired today. Patient denies fever/chills/headache/chest pain/palpitations/belly pain/other review of symptoms. Patient does have fibromyalgia. Physical Exam Physical Exam: GENERAL: Alert and oriented x3. NAD, on RA. HEENT: No pallor, no icterus. Pupils equal, round and reactive to light. Oral mucosa moist. NECK: No JVD, no neck masses. HEART: S1 and S2 heard. Regular rate and rhythm. No murmur, no gallop. RESPIRATORY SYSTEM: Normal AP diameter. No accessory muscle use. No wheezing, no crackles. ABDOMEN: Soft, bowel sounds present, some tenderness (d/t fibromyalgia, is chronic per pt), no distention. CENTRAL NERVOUS SYSTEM: No facial droop. Speech is clear. Obeys simple commands. Moves extremities. EXTREMITIES: Lt Pedal edema 2+, LLE 1+, RLE trace edema; no erythema. Results & Data Results & Data ([facility]) Vital Signs (Past 12 Hours) Vital Signs Temp Pulse Resp BP BP Pulse Ox 07/09/21 08:38 62 150/73 H 07/09/21 07:05 36.6 C 61 16 154/80 H 91 (1) DVT (deep venous thrombosis) Affected thrombotic vein of extremity: other lower extremity vein Chronicity: acute DVT location: lower extremity Laterality: left Qualified Code(s): I82.492 - Acute embolism and thrombosis of other specified deep vein of left lower extremity
[2021-07-09] MEDS ORDERED: WARFARIN SOD 2.5 MG TAB PO ONE (16:00)
[2021-07-09] MEDS: FUROSEMIDE 40 MG TAB PO SCH (16:03)
[2021-07-09] MEDS: WARFARIN SOD 5 MG TAB PO SCH (16:53)
[2021-07-09] MEDS: ATORVASTATIN 20 MG TAB PO SCH (20:18)
[2021-07-10 07:28] LABS: INR 2.1 (0.9-1.1); Prothrombin Time 21.9 Seconds (9.0-12.0)
[2021-07-10 08:08] LABS: Creatinine Clr Calc Pharmacy 22.2 ml/min; Est GFR (African American) 34.9 ml/min; Est GFR (Non-African American) 30.1 ml/min
[2021-07-10] MEDS: PANTOprazole 40 MG TAB PO SCH (09:45)
[2021-07-10] MEDS: carvediloL 3.125 MG TAB PO SCH (09:45)
[2021-07-10] MEDS: CLOPIDOGREL BISULFATE 75 MG TAB PO SCH (09:45)
[2021-07-10] MEDS: amLODIPine BESYLATE 5 MG TAB PO SCH (09:45)
[2021-07-10] MEDS: AMIODARONE 200 MG TAB PO SCH (09:46)
[2021-07-10] MEDS: LORATADINE 10 MG TAB PO SCH (09:47)
[2021-07-10] MEDS: predniSONE 2.5 MG TAB PO SCH (09:47)
[2021-07-10] MEDS: MAGNESIUM OXIDE 400 MG TAB PO SCH (09:47)
[2021-07-10] MEDS: CEFDINIR 300 MG CAP PO SCH (09:48)
--- NOTE | 2021-07-10 11:58 | Discharge Summary ---
Date of Service July 10, 2021 Admission HPI Per Admitting Provider 89-year-old female with PMH diet-controlled DM type II, dyslipidemia, paroxysmal atrial fibrillation rhythm controlled on amiodarone, chronic diastolic CHF, CAD, GERD, CKD stage III, PMR on chronic prednisone, and other problems listed below who presents to the ED for evaluation of a choking sensation. Patient recently admitted to [facility] 04/15 through 04/17 for management of fall, left gluteal hematoma in the setting of being anticoagulated on Coumadin, pelvic fracture. At discharge, patient's Coumadin was discontinued. Patient was discharged to [facility]. Patient returned home on 06/29. Patient reports that she has been doing well since arriving home from [place]. This morning, around 4 AM, patient reports that she woke up having a choking sensation. Patient believes though she swallowed a mouse. Patient reports a similar episode about 9 months ago. But states that " they were not able to find anything". Patient states that while she was at [place], she felt at times that she had worms crawling over her body and that she saw "bug dirt" all over her blankets. Patient reports that since arriving home, she has been ambulating with her walker. She has been making small meals for herself. Home health is being arranged for her. Patient denies any episodes of chest pain or shortness of breath. No lightheadedness, dizziness, diaphoresis, syncopal events. She reports chronic left lower extremity edema that has been present since her admission in April. She reports that the swelling waxes and wanes. Denies left lower extremity pain. No abdominal pain, nausea, vomiting, diarrhea. No urinary symptoms. In the ED, LLE venous Doppler shows extensive DVT. Labs are unremarkable/at patient's baseline. Patient is hemodynamically stable. Admission Exam Per Admitting Provider Constitutional: WD/WN, vitals as above Eyes: PERRL, conjunctivae normal, anicteric sclerae ENMT: external ear and nose normal, oropharynx normal Respiratory: normal respiratory effort, lungs clear to auscultation Cardiovascular: Rate/Rhythm: regular rate and regular rhythm Vessels: normal peripheral pulses Extremities: + edema (+2 edema RLE, +3 edema LLE) Gastrointestinal (Abdomen): normal bowel sounds, soft, nontender, no hepatosplenomegaly Musculoskeletal: no cyanosis or clubbing, extremities motor strength 5/5 Skin: no rashes, warm and dry Chronic venous changes BLE with dry skin noted bilaterally Neurologic: PERRL, EOMI, accommodation nl, no face palsy, no dysarthria Psychiatric: A+Ox3, euthymic affect Principal Diagnosis Left leg DVT Hallucinations UTI Discharge Exam GENERAL: Alert and oriented x3. NAD, on RA. HEENT: No pallor, no icterus. Pupils equal, round and reactive to light. Oral mucosa moist. NECK: No JVD, no neck masses. HEART: S1 and S2 heard. Regular rate and rhythm. No murmur, no gallop. RESPIRATORY SYSTEM: Normal AP diameter. No accessory muscle use. No wheezing, no crackles. ABDOMEN: Soft, bowel sounds present, some tenderness (d/t fibromyalgia, is chronic per pt), no distention. CENTRAL NERVOUS SYSTEM: No facial droop. Speech is clear. Obeys simple commands. Moves extremities. EXTREMITIES: Lt Pedal edema 2+, LLE 1+, RLE trace edema; no erythema. Discharge Data Allergies Allergy/AdvReac Type Severity Reaction Status Date / Time apixaban [From Eliquis] Allergy Severe pain in Verified 07/06/21 08:28 bones amoxicillin Allergy Unknown RASH,HIVES Verified 07/06/21 08:28 cefaclor Allergy Unknown RASH, HIVES Verified 07/06/21 08:28 levofloxacin Allergy Unknown hives Verified 07/06/21 08:28 heparin Allergy Verified 07/09/21 15:30 atorvastatin AdvReac Severe AFFECTS Verified 07/06/21 08:28 LIVER lisinopril AdvReac Severe AFFECTS Verified 07/06/21 08:28 LIVER ENZYMES citalopram AdvReac Intermediate "WILD Verified 07/06/21 08:28 DREAMS" enoxaparin AdvReac Unknown FACIAL Verified 07/06/21 08:28 SWELLING, FLUSHING, ELEVATED BP omeprazole AdvReac Unknown blurred Verified 07/06/21 08:28 vision, headache, flashing lights Consultations 07/06/21 13:14 ED Decision to Admit Stat 07/06/21 14:10 Consult Psychiatry Routine Ordered Studies 07/06/21 07:48 CT soft tissue neck w con Stat 07/06/21 11:13 US venous doppler LE LT Stat Hospital Course (1) DVT (deep venous thrombosis): 89-year-old female who presented with LLE DVT, was managed for the following while in hospital: (1) Left leg DVT: Admitted to [facility] Patient presenting from home with reports of a choking sensation (patient believes she swallowed a mouse). While in the ED, patient reporting ongoing L LE swelling. LLE venous Doppler showed extensive DVT. Patient previously anticoagulated on Coumadin for paroxysmal atrial fibrillation and history of DVT/PE. This was discontinued April 2021 due to fall, pelvic fracture, left gluteal hematoma. Noted previous intolerances and allergies to blood thinners (enoxaparin and apixaban), currently intolerant to heparin in this admission. PT/INR in therapeutic range, continue with Coumadin 5 mg daily, patient made aware that she needs to follow-up with Coumadin clinic closely as an outpatient, get blood work PT/INR done in 3 days upon discharge, Coumadin clinic for further evaluation/dose adjustment of her Coumadin. (2) Hallucinations: Plan: Patient states that she believes she swallowed a mouse this morning and woke up having a choking sensation. CT neck negative for foreign body. Shows tortuosity of the supraglottic airway. This is similar to CT of April 15, 2021 and is of doubtful significance. Patient also states that while she was at [facility], she was seeing worms crawling over her and "bug dirt" all over her bed. Patient AOx3, psychiatry evaluated, appreciate recommendations. More formal cognitive assessment as outpatient. Can use melatonin nightly as needed. Follow-up with psychiatry as an outpatient. (3) Abnormal urinalysis: Plan: Possible UTI vs contaminant Patient denies urinary symptoms Seems like hallucinations have been going on for the past few months, doubt that UTI is contributing Day 3 of cefdinir, patient to be discharged with 2 more days of antibiotic. (4) Chronic diastolic CHF (congestive heart failure): Plan: Has lower extremity edema on exam, may be close to baseline. CXR suggesting mild CHF. No crackles appreciated on exam, patient denies shortness of breath and is saturating well on room air. c/w home dose lasix. monitor BMP daily or as needed. (5) Paroxysmal atrial fibrillation: Plan: Rhythm controlled on amiodarone, rate controlled on carvedilol Anticoagulation as above (6) Polymyalgia rheumatica: Plan: On chronic prednisone, continue (7) Coronary artery disease: Plan: Appears stable, no reports of chest pain Continue clopidogrel, statin, beta-garrick (8) TIA (transient ischemic attack): Plan: History of Continue Plavix and statin (9) CKD (chronic kidney disease), stage III: Plan: Creatine slowly uptrending, f/u BMP in AM. Encourage oral fluid intake. Patient to get blood work BMP done in 5 to 7 days upon discharge and have the results forwarded to primary care physician. (10) DVT prophylaxis: Plan: Anticoagulation as above Patient being discharged to home with home health with following instruction at the point of discharge: Follow-up with your primary care physician within a week time. Follow-up with psychiatry as an outpatient. Because of your LLE DVT, you are restarted on your Coumadin, take your Coumadin dose as prescribed, you will need to closely follow-up with Coumadin clinic as an outpatient, get your blood work PT/INR done in 3 days upon discharge, follow- up with Coumadin clinic for necessary dose adjustment of Coumadin and evaluation as appropriate. Encourage increase oral fluid intake, get your blood work BMP done in a week time upon discharge. Have your blood work result sent to your primary care ph ysician. You are being discharged on 2 more days of antibiotics for your UTI. Your blood pressure measurements were on higher side while in hospital, your amlodipine dose has been increased to 5 mg daily, record your blood pressure twice a day, maintain a log and take it to your primary care physician in a week time for further discussion and management/dose adjustment of your blood pressure medications. Take your medications as prescribed. Total Time Total Time Spent Total Time Spent (In Minutes): 35 Discharge Plan Discharge Items Patient Disposition: Home - Home Health Services Reason For Visit: DVT Discharge Diagnosis: Left leg DVT Hallucinations UTI Activity: Resume your previous activity Non-emergency contact: Primary Care Provider Call non-emergency contact if: you have any medication questions, your symptoms worsen and your temperature is above 101 Follow-up/Referrals: Jes Peter MD [Primary Care Provider] - (Date & Time 07/16/2021 11:20 AM Provider Caro Walters MD Department Family Medicine [facility] ) Diet: Heart Healthy Addtl Attending Provider Instructions: Follow-up with your primary care physician within a week time. Follow-up with psychiatry as an outpatient. Because of your LLE DVT, you are restarted on your Coumadin, take your Coumadin dose as prescribed, you will need to closely follow-up with Coumadin clinic as an outpatient, get your blood work PT/INR done in 3 days upon discharge, follow- up with Coumadin clinic for necessary dose adjustment of Coumadin and evaluation as appropriate. Encourage increase oral fluid intake, get your blood work BMP done in a week time upon discharge. Have your blood work result sent to your primary care physician. You are being discharged on 2 more days of antibiotics for your UTI. Your blood pressure measurements were on higher side while in hospital, your amlodipine dose has been increased to 5 mg daily, record your blood pressure twice a day, maintain a log and take it to your primary care physician in a week time for further discussion and management/dose adjustment of your blood pressure medications. Take your medications as prescribed. Pending Studies at Discharge: No Stand-Alone Forms: My [facility] All Def Digital, Smoking Cessation Medications and DC Order Prescriptions: New cefdinir 300 mg Capsule 300 mg PO DAILY 2 Days Qty: 2 RF: 0 warfarin 5 mg Tablet 5 mg PO DAILY@1600 Qty: 30 RF: 0 melatonin 3 mg Tablet 3 mg PO HS PRN (Reason: sleep) Qty: 30 RF: 0 Continued atorvastatin 20 mg tablet 20 mg PO HS RF: 0 prednisone 5 mg tablet 7.5 mg PO QAM RF: 0 glucosamine sulfate [Glucosamine] 500 mg Tablet 1,000 mg PO QAM RF: 0 clopidogrel 75 mg tablet 75 mg PO QAM RF: 0 carvedilol 3.125 mg tablet 3.125 mg PO BID RF: 0 pantoprazole 40 mg tablet,delayed release (DR/EC) 40 mg PO BID RF: 0 nitroglycerin [Nitrostat] 0.4 mg Tablet, Sublingual 0.4 mg sublingual UD PRN (Reason: Chest Pain) RF: 0 loratadine 10 mg tablet 10 mg PO QAM RF: 0 cholecalciferol (vitamin D3) [Vitamin D3] 1,000 unit Tablet 1,000 unit PO QAM RF: 0 [place]-3 350 mg-235 mg- 90 mg-597 mg Capsule,Delayed Release(Dr/Ec) 1 cap PO QAM RF: 0 magnesium oxide 400 mg magnesium Tablet 400 mg PO QAM RF: 0 furosemide 20 mg tablet 40 mg PO Q2D RF: 0 Lactobacillus acidoph-L.bulgar [Floranex] 1 million cell Tablet 1 tab PO HS Qty: 30 RF: 0 furosemide 20 mg tablet 20 mg PO Q2D RF: 0 amiodarone 100 mg tablet 100 mg PO QAM RF: 0 Vitron-C 65 mg iron- 125 mg tablet,delayed release (DR/EC) 1 tab PO Q2D RF: 0 Changed amlodipine 2.5 mg tablet 5 mg PO QAM Qty: 30 RF: 0 Discharge Orders: Discharge Order (Routine); Ordered 07/10/21 Ordered By: Roshan Crawford Admission Data Admit Date/Time: 07/06/21 13:33 Attending Provider: Roshan Crawford Admit Provider: Smitha Olson Primary Care Provider: Jes Peter Other Providers: Geetha Ruiz ; Mireya Jimenez ; Tish Gilbert ; Smitha Olson
== END 2021-07-10 13:13 | disposition home health service (06) | DRG 300 ==
LOC: ED 07:26 → 3E 13:33 → SUATTDRO 13:33 → 3E 15:52

== ENCOUNTER 2022-03-15 18:59 | Inpatient (IN) ==
[2022-03-15] MEDS ORDERED: ACETAMINOPHEN 1,000 MG/100 ML VIAL IV STA (19:32)
[2022-03-15 19:59] LABS: Basophils # (auto) 0.02 K/uL (0-0.2); Basophils % (auto) 0.3 %; Eosinophils # (auto) 0.12 K/uL (0-0.50); Eosinophils % (auto) 1.8 %; Hematocrit (blood only) 40.3 % (34.1-44.9); Hemoglobin 13.2 g/dl (12.0-16.0); Immature Granulocytes # (auto) 0.03 K/uL (0.00-0.02); Immature Granulocytes % (auto) 0.4 %; Lymphocytes # (auto) 0.86 K/uL (1.2-3.4); Lymphocytes % (auto) 12.8 %; Mean Corpuscular Hgb Conc 32.8 g/dL (32.0-36.0); Mean Corpuscular Volume 94.6 fL (80.0-100.0); Mean Platelet Volume 10.7 fL (9.4-12.3); Monocytes # (auto) 0.42 K/uL (0.24-0.82); Monocytes % (auto) 6.3 %; Neutrophils # (auto) 5.26 K/uL (1.4-6.5); Neutrophils % (auto) 78.4 %; Platelet Count 188 K/uL (130-400); RDW Coefficient of Variation 14.3 % (11.5-14.5); RDW Standard Deviation 49.3 fL (36.4-46.3); Red Blood Count 4.26 M/uL (3.93-5.22); White Blood Count 6.71 K/ul (4.8-10.8)
[2022-03-15 20:15] LABS: INR 1.9 (0.9-1.1); Partial Thromboplastin Ratio 1.2; Partial Thromboplastin Time 32.8 Seconds (21.0-31.0); Prothrombin Time 19.1 Seconds (9.0-12.0)
[2022-03-15 20:20] LABS: Albumin Globulin Ratio 1.3 (0.9-2); Albumin Level 3.5 gm/dl (3.4-5.0); BUN Creatinine Ratio 26.4 (10-20); Bilirubin,Total 0.6 mg/dl (0.2-1.0); Calcium 8.5 mg/dl (8.5-10.1); Creatinine Clr Calc Pharmacy 25.7 ml/min; Est GFR (African American) 37.2 ml/min; Est GFR (Non-African American) 32.1 ml/min; Globulin 2.7 gm/dl (2.5-4.0); Magnesium 1.7 mg/dl (1.7-2.4); Potassium 4.4 mmol/L (3.5-5.1); Total Protein 6.2 gm/dl (6.0-8.3)
--- NOTE | 2022-03-15 20:34 | CT Scan Report ---
ABDOMEN AND PELVIS CT WITHOUT CONTRAST CT DOSE: 686.03 mGy.cm HISTORY: Acute right buttock pain R buttock/hip pain TECHNIQUE: Multiaxial CT images of the abdomen and pelvis were performed without contrast. A dose lo wering technique was utilized adhering to the principles of ALARA. COMPARISON STUDY: 04/15/2021 FINDINGS: Cardiomegaly with extensive coronary artery calcifications. Subsegmental bibasilar atelecta sis. No pneumatosis or pneumoperitoneum. The spleen, pancreas and adrenal glands are unremarkable. Ch olecystectomy. There are a few scattered hepatic cysts redemonstrated measuring up to 1.3 cm. Nonspec ific bilateral perinephric stranding. Cortical thinning of the kidneys, left greater than right. No u reteral calculi or hydronephrosis. Unremarkable urinary bladder and uterus. Atherosclerosis aorta. In frarenal abdominal aortic aneurysm redemonstrated measuring up to 3.2 cm. No aneurysm rupture. No lym phadenopathy. Tiny hiatal hernia. No bowel obstruction or bowel wall thickening. Colonic diverticulosis. The append ix is not visualized. No secondary signs of acute appendicitis. Unremarkable soft tissues. Degenerati ve changes of the spine, pelvis and hips. Healed chronic fracture left inferior pubic ramus. Dystroph ic calcifications within the proximal right hamstring myotendinous junction again noted. Lumbar levos coliosis. IMPRESSION: 1. No acute intra-abdominal or intrapelvic abnormality. 2. No bowel obstruction or bowel wall thickening. 3. Mild colonic diverticulosis. 4. Small hiatal hernia. 5. Additional findings as above. ACT 112: Negative or not required by law. The above report was generated using voice recognition software. It may contain grammatical, syntax o r spelling errors. Electronically signed by: Umer Duke M.D. 03/15/2022 8:32 PM
--- NOTE | 2022-03-15 21:07 | Emergency Department Note ---
Impression & Plan Pain in right buttock, Ambulatory dysfunction, Anticoagulant long-term use ED Provider Note Provider: Martínez Mckee MD DATE OF SERVICE: 03/15/2022 CHIEF COMPLAINT: Right buttock and pelvic pain HISTORY OF PRESENT ILLNESS: Patient is a 89-year-old female past medical history of DVT on Coumadin, CHF, previous ablation for ablation, PMR, TIA, CKD presenting here today via ambulance from her home. States she had onset of pain in the right posterior buttock region after bending over this morning. Denies any other recent trauma but did fall about a month or 2 ago. Some chronic pain of the legs is unchanged. Previously broken her left pubic rami last year and has some chronic swelling of this leg. States her Coumadin is been therapeutic. Denies any anterior abdominal pain or nausea or vomiting. States she has not take anything for pain as she does not like pain medicine. Again denies currently falling into the left hip or right hip. Denies significant pain in the right lower leg. States occasionally had a bit of shooting pain down to the right thigh. Denies significant shortness of breath or chest pain. REVIEW OF SYSTEMS: A total of 10 review of systems was obtained and negative except as stated above in the HPI. PAST MEDICAL HISTORY: As noted above MEDICATIONS: Reviewed home medications SOCIAL HISTORY: Lives at home by herself, no children PHYSICAL EXAM: GENERAL: alert and oriented in no acute distress on stretcher Head: normocephalic and atraumatic EYES: No injection, discharge or icterus. NECK: Trachea midline. Supple. ENT: Mucous membranes pink and moist. LUNGS: Airway patent. No retractions. Breath sounds clear HEART: Regular rate and rhythm. No chest wall tenderness ABDOMEN: Soft and non-tender, without guarding or rebound. BACK: No midline tenderness, no SI joint tenderness. No bilateral flank tenderness. Some slight right lower deep buttock tenderness but no overlying significant erythema. SKIN: Acyanotic, warm, dry EXTREMITIES: 1+ edema of the left lower extremity. Chronic stasis changes of both lower extremities. Intact sense of rotation grossly to both arms and legs with some healing contusions in the bilateral hands. No significant tenderness here. NEUROLOGICAL: No focal deficits. No aphasia. No facial droop or slurred speech. EK bpm normal sinus rhythm with a right bundle branch block. No PVC. No acute ST segment elevation with anterior lateral T wave inversions. QTc 477. CONTINUOUS CARDIAC MONITORING: was ordered and showed a heart rate of 60s-70s bpm in normal sinus rhythm Patient's laboratory studies and imaging reviewed. Differential includes Fracture, subluxation, dislocation, contusion, ligamentous injury, neurovascular, compartment syndrome, rhabdomyolysis, as well as other pathologies. IMPRESSION/MEDICAL DECISION MAKING: Patient with onset of really atraumatic right buttock type pain. History of left-sided pelvic fracture in the distant past. Full a month or 2 ago but none recently. Denies any significant head or neck pain. Some chronic myalgias in the extremities. States a bit of shooting pain down the right buttock. Does not appear to have vascular compromise. Anticoagulated lower suspicions for VTE at this time. Arrange it but a certain position she has pain particular when she goes to sit on the area. Do not see any obvious wounds. CT scan with some calcifications of tendons but no obvious acute findings. No acute fractures noted. Blood work without significant abnormality leukocytosis. Chronic kidney disease noted. Given some IV Tylenol initially for pain. Lives by herself. Ambulates with walker and was having significant difficulty today. Discussed with her given her age with comorbidities and poor ambulation at baseline given the increased pain of unknown etiology and still with some pain would recommend that we monitor here and work with physical therapy for improvement before sending her home. She was in agreement. The hospitalist was contacted. DIAGNOSIS: Right buttock pain, ambulatory dysfunction, long-term anticoagulation DISPOSITION: Hospitalist will evaluate Patient was agreeable with this plan. Past Med/Surg History Medical History Anemia Carotid arterial disease "s/p left CEA, september 2014" Cerebrovascular disease Chronic diastolic CHF (congestive heart failure) CKD (chronic kidney disease), stage III Closed fracture of inferior pubic ramus Coronary artery disease Chronic coronary heart disease with previous remote PCI to the circumflex and right coronary artery territories Dyslipidemia History of DVT (deep vein thrombosis) "2013" History of pulmonary embolism "2013" Hypertension Paroxysmal atrial fibrillation Polymyalgia rheumatica Pre-diabetes TIA (transient ischemic attack) UGIB (upper gastrointestinal bleed) Surgical History H/O dilation and curettage S/P appendectomy S/P laparoscopic cholecystectomy (12/03/13) S/P tubal ligation Family History Sister Breast cancer Sister Breast cancer Social History Smoking Status: Never smoker Hx Alcohol Use: No Hx Substance Use: No Preferred Language: French Communication Ability: Effective Spud Grader Required: No Beliefs That Will Affect Care: None marital status: / Current Living Situation: Alone Feels Safe at Home: Yes Assistive Devices: Glasses, Hearing Aid - Bilateral and Walker Allergies Allergies Allergy/AdvReac Type Severity Reaction Status Date / Time apixaban [From Eliquis] Allergy Severe pain in Verified 03/15/22 22:42 bones amoxicillin Allergy Unknown RASH,HIVES Verified 03/15/22 22:42 cefaclor Allergy Unknown RASH, HIVES Verified 03/15/22 22:42 levofloxacin Allergy Unknown hives Verified 03/15/22 22:42 heparin Allergy Unknown Verified 03/15/22 22:42 atorvastatin AdvReac Severe AFFECTS Verified 03/15/22 22:42 LIVER lisinopril AdvReac Severe AFFECTS Verified 03/15/22 22:42 LIVER ENZYMES citalopram AdvReac Intermediate "WILD Verified 03/15/22 22:42 DREAMS" enoxaparin AdvReac Unknown FACIAL Verified 03/15/22 22:42 SWELLING, FLUSHING, ELEVATED BP omeprazole AdvReac Unknown blurred Verified 03/15/22 22:42 vision, headache, flashing lights Home Meds Home Medications Medication Instructions Recorded Confirmed atorvastatin 20 mg tablet 20 mg PO HS 10/18/18 03/15/22 carvedilol 3.125 mg tablet 3.125 mg PO BID 10/18/18 03/15/22 cholecalciferol (vitamin D3) 25 1,000 unit PO QAM 10/18/18 03/15/22 mcg (1,000 unit) tablet (Vitamin D3) clopidogrel 75 mg tablet 75 mg PO QAM 10/18/18 03/15/22 loratadine 10 mg tablet 10 mg PO QAM 10/18/18 03/15/22 magnesium oxide 400 mg PO QAM 10/18/18 03/15/22 nitroglycerin 0.4 mg sublingual 0.4 mg sublingual UD PRN Chest Pain 10/18/18 03/15/22 tablet (Nitrostat) omega 3 350 mg-dha 235 mg-epa 90 1 cap PO QAM 10/18/18 03/15/22 mg-fish oil 597 mg capsule,delay rel ([place]-3) pantoprazole 40 mg tablet,delayed 40 mg PO BID 10/18/18 03/15/22 release prednisone 5 mg tablet 7.5 mg PO QAM 10/18/18 03/15/22 amiodarone 100 mg tablet 100 mg PO QAM 04/15/21 03/15/22 iron,carbonyl 65 mg-vitamin C 125 1 tab PO Q2D 04/15/21 03/15/22 mg tablet,delayed release (Vitron-C) furosemide 20 mg tablet 40 mg PO DAILY 07/06/21 03/15/22 Nalini DS [employer] 1 tab PO DAILY 03/15/22 03/15/22 amlodipine 2.5 mg tablet 2.5 mg PO QAM 03/15/22 03/15/22 cholecalciferol (vitamin D3) 25 25 mcg PO DAILY 03/15/22 03/15/22 mcg (1,000 unit) tablet (Vitamin D3) cranberry 400 mg capsule 400 mg PO DAILY 03/15/22 03/15/22 fluticasone propionate 50 2 spray intranasal DAILY PRN Nasal 03/15/22 03/15/22 mcg/actuation nasal Congestion spray,suspension warfarin 2.5 mg tablet 2.5 mg PO DIRECTED 03/15/22 03/15/22 Previous Rx's Medication Instructions Recorded melatonin 3 mg tablet 3 mg PO HS PRN sleep #30 tabs 07/10/21 Results & Data (ED) Vital Signs Vital Signs - 24 hr 03/15/22 18:48 03/15/22 19:17 03/15/22 20:16 Temperature 36.9 C 36.9 C Temperature Source Oral Oral Pulse Rate 75 Pulse Rate [Right Finger] 75 66 Pulse Rhythm [Right Finger] Regular Pulse Strength [Right Finger] Respiratory Rate 16 16 20 Respiratory Effort / Characteristics Non-Labored Non-Labored Respiratory Depth Normal Normal Respiratory Pattern Regular Regular Blood Pressure 213/69 H Blood Pressure [Right Arm] 213/69 H 189/68 H Blood Pressure Mean 117 Blood Pressure Mean [Right Arm] 117 108 Pulse Oximetry 91 91 95 Oxygen Delivery Method Room Air Room Air Room Air Oxygen Flow Rate Sepsis Recent Fever Within 48 Hours No Sepsis New/Unexplained Change in Mental Status N/A Sepsis Action Taken by Nursing No Action Required 03/15/22 20:17 03/15/22 22:00 Temperature Temperature Source Pulse Rate Pulse Rate [Right Finger] 84 64 Pulse Rhythm [Right Finger] Regular Regular Pulse Strength [Right Finger] Normal Normal Respiratory Rate 16 16 Respiratory Effort / Characteristics Non-Labored Non-Labored Respiratory Depth Normal Normal Respiratory Pattern Regular Blood Pressure Blood Pressure [Right Arm] 186/100 H 157/79 H Blood Pressure Mean Blood Pressure Mean [Right Arm] 128 105 Pulse Oximetry 90 99 Oxygen Delivery Method Room Air Nasal Cannula Oxygen Flow Rate 3 Sepsis Recent Fever Within 48 Hours Sepsis New/Unexplained Change in Mental Status Sepsis Action Taken by Nursing Laboratory Data Result diagrams: 03/15/22 19:50 03/15/22 19:50 Lab Results 03/15/22 03/15/22 03/15/22 Range/Units 19:50 19:50 19:50 WBC 6.71 (4.8-10.8) K/ul RBC 4.26 (3.93-5.22) M/uL Hgb 13.2 (12.0-16.0) g/dl Hct 40.3 (34.1-44.9) % MCV 94.6 (80.0-100.0) fL MCH 31.0 (25.0-34.0) pg MCHC 32.8 (32.0-36.0) g/dL RDW Std Deviation 49.3 H (36.4-46.3) fL RDW Coeff of Jackeline 14.3 (11.5-14.5) % Plt Count 188 (130-400) K/uL MPV 10.7 (9.4-12.3) fL Immature Gran % (Auto) 0.4 % Neut % (Auto) 78.4 % Lymph % (Auto) 12.8 % [place] % (Auto) 6.3 % Eos % (Auto) 1.8 % Baso % (Auto) 0.3 % Neut # (Auto) 5.26 (1.4-6.5) K/uL Lymph # (Auto) 0.86 L (1.2-3.4) K/uL [place] # (Auto) 0.42 (0.24-0.82) K/uL Eos # (Auto) 0.12 (0-0.50) K/uL Baso # (Auto) 0.02 (0-0.2) K/uL Immature Gran # (Auto) 0.03 H (0.00-0.02) K/uL PT 19.1 H (9.0-12.0) Seconds INR 1.9 H (0.9-1.1) APTT 32.8 H (21.0-31.0) Seconds PTT Ratio 1.2 Sodium 136 (136-145) mmol/L Potassium 4.4 (3.5-5.1) mmol/L Chloride 97 L (98-107) mmol/L Carbon Dioxide 33 H (21-32) mmol/L Anion Gap 6 (3-11) BUN 38 H (6-23) mg/dl Creatinine 1.44 H (0.6-1.2) mg/dl Est Cr Clr Drug Dosing 25.7 ml/min Est GFR ( Amer) 37.2 ml/min Est GFR (Non-Af Amer) 32.1 ml/min BUN/Creatinine Ratio 26.4 H (10-20) Glucose 254 H (70-99(Fasting)) mg/dl Calcium 8.5 (8.5-10.1) mg/dl Magnesium 1.7 (1.7-2.4) mg/dl Total Bilirubin 0.6 (0.2-1.0) mg/dl AST 16 (13-39) U/L ALT 10 (7-52) U/L Alkaline Phosphatase 51 (34-104) U/L Total Protein 6.2 (6.0-8.3) gm/dl Albumin 3.5 (3.4-5.0) gm/dl Globulin 2.7 (2.5-4.0) gm/dl Albumin/Globulin Ratio 1.3 (0.9-2) TSH (0.300-4.500) uIu/ml SARS-CoV-2, RNA, NAAT (NEGATIVE) 03/15/22 03/15/22 Range/Units 19:50 20:13 WBC (4.8-10.8) K/ul RBC (3.93-5.22) M/uL Hgb (12.0-16.0) g/dl Hct (34.1-44.9) % MCV (80.0-100.0) fL MCH (25.0-34.0) pg MCHC (32.0-36.0) g/dL RDW Std Deviation (36.4-46.3) fL RDW Coeff of Jackeline (11.5-14.5) % Plt Count (130-400) K/uL MPV (9.4-12.3) fL Immature Gran % (Auto) % Neut % (Auto) % Lymph % (Auto) % [place] % (Auto) % Eos % (Auto) % Baso % (Auto) % Neut # (Auto) (1.4-6.5) K/uL Lymph # (Auto) (1.2-3.4) K/uL [place] # (Auto) (0.24-0.82) K/uL Eos # (Auto) (0-0.50) K/uL Baso # (Auto) (0-0.2) K/uL Immature Gran # (Auto) (0.00-0.02) K/uL PT (9.0-12.0) Seconds INR (0.9-1.1) APTT (21.0-31.0) Seconds PTT Ratio Sodium (136-145) mmol/L Potassium (3.5-5.1) mmol/L Chloride (98-107) mmol/L Carbon Dioxide (21-32) mmol/L Anion Gap (3-11) BUN (6-23) mg/dl Creatinine (0.6-1.2) mg/dl Est Cr Clr Drug Dosing ml/min Est GFR ( Amer) ml/min Est GFR (Non-Af Amer) ml/min BUN/Creatinine Ratio (10-20) Glucose (70-99(Fasting)) mg/dl Calcium (8.5-10.1) mg/dl Magnesium (1.7-2.4) mg/dl Total Bilirubin (0.2-1.0) mg/dl AST (13-39) U/L ALT (7-52) U/L Alkaline Phosphatase (34-104) U/L Total Protein (6.0-8.3) gm/dl Albumin (3.4-5.0) gm/dl Globulin (2.5-4.0) gm/dl Albumin/Globulin Ratio (0.9-2) TSH 2.574 (0.300-4.500) uIu/ml SARS-CoV-2, RNA, NAAT NEGATIVE (NEGATIVE) Administered Medications Discontinued Medications Acetaminophen (Ofirmev) 1,000 mg in 100 mls @ 400 mls/hr IV NOW STA Stop: 03/15/22 19:46 Last Admin: 03/15/22 20:11 Dose: 400 mls/hr Documented By: KADY Imaging Data Radiologist's Impression: Abdomen/Pelvis CT 03/15/22 19:[address] WITHOUT CONTRAST CT DOSE: 686.03 mGy.cm HISTORY: Acute right buttock pain R buttock/hip pain TECHNIQUE: Multiaxial CT images of the abdomen and pelvis were performed without contrast. A dose lowering technique was utilized adhering to the principles of ALARA. COMPARISON STUDY: 04/15/2021 FINDINGS: Cardiomegaly with extensive coronary artery calcifications. Subsegmental bibasilar atelectasis. No pneumatosis or pneumoperitoneum. The spleen, pancreas and adrenal glands are unremarkable. Cholecystectomy. There are a few scattered hepatic cysts redemonstrated measuring up to 1.3 cm. Nonspecific bilateral perinephric stranding. Cortical thinning of the kidneys, left greater than right. No ureteral calculi or hydronephrosis. Unremarkable urinary bladder and uterus. Atherosclerosis aorta. Infrarenal abdominal aortic aneurysm redemonstrated measuring up to 3.2 cm. No aneurysm rupture. No lymphadenopathy. Tiny hiatal hernia. No bowel obstruction or bowel wall thickening. Colonic diverticulosis. The appendix is not visualized. No secondary signs of acute a ppendicitis. Unremarkable soft tissues. Degenerative changes of the spine, pelvis and hips. Healed chronic fracture left inferior pubic ramus. Dystrophic calcifications within the proximal right hamstring myotendinous junction again noted. Lumbar levoscoliosis. IMPRESSION: 1. No acute intra-abdominal or intrapelvic abnormality. 2. No bowel obstruction or bowel wall thickening. 3. Mild colonic diverticulosis. 4. Small hiatal hernia. 5. Additional findings as above. ACT 112: Negative or not required by law. The above report was generated using voice recognition software. It may contain grammatical, syntax or spelling errors. Electronically signed by: Umer Duke M.D. 03/15/2022 8:32 PM Discharge Plan Visit Data Chief Complaint: Hip Pain Stated Complaint: R hip pain ED Provider: Martínez Mckee Discharge Problem: Pain in right buttock, Ambulatory dysfunction, Anticoagulant long-term use Patient Disposition: Being Evaluated by Hospitalist Forms Stand Alone Forms: My [facility] Prescriptions Prescriptions: No Action atorvastatin 20 mg tablet 20 mg PO HS prednisone 5 mg tablet 7.5 mg PO QAM clopidogrel 75 mg tablet 75 mg PO QAM carvedilol 3.125 mg tablet 3.125 mg PO BID pantoprazole 40 mg tablet,delayed release (DR/EC) 40 mg PO BID nitroglycerin [Nitrostat] 0.4 mg Tablet, Sublingual 0.4 mg sublingual UD PRN (Reason: Chest Pain) loratadine 10 mg tablet 10 mg PO QAM cholecalciferol (vitamin D3) [Vitamin D3] 1,000 unit Tablet 1,000 unit PO QAM [place]-3 350 mg-235 mg- 90 mg-597 mg Capsule,Delayed Release(Dr/Ec) 1 cap PO QAM magnesium oxide 400 mg magnesium Tablet 400 mg PO QAM furosemide 20 mg tablet 40 mg PO DAILY melatonin 3 mg Tablet 3 mg PO HS PRN (Reason: sleep) Qty: 30 0RF warfarin 2.5 mg Tablet 2.5 mg PO DIRECTED Rx Instructions: as directed by anticoagulation cranberry 400 mg Capsule 400 mg PO DAILY Rx Instructions: administer with a meal fluticasone propionate [Flonase] 50 mcg/actuation Lindsay,Suspension 2 spray INTRANASAL DAILY PRN (Reason: Nasal Congestion) Rx Instructions: administer into each nostril cholecalciferol (vitamin D3) [Vitamin D3] 25 mcg (1,000 unit) Tablet 25 mcg PO DAILY LeukoDx 1 tab PO DAILY amlodipine 2.5 mg tablet 2.5 mg PO QAM amiodarone 100 mg tablet 100 mg PO QAM Vitron-C 65 mg iron- 125 mg tablet,delayed release (DR/EC) 1 tab PO Q2D Referrals Referrals: Jes Manzanares MD [Primary Care Provider] -
[2022-03-16] MEDS ORDERED: POLYETHYLENE (MIRALAX) 17 GM PACK PO PRN (00:05)
[2022-03-16] MEDS ORDERED: ONDANSETRON INJ 2 MG/ML 2 ML VIAL IV PRN (00:05)
[2022-03-16] MEDS ORDERED: GLUCOSE 40% GEL 15 GM TUBE PO PRN (00:05)
[2022-03-16] MEDS ORDERED: NON-FORMULARY MEDICATION (Iron,Carbonyl-Vitamin C [Vitron-C] 65 mg iron- 125 mg tablet,del PO SCH (00:05)
[2022-03-16] MEDS ORDERED: FLUTICASONE PROPIONATE NA SPR 16 GM BTL PRN (00:05)
[2022-03-16] MEDS ORDERED: GLUCOSE 10 TAB/TUBE PO PRN (00:05)
[2022-03-16] MEDS ORDERED: DEXTROSE 50% 50 ML SYRINGE IV PRN (00:05)
[2022-03-16] MEDS ORDERED: GLUCAGON FOR INJ 1 MG VIAL SQ PRN (00:05)
[2022-03-16] MEDS ORDERED: NITROGLYCERIN SL 0.4 MG/TAB TAB SL PRN (00:05)
[2022-03-16] MEDS ORDERED: CARBOHYDRATES FOR HYPOGLYCEMIA PO PRN (00:05)
[2022-03-16] MEDS ORDERED: MELATONIN 3 MG TAB PO PRN (00:05)
[2022-03-16] MEDS: INSULIN ASPART PER UNIT SC SCH ×4 (01:09→17:40)
--- NOTE | 2022-03-16 01:13 | History and Physical Report ---
DATE OF ADMISSION: 03/15/2022 CHIEF COMPLAINT: Right hip pain. HISTORY OF PRESENT ILLNESS: This is an 89-year-old female with past medical history significant for type 2 diabetes, hyperlipidemia, chronic dyspnea, paroxysmal atrial fibrillation, chronic diastolic CHF, history of CAD, GERD, chronic kidney disease stage IV, polymyalgia rheumatica, history of compression fracture of spine, generalized osteoarthritis, osteoporosis, history of pulmonary embolism, ambulatory dysfunction, history of smoking, history of recurrent UTIs, depression, who lives alone at home, ambulates with a walker, presents with ambulatory dysfunction and right hip pain. The patient says she does not sleep in the bed, she sleeps in the recliner. Whenever she is bending down, she is having severe pain in the right hip and buttock region, about 9/10 in severity. She is having trouble sitting on the commode. She ambulates with walker, but she could not ambulate long as her legs up. On and off she uses oxygen. Her niece and brother live close by. Her niece checks on her. Denies any fever or chills. No chest pain, no shortness of breath, no nausea, no vomiting, no abdominal pain. Normal bowel and bladder movements. Appetite is okay. No difficulty swallowing. No headache. Somewhat hard of hearing. No blurred visions. 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 No sore throat. No cough. Currently, resting comfortably and hemodynamically stable. ALLERGIES: ELIQUIS, AMOXICILLIN, CEPHALEXIN, LEVAQUIN, HEPARIN, ATORVASTATIN, LISINOPRIL, CITALOPRAM, LOVENOX, AND OMEPRAZOLE. PAST MEDICAL HISTORY: As mentioned above. PAST SURGICAL HISTORY: Cardiac catheterization, colonoscopy, EGD, EGD with endoscopic ultrasound, laparoscopic cholecystectomy, ligation of oviducts, appendectomy, cataract surgery, left carotid endarterectomy. MEDICATIONS: The patient is on amiodarone 100 mg p.o. a.m., amlodipine 2.5 mg p.o. daily, atorvastatin 20 mg p.o. at bedtime, Coreg 3.125 mg p.o. b.i.d., vitamin D 1000 units p.o. a.m., Plavix 75 mg p.o. daily, Flonase 2 sprays intranasal daily p.r.n., Lasix 40 mg p.o. daily, loratadine 10 mg p.o. daily, magnesium oxide 400 mg p.o. a.m., melatonin 3 mg p.o. at bedtime p.r.n., Nitrostat 0.4 sublingual p.r.n., omega fish oil 1 capsule p.o. daily, Protonix 40 mg p.o. b.i.d., prednisone 7.5 mg p.o. daily, Vitron-C 1 tablet p.o. daily, warfarin as directed. FAMILY HISTORY: Significant for sister has breast cancer, father has diabetes, heart disorder, and hypertension. SOCIAL HISTORY: . Smokes 2 packs a day for 29 years. No alcohol use. No drug use. REVIEW OF SYSTEMS: As per HPI. Rest of the review of systems is negative. PHYSICAL EXAMINATION: GENERAL: The patient is old and frail, not in acute distress. VITAL SIGNS: Temperature 36.9, pulse 64, respiratory rate 16, blood pressure 157/70, oxygen 99% on 3 liters. HEENT: Pupils equal, round and reactive to light. Oral mucosa moist. NECK: No JVD, no neck masses. CARDIOVASCULAR: S1 and S2 heard. Regular rate and rhythm. No murmur, no gallop. RESPIRATORY SYSTEM: Normal AP diameter. No accessory muscle use. No wheezing, no crackles. ABDOMEN: Soft, bowel sounds present, nontender, no distention. CENTRAL NERVOUS SYSTEM: Cranial nerves II-XII grossly intact, nonfocal. EXTREMITIES: No edema, no erythema. Right straight leg test is positive. On lower extremity exam, chronic skin changes seen and bone tenderness present. LABORATORY DATA: WBC 6.7, hemoglobin 13.2, hematocrit 40.3, platelets 188. PT 19.1, INR 1.1, APTT 32.8. Sodium 136, potassium 4.4, chloride 97, bicarbonate 33, BUN 38, creatinine 1.44, serum glucose 254, calcium 8.5, magnesium 1.7, total bilirubin 0.6, AST 16, ALT 13, alkaline phosphatase 51. TSH is 2.5. SARS-CoV-2 rapid test negative. IMAGING DATA: CT of abdomen and pelvis without contrast, no acute intraabdominal or intrapelvic abnormality, no bowel obstruction or bowel wall thickening. Mild colonic diverticulosis. EKG: Normal sinus rhythm at a rate of 67, right bundle-branch block, T-wave inversion more evident in anterolateral leads. ASSESSMENT AND PLAN: This is an 89-year-old female who presents with right hip pain. 1. Right hip pain and ambulatory dysfunction. CT abdomen and pelvis unremarkable. We will get PT, OT, pain control. Observe in the hospital. 2. History of atrial fibrillation, on amiodarone, Coreg and Coumadin. Follow the PT/INR. 3. History of coronary artery disease, on Plavix, statin, Coreg. Stable. 4. History of gastroesophageal reflux disease, on omeprazole. 5. Type 2 diabetes. Currently not on any medication. Follow HbA1c. Place on insulin sliding scale. 6. Chronic kidney disease stage IV, current creatinine 1.44. We will follow the labs. 7. Polymyalgia rheumatica, on prednisone. 8. Chronic diastolic congestive heart failure, at home on Lasix and Coreg. We will monitor for any volume overload. 9. Hyperlipidemia. On statin. 10. Hypertension: On amlodipine, Coreg. We will monitor the blood pressure. 11. Deep venous thrombosis prophylaxis: On Coumadin. We will monitor PT/INR. DISPOSITION: Observation in medical floor. PT/OT prior to discharge. Social service to help with discharge planning. Level 1 full code only if there is chance of recovery as per my discussion with the patient. Job ID: [id number] MTDD
[2022-03-16] MEDS: ACETAMINOPHEN 325 MG TAB PO PRN (04:49)
[2022-03-16] MEDS: NYSTATIN OINT 15 GM TUBE EXT SCH ×3 (04:50→20:59)
[2022-03-16 06:11] LABS: Basophils # (auto) 0.04 K/uL (0-0.2); Basophils % (auto) 0.6 %; Eosinophils # (auto) 0.41 K/uL (0-0.50); Eosinophils % (auto) 6.6 %; Hematocrit (blood only) 38.4 % (34.1-44.9); Hemoglobin 12.8 g/dl (12.0-16.0); Immature Granulocytes # (auto) 0.02 K/uL (0.00-0.02); Immature Granulocytes % (auto) 0.3 %; Lymphocytes # (auto) 1.45 K/uL (1.2-3.4); Lymphocytes % (auto) 23.3 %; Mean Corpuscular Hemoglobin 31.3 pg (25.0-34.0); Mean Corpuscular Hgb Conc 33.3 g/dL (32.0-36.0); Mean Corpuscular Volume 93.9 fL (80.0-100.0); Mean Platelet Volume 10.6 fL (9.4-12.3); Monocytes # (auto) 0.56 K/uL (0.24-0.82); Neutrophils # (auto) 3.73 K/uL (1.4-6.5); Neutrophils % (auto) 60.2 %; Platelet Count 177 K/uL (130-400); RDW Coefficient of Variation 14.2 % (11.5-14.5); RDW Standard Deviation 49.5 fL (36.4-46.3); Red Blood Count 4.09 M/uL (3.93-5.22); White Blood Count 6.21 K/ul (4.8-10.8)
[2022-03-16 06:24] LABS: INR 1.7 (0.9-1.1); Prothrombin Time 17.7 Seconds (9.0-12.0)
[2022-03-16 06:43] LABS: BUN Creatinine Ratio 24.4 (10-20); Calcium 8.6 mg/dl (8.5-10.1); Creatinine Clr Calc Pharmacy 29.6 ml/min; Est GFR (Non-African American) 38.9 ml/min; Magnesium 1.9 mg/dl (1.7-2.4); Potassium 3.7 mmol/L (3.5-5.1)
[2022-03-16 07:09] LABS: Estimated Average Glucose 137 mg/dl; Hemoglobin A1C 6.4 % (4.5-5.6)
[2022-03-16] MEDS: MAGNESIUM OXIDE 400 MG TAB PO SCH (08:04)
[2022-03-16] MEDS: FUROSEMIDE 40 MG TAB PO SCH (08:04)
[2022-03-16] MEDS: CLOPIDOGREL BISULFATE 75 MG TAB PO SCH (08:04)
[2022-03-16] MEDS: amLODIPine BESYLATE 5 MG TAB PO SCH (08:04)
[2022-03-16] MEDS: PANTOprazole 40 MG TAB PO SCH ×2 (08:05→21:00)
[2022-03-16] MEDS: predniSONE 2.5 MG TAB PO SCH (08:05)
[2022-03-16] MEDS: LORATADINE 10 MG TAB PO SCH (08:05)
[2022-03-16] MEDS: carvediloL 3.125 MG TAB PO SCH ×2 (08:05→21:00)
[2022-03-16] MEDS: CHOLECALCIFEROL 1,000 UNITS 25 MCG TAB PO SCH (08:05)
[2022-03-16] MEDS: AMIODARONE 200 MG TAB PO SCH (08:05)
--- NOTE | 2022-03-16 08:38 | Electrocardiogram Report ---
Test Reason : Blood Pressure : / mmHG Vent. Rate : 067 BPM Atrial Rate : 067 BPM P-R Int : 162 ms QRS Dur : 148 ms QT Int : 452 ms P-R-T Axes : 046 -08 102 degrees QTc Int : 477 ms Normal sinus rhythm Right bundle branch block T wave abnormality, consider anterolateral ischemia Abnormal ECG When compared with ECG of 06-JUL-2021 22:29, T wave inversion more evident in Anterolateral leads Confirmed by Reinaldo Guillermo ([id number]) on 03/16/2022 8:37:46 AM Referred By: REFERRED SELF Confirmed By:Reinaldo Guillermo
[2022-03-16] MEDS ORDERED: NON-FORMULARY MEDICATION (Cholecalciferol (Vitamin D3) [Vitamin D3] 25 mcg (1,000 unit) Ta PO SCH (09:00)
--- NOTE | 2022-03-16 12:11 | XRay Report ---
XR hip RT 2V w pelvis CLINICAL HISTORY: Right hip pain. COMPARISON: Pelvis radiograph September 22, 2014. CT of the abdomen and pelvis March 15, 2022. FINDINGS: Sacroiliac joints and symphysis pubis are intact. Old left pubic ring fractures are presen t. No acute fracture within the pelvis or hips. No suspicious osseous lesions are present. Degenerati ve changes at the symphysis pubis are noted. There is moderate bilateral hip osteoarthritis with mild joint space narrowing and osteophytosis. There is chondrocalcinosis. IMPRESSION: 1. No acute fracture within the pelvis or hips. 2. Moderate bilateral hip osteoarthritis. ACT 112: Negative or not required by law. Electronically signed by: William Holt M.D. 03/16/2022 12:10 PM
--- NOTE | 2022-03-16 15:28 | Hospitalist Progress Note ---
Date of Service March 16, 2022 Assessment & Plan (1) Pain in right buttock: Plan: Patient is an 89 yr female who presents with right hip pain. Right hip/Buttock pain Ambulatory dysfunction. -CT abd/pelvis unremarkable -Hip X ray: No acute fracture within the pelvis or hips. Moderate bilateral hip osteoarthritis. -On chronic prednisone -Consulted pain management PT OT Fall precautions H/O Atrial fibrillation Continue amiodarone, Coreg Subtherapeutic INR: 1.7 Continue Coumadin coronary artery disease Continue Plavix, statin, carvedilol GERD On Protonix . DM II HbA1C: 6.4 Continue insulin while hospitalized Monitor BGs CKD IV Monitor renal function Avoid nephrotoxic agents as able Polymyalgia rheumatica on prednisone Chronic diastolic congestive heart failure Continue home lasix Monitor volume status Hyperlipidemia On statin HTN Continue amlodipine, Coreg DVT Px: On Coumadin CODE STATUS Full code Disposition PT OT prior to discharge Admission and Anticipated Discharge Date Admission Date: March 15, 2022 Subjective Patient is seen and examined at bedside States having right buttock pain and tenderness especially while getting out of bed, activity Denies any chest pain, shortness of breath, dizziness, nausea, abdominal pain No other complaints Review of Systems Review of Systems: All systems reviewed & are unremarkable except as noted in Subjective Physical Exam Physical Exam: Physical Exam: Vitals signs as noted above General Appearance:Moderately built and nourished, no apparent distress Head: normocephalic, Atraumatic Eyes: normal inspection, EOMI Neck: supple, Trachea midline Respiratory/Chest: Normal breath sounds, CTA, No accessory muscle use Cardiovascular: S1, S2, No murmur Abdomen/GI:Soft, Non tender, Bowel sounds present Extremities/Musculoskeletal:normal inspection, +Right leg tender posteriorly, Trace pedal edema Neurologic/Psych:AAOX3, grossly no focal neurological deficits Skin: normal color, warm Results & Data Results & Data ([facility]) Vital Signs (Past 12 Hours) Vital Signs Temp Pulse Resp BP Pulse Ox O2 Del Method O2 Flow Rate 03/16/22 08:30 Nasal Cannula 2 03/16/22 07:14 36.4 C L 62 18 160/64 H 98 Nasal Cannula 2 Laboratory Results Short CBC 03/15/22 03/16/22 Range/Units 19:50 05:23 WBC 6.71 6.21 (4.8-10.8) K/ul Hgb 13.2 12.8 (12.0-16.0) g/dl Hct 40.3 38.4 (34.1-44.9) % Plt Count 188 177 (130-400) K/uL BMP 03/15/22 03/16/22 19:50 05:23 Sodium 136 139 Potassium 4.4 3.7 Chloride 97 L 99 Carbon Dioxide 33 H 35 H BUN 38 H 30 H Creatinine 1.44 H 1.23 H Glucose 254 H 78 Calcium 8.5 8.6 Liver Function 03/15/22 Range/Units 19:50 Total Bilirubin 0.6 (0.2-1.0) mg/dl AST 16 (13-39) U/L ALT 10 (7-52) U/L Alkaline Phosphatase 51 (34-104) U/L Albumin 3.5 (3.4-5.0) gm/dl
[2022-03-16] MEDS ORDERED: WARFARIN SOD 2.5 MG TAB PO SCH (16:00)
--- NOTE | 2022-03-16 17:51 | Pain Management Consultation ---
Date of Consultation March 16, 2022 Assessment & Plan (1) Pain in right buttock: (2) Ambulatory dysfunction: Plan Based on exam I suspect a hamstring strain/tear. She is comfortable with continuing Tylenol for pain. I have ordered her a heating pain. Continue to work with physical therapy. Please contact with any questions or concerns. History of Present Illness Reason for Consultation: Hip pain Attending Physician: Aldo Mckinley MD History of Present Illness This is an 89-year-old female that has been admitted to the [facility] for right hip/buttock pain and ambulatory dysfunction. A few days ago she was bending forwards and felt a sudden pain in the right gluteal region. She describes a sharp pain in the lower buttock region when bending forwards and ambulating. At home she has been taking Tylenol with relief. She did take one dose of Tylenol last night with moderate improvement in pain and has not required any today. No back pain or radicular symptoms. She reports 0/10 currently as she has been sitting in a car for the last hour. Does not request opioids due to side effects. Patient does have PMR and chronically on Prednisone 7.5mg daily. Allergies Allergy/AdvReac Type Severity Reaction Status Date / Time apixaban [From Eliquis] Allergy Severe pain in Verified 03/15/22 22:42 bones amoxicillin Allergy Unknown RASH,HIVES Verified 03/15/22 22:42 cefaclor Allergy Unknown RASH, HIVES Verified 03/15/22 22:42 levofloxacin Allergy Unknown hives Verified 03/15/22 22:42 heparin Allergy Unknown Verified 03/15/22 22:42 atorvastatin AdvReac Severe AFFECTS Verified 03/15/22 22:42 LIVER lisinopril AdvReac Severe AFFECTS Verified 03/15/22 22:42 LIVER ENZYMES citalopram AdvReac Intermediate "WILD Verified 03/15/22 22:42 DREAMS" enoxaparin AdvReac Unknown FACIAL Verified 03/15/22 22:42 SWELLING, FLUSHING, ELEVATED BP omeprazole AdvReac Unknown blurred Verified 03/15/22 22:42 vision, headache, flashing lights Home Medications Medication Instructions Recorded Confirmed Type atorvastatin 20 mg tablet 20 mg PO HS 10/18/18 03/15/22 History carvedilol 3.125 mg tablet 3.125 mg PO BID 10/18/18 03/15/22 History clopidogrel 75 mg tablet 75 mg PO QAM 10/18/18 03/15/22 History loratadine 10 mg tablet 10 mg PO QAM 10/18/18 03/15/22 History magnesium oxide 400 mg PO QAM 10/18/18 03/15/22 History nitroglycerin 0.4 mg sublingual 0.4 mg sublingual UD PRN Chest Pain 10/18/18 03/15/22 History tablet (Nitrostat) omega 3 350 mg-dha 235 mg-epa 90 1 cap PO QAM 10/18/18 03/15/22 History mg-fish oil 597 mg capsule,delay rel (Cut Off-3) pantoprazole 40 mg tablet,delayed 40 mg PO BID 10/18/18 03/15/22 History release prednisone 5 mg tablet 7.5 mg PO QAM 10/18/18 03/15/22 History amiodarone 100 mg tablet 100 mg PO QAM 04/15/21 03/15/22 History iron,carbonyl 65 mg-vitamin C 125 1 tab PO Q2D 04/15/21 03/15/22 History mg tablet,delayed release (Vitron-C) furosemide 20 mg tablet 40 mg PO DAILY 07/06/21 03/15/22 History melatonin 3 mg tablet 3 mg PO HS PRN sleep #30 tabs 07/10/21 03/15/22 Rx Eat 1 tab PO DAILY 03/15/22 03/15/22 History amlodipine 2.5 mg tablet 2.5 mg PO QAM 03/15/22 03/15/22 History cholecalciferol (vitamin D3) 25 25 mcg PO DAILY 03/15/22 03/15/22 History mcg (1,000 unit) tablet (Vitamin D3) cranberry 400 mg capsule 400 mg PO DAILY 03/15/22 03/15/22 History fluticasone propionate 50 2 spray intranasal DAILY PRN Nasal 03/15/22 03/15/22 History mcg/actuation nasal Congestion spray,suspension warfarin 2.5 mg tablet 2.5 mg PO DIRECTED 03/15/22 03/15/22 History Patient History Medical History Anemia Carotid arterial disease "s/p left CEA, september 2014" Cerebrovascular disease Chronic diastolic CHF (congestive heart failure) CKD (chronic kidney disease), stage III Closed fracture of inferior pubic ramus Coronary artery disease Chronic coronary heart disease with previous remote PCI to the circumflex and right coronary artery territories Dyslipidemia History of DVT (deep vein thrombosis) "2013" History of pulmonary embolism "2013" Hypertension Paroxysmal atrial fibrillation Polymyalgia rheumatica Pre-diabetes TIA (transient ischemic attack) UGIB (upper gastrointestinal bleed) Surgical History H/O dilation and curettage S/P appendectomy S/P laparoscopic cholecystectomy (12/03/13) S/P tubal ligation Family History Sister Breast cancer Sister Breast cancer Social History Smoking Status: Former smoker Hx Alcohol Use: No Hx Substance Use: No Preferred Language: Setswana Communication Ability: Effective Process Owner Required: No Beliefs That Will Affect Care: None marital status: / Current Living Situation: Alone Current Living Situation Comment: lives in [address] home, alone, has [employer] caregiver 10hours/week Other Information That Helps Us Care for You: No Feels Safe at Home: Yes Safety Concerns: Feels Safe At This Time Assistive Devices: Oxygen - Continuous and Walker Physical Exam Physical Exam: GENERAL: This is an 89 year old female that does not appear in any acute distress. Sitting comfortably in the hospital chair. HEAD/FACE: Normocephalic and atraumatic. EYES: No drainage or conjunctival injection. ENT: Nose without bleeding or discharge. Oral mucosa moist. NECK: Full ROM without apparent pain. No swelling or masses noted. RESPIRATORY: Patient with unlabored breathing. No signs of respiratory distress. CHEST/AXILLA: Chest movement symmetrical. No deformities noted. BACK: No tenderness of the lumbar region. SKIN: Linda, warm and dry. No rash noted. MS/EXTREMITY: There is focal tenderness along the proximal right hamstring. No tenderness of the right greater trochanteric bursa. Adequate ROM of the right hip without pain. NEURO: Alert and appears oriented. Speech is fluent. Cranial Nerves are grossly intact. PSYCH: Alert, pleasant, affect is calm Results ([facility]) Diagnostic Review Radiology Findings: XR hip RT 2V w pelvis CLINICAL HISTORY: Right hip pain. COMPARISON: Pelvis radiograph September 22, 2014. CT of the abdomen and pelvis March 15, 2022. FINDINGS: Sacroiliac joints and symphysis pubis are intact. Old left pubic ring fractures are present. No acute fracture within the pelvis or hips. No suspicious osseous lesions are present. Degenerative changes at the symphysis pubis are noted. There is moderate bilateral hip osteoarthritis with mild joint space narrowing and osteophytosis. There is chondrocalcinosis. IMPRESSION: 1. No acute fracture within the pelvis or hips. 2. Moderate bilateral hip osteoarthritis. ACT 112: Negative or not required by law. Electronically signed by: William Holt M.D. 03/16/2022 12:10 PM
[2022-03-16] MEDS: ATORVASTATIN 20 MG TAB PO SCH (21:01)
[2022-03-17] MEDS: ACETAMINOPHEN 325 MG TAB PO PRN (01:36)
[2022-03-17] MEDS: CLOPIDOGREL BISULFATE 75 MG TAB PO SCH (08:28)
[2022-03-17] MEDS: LORATADINE 10 MG TAB PO SCH (08:28)
[2022-03-17] MEDS: carvediloL 3.125 MG TAB PO SCH ×2 (08:28→19:42)
[2022-03-17] MEDS: CHOLECALCIFEROL 1,000 UNITS 25 MCG TAB PO SCH (08:28)
[2022-03-17] MEDS: FUROSEMIDE 40 MG TAB PO SCH (08:28)
[2022-03-17] MEDS: PANTOprazole 40 MG TAB PO SCH ×2 (08:28→19:41)
[2022-03-17] MEDS: MAGNESIUM OXIDE 400 MG TAB PO SCH (08:28)
[2022-03-17] MEDS: NYSTATIN OINT 15 GM TUBE EXT SCH ×2 (08:29→19:41)
[2022-03-17] MEDS: AMIODARONE 200 MG TAB PO SCH (08:29)
[2022-03-17] MEDS: amLODIPine BESYLATE 5 MG TAB PO SCH (08:29)
[2022-03-17] MEDS: predniSONE 2.5 MG TAB PO SCH (08:30)
[2022-03-17 09:15] LABS: INR 1.7 (0.9-1.1); Prothrombin Time 17.2 Seconds (9.0-12.0)
[2022-03-17 09:25] LABS: BUN Creatinine Ratio 24.3 (10-20); Calcium 8.5 mg/dl (8.5-10.1); Creatinine Clr Calc Pharmacy 21.1 ml/min; Est GFR (African American) 29.8 ml/min; Est GFR (Non-African American) 25.7 ml/min; Potassium 3.8 mmol/L (3.5-5.1)
--- NOTE | 2022-03-17 11:36 | Hospitalist Progress Note ---
Date of Service March 17, 2022 Assessment & Plan (1) Pain in right buttock: Plan: Patient is an 89 yr female who presents with right hip pain. Right hip/Buttock pain Ambulatory dysfunction. Suspected hamstring strain/tear -CT abd/pelvis unremarkable -Hip X ray: No acute fracture within the pelvis or hips. Moderate bilateral hip osteoarthritis. -On chronic prednisone -Appreciate pain management Input Continue PT OT Fall precautions H/O Atrial fibrillation Continue amiodarone, Coreg Subtherapeutic INR: 1.7 Increase Coumadin dose to 4 mg daily Coronary artery disease Continue Plavix, statin, carvedilol GERD On Protonix . DM II HbA1C: 6.4 Continue insulin while hospitalized Monitor BGs CKD IV Monitor renal function Avoid nephrotoxic agents as able Polymyalgia rheumatica on prednisone Chronic diastolic congestive heart failure Continue home lasix Monitor volume status Hyperlipidemia On statin HTN Continue amlodipine, Coreg DVT Px: On Coumadin CODE STATUS Full code Disposition Home when stable Admission and Anticipated Discharge Date Admission Date: March 15, 2022 Subjective Patient is seen and examined at bedside Still has intermittent right buttock/leg pain with activity Denies any chest pain, shortness of breath, dizziness, nausea, abdominal pain Review of Systems Review of Systems: All systems reviewed & are unremarkable except as noted in Subjective Physical Exam Physical Exam: Physical Exam: Vitals signs as noted above General Appearance:Moderately built and nourished, no apparent distress Head: normocephalic, Atraumatic Eyes: normal inspection, EOMI Neck: supple, Trachea midline Respiratory/Chest: Normal breath sounds, CTA, No accessory muscle use Cardiovascular: S1, S2, No murmur Abdomen/GI:Soft, Non tender, Bowel sounds present Extremities/Musculoskeletal:normal inspection, +Right leg tender posteriorly, Trace pedal edema Neurologic/Psych:AAOX3, grossly no focal neurological deficits Skin: normal color, warm Results & Data Results & Data ([facility]) Vital Signs (Past 12 Hours) Vital Signs Temp Pulse Resp BP Pulse Ox O2 Del Method 03/17/22 07:15 Room Air 03/17/22 07:51 36.7 C 60 18 158/68 H 94 Room Air Laboratory Results [facility] 03/17/22 08:23 Sodium 138 Potassium 3.8 Chloride 97 L Carbon Dioxide 36 H BUN 42 H Creatinine 1.73 H D Glucose 70 Calcium 8.5
[2022-03-17] MEDS ORDERED: SODIUM CHLORIDE 0.9% 1000ML 1,000 ML IV ONE (12:21)
[2022-03-17] MEDS: WARFARIN SOD 4 MG TAB PO SCH (15:37)
[2022-03-17] MEDS: ATORVASTATIN 20 MG TAB PO SCH (19:42)
[2022-03-18] MEDS: ACETAMINOPHEN 325 MG TAB PO PRN (03:12)
[2022-03-18 09:12] LABS: INR 1.9 (0.9-1.1); Prothrombin Time 19.3 Seconds (9.0-12.0)
[2022-03-18] MEDS: AMIODARONE 200 MG TAB PO SCH (10:13)
[2022-03-18] MEDS: amLODIPine BESYLATE 5 MG TAB PO SCH (10:13)
[2022-03-18] MEDS: carvediloL 3.125 MG TAB PO SCH ×2 (10:14→20:20)
[2022-03-18] MEDS: LORATADINE 10 MG TAB PO SCH (10:14)
[2022-03-18] MEDS: PANTOprazole 40 MG TAB PO SCH ×2 (10:14→20:20)
[2022-03-18] MEDS: CHOLECALCIFEROL 1,000 UNITS 25 MCG TAB PO SCH (10:14)
[2022-03-18] MEDS: CLOPIDOGREL BISULFATE 75 MG TAB PO SCH (10:14)
[2022-03-18] MEDS: MAGNESIUM OXIDE 400 MG TAB PO SCH (10:15)
[2022-03-18] MEDS: predniSONE 2.5 MG TAB PO SCH (10:15)
--- NOTE | 2022-03-18 10:53 | XRay Report ---
XR chest 1V portable HISTORY: 89 years-old Female Hypoxia acute hypoxia COMPARISON: Chest radiograph 07/06/2021 TECHNIQUE: AP view of the chest FINDINGS: Cardiac silhouette is enlarged. Atherosclerosis of the aorta. Eventration of the right hemidiaphragm. No pneumothorax, pleural effusion, airspace consolidation or overt pulmonary edema. Pulmonary vascul ar congestion. Degenerative changes of the shoulders and spine. Mid to lower thoracic dextroscoliosis . IMPRESSION: Cardiomegaly with pulmonary vascular congestion. ACT 112: Negative or not required by law. The above report was generated using voice recognition software. It may contain grammatical, syntax o r spelling errors. Electronically signed by: Umer Duke M.D. 03/18/2022 10:51 AM
[2022-03-18 11:37] LABS: BUN Creatinine Ratio 24.2 (10-20); Calcium 8.5 mg/dl (8.5-10.1); Creatinine Clr Calc Pharmacy 22.1 ml/min; Est GFR (African American) 31.6 ml/min; Est GFR (Non-African American) 27.2 ml/min; Potassium 3.8 mmol/L (3.5-5.1)
[2022-03-18] MEDS: NYSTATIN OINT 15 GM TUBE EXT SCH ×2 (14:32→20:20)
--- NOTE | 2022-03-18 15:47 | Hospitalist Progress Note ---
Date of Service March 18, 2022 Assessment & Plan (1) Pain in right buttock: Plan: Patient is an 89 yr female who presents with right hip pain. Right hip/Buttock pain Ambulatory dysfunction. Suspected hamstring strain/tear -CT abd/pelvis unremarkable -Hip X ray: No acute fracture within the pelvis or hips. Moderate bilateral hip osteoarthritis. -On chronic prednisone -Appreciate pain management Input Continue PT OT Fall precautions H/O Atrial fibrillation Continue amiodarone, Coreg Subtherapeutic INR: 1.9 today Continue Coumadin 4 mg today Coronary artery disease Continue Plavix, statin, carvedilol GERD On Protonix . DM II HbA1C: 6.4 Continue insulin while hospitalized Monitor BGs CKD IV Baseline Cr ~1.6 Monitor renal function Avoid nephrotoxic agents as able Polymyalgia rheumatica on prednisone Transient Hypoxia Chronic diastolic congestive heart failure Patient states using oxygen intermittently as needed at home Continue home Lasix Monitor volume status 2 step: Needs 3 liters with activity Hyperlipidemia On statin HTN Continue amlodipine, Coreg DVT Px: On Coumadin CODE STATUS Full code Disposition Home when stable Admission and Anticipated Discharge Date Admission Date: March 17, 2022 Subjective Patient is seen and examined at bedside Right buttock/leg pain is better Noted to be hypoxic this AM by RN Denies any chest pain, shortness of breath, dizziness, nausea, abdominal pain Chronic cough--unchanged as per patient Review of Systems Review of Systems: All systems reviewed & are unremarkable except as noted in Subjective Physical Exam Physical Exam: Physical Exam: Vitals signs as noted above General Appearance:Moderately built and nourished, no apparent distress Head: normocephalic, Atraumatic Eyes: normal inspection, EOMI Neck: supple, Trachea midline Respiratory/Chest: Normal breath sounds, B/L Crackles, No accessory muscle use Cardiovascular: S1, S2, No murmur Abdomen/GI:Soft, Non tender, Bowel sounds present Extremities/Musculoskeletal:normal inspection, +Right leg tender posteriorly, Trace pedal edema Neurologic/Psych:AAOX3, grossly no focal neurological deficits Skin: normal color, warm Results & Data Results & Data ([facility]) Vital Signs (Past 12 Hours) Vital Signs Temp Pulse Pulse Pulse Pulse Pulse Pulse 03/18/22 15:03 36.8 C 58 L 03/18/22 11:29 74 86 86 60 03/18/22 07:37 03/18/22 07:36 36.4 C L 60 Resp Resp Resp Resp Resp BP BP 03/18/22 15:03 16 156/75 H 03/18/22 11:29 20 22 22 18 03/18/22 07:37 03/18/22 07:36 18 138/74 Pulse Ox Pulse Ox Pulse Ox Pulse Ox Pulse Ox O2 Del Method O2 Flow Rate 03/18/22 15:03 95 Nasal Cannula 2 03/18/22 11:29 90 76 L 95 93 03/18/22 07:37 95 Nasal Cannula 2 03/18/22 07:36 85 L Room Air O2 Flow Rate O2 Flow Rate 03/18/22 15:03 03/18/22 11:29 2 2 03/18/22 07:37 03/18/22 07:36 Laboratory Results BMP 03/18/22 10:54 Sodium 136 Potassium 3.8 Chloride 98 Carbon Dioxide 35 H BUN 40 H Creatinine 1.65 H Glucose 122 H Calcium 8.5
[2022-03-18] MEDS: WARFARIN SOD 4 MG TAB PO SCH (16:47)
[2022-03-18] MEDS: ATORVASTATIN 20 MG TAB PO SCH (20:20)
[2022-03-19 07:17] LABS: INR 2.2 (0.9-1.1); Prothrombin Time 22.6 Seconds (9.0-12.0)
[2022-03-19 07:33] LABS: BUN Creatinine Ratio 25.7 (10-20); Calcium 8.6 mg/dl (8.5-10.1); Creatinine Clr Calc Pharmacy 26.8 ml/min; Est GFR (African American) 39.9 ml/min; Est GFR (Non-African American) 34.4 ml/min; Potassium 3.9 mmol/L (3.5-5.1)
[2022-03-19] MEDS: AMIODARONE 200 MG TAB PO SCH (09:15)
[2022-03-19] MEDS: amLODIPine BESYLATE 5 MG TAB PO SCH (09:16)
[2022-03-19] MEDS: CHOLECALCIFEROL 1,000 UNITS 25 MCG TAB PO SCH (09:16)
[2022-03-19] MEDS: FUROSEMIDE 40 MG TAB PO SCH (09:16)
[2022-03-19] MEDS: LORATADINE 10 MG TAB PO SCH (09:16)
[2022-03-19] MEDS: MAGNESIUM OXIDE 400 MG TAB PO SCH (09:16)
[2022-03-19] MEDS: CLOPIDOGREL BISULFATE 75 MG TAB PO SCH (09:16)
[2022-03-19] MEDS: predniSONE 2.5 MG TAB PO SCH (09:16)
[2022-03-19] MEDS: carvediloL 3.125 MG TAB PO SCH (09:16)
[2022-03-19] MEDS: PANTOprazole 40 MG TAB PO SCH (09:16)
[2022-03-19] MEDS: NYSTATIN OINT 15 GM TUBE EXT SCH (11:49)
--- NOTE | 2022-03-19 12:42 | Hospitalist Progress Note ---
Date of Service March 19, 2022 Assessment & Plan (1) Pain in right buttock: Plan: Patient is an 89 yr female who presents with right hip pain. Right hip/Buttock pain Ambulatory dysfunction. Suspected hamstring strain/tear -CT abd/pelvis unremarkable -Hip X ray: No acute fracture within the pelvis or hips. Moderate bilateral hip osteoarthritis. -On chronic prednisone -Appreciate pain management Input Continue PT OT--Recommended HH:Patient refused Fall precautions Patient refused hip CT today when offered Plan to discharge home today H/O Atrial fibrillation Continue amiodarone, Coreg Subtherapeutic INR: 2.2 today Continue Coumadin 2.5 mg today Coronary artery disease Continue Plavix, statin, carvedilol GERD On Protonix . DM II HbA1C: 6.4 Continue insulin while hospitalized Monitor BGs CKD IV Baseline Cr ~1.6 Monitor renal function Avoid nephrotoxic agents as able Polymyalgia rheumatica on prednisone Transient Hypoxia Chronic diastolic congestive heart failure Patient states using oxygen intermittently as needed at home at baseline Continue home Lasix Monitor volume status 2 step: Needs 2 liters with activity Hyperlipidemia On statin HTN Continue amlodipine, Coreg DVT Px: On Coumadin CODE STATUS Full code Disposition Home Admission and Anticipated Discharge Date Admission Date: March 17, 2022 Subjective Patient is seen and examined at bedside No new complaints Has intermittent right buttock/leg pain Denies any chest pain, shortness of breath, dizziness, nausea, abdominal pain Review of Systems Review of Systems: All systems reviewed & are unremarkable except as noted in Subjective Physical Exam Physical Exam: Physical Exam: Vitals signs as noted above General Appearance:Moderately built and nourished, no apparent distress Head: normocephalic, Atraumatic Eyes: normal inspection, EOMI Neck: supple, Trachea midline Respiratory/Chest: Normal breath sounds, CTA, No accessory muscle use Cardiovascular: S1, S2, No murmur Abdomen/GI:Soft, Non tender, Bowel sounds present Extremities/Musculoskeletal:normal inspection, Trace pedal edema Neurologic/Psych:AAOX3, grossly no focal neurological deficits Skin: normal color, warm Results & Data Results & Data ([facility]) Vital Signs (Past 12 Hours) Vital Signs Temp Pulse Resp BP BP Pulse Ox O2 Del Method 03/19/22 10:09 Nasal Cannula 03/19/22 07:47 162/77 H 03/19/22 07:46 36.7 C 66 18 195/73 H 97 Nasal Cannula O2 Flow Rate 03/19/22 10:09 2 03/19/22 07:47 03/19/22 07:46 2 Laboratory Results [facility] 03/19/22 06:29 Sodium 135 L Potassium 3.9 Chloride 98 Carbon Dioxide 32 BUN 35 H Creatinine 1.36 H Glucose 76 Calcium 8.6
--- NOTE | 2022-03-19 12:55 | Discharge Summary ---
Date of Service March 19, 2022 Admission HPI Per Admitting Provider CHIEF COMPLAINT: Right hip pain. HISTORY OF PRESENT ILLNESS: This is an 89-year-old female with past medical history significant for type 2 diabetes, hyperlipidemia, chronic dyspnea, paroxysmal atrial fibrillation, chronic diastolic CHF, history of CAD, GERD, chronic kidney disease stage IV, polymyalgia rheumatica, history of compression fracture of spine, generalized osteoarthritis, osteoporosis, history of pu lmonary embolism, ambulatory dysfunction, history of smoking, history of recurrent UTIs, depression, who lives alone at home, ambulates with a walker, presents with ambulatory dysfunction and right hip pain. The patient says she does not sleep in the bed, she sleeps in the recliner. Whenever she is bending down, she is having severe pain in the right hip and buttock region, about 9/10 in severity. She is having trouble sitting on the commode. She ambulates with walker, but she could not ambulate long as her legs up. On and off she uses oxygen. Her niece and brother live close by. Her niece checks on her. Denies any fever or chills. No chest pain, no shortness of breath, no nausea, no vomiting, no abdominal pain. Normal bowel and bladder movements. Appetite is okay. No difficulty swallowing. No headache. Somewhat hard of hearing. No blurred visions. 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 No sore throat. No cough. Currently, resting comfortably and hemodynamically stable. Admission Exam Per Admitting Provider PHYSICAL EXAMINATION: GENERAL: The patient is old and frail, not in acute distress. VITAL SIGNS: Temperature 36.9, pulse 64, respiratory rate 16, blood pressure 157/70, oxygen 99% on 3 liters. HEENT: Pupils equal, round and reactive to light. Oral mucosa moist. NECK: No JVD, no neck masses. CARDIOVASCULAR: S1 and S2 heard. Regular rate and rhythm. No murmur, no gallop. RESPIRATORY SYSTEM: Normal AP diameter. No accessory muscle use. No wheezing, no crackles. ABDOMEN: Soft, bowel sounds present, nontender, no distention. CENTRAL NERVOUS SYSTEM: Cranial nerves II-XII grossly intact, nonfocal. EXTREMITIES: No edema, no erythema. Right straight leg test is positive. On lower extremity exam, chronic skin changes seen and bone tenderness present. Principal Diagnosis Right hip/Buttock pain Ambulatory dysfunction. Discharge Data Allergies Allergy/AdvReac Type Severity Reaction Status Date / Time apixaban [From Eliquis] Allergy Severe pain in Verified 03/15/22 22:42 bones amoxicillin Allergy Unknown RASH,HIVES Verified 03/15/22 22:42 cefaclor Allergy Unknown RASH, HIVES Verified 03/15/22 22:42 levofloxacin Allergy Unknown hives Verified 03/15/22 22:42 heparin Allergy Unknown Verified 03/15/22 22:42 atorvastatin AdvReac Severe AFFECTS Verified 03/15/22 22:42 LIVER lisinopril AdvReac Severe AFFECTS Verified 03/15/22 22:42 LIVER ENZYMES citalopram AdvReac Intermediate "WILD Verified 03/15/22 22:42 DREAMS" enoxaparin AdvReac Unknown FACIAL Verified 03/15/22 22:42 SWELLING, FLUSHING, ELEVATED BP omeprazole AdvReac Unknown blurred Verified 03/15/22 22:42 vision, headache, flashing lights Consultations 03/15/22 21:40 ED Decision to Admit Stat 03/16/22 10:33 Consult Pain Management Routine Procedures Performed Laboratory Results WBC 6.21 K/ul (4.8-10.8) 03/16/22 05:23 RBC 4.09 M/uL (3.93-5.22) 03/16/22 05:23 Hgb 12.8 g/dl (12.0-16.0) 03/16/22 05:23 Hct 38.4 % (34.1-44.9) 03/16/22 05:23 MCV 93.9 fL (80.0-100.0) 03/16/22 05:23 MCH 31.3 pg (25.0-34.0) 03/16/22 05:23 MCHC 33.3 g/dL (32.0-36.0) 03/16/22 05:23 RDW Std Deviation 49.5 fL (36.4-46.3) H 03/16/22 05:23 RDW Coeff of Jackeline 14.2 % (11.5-14.5) 03/16/22 05:23 Plt Count 177 K/uL (130-400) 03/16/22 05:23 MPV 10.6 fL (9.4-12.3) 03/16/22 05:23 Immature Gran % (Auto) 0.3 % 03/16/22 05:23 Neut % (Auto) 60.2 % 03/16/22 05:23 Lymph % (Auto) 23.3 % 03/16/22 05:23 [place] % (Auto) 9.0 % 03/16/22 05:23 Eos % (Auto) 6.6 % 03/16/22 05:23 Baso % (Auto) 0.6 % 03/16/22 05:23 Neut # (Auto) 3.73 K/uL (1.4-6.5) 03/16/22 05:23 Lymph # (Auto) 1.45 K/uL (1.2-3.4) 03/16/22 05:23 [place] # (Auto) 0.56 K/uL (0.24-0.82) 03/16/22 05:23 Eos # (Auto) 0.41 K/uL (0-0.50) 03/16/22 05:23 Baso # (Auto) 0.04 K/uL (0-0.2) 03/16/22 05:23 Immature Gran # (Auto) 0.02 K/uL (0.00-0.02) 03/16/22 05:23 PT 22.6 Seconds (9.0-12.0) H 03/19/22 06:29 INR 2.2 (0.9-1.1) H 03/19/22 06:29 APTT 32.8 Seconds (21.0-31.0) H 03/15/22 19:50 PTT Ratio 1.2 03/15/22 19:50 Sodium 135 mmol/L (136-145) L 03/19/22 06:29 Potassium 3.9 mmol/L (3.5-5.1) 03/19/22 06:29 Chloride 98 mmol/L (98-107) 03/19/22 06:29 Carbon Dioxide 32 mmol/L (21-32) 03/19/22 06:29 Anion Gap 5 (3-11) 03/19/22 06:29 BUN 35 mg/dl (6-23) H 03/19/22 06:29 Creatinine 1.36 mg/dl (0.6-1.2) H 03/19/22 06:29 Est Cr Clr Drug Dosing 26.8 ml/min 03/19/22 06:29 Est GFR ( Amer) 39.9 ml/min 03/19/22 06:29 Est GFR (Non-Af Amer) 34.4 ml/min 03/19/22 06:29 BUN/Creatinine Ratio 25.7 (10-20) H 03/19/22 06:29 Glucose 76 mg/dl (70-99(Fasting)) 03/19/22 06:29 POC Glucose 146 mg/dl (70-99) H 03/16/22 17:17 Estimat Average Glucose 137 mg/dl 03/16/22 05:23 Hemoglobin A1c 6.4 % (4.5-5.6) H 03/16/22 05:23 Calcium 8.6 mg/dl (8.5-10.1) 03/19/22 06:29 Magnesium 1.9 mg/dl (1.7-2.4) 03/16/22 05:23 Total Bilirubin 0.6 mg/dl (0.2-1.0) 03/15/22 19:50 AST 16 U/L (13-39) 03/15/22 19:50 ALT 10 U/L (7-52) 03/15/22 19:50 Alkaline Phosphatase 51 U/L (34-104) 03/15/22 19:50 Total Protein 6.2 gm/dl (6.0-8.3) 03/15/22 19:50 Albumin 3.5 gm/dl (3.4-5.0) 03/15/22 19:50 Globulin 2.7 gm/dl (2.5-4.0) 03/15/22 19:50 Albumin/Globulin Ratio 1.3 (0.9-2) 03/15/22 19:50 TSH 2.574 uIu/ml (0.300-4.500) 03/15/22 19:50 SARS-CoV-2, RNA, NAAT NEGATIVE (NEGATIVE) 03/15/22 20:13 Impressions Abdomen/Pelvis CT 03/15/22 19:[address] WITHOUT CONTRAST CT DOSE: 686.03 mGy.cm HISTORY: Acute right buttock pain R buttock/hip pain TECHNIQUE: Multiaxial CT images of the abdomen and pelvis were performed without contrast. A dose lowering technique was utilized adhering to the principles of ALARA. COMPARISON STUDY: 04/15/2021 FINDINGS: Cardiomegaly with extensive coronary artery calcifications. Subsegmental bibasilar atelectasis. No pneumatosis or pneumoperitoneum. The spleen, pancreas and adrenal glands are unremarkable. Cholecystectomy. There are a few scattered hepatic cysts redemonstrated measuring up to 1.3 cm. Nonspecific bilateral perinephric stranding. Cortical thinning of the kidneys, left greater than right. No ureteral calculi or hydronephrosis. Unremarkable urinary bladder and uterus. Atherosclerosis aorta. Infrarenal abdominal aortic aneurysm redemonstrated measuring up to 3.2 cm. No aneurysm rupture. No lymphadenopathy. Tiny hiatal hernia. No bowel obstruction or bowel wall thickening. Colonic diverticulosis. The appendix is not visualized. No secondary signs of acute appendicitis. Unremarkable soft tissues. Degenerative changes of the spine, pelvis and hips. Healed chronic fracture left inferior pubic ramus. Dystrophic calcifications within the proximal right hamstring myotendinous junction again noted. Lumbar levoscoliosis. IMPRESSION: 1. No acute intra-abdominal or intrapelvic abnormality. 2. No bowel obstruction or bowel wall thickening. 3. Mild colonic diverticulosis. 4. Small hiatal hernia. 5. Additional findings as above. ACT 112: Negative or not required by law. The above report was generated using voice recognition software. It may contain grammatical, syntax or spelling errors. Electronically signed by: Umer Duke M.D. 03/15/2022 8:32 PM Hip/Pelvis X-Ray 03/16/22 10:33 XR hip RT 2V w pelvis CLINICAL HISTORY: Right hip pain. COMPARISON: Pelvis radiograph September 22, 2014. CT of the abdomen and pelvis March 15, 2022. FINDINGS: Sacroiliac joints and symphysis pubis are intact. Old left pubic ring fractures are present. No acute fracture within the pelvis or hips. No suspicious osseous lesions are present. Degenerative changes at the symphysis pubis are noted. There is moderate bilateral hip osteoarthritis with mild joint space narrowing and osteophytosis. There is chondrocalcinosis. IMPRESSION: 1. No acute fracture within the pelvis or hips. 2. Moderate bilateral hip osteoarthritis. ACT 112: Negative or not required by law. Electronically signed by: William Holt M.D. 03/16/2022 12:10 PM Chest X-Ray 03/18/22 10:22 XR chest 1V portable HISTORY: 89 years-old Female Hypoxia acute hypoxia COMPARISON: Chest radiograph 07/06/2021 TECHNIQUE: AP view of the chest FINDINGS: Cardiac silhouette is enlarged. Atherosclerosis of the aorta. Eventration of the right hemidiaphragm. No pneumothorax, pleural effusion, airspace consolidation or overt pulmonary edema. Pulmonary vascular congestion. Degenerative changes of the shoulders and spine. Mid to lower thoracic dextroscoliosis. IMPRESSION: Cardiomegaly with pulmonary vascular congestion. ACT 112: Negative or not required by law. The above report was generated using voice recognition software. It may contain grammatical, syntax or spelling errors. Electronically signed by: Umer Duke M.D. 03/18/2022 10:51 AM Ordered Studies 03/15/22 19:32 CT abd pelvis wo con Stat Hospital Course (1) Pain in right buttock: Patient is an 89 yr female who presents with right hip pain. Right hip/Buttock pain Ambulatory dysfunction. Suspected hamstring strain/tear -CT abd/pelvis unremarkable -Hip X ray: No acute fracture within the pelvis or hips. Moderate bilateral hip osteoarthritis. -On chronic prednisone -Appreciate pain management Input Continue PT OT--Recommended HH:Patient refused Fall precautions Patient refused hip CT today when offered Plan to discharge home today H/O Atrial fibrillation Continue amiodarone, Coreg Subtherapeutic INR: 2.2 today Continue Coumadin 2.5 mg today Coronary artery disease Continue Plavix, statin, carvedilol GERD On Protonix . DM II HbA1C: 6.4 Continue insulin while hospitalized Monitor BGs CKD IV Baseline Cr ~1.6 Monitor renal function Avoid nephrotoxic agents as able Polymyalgia rheumatica on prednisone Transient Hypoxia Chronic diastolic congestive heart failure Patient states using oxygen intermittently as needed at home at baseline Continue home Lasix Monitor volume status 2 step: Needs 2 liters with activity Hyperlipidemia On statin HTN Continue amlodipine, Coreg DVT Px: On Coumadin CODE STATUS Full code Disposition Home Total Time Total Time Spent Total Time Spent (In Minutes): 46 minutes Discharge Plan Discharge Items Patient Disposition: Home - Self-Care Reason For Visit: HIP PAIN Discharge Diagnosis: Right hip/Buttock pain Ambulatory dysfunction. Activity: Per Instructions section Exercise/Sports: Gradually increase as tolerated Non-emergency contact: Primary Care Provider and Specialist Call non-emergency contact if: you have any medication questions, your symptoms worsen, your pain is concerning for you and you have a fever Follow-up/Referrals: Tish Simmons PA-C [Physician Grain Grader] - (The [facility] [place] team will call you with an appointment for a home visit upon discharge.) Diet: Heart Healthy Diet Texture: Easy to Chew Addtl Attending Provider Instructions: Follow-up with your primary care physician Tish Simmons PA-C in 1 week Follow-up with Coumadin clinic for monitoring of PT/INR and adjusting your Coumadin dose. -- Use supplemental oxygen 2 L with activity as advised. Seek immediate medical attention if your symptoms reoccur or worsen Please take all medications as instructed on discharge list below. Please call if you have any questions or problems. You can reach a [facility] hospitalist on duty at [facility] 24 hours a day by calling [phone] Pending Studies at Discharge: No Stand-Alone Forms: My [facility], Smoking Cessation Medications and DC Order Prescriptions: Continued atorvastatin 20 mg tablet 20 mg PO HS prednisone 5 mg tablet 7.5 mg PO QAM clopidogrel 75 mg tablet 75 mg PO QAM carvedilol 3.125 mg tablet 3.125 mg PO BID pantoprazole 40 mg tablet,delayed release (DR/EC) 40 mg PO BID nitroglycerin [Nitrostat] 0.4 mg Tablet, Sublingual 0.4 mg sublingual UD PRN (Reason: Chest Pain) loratadine 10 mg tablet 10 mg PO QAM [place]-3 350 mg-235 mg- 90 mg-597 mg Capsule,Delayed Release(Dr/Ec) 1 cap PO QAM magnesium oxide 400 mg magnesium Tablet 400 mg PO QAM furosemide 20 mg tablet 40 mg PO DAILY melatonin 3 mg Tablet 3 mg PO HS PRN (Reason: sleep) Qty: 30 0RF warfarin 2.5 mg Tablet 2.5 mg PO DIRECTED Rx Instructions: as directed by anticoagulation cranberry 400 mg Capsule 400 mg PO DAILY Rx Instructions: administer with a meal fluticasone propionate [Flonase] 50 mcg/actuation [place],Suspension 2 spray INTRANASAL DAILY PRN (Reason: Nasal Congestion) Rx Instructions: administer into each nostril cholecalciferol (vitamin D3) [Vitamin D3] 25 mcg (1,000 unit) Tablet 25 mcg PO DAILY [email or web address] 1 tab PO DAILY amlodipine 2.5 mg tablet 2.5 mg PO QAM amiodarone 100 mg tablet 100 mg PO QAM Vitron-C 65 mg iron- 125 mg tablet,delayed release (DR/EC) 1 tab PO Q2D Discharge Orders: Discharge Order (Routine); Ordered 03/19/22 Ordered By: Aldo Gracia/Other Patient Handouts: A1C Admission Data Admit Date/Time: 03/17/22 10:28 Attending Provider: Aldo Mckinley Admit Provider: Adalberto Cooley Primary Care Provider: Jes Manzanares Other Providers: Adalberto Cooley ; Janis Jimenez
[2022-03-19] MEDS ORDERED: WARFARIN SOD 2.5 MG TAB PO SCH (16:00)
[2022-03-21] MEDS ORDERED: WARFARIN SOD 1.25 MG TAB PO SCH (16:00)
== END 2022-03-19 18:23 | disposition home or self-care (01) | DRG 537 ==
LOC: 3N 18:59 → ED 18:59 → 3N 23:18